=== PATIENT | male | born 1950 | race Two or more races ===

== ENCOUNTER 2020-02-20 09:49 | Inpatient (IN) | payer MEDICARE, MEDICAID ==
[2020-02-20] VITALS (12 sets, daily range): BP systolic 62–110; BP diastolic 52–80
[~2020-02-20] VITALS: Ht 162.6 cm; Wt 60.0 kg
[~2020-02-20 09:49] MED LIST: ALBUTEROL SULF8.5 G1 TRANSTR092; ATORVASTATIN CA10 MG GT; COLACE100 MG GT; HYDROCODON-ACE1 EA15 GT
[2020-02-20] MEDS ORDERED: LANSOPRAZOLE30 MG GT (09:51)
[2020-02-20] MEDS ORDERED: INSULIN LI100 UNIT/3 SQ (09:51)
[2020-02-20] MEDS ORDERED: MILK OF MA400 MG/51 GT (09:53)
[2020-02-20] MEDS ORDERED: MULTIVITAMINS1 EAC8 ORAL (09:53)
[2020-02-20] MEDS ORDERED: LEVEMIR100 UNIT/1 SUBQ (09:53)
[2020-02-20] MEDS ORDERED: NITRO0.4 SL (09:53)
[2020-02-20] MEDS ORDERED: LOVENOX10 M2 SUBQ (09:53)
[2020-02-20] MEDS ORDERED: PRO-STAT AWC L887 ML GT (09:56)
[2020-02-20] MEDS ORDERED: VITAMIN D32400 UNIT/ MC (09:56)
[2020-02-20] MEDS ORDERED: QUETIAPINE FUMA50 MG ORAL (09:56)
[2020-02-20] MEDS ORDERED: ACETAMINOPHEN325 M1 ORAL (09:56)
[2020-02-20] MEDS ORDERED: VITAMIN A & D454 GM TP (09:56)
[2020-02-20] MEDS ORDERED: SILVADENE20 GM TP (09:56)
[2020-02-20] MEDS ORDERED: ZINC OXIDE56.7 G1 TD (09:56)
[2020-02-20] MEDS ORDERED: METAMUCIL POWD822 GM GT (09:56)
[2020-02-20] MEDS ORDERED: VITAMIN C500 M1 GT (09:56)
--- NOTE | 2020-02-20 10:00 | NUR ---
ED Nurse Note: Pt was brought in by amb from [facility] d/t shortness of breath and tachycardia with HR of 147BPM; satting at 97% on O2 with 12LPM via trach. Pt is AOx2, understands english and wolof; cooperative to care. Pt is a GT dependent; incontinent, pressure sore on sacral area noted. Pt appears to be warm to touch. Pt was placed on bed, safety measures in placed.
[2020-02-20] MEDS ORDERED: Acetaminophen 650 MG SUPP RECTAL ONE ×2 (10:12→10:15)
[2020-02-20] MEDS ORDERED: Vancomycin 1 GM in NS 275 ML IVPB ONE (10:15)
[2020-02-20] MEDS ORDERED: Piperacillin/Tazobactam 3.375 GM in NS 110 ML IVPB ONE (10:15)
--- NOTE | 2020-02-20 10:15 | NUR ---
ED Nurse Note: rectal temp: 101.8, notified ERMD.
[2020-02-20 10:24] LABS: APPEARANCE,URINE TURBID; BILIRUBIN, URINE NEGATIVE (NEGATIVE); GLUCOSE, URINE (UA) 4+ (NEGATIVE); HEMATOCRIT 38.5 % (42.0-52.0); HEMOGLOBIN 12.8 G/DL (14.2-18.0); KETONES,URINE 1+ (NEGATIVE); LEUKOCYTE ESTERASE ,URINE 3+ (NEGATIVE); MEAN CORPUSCULAR VOLUME 84 FL (80-99); NITRITE,URINE NEGATIVE (NEGATIVE); PH,URINE 6 (4.5-8.0); PLATELET COUNT 597 K/UL (150-450); PROTEIN,URINE 2+ (NEGATIVE); RED BLOOD COUNT 4.57 M/UL (4.70-6.10); RED CELL DISTRIBUTION WIDTH 14.1 % (11.6-14.8); UROBILINOGEN,URINE NORMAL MG/DL (0.0-1.0)
[2020-02-20 10:27] LABS: COLOR,URINE YELLOW
[2020-02-20 10:28] LABS: WHITE BLOOD COUNT 27.7 K/UL (4.8-10.8)
--- NOTE | 2020-02-20 10:40 | Emergency Room Report ---
History of Present Illness General Chief Complaint: Dyspnea/Respdistress Source: Patient Present Illness HPI Disclaimer: Please note that this report is being documented using DRAGON technology. This can lead to erroneous entry secondary to incorrect interpretation by the dictating instrument. HPI: This is a 69-year-old male history of poorly controlled diabetes, traumatic brain injury with intracranial hemorrhage and history of stroke, encephalopathic at baseline, trach, G-tube and bedbound. [facility] due to reported hypoxia and fever. EMS was called on their arrival patient in mild respiratory distress transferred to the ER. Patient currently is a full code. On arrival to ER patient does respond to voice however cannot provide any history. He was in moderate respiratory distress on arrival. Allergies: Coded Allergies: No Known Allergies (Unverified , 02/20/20) COVID-19 Screening Contact w/high risk pt: Yes Experienced COVID-19 symptoms?: Yes COVID-19 Testing performed COMMUNITY ENGAGEMENT REPRESENTATIVE: No Patient History Reviewed Nursing Documentation: PMH: Agreed; PSxH: Agreed Nursing Documentation-PMH Past Medical History: No History, Except For Hx Diabetes: Yes Review of Systems All Other Systems: limited - Due to baseline altered mental status Physical Exam Vital Signs Date Time Temp Pulse Resp B/P (MAP) Pulse Ox O2 Delivery O2 Flow Rate FiO2 02/20/20 09:41 100.9 145 26 102/58 (73) 97 Trach Collar Sp02 EP Interpretation: reviewed, normal - On oxygen General Appearance: moderate distress, Chronically Ill Head: normocephalic, atraumatic Eyes: bilateral eye PERRL, bilateral eye EOMI ENT: hearing grossly normal, moist mucus membranes Neck: full range of motion, supple, tracheotomy Respiratory: respiratory distress - Moderate respiratory distress noted with coarse breath sounds noted bilaterally Cardiovascular #1: normal peripheral pulses, no murmur, tachycardia Gastrointestinal: non tender, soft, non-distended, no guarding, other - Gastrostomy tube present Neurologic: alert, other - Makes groaning sounds, withdraws the pain Skin: normal color, warm/dry Procedures Critical Care Time Critical Care Time Critical care is made in this patient due to presentation with fever, concern with sepsis, requiring my acute intervention. Critical care time is 40 minutes and excludes procedures Medical Decision Making Diagnostic Impression: Primary Impression: Sepsis Additional Impressions: Pneumonia UTI (urinary tract infection) ER Course MDM: Differential included but not limited to dehydration, sepsis, pneumonia, UTI, COVID-19 to name a few Clinical course-IV inserted septic work-up initiated IV fluids given blood gas ordered and showed evidence of alkalosis normal O2 and at this time I did not place patient on the ventilator. He was on trach mask and will continue trach mask. Patient was febrile on arrival Tylenol given. Broad-spectrum antibiotics given due to concern for UTI and sepsis. COVID testing was sent. Previous record from recent admission reviewed. He has a history of traumatic intracranial hemorrhage. Is encephalopathic at baseline. Laboratory studies showed evidence of urinary tract infection. Chest x-ray consistent with pneumonia in the right lung. Broad-spectrum IV antibiotics were given. COVID testing was negative. Patient given Tylenol for fever. IV fluid boluses given. On reassessment tachycardia improved fever improved, blood glucose improved with IV insulin. We will plan to admit the patient to ICU for further close monitoring. Labs - Laboratory Tests Test 02/20/20 10:00 02/20/20 10:03 02/20/20 11:08 White Blood Count 27.7 K/UL (4.8-10.8) *H Red Blood Count 4.57 M/UL (4.70-6.10) L Hemoglobin 12.8 G/DL (14.2-18.0) L Hematocrit 38.5 % (42.0-52.0) L Mean Corpuscular Volume 84 FL (80-99) Mean Corpuscular Hemoglobin 27.9 PG (27.0-31.0) Mean Corpuscular Hemoglobin Concent 33.1 G/DL (32.0-36.0) Red Cell Distribution Width 14.1 % (11.6-14.8) Platelet Count 597 K/UL (150-450) H Mean Platelet Volume 5.1 FL (6.5-10.1) L Neutrophils (%) (Auto) % (45.0-75.0) Lymphocytes (%) (Auto) % (20.0-45.0) Monocytes (%) (Auto) % (1.0-10.0) Eosinophils (%) (Auto) % (0.0-3.0) Basophils (%) (Auto) % (0.0-2.0) Differential Total Cells Counted 100 Neutrophils % (Manual) 89 % (45-75) H Lymphocytes % (Manual) 1 % (20-45) L Monocytes % (Manual) 4 % (1-10) Eosinophils % (Manual) 1 % (0-3) Basophils % (Manual) 0 % (0-2) Band Neutrophils 5 % (0-8) Platelet Estimate Increased H Platelet Morphology Normal Urine Color Yellow Urine Appearance Turbid Urine pH 6 (4.5-8.0) Urine Specific [place] 1.015 (1.005-1.035) Urine Protein 2+ (NEGATIVE) H Urine Glucose (UA) 4+ (NEGATIVE) H Urine Ketones 1+ (NEGATIVE) H Urine Blood 5+ (NEGATIVE) H Urine Nitrite Negative (NEGATIVE) Urine Bilirubin Negative (NEGATIVE) Urine Urobilinogen Normal MG/DL (0.0-1.0) Urine Leukocyte Esterase 3+ (NEGATIVE) H Urine RBC Tntc /HPF (0 - 0) H Urine WBC Tntc /HPF (0 - 0) H Urine Squamous Epithelial Cells Few /LPF (NONE/OCC) Urine Bacteria Many /HPF (NONE) H Urine Yeast Many /HPF (NONE) H Sodium Level 133 MMOL/L (136-145) L Potassium Level 4.5 MMOL/L (3.5-5.1) Chloride Level 98 MMOL/L (98-107) Carbon Dioxide Level 22 MMOL/L (21-32) Anion Gap 13 mmol/L (5-15) Blood Urea Nitrogen 33 mg/dL (7-18) H Creatinine 1.5 MG/DL (0.55-1.30) H Estimated Glomerular Filtration Rate 46.5 mL/min (>60) Glucose Level 505 MG/DL (74-106) *H Lactic Acid Level 5.20 mmol/L (0.4-2.0) H 4.70 mmol/L (0.66-2.22) H Calcium Level 10.9 MG/DL (8.5-10.1) H Magnesium Level 1.9 MG/DL (1.8-2.4) Total Bilirubin 0.3 MG/DL (0.2-1.0) Aspartate Amino Transferase (AST) 12 U/L (15-37) L Alanine Aminotransferase (ALT) 15 U/L (12-78) Alkaline Phosphatase 158 U/L (46-116) H Troponin I 0.007 ng/mL (0.000-0.056) Pro-B-Type Natriuretic Peptide 216 pg/mL (0-125) H Total Protein 8.7 G/DL (6.4-8.2) H Albumin 1.8 G/DL (3.4-5.0) L Globulin 6.9 g/dL Albumin/Globulin Ratio 0.3 (1.0-2.7) L Acetone Level Negative (NEGATIVE) Arterial Blood pH 7.516 (7.350-7.450) Arterial Blood Partial Pressure CO2 28.7 mmHg (35.0-45.0) L Arterial Blood Partial Pressure O2 106.8 mmHg (75.0-100.0) H Arterial Blood HCO3 22.7 mmol/L (22.0-26.0) Arterial Blood Oxygen Saturation 98.0 % (95-100) Arterial Blood Base Excess 0.7 (-2-2) Jose Test Positive Microbiology Date/Time Source Procedure Growth Status 02/20/20 10:00 Nasopharynx SARS-CoV-2 RdRp Gene Assay - Final Complete Plan-admission to Dr. Lan EKG Diagnostic Results Rate: tachycardiac Rhythm: other - sinus tachycardia ST Segments: no acute changes Rhythm Strip Diag. Results EP Interpretation: yes Rate: 125 Chest X-Ray Diagnostic Results Chest X-Ray Diagnostic Results : Chest X-Ray Ordered: Yes # of Views/Limited/Complete: 1 View Indication: Shortness of Breath EP Interpretation: Yes Interpretation: other - Right-sided consolidation noted, no pneumothorax no effusion Electronically Signed by: Artie Pulliam MD Last Vital Signs Date Time Temp Pulse Resp B/P (MAP) Pulse Ox O2 Delivery O2 Flow Rate FiO2 02/20/20 09:41 100.9 145 26 102/58 (73) 97 Trach Collar Status: improved Disposition: ADMITTED INPATIENT Condition: Serious Artie Pulliam M.D. Feb 20, 2020 10:40
[2020-02-20 10:57] LABS: ALANINE AMINOTRANSFERASE 15 U/L (12-78); ALBUMIN 1.8 G/DL (3.4-5.0); ALBUMIN/GLOBULIN RATIO 0.3 (1.0-2.7); ALKALINE PHOSPHATASE 158 U/L (46-116); ANION GAP 13 mmol/L (5-15); ASPARTATE AMINO TRANSFERASE 12 U/L (15-37); BILIRUBIN,TOTAL 0.3 MG/DL (0.2-1.0); BLOOD UREA NITROGEN 33 mg/dL (7-18); CALCIUM 10.9 MG/DL (8.5-10.1); CARBON DIOXIDE 22 MMOL/L (21-32); CHLORIDE 98 MMOL/L (98-107); CREATININE 1.5 MG/DL (0.55-1.30); POTASSIUM 4.5 MMOL/L (3.5-5.1); SODIUM 133 MMOL/L (136-145)
--- NOTE | 2020-02-20 11:17 | Diagnostic Imaging Report ---
Indication: Dyspnea Technique: One view of the chest Comparison: None Findings: There is fairly extensive consolidation in the right lung. No pleural effusions. The left lung and pleural space are clear. The heart size is normal. There is some fullness in the right hilar region. Impression: Right lung consolidation, likely pneumonia Right hilar apparent fullness, probably an artifact of rotation but mass or adenopathy also possible. Recommend follow-up radiographs to resolution. Tracheostomy
[2020-02-20] MEDS ORDERED: Insulin Human Regular 100units/ml 3ml IV ONE (11:45)
--- NOTE | 2020-02-20 14:59 | NUR ---
ED Nurse Note: report given to Damian HAN in ICU.
--- NOTE | 2020-02-20 16:00 | NUR ---
NURSE NOTES: PT ON UNIT. CONNECTED TO MONITOR. SOB, PLACED ON COOL AEROSOL 35%, 12L. COUGH NOTED. SECRETIONS COPIOUS, VARELA AND YELLOW. BILATERAL RHONCHI, WHEEZE. HOB 30. ABDOMEN, NON TENDER. PT WEARING DIAPER, INCONTINENT OF STOOL. BROWN, LOOSE. BILATERAL RADIAL PULSES WEAK. UNILATERAL STRENGTH. RT GREATER THEN LEFT. TOES CONTRACTED. LT HAND AND RT WRIST 20G. S.L. ZAMAN DRAINING YELLOW URINE, WITH SEDIMENT. AX TEMP 97.8. NO C/O PAIN. CALL LIGHT IN REACH. BED ALARM ON. STANDARD PRECAUTIONS IN PLACE.
--- NOTE | 2020-02-20 16:05 | NUR ---
ED Nurse Note: Pt was transferred to ICU under the care of Dr. Lan. Report for transfer was given to EMELY Salgado in ICU. Pt was transfered on stable condition; family aware. All belongings sent with pt.
--- NOTE | 2020-02-20 16:50 | NUR ---
NURSE NOTES: CALLED MD RG, LEFT MESSAGE FOR ADMISSION ORDERS. AWAITING CALL BACK.
--- NOTE | 2020-02-20 17:02 | NUR ---
NURSE NOTES: MD GROVER HERE TO SEE PT. RECEIVED ORDER FO HEP 5,000 UNITS DAILY. PROTONIX 40MG DAILY IVP. VENOUS DUPLEX, CONSULTS FOR: RAPHAEL REYNOLDS [place], KATTAN. NS IL AT 100ML/HR. TYLENOL FOR PAIN AND FEVER. DUO [id number]. CULTURE SPUTUM AND URINE. LABS: ESR, BNP, HGB A1C, VIT D 250H, CBC, BMP, LFT. THEN ZOSYN 3.75G, VANCO 1GM.IVPB. IN AM UA, CXR. FULL CODE. DIET GLUCERNA, US OF ABDOMEN AND RENAL
--- NOTE | 2020-02-20 17:09 | History & Physical ---
History of Present Illness General Reason for Hospitalization: Dyspnea/Respdistress Present Illness Allergies: Coded Allergies: No Known Allergies (Unverified , 02/20/20) COVID-19 Screening Contact w/high risk pt: Yes Experienced COVID-19 symptoms?: Yes COVID-19 symptoms experienced: Cough Medication History Scheduled Acetylcysteine (Acetylcysteine), 6 ML [id number] Q6HR, (Reported) Albuterol Sulfate* (Albuterol Sulfate Hfa*), 2 PUFF [id number] Q3H, (Reported) Amino Acids/Protein Hydrolys (Pro-Stat Awc Liquid), 30 ML GT DAILY, (Reported) Ascorbic Acid* (Vitamin C*), 500 MG GT DAILY, (Reported) Atorvastatin Calcium* (Lipitor*), 10 MG GT BEDTIME, (Reported) Cholecalciferol (Vitamin D3) (Vitamin D3), 125 MCG GT DAILY, (Reported) Docusate Sodium* (Colace*), 100 MG GT DAILY, (Reported) Enoxaparin* (Lovenox*), 70 MG SUBQ EVERY 12 HOURS, (Reported) Ertapenem (Invanz), 1 GM IM DAILY, (Reported) Ertapenem (Invanz), 1 GM IM DAILY, (Reported) Insulin NPH Human Isophane (NovoLIN N Flexpen), 17 UNIT SQ Q8HR, (Reported) Lansoprazole* (Lansoprazole*), 30 MG GT DAILY, (Reported) Multivitamin with Minerals (Support), 5 ML GT DAILY, (Reported) Psyllium (Metamucil Powder), 6 GM GT BID, (Reported) Quetiapine Fumarate* (Seroquel*), 25 MG GT TWICE A DAY, (Reported) Silver Sulfadiazine (Silvadene), 20 GM TP DAILY, (Reported) Vitamin A & D (Vitamin A & D Ointment), 454 GM TP DAILY, (Reported) Zinc Oxide (Zinc Oxide), 56.7 GM TD DAILY, (Reported) Scheduled PRN Acetaminophen* (Acetaminophen 325MG Tablet*), 325 MG ORAL Q4H PRN for MILD PAIN (1-4)/TEMP>101F, (Reported) Dextran 70/Hypromellose (Artificial Tears Eye Drops*), 1 DROP BOTH EYES Q4HR PRN for EYE IRRITATION, (Reported) Hydrocodone/Acetaminophen 5-325* (Hydrocodone/Acetaminophen 5-325*), 1 TAB GT Q6HR PRN for Severe Pain (Pain Scale 7-10), (Reported) Insulin Lispro (Humalog), 0 SUBQ TID PRN for HYPERGLYCEMIA, (Reported) Magnesium Hydroxide* (Milk Of Magnesia*), 30 ML GT QHS PRN for Constipation, ( Reported) Nitroglycerin 0.4MG table* (Nitroglycerin*), 0.3 MG SL .Q5MIN X 3 DOSES PRN for CHEST PAIN, (Reported) Discontinued Medications Cholecalciferol (Vitamin D3) (Vitamin D3), 5,000 UNIT MC, (Reported) Discontinued Reason: Prescription changed Enoxaparin* (Lovenox*), 70 MG SUBQ DAILY, (Reported) Discontinued Reason: Prescription changed Insulin Detemir (Levemir), 0 SUBQ BEDTIME, (Reported) Discontinued Reason: Therapy completed Insulin Lispro Protamin/Lispro (Insulin Lispro Mix 75-25 Kwkpn), 100 UNIT SQ, ( Reported) Discontinued Reason: Prescription changed Multivitamin With Minerals (Multivitamins With Minerals*), 1 TAB ORAL DAILY, ( Reported) Discontinued Reason: Prescription changed Quetiapine Fumarate* (Quetiapine Fumarate*), 25 MG ORAL DAILY, (Reported) Discontinued Reason: Prescription changed Patient History Limited by: other - Patient is unable to give any information regarding his state of health History Provided By: Medical Record Healthcare decision maker Resuscitation status Advanced Directive on File Family History Family History: Family history was reviewed; no changes noted. Review of Systems Review of Symptoms General ROS: no weight loss or fever Psychological ROS: no depression or mood changes, no memory loss Ophthalmic ROS: no visual changes or eye irritation ENT ROS: no nasal congestion, hearing loss, dizziness Allergy and Immunology ROS: no allergic symptoms or urticaria Hematological and Lymphatic ROS: no swollen glands, unusual bleeding or bruising Endocrine ROS: no polyuria, polydipsia, weight changes, temperature intolerance Respiratory ROS: no cough, shortness of breath, or wheezing Cardiovascular ROS: no chest pain or dyspnea on exertion Gastrointestinal ROS: denies abdominal pain, bright red blood in stool. Musculoskeletal ROS: no myalgias or arthralgias Neurological ROS: no TIA or stroke symptoms Dermatological ROS: no new or changing skin lesions, rashes or pruritis Physical Exam Physical Exam General appearance: alert, cooperative, no distress, appears stated age Head: Normocephalic, without obvious abnormality, atraumatic Eyes: conjunctivae/corneas clear. PERRL, EOM's intact. Fundi benign Throat: Lips, mucosa, and tongue normal. Teeth and gums normal Neck: supple, symmetrical, trachea midline, no adenopathy, thyroid: not enlarged, symmetric, no tenderness/mass/nodules, no carotid bruit and no JVD Lungs: clear to auscultation bilaterally Heart: regular rate and rhythm, S1, S2 normal, no murmur, click, rub or gallop Abdomen: soft, non-tender. Bowel sounds normal. No masses, no organomegaly Extremities: extremities normal, atraumatic, no cyanosis or edema Pulses: 2+ and symmetric Skin: Skin color, texture, turgor normal. No rashes or lesions Neurologic: Grossly normal Last 24 Hour Vital Signs Date Time Temp Pulse Resp B/P (MAP) Pulse Ox O2 Delivery O2 Flow Rate FiO2 02/20/20 16:48 98 Cool Aerosol 8.0 35 02/20/20 16:31 103 29 106/80 (89) 98 02/20/20 16:30 12.0 35 02/20/20 16:05 98.9 101 22 96/60 99 Trach Collar 02/20/20 14:50 98.9 106 22 96/60 98 Trach Collar 02/20/20 13:15 98.9 105 23 96/60 97 Trach Collar 02/20/20 12:51 98.9 106 24 96/60 97 Trach Collar 02/20/20 11:45 98.9 108 27 102/58 97 Trach Collar 02/20/20 10:45 98.9 02/20/20 10:25 145 26 Trach Collar 02/20/20 10:25 100.9 26 102/58 97 Trach Collar 02/20/20 09:41 100.9 145 26 102/58 (73) 97 Trach Collar Laboratory Tests Test 02/20/20 10:00 02/20/20 10:03 02/20/20 11:08 White Blood Count 27.7 K/UL (4.8-10.8) *H Red Blood Count 4.57 M/UL (4.70-6.10) L Hemoglobin 12.8 G/DL (14.2-18.0) L Hematocrit 38.5 % (42.0-52.0) L Mean Corpuscular Volume 84 FL (80-99) Mean Corpuscular Hemoglobin 27.9 PG (27.0-31.0) Mean Corpuscular Hemoglobin Concent 33.1 G/DL (32.0-36.0) Red Cell Distribution Width 14.1 % (11.6-14.8) Platelet Count 597 K/UL (150-450) H Mean Platelet Volume 5.1 FL (6.5-10.1) L Neutrophils (%) (Auto) % (45.0-75.0) Lymphocytes (%) (Auto) % (20.0-45.0) Monocytes (%) (Auto) % (1.0-10.0) Eosinophils (%) (Auto) % (0.0-3.0) Basophils (%) (Auto) % (0.0-2.0) Differential Total Cells Counted 100 Neutrophils % (Manual) 89 % (45-75) H Lymphocytes % (Manual) 1 % (20-45) L Monocytes % (Manual) 4 % (1-10) Eosinophils % (Manual) 1 % (0-3) Basophils % (Manual) 0 % (0-2) Band Neutrophils 5 % (0-8) Platelet Estimate Increased H Platelet Morphology Normal Urine Color Yellow Urine Appearance Turbid Urine pH 6 (4.5-8.0) Urine Specific [place] 1.015 (1.005-1.035) Urine Protein 2+ (NEGATIVE) H Urine Glucose (UA) 4+ (NEGATIVE) H Urine Ketones 1+ (NEGATIVE) H Urine Blood 5+ (NEGATIVE) H Urine Nitrite Negative (NEGATIVE) Urine Bilirubin Negative (NEGATIVE) Urine Urobilinogen Normal MG/DL (0.0-1.0) Urine Leukocyte Esterase 3+ (NEGATIVE) H Urine RBC Tntc /HPF (0 - 0) H Urine WBC Tntc /HPF (0 - 0) H Urine Squamous Epithelial Cells Few /LPF (NONE/OCC) Urine Bacteria Many /HPF (NONE) H Urine Yeast Many /HPF (NONE) H Sodium Level 133 MMOL/L (136-145) L Potassium Level 4.5 MMOL/L (3.5-5.1) Chloride Level 98 MMOL/L (98-107) Carbon Dioxide Level 22 MMOL/L (21-32) Anion Gap 13 mmol/L (5-15) Blood Urea Nitrogen 33 mg/dL (7-18) H Creatinine 1.5 MG/DL (0.55-1.30) H Estimat Glomerular Filtration Rate 46.5 mL/min (>60) Glucose Level 505 MG/DL (74-106) *H Lactic Acid Level 5.20 mmol/L (0.4-2.0) H 4.70 mmol/L (0.66-2.22) H Calcium Level 10.9 MG/DL (8.5-10.1) H Magnesium Level 1.9 MG/DL (1.8-2.4) Total Bilirubin 0.3 MG/DL (0.2-1.0) Aspartate Amino Transf (AST/SGOT) 12 U/L (15-37) L Alanine Aminotransferase (ALT/SGPT) 15 U/L (12-78) Alkaline Phosphatase 158 U/L (46-116) H Troponin I 0.007 ng/mL (0.000-0.056) Pro-B-Type Natriuretic Peptide 216 pg/mL (0-125) H Total Protein 8.7 G/DL (6.4-8.2) H Albumin 1.8 G/DL (3.4-5.0) L Globulin 6.9 g/dL Albumin/Globulin Ratio 0.3 (1.0-2.7) L Acetone Level Negative (NEGATIVE) Arterial Blood pH 7.516 (7.350-7.450) Arterial Blood Partial Pressure CO2 28.7 mmHg (35.0-45.0) L Arterial Blood Partial Pressure O2 106.8 mmHg (75.0-100.0) H Arterial Blood HCO3 22.7 mmol/L (22.0-26.0) Arterial Blood Oxygen Saturation 98.0 % (95-100) Arterial Blood Base Excess 0.7 (-2-2) Jose Test Positive Microbiology Date/Time Source Procedure Growth Status 02/20/20 10:00 Nasopharynx SARS-CoV-2 RdRp Gene Assay - Final Complete Height (Feet): 5 Height (Inches): 6.00 Weight (Pounds): 180 Medications Current Medications Medications (Trade) Dose Ordered Sig/Anders Route PRN Reason Start Time Stop Time Status Last Admin Dose Admin Sodium Chloride 1,000 ml @ 125 mls/hr Q8H IV 02/20/20 14:15 10/9/20 14:14 02/20/20 14:34 MIPS Hospital declaration INPATIENT level of care is warranted for this patient because patient is 67year old with who presents with suspicion of I have a high level of concern because of nigh fever tachycardia and leucocytosis associated with hypotension.Patient is at high rirsk for . Plan of care/treatment include presure support anti biotics and respiratory assistance. Patient care is expected to be greater than 2 midnights. OBSERVATION level of care is warranted for this patient. Patient is a 67 year old with who presents with . Patient will be admitted for 1 midnight, but if additional night(s) is/are necessary, patient will be converted to inpatient status for the entire hospitalization Disposition: Once the patient is stable to leave the hospital, I anticipate the patient will likely be discharged to the following environment: [facility] UNIT. Estimated discharge date: I spent 70 minutes on this patient's case, and 30 minutes was dedicated to counseling and/or care coordination. MIPS (Merit-based Incentive Payment System) Applicable CPT: 41938, 05517 CHECK ALL THAT ARE MET: Measure #5 (CHF): All ages. Prescribe JAMAL/ARB upon discharge for patients with left ventricular systolic dysfunction. If not, the reason is clearly documented in the medical chart. Measure #8 (CHF): All ages. Prescribe a beta mahi upon discharge for patients with left ventricular systolic dysfunction. If not, the reason is clearly documented in the medical chart. Measure #47 Advance care plan or surrogate decision maker documented in the medical record. Measure #130 The provider has documented, updated, or reviewed the patients current medication list and has documented it in the patients note. Measure #374 (All): Send report to referring provider. Measure #407(Sepsis due to MSSA bacteremia): Age 18+ Patient treated with a beta-lactam antibiotic (Nafcillin, Oxacillin or Cefazolin) as definitive therapy. MEDICAL COMPLEXITY High complexity medical decision making (need 2/3 categories) Problem - need 4 points Acute/new problem with new plan for workup (4 points, 1 max) Acute/new problem without additional workup (3 points, 1 max) Unstable chronic problem actively being managed (2 point each, 2 max) Stable chronic problem actively being managed (1 point each, 2 max) Self-limited/transient process (constipation, muscle ache, etc) (1 point each , 2 max) Data - need 4 points Reviewed labs/imaging studies (1 points, 2 max) Independent review of imaging (EKG, xrays, etc) (2 points, 2 max) Discussed case with consult/other MD/RN (2 points, 2 max) High Risk - qualify if have one of the following: Severe exacerbation of acute problem, acute mental status change, IV narcotics , monitoring drug levels (vancomycin, INR, tacrolimus etc) Yola Lan MD Feb 20, 2020 17:09
[2020-02-20 18:55] LABS: HEMATOCRIT 27.4 % (42.0-52.0); HEMOGLOBIN 9.4 G/DL (14.2-18.0); MEAN CORPUSCULAR VOLUME 86 FL (80-99); PLATELET COUNT 464 K/UL (150-450); RED CELL DISTRIBUTION WIDTH 14.7 % (11.6-14.8)
[2020-02-20 19:01] LABS: WHITE BLOOD COUNT 27.7 K/UL (4.8-10.8)
--- NOTE | 2020-02-20 19:20 | NUR ---
NURSE NOTES: Pt report received from mary RN. pt remains stable. pt is alert and oriented times 2, no other acute neuro deficit noted. pt is Trach with cool aerosol, sating 98%, no other acute resp distress noted. pt is showing NSR on cardiac catheterization technologist, no other acute cardiac distress noted. pt bed is low, locked, armed , call light within reach, bed rails up times 3. will follow plan of care.
--- NOTE | 2020-02-20 19:40 | NUR ---
NURSE NOTES: tube feeding started per Doctor order.
[2020-02-20 19:56] LABS: ALANINE AMINOTRANSFERASE 10 U/L (12-78); ANION GAP 9 mmol/L (5-15); ASPARTATE AMINO TRANSFERASE 9 U/L (15-37); BILIRUBIN,DIRECT < 0.1 MG/DL (0.0-0.3); BILIRUBIN,TOTAL 0.3 MG/DL (0.2-1.0); BLOOD UREA NITROGEN 21 mg/dL (7-18); CALCIUM 10.5 MG/DL (8.5-10.1); CARBON DIOXIDE 24 MMOL/L (21-32); CHLORIDE 108 MMOL/L (98-107); CREATININE 0.7 MG/DL (0.55-1.30); POTASSIUM 3.9 MMOL/L (3.5-5.1); SODIUM 141 MMOL/L (136-145)
[2020-02-20] MEDS: Albuterol/Ipratropium 3ml neb HHN SCH (19:57)
[2020-02-20] MEDS ORDERED: Vancomycin 500 MG in NS 110 ML IVPB ONE (20:00)
--- NOTE | 2020-02-20 20:10 | NUR ---
HAND-OFF: Report given to MARCUS Eduardo
[2020-02-20] MEDS ORDERED: Vancomycin 1 GM in D5W 275 ML IVPB SCH (21:00)
[2020-02-20] MEDS: Heparin 5000 units/ml inj SUBQ SCH (21:01)
--- NOTE | 2020-02-20 23:00 | NUR ---
NURSE NOTES: pt turned, repositioned and cleaned.
[2020-02-20] MEDS: Piperacillin/Tazobactam 3.375 GM in NS 110 ML IVPB SCH (23:01)
[2020-02-21] VITALS (27 sets, daily range): BP systolic 107–142; BP diastolic 61–85
[2020-02-21] MEDS: Albuterol/Ipratropium 3ml neb HHN SCH ×4 (01:20→19:49)
[2020-02-21] MEDS: Piperacillin/Tazobactam 3.375 GM in NS 110 ML IVPB SCH ×3 (06:07→20:45)
--- NOTE | 2020-02-21 07:20 | NUR ---
NURSE HAND-OFF REPORT: Latest Vital Signs: Temperature 97.8 , Pulse 107 , B/P 123 /76 , Respiratory Rate 28 , O2 SAT 98 , T-piece, O2 Flow Rate 12.0 . Vital Sign Comment: [STABLE] EKG Rhythm: Sinus Rhythm Rhythm change?: N MD Notified?: - MD Response: NA Latest Cole Fall Score: 40 Fall Risk: Medium Risk Safety Measures: Call light Within Reach, Bed Alarm Zone 2, Side Rails Side Rails x3, Bed position Low and Locked. Fall Precautions: Yellow Socks Yellow Gown Door Sign Patient Fall Education Report given to [JEF HAN].
--- NOTE | 2020-02-21 07:32 | NUR ---
NURSE NOTES: Doctor Leopoldo Dominguez called to assess status of pt. lab values and vital signs were reported. doctor Mina ordered to add himself to the consulting team and to add a follow up CBC, BMP lab values.
--- NOTE | 2020-02-21 07:35 | NUR ---
NURSE NOTES: Report received from Satya Ashley RN .Pt awake,alert able to follow simple command noted no resp distress with trach tube ,on 35% Cool aerosol at 12L,no signs of pain or discomfort,S-Tach on the monitor,,GTF Glucerns 1.2 at 20 ml/hr,no residual noted,goal is 55 ml/hr,Estrada cath draining yellow urine,skin warm and dry with IV sites RFA and LT Wrist both intact IVF NS at 100 ml/hr ,SR up x2 HOB elevated ,bed lock in lowest position,will continue with plans of care.
[2020-02-21 08:49] LABS: HEMATOCRIT 27.4 % (42.0-52.0); MEAN CORPUSCULAR VOLUME 84 FL (80-99); PLATELET COUNT 529 K/UL (150-450); RED BLOOD COUNT 3.25 M/UL (4.70-6.10); RED CELL DISTRIBUTION WIDTH 13.9 % (11.6-14.8); WHITE BLOOD COUNT 20.8 K/UL (4.8-10.8)
[2020-02-21] MEDS: Pantoprazole Inj IVP SCH (09:07)
[2020-02-21] MEDS: Heparin 5000 units/ml inj SUBQ SCH ×2 (09:08→20:45)
[2020-02-21 09:15] LABS: % IRON SATURATION 13 % (15-50); IRON 17 ug/dL (50-175); TOTAL IRON BINDING CAPACITY 134 ug/dL (250-450)
--- NOTE | 2020-02-21 09:15 | NUR ---
NURSE NOTES: US Tech Tami called to keep pt NPO for US Abdomen,GTF turned off.
[2020-02-21 09:25] LABS: ANION GAP 9 mmol/L (5-15); BLOOD UREA NITROGEN 14 mg/dL (7-18); CALCIUM 10.7 MG/DL (8.5-10.1); CARBON DIOXIDE 24 MMOL/L (21-32); CHLORIDE 108 MMOL/L (98-107); CREATININE 0.6 MG/DL (0.55-1.30); FERRITIN 582 NG/ML (8-388); POTASSIUM 3.5 MMOL/L (3.5-5.1); SODIUM 141 MMOL/L (136-145)
--- NOTE | 2020-02-21 09:45 | NUR ---
RD ASSESSMENT & RECOMMENDATIONS SEE CARE ACTIVITY FOR COMPLETE ASSESSMENT DAILY ESTIMATED NEEDS: Needs based on wound, DM, sepsis/ 65kg 25-30 kcals/kg 2245-8009 total kcals 1.25-2 g protein/kg 81-130 g total protein 25-30 mL/kg 3486-1574 total fluid mLs NUTRITION DIAGNOSIS: * Swallowing difficulty R/T dysphagia, respiratory status as evidenced by pt on T-collar, PEG dep. * Increased kcal/prot needs R/T wound healing as evidenced by admitted w/ sacral wound per photo, pending eval. CURRENT TF:Glucerna 1.5 @ 55ml/hr x 24 hrs ENTERAL NUTRITION RECOMMENDATIONS: Glucerna 1.5 @ 50ml/hr x 24 hrs to provide 1200ml, 1800kcal, 99g prot, 910ml free water * LOWER goal rate to 50m/hr x 24 hrs: meets 100% est kcal/prot needs * HOB over 30 degrees/ water flush per MD ADDITIONAL RECOMMENDATIONS: * Calibrated bedscal wt for accurate CBW * Rec long acting insulin for improved BG control. * Wound healing: Add Vit C 500mg QD + Omari BID via PEG * Monitor lytes, replete as needed
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
--- NOTE | 2020-02-21 10:53 | NUR ---
RADIOLOGY DEPT., CHEST X-RAY DONE.-P.DYE
--- NOTE | 2020-02-21 11:03 | NUR ---
NURSE NOTES: PUlled up and repositioned,tracheal secretions suctioned PRN.
--- NOTE | 2020-02-21 11:33 | Diagnostic Imaging Report ---
Indication: Bilateral leg pain Technique: Grayscale and duplex images of the bilateral lower extremity veins Comparison: None Findings: Bilaterally, grayscale and duplex images demonstrate no evidence of intraluminal thrombus. Normal phasic Doppler waveforms, demonstrating normal augmentation response and no evidence of valvular insufficiency. Greater saphenous vein(s) and tibial veins are patent. Normal compressibility. Impression: Negative for evidence of lower extremity deep venous thrombosis bilaterally
--- NOTE | 2020-02-21 12:02 | Diagnostic Imaging Report ---
Indication: Cough Technique: One view of the chest Comparison: 02/20/2020 Findings: Slightly better inspiration on the current exam. Extensive dense consolidation persists throughout the right lung, probably unchanged allowing for differences in degree of inspiration. Right infrahilar opacity appears less masslike currently. There is new or increased consolidation or atelectasis at the left lateral lung base. The left upper lung and bilateral pleural spaces remain clear. Impression: Probably unchanged extensive infiltrates, likely pneumonia, on the right. New or increased left basilar atelectasis and/or infiltrate
--- NOTE | 2020-02-21 12:09 | Consultation ---
History of Present Illness General Date patient seen: Feb 21, 2020 Chief Complaint: Dyspnea/Respdistress Present Illness HPI 69-year-old male wtih history of diabetes, traumatic brain injury with intracranial hemorrhage, vegetative state, trach, G-tube and bedbound. Patient presented from a group home facility due to reported hypoxia and fever. He is admitted to ICU for further management Allergies: Coded Allergies: No Known Allergies (Unverified , 02/20/20) Medication History Scheduled Albuterol Sulfate* (Albuterol Sulfate Hfa*), 2 PUFF INH Q3H, (Reported) Ascorbic Acid* (Vitamin C*), 500 MG ORAL DAILY, (Reported) Atorvastatin Calcium* (Lipitor*), 10 MG ORAL BEDTIME, (Reported) Docusate Sodium* (Colace*), 100 MG ORAL DAILY, (Reported) Enoxaparin* (Lovenox*), 70 MG SUBQ DAILY, (Reported) Insulin Detemir (Levemir), 0 SUBQ BEDTIME, (Reported) Lansoprazole* (Lansoprazole*), 30 MG ORAL DAILY, (Reported) Magnesium Hydroxide* (Milk Of Magnesia*), 30 ML ORAL DAILY, (Reported) Multivitamin With Minerals (Multivitamins With Minerals*), 1 TAB ORAL DAILY, ( Reported) Quetiapine Fumarate* (Quetiapine Fumarate*), 25 MG ORAL DAILY, (Reported) Scheduled PRN Acetaminophen* (Acetaminophen 325MG Tablet*), 325 MG ORAL Q4H PRN for For Pain, (Reported) Hydrocodone/Acetaminophen 5-325* (Hydrocodone/Acetaminophen 5-325*), 1 TAB ORAL Q4H PRN for For Pain, (Reported) Nitroglycerin 0.4MG table* (Nitroglycerin*), 0.4 MG SL .Q5MIN X 3 DOSES PRN for CHEST PAIN, (Reported) Miscellaneous Medications Amino Acids/Protein Hydrolys (Pro-Stat Awc Liquid), 887 ML PO, (Reported) Cholecalciferol (Vitamin D3) (Vitamin D3), 5,000 UNIT MC, (Reported) Insulin Lispro Protamin/Lispro (Insulin Lispro Mix 75-25 Kwkpn), 100 UNIT SQ, ( Reported) Psyllium (Metamucil Powder), 822 GM PO, (Reported) Silver Sulfadiazine (Silvadene), 20 GM TP, (Reported) Vitamin A & D (Vitamin A & D Ointment), 454 GM TOP, (Reported) Zinc Oxide (Zinc Oxide), 56.7 GM TP, (Reported) Patient History Healthcare decision maker Resuscitation status Advanced Directive on File Past Medical/Surgical History Past Medical/Surgical History: (1) Chronic vegetative state (2) Feeding by G-tube (3) Diabetes mellitus (4) Tracheostomy in place (5) OBS (organic brain syndrome) Review of Systems All Other Systems: negative except mentioned in HPI Physical Exam General Appearance: WD/WN, no apparent distress Lines, tubes and drains: peripheral, trach, gtube HEENT: normocephalic, atraumatic Neck: non-tender, normal alignment Respiratory/Chest: chest wall non-tender, lungs clear Cardiovascular/Chest: normal peripheral pulses, normal rate Abdomen: normal bowel sounds, hyperactive bowel sounds Genitourinary/Rectal: normal rectal exam Extremities: normal range of motion Last 24 Hour Vital Signs Date Time Temp Pulse Resp B/P (MAP) Pulse Ox O2 Delivery O2 Flow Rate FiO2 02/21/20 11:00 102 24 111/61 (78) 98 02/21/20 10:00 101 24 125/73 (90) 100 02/21/20 09:01 102 30 118/70 (86) 99 02/21/20 08:01 99.0 103 28 124/80 (95) 99 02/21/20 08:00 T-piece 12.0 02/21/20 08:00 103 02/21/20 08:00 99.0 103 28 124/80 (95) 99 02/21/20 07:18 98 Cool Aerosol 8.0 35 02/21/20 07:18 101 20 98 T-Piece 8.0 35 98 20 97 02/21/20 07:01 104 30 131/73 (92) 97 02/21/20 07:00 104 30 131/73 (92) 97 02/21/20 06:00 107 28 123/76 (92) 98 02/21/20 05:00 111 28 136/85 (102) 99 02/21/20 04:00 T-piece 12.0 02/21/20 04:00 106 02/21/20 04:00 97.8 110 33 123/65 (84) 98 02/21/20 04:00 12.0 35 02/21/20 03:00 109 26 113/62 (79) 98 02/21/20 02:00 112 26 132/72 (92) 99 02/21/20 01:20 109 20 100 T-Piece 8.0 35 107 20 98 02/21/20 01:03 98 Cool Aerosol 8.0 35 02/21/20 01:00 109 26 119/68 (85) 98 02/21/20 00:00 108 02/21/20 00:00 97.5 108 30 118/66 (83) 98 02/21/20 00:00 T-piece 12.0 02/21/20 00:00 12.0 35 02/20/20 23:00 108 25 110/60 (77) 98 02/20/20 22:00 103 21 103/59 (74) 98 02/20/20 21:00 103 21 88/52 (64) 98 02/20/20 20:00 101 02/20/20 20:00 12.0 35 02/20/20 20:00 T-piece 12.0 02/20/20 20:00 97.9 103 23 103/58 (73) 98 02/20/20 19:58 106 20 100 T-Piece 8.0 35 102 20 98 02/20/20 19:53 98 Cool Aerosol 8.0 35 02/20/20 18:00 99 28 100/59 (73) 98 02/20/20 17:00 97.8 98 27 90/54 (66) 98 02/20/20 16:48 98 Cool Aerosol 8.0 35 02/20/20 16:31 103 29 106/80 (89) 98 02/20/20 16:30 Trach Collar 02/20/20 16:30 12.0 35 02/20/20 16:05 98.9 101 22 96/60 99 Trach Collar 02/20/20 14:50 98.9 106 22 96/60 98 Trach Collar 02/20/20 13:15 98.9 105 23 96/60 97 Trach Collar 02/20/20 12:51 98.9 106 24 96/60 97 Trach Collar Intake and Output 02/20/20 02/21/20 19:00 07:00 Intake Total 100 ml 1490.0 ml Output Total 205 ml 420 ml Balance -105 ml 1070.0 ml Intake IV Total 100 ml 1310.0 ml Tube Feeding 180 ml Output Urine Total 205 ml 420 ml # Bowel Movements 1 1 Laboratory Tests Test 02/20/20 18:40 02/21/20 08:10 White Blood Count 27.7 K/UL (4.8-10.8) *H 20.8 K/UL (4.8-10.8) H Red Blood Count 3.20 M/UL (4.70-6.10) L 3.25 M/UL (4.70-6.10) L Hemoglobin 9.4 G/DL (14.2-18.0) L 9.0 G/DL (14.2-18.0) L Hematocrit 27.4 % (42.0-52.0) L 27.4 % (42.0-52.0) L Mean Corpuscular Volume 86 FL (80-99) 84 FL (80-99) Mean Corpuscular Hemoglobin 29.5 PG (27.0-31.0) 27.6 PG (27.0-31.0) Mean Corpuscular Hemoglobin Concent 34.4 G/DL (32.0-36.0) 32.8 G/DL (32.0-36.0) Red Cell Distribution Width 14.7 % (11.6-14.8) 13.9 % (11.6-14.8) Platelet Count 464 K/UL (150-450) H 529 K/UL (150-450) H Mean Platelet Volume 5.4 FL (6.5-10.1) L 4.9 FL (6.5-10.1) L Neutrophils (%) (Auto) % (45.0-75.0) % (45.0-75.0) Lymphocytes (%) (Auto) % (20.0-45.0) % (20.0-45.0) Monocytes (%) (Auto) % (1.0-10.0) % (1.0-10.0) Eosinophils (%) (Auto) % (0.0-3.0) % (0.0-3.0) Basophils (%) (Auto) % (0.0-2.0) % (0.0-2.0) Differential Total Cells Counted 100 100 Neutrophils % (Manual) 78 % (45-75) H 91 % (45-75) H Lymphocytes % (Manual) 6 % (20-45) L 6 % (20-45) L Monocytes % (Manual) 1 % (1-10) 3 % (1-10) Eosinophils % (Manual) 0 % (0-3) 0 % (0-3) Basophils % (Manual) 0 % (0-2) 0 % (0-2) Band Neutrophils 15 % (0-8) H 0 % (0-8) Platelet Estimate Increased H Increased H Platelet Morphology Normal Normal Anisocytosis 1+ Erythrocyte Sedimentation Rate 124 MM/HR (0-20) H Sodium Level 141 MMOL/L (136-145) 141 MMOL/L (136-145) Potassium Level 3.9 MMOL/L (3.5-5.1) 3.5 MMOL/L (3.5-5.1) Chloride Level 108 MMOL/L (98-107) H 108 MMOL/L (98-107) H Carbon Dioxide Level 24 MMOL/L (21-32) 24 MMOL/L (21-32) Anion Gap 9 mmol/L (5-15) 9 mmol/L (5-15) Blood Urea Nitrogen 21 mg/dL (7-18) H 14 mg/dL (7-18) Creatinine 0.7 MG/DL (0.55-1.30) # 0.6 MG/DL (0.55-1.30) Estimat Glomerular Filtration Rate > 60 mL/min (>60) > 60 mL/min (>60) Glucose Level 227 MG/DL (74-106) #H 277 MG/DL (74-106) H Hemoglobin A1c 9.5 % (4.3-6.0) H Lactic Acid Level 1.20 mmol/L (0.4-2.0) Calcium Level 10.5 MG/DL (8.5-10.1) H 10.7 MG/DL (8.5-10.1) H Total Bilirubin 0.3 MG/DL (0.2-1.0) Direct Bilirubin < 0.1 MG/DL (0.0-0.3) Aspartate Amino Transf (AST/SGOT) 9 U/L (15-37) L Alanine Aminotransferase (ALT/SGPT) 10 U/L (12-78) L Pro-B-Type Natriuretic Peptide 934 pg/mL (0-125) H Vitamin D 25-Hydroxy Pending 25-Hydroxy Vitamin D2 Pending 25-Hydroxy Vitamin D3 Pending Hypochromasia 1+ Iron Level 17 ug/dL (50-175) L Total Iron Binding Capacity 134 ug/dL (250-450) L Percent Iron Saturation 13 % (15-50) L Unsaturated Iron Binding 117 ug/dL (112-346) Ferritin 582 NG/ML (8-388) H Microbiology Date/Time Source Procedure Growth Status 02/20/20 18:00 Sputum Gram Stain - Final Resulted 02/20/20 18:00 Sputum Sputum Culture Pending Resulted 02/20/20 18:00 Indwelling Cath Urine Culture - Preliminary Resulted Height (Feet): 5 Height (Inches): 4.00 Weight (Pounds): 141 Medications Current Medications Medications (Trade) Dose Ordered Sig/Anders Route PRN Reason Start Time Stop Time Status Last Admin Dose Admin Acetaminophen (Tylenol) 650 mg Q6H PRN NG Mild Pain (1-3)/ Temp>100.5 02/20/20 17:45 03/21/20 17:44 Albuterol/ Ipratropium (Albuterol/ Ipratropium) 3 ml Q6HRT HHN 02/20/20 19:00 02/25/20 18:59 02/21/20 07:08 Heparin Sodium (Porcine) (Heparin 5000 units/ml) 5,000 units EVERY 12 HOURS SUBQ 02/20/20 21:00 04/05/20 20:59 02/21/20 09:08 Pantoprazole (Protonix) 40 mg DAILY IVP 02/21/20 09:00 03/22/20 08:59 02/21/20 09:07 Piperacillin Sod/ Tazobactam Sod 3.375 gm/Sodium Chloride 110 ml @ 27.5 mls/hr Q8HR IVPB 02/20/20 22:00 02/27/20 21:59 02/21/20 06:07 Sodium Chloride 1,000 ml @ 100 mls/hr Q10H IV 02/20/20 18:15 03/21/20 18:14 02/21/20 03:43 Vancomycin HCl (Vanco pharmacy to dose) 1 ea DAILY PRN MISC PER RX PROTOCOL 02/20/20 18:15 03/21/20 18:14 Vancomycin/Sodium Chloride 275 ml @ 183.333 mls/hr Q24H IVPB 02/21/20 20:00 02/26/20 19:59 Assessment/Plan Problem List: (1) Nosocomial pneumonia ICD Codes: J18.9 - Pneumonia, unspecified organism; Y95 - Nosocomial condition SNOMED: 186281986 (2) Sepsis ICD Codes: A41.9 - Sepsis, unspecified organism SNOMED: 25685951 (3) Tracheostomy in place ICD Codes: Z93.0 - Tracheostomy status SNOMED: 664030680 (4) Diabetes mellitus ICD Codes: E11.9 - Type 2 diabetes mellitus without complications SNOMED: 55343416 (5) OBS (organic brain syndrome) ICD Codes: F09 - Unspecified mental disorder due to known physiological condition SNOMED: 047826905 (6) Feeding by G-tube ICD Codes: Z93.1 - Gastrostomy status SNOMED: 031922309, 186296213, 747202359 (7) Chronic vegetative state ICD Codes: R40.3 - Persistent vegetative state SNOMED: 00682254 Respiratory: monitor respiratory rate, adjust FIO2, CXR Cardiac: continue to monitor HR/BP Renal: F/U I&O, keep IV fluid, check electrolytes Infectious Disease: check cultures Gastrointestinal: continue feedings/current rate Endocrine: monitor blood sugar Hematologic: monitor H/H, transfuse if hgb<8.5 Neurologic: PRN Ativan, keep patient comfortable Affect: PRN ativan Disposition: keep in ICU 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
--- NOTE | 2020-02-21 12:30 | NUR ---
NURSE NOTES: TRINITY Salazar at bedside,assessed and dressed pt's sacral and perineal wounds and applied Triad to scrotal skin tears.
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
--- NOTE | 2020-02-21 13:35 | NUR ---
NURSE NOTES: US Tech at bedside,doing abdominal US,pt resting quietly in bed.
--- NOTE | 2020-02-21 14:36 | Diagnostic Imaging Report ---
Indication: Reason For Exam: RENAL-A Technique: Grayson-scale and duplex images of the upper abdomen were obtained. Doppler interrogation of the pancreatic and hepatic vessels. Exam is limited, as the spleen and left kidney were not imaged per patient preference Comparison: none Findings: Limited exam; spleen and left kidney not imaged per patient preference. Gallbladder demonstrate a gallstone in the neck. No gallbladder wall thickening or pericholecystic fluid. Sonographic Wilson's sign is negative. Common bile duct measures 4 mm in diameter. No intrahepatic biliary ductal dilatation. Liver demonstrates normal echogenicity, no focal abnormality. Portal vein and hepatic veins are patent. Pancreas is unremarkable. Right kidney measures 13.5 cm length. It demonstrates normal echogenicity. There is no hydronephrosis. There are questionably calcifications in the pyramids. . Non-aneurysmal abdominal aorta . Impression: Limited exam, as described. Note nonvisualization of left kidney and the spleen Cholelithiasis. Negative for dilated bile ducts Questionable renal pyramid calcifications Impression: Negative
--- NOTE | 2020-02-21 15:00 | NUR ---
NURSE NOTES: pt stable with on and off productive coughing ,tracheal secretions suctioned PRN to thick zamudio colored phlegm.
--- NOTE | 2020-02-21 16:21 | NUR ---
ASSEMBLER TRACTORSTATISTICIAN MATHEMATICAL 70 YO MALE BIBA FROM [facility] TO ER CC SOB RESP DISTRESS SI; RESP FAILURE TRACH/COOL AEROSOL, SEPSIS T. 101.0 HR 145 RR 26 B/P 102/58 TBAR FIO2 45% WBC 27.7 GLU 505 BUN 33 CR 1.5 LACTID ACID 5.20 CXR= Right lung consolidation, likely pneumonia IS: IV BOLUS X 2400ML VANCO IV ZOSYN IV TYLENOL GT ADMITTED TO ICU ICU STATUS DCP RETURN TO [facility]
--- NOTE | 2020-02-21 16:48 | NUR ---
NURSE NOTES:WOUND CARE NOTES:Pt presented on admission with Tracheostomy, multiple Pressure Injuries, Kita-rectal erosion.Skin assessed uner tracheal collar and no evidence of skin breakdown noted. Partially opened Sacral DTPI (L)6cm x (W)6.3cm. Base of wound is maroon ,fluctuant with small open area at sacrococcygeal area that is 80% slough ,20% mary at base (L)0.7cm x (W)0.8cm. Perirectal and scrotum area is grossly excoriated. Partial thickness wound noted to Base R and base of scrotum(L)2.8cm x (W)3.5cm. Biofilm noted at base of wound. Borders are macerated. Haemosiderin noted to bilat distal/lower extremities. L heel is boggy with non-Blanchable erythema. R heel is boggy with non-Blanchable erythema. Loose dry eschar noted to R heel . Pt denied tenderness or pain when palpated. Tx.Plan: Cleanse Sacral Wound with Saline. Apply Moisture Barrier Paste Periwound. Cover with Optifoam drsg. Change every 3 days and prn. Apply Zinc Oxide Paste to Scrotal wound and Kita-rectal erosion TID and Prn. Apply Cavilon Skin BArrier to both heels and Malleoli. Cover each site with Optifoam drsg. Change every 7 days and prn. Reposition at least every 2hours or as tolerated. Off-load heels with pillow. APM/DONALDO Mattress overlay.
--- NOTE | 2020-02-21 18:45 | NUR ---
NURSE NOTES: Dr Lan at bedside,updated re pt's status,ordered Dr Armstrong as wound consult.
--- NOTE | 2020-02-21 19:12 | General Progress Note ---
Assessment/Plan Status Narrative Patient is awake alert febrile without distress chest x-ray required pressors patient has pneumonia or mass once patient is stable CT scan of the chest will be requested Repeat laboratory tests will be done in a.m. YOLA LAN MD Subjective Constitutional: Reports: no symptoms Cardiovascular: Reports: no symptoms, other Respiratory: Reports: other Gastrointestinal/Abdominal: Reports: no symptoms Genitourinary: Reports: no symptoms Neurologic/Psychiatric: Reports: no symptoms, other - Alert awake eye contact answer questions by head nods appropriately Endocrine: Reports: no symptoms Allergies: Coded Allergies: No Known Allergies (Unverified , 02/20/20) Objective Last 24 Hour Vital Signs Date Time Temp Pulse Resp B/P (MAP) Pulse Ox O2 Delivery O2 Flow Rate FiO2 02/21/20 18:00 97 29 132/74 (93) 100 02/21/20 17:00 99 29 124/75 (91) 100 02/21/20 16:00 97 02/21/20 16:00 97.9 100 24 136/73 (94) 100 02/21/20 16:00 12.0 35 02/21/20 16:00 T-piece 12.0 02/21/20 15:00 96 24 131/77 (95) 97 02/21/20 14:00 99 24 124/77 (93) 98 02/21/20 13:11 99 Cool Aerosol 8.0 35 02/21/20 13:11 103 20 99 T-Piece 8.0 35 101 20 98 02/21/20 13:08 97 24 137/75 (95) 98 02/21/20 12:00 12.0 35 02/21/20 12:00 99.5 100 24 121/71 (88) 98 02/21/20 12:00 T-piece 12.0 02/21/20 12:00 99 02/21/20 11:00 102 24 111/61 (78) 98 02/21/20 10:00 101 24 125/73 (90) 100 02/21/20 09:01 102 30 118/70 (86) 99 02/21/20 08:01 99.0 103 28 124/80 (95) 99 02/21/20 08:00 T-piece 12.0 02/21/20 08:00 103 02/21/20 08:00 99.0 103 28 124/80 (95) 99 02/21/20 08:00 12.0 35 02/21/20 07:18 98 Cool Aerosol 8.0 35 02/21/20 07:18 101 20 98 T-Piece 8.0 35 98 20 97 02/21/20 07:01 104 30 131/73 (92) 97 02/21/20 07:00 104 30 131/73 (92) 97 02/21/20 06:00 107 28 123/76 (92) 98 02/21/20 05:00 111 28 136/85 (102) 99 02/21/20 04:00 T-piece 12.0 02/21/20 04:00 106 02/21/20 04:00 97.8 110 33 123/65 (84) 98 02/21/20 04:00 12.0 35 02/21/20 03:00 109 26 113/62 (79) 98 02/21/20 02:00 112 26 132/72 (92) 99 02/21/20 01:20 109 20 100 T-Piece 8.0 35 107 20 98 02/21/20 01:03 98 Cool Aerosol 8.0 35 02/21/20 01:00 109 26 119/68 (85) 98 02/21/20 00:00 108 02/21/20 00:00 97.5 108 30 118/66 (83) 98 02/21/20 00:00 T-piece 12.0 02/21/20 00:00 12.0 35 02/20/20 23:00 108 25 110/60 (77) 98 02/20/20 22:00 103 21 103/59 (74) 98 02/20/20 21:00 103 21 88/52 (64) 98 02/20/20 20:00 101 02/20/20 20:00 12.0 35 02/20/20 20:00 T-piece 12.0 02/20/20 20:00 97.9 103 23 103/58 (73) 98 02/20/20 19:58 106 20 100 T-Piece 8.0 35 102 20 98 02/20/20 19:53 98 Cool Aerosol 8.0 35 Intake and Output 02/20/20 02/21/20 19:00 07:00 Intake Total 100 ml 1490.0 ml Output Total 205 ml 420 ml Balance -105 ml 1070.0 ml IV Total 100 ml 1310.0 ml Tube Feeding 180 ml Output Urine Total 205 ml 420 ml # Bowel Movements 1 1 Laboratory Tests 02/21/20 08:10: White Blood Count 20.8H, Red Blood Count 3.25L, Hemoglobin 9.0L, Hematocrit 27.4L, Mean Corpuscular Volume 84, Mean Corpuscular Hemoglobin 27.6, Mean Corpuscular Hemoglobin Concent 32.8, Red Cell Distribution Width 13.9, Platelet Count 529H, Mean Platelet Volume 4.9L, Neutrophils (%) (Auto) , Lymphocytes (%) (Auto) , Monocytes (%) (Auto) , Eosinophils (%) (Auto) , Basophils (%) (Auto) , Differential Total Cells Counted 100, Neutrophils % (Manual) 91H, Lymphocytes % (Manual) 6L, Monocytes % (Manual) 3, Eosinophils % (Manual) 0, Basophils % ( Manual) 0, Band Neutrophils 0, Platelet Estimate IncreasedH, Platelet Morphology Normal, Hypochromasia 1+, Sodium Level 141, Potassium Level 3.5, Chloride Level 108H, Carbon Dioxide Level 24, Anion Gap 9, Blood Urea Nitrogen 14, Creatinine 0.6, Estimat Glomerular Filtration Rate > 60, Glucose Level 277H , Calcium Level 10.7H, Iron Level 17L, Total Iron Binding Capacity 134L, Percent Iron Saturation 13L, Unsaturated Iron Binding 117, Ferritin 582H Height (Feet): 5 Height (Inches): 4.00 Weight (Pounds): 141 General Appearance: alert, other - Short attention span EENT: normal ENT inspection Neck: supple, other - No JVD Cardiovascular: normal rate, regular rhythm, no gallop/murmur, no JVD Respiratory/Chest: lungs clear, normal breath sounds, no accessory muscle use Abdomen: normal bowel sounds, non tender, soft, no organomegaly, no mass Extremities: non-tender, other - No cyanosis clubbing or edema Neurologic: alert, responsive, aphasia Yola Lan MD Feb 21, 2020 19:12
--- NOTE | 2020-02-21 19:20 | NUR ---
NURSE HAND-OFF REPORT: Latest Vital Signs: Temperature 97.9 , Pulse 97 , B/P 132 /74 , Respiratory Rate 29 , O2 SAT 100 , T-piece, O2 Flow Rate 12.0 . Vital Sign Comment: stable EKG Rhythm: Sinus Rhythm Rhythm change?: N MD Notified?: - MD Response: Latest Cole Fall Score: 40 Fall Risk: Medium Risk Safety Measures: Call light Within Reach, Bed Alarm Zone 3, Side Rails Side Rails x2, Bed position Low and Locked. Fall Precautions: Yellow Socks Yellow Gown Door Sign Patient Fall Education Report given to .Kaiden Cottrell RN
--- NOTE | 2020-02-21 19:30 | NUR ---
NURSE NOTES: SBAR received from Ronald RN. Patient is awake and oriented to name, self, and purpose. Patient is oriented to Kazakh speaking only. Patient is trached dependent and is on cool aerosol oxygenation with an Fio2 of 55%. Trach piece is a Shiley7. there is a Gt infusing Glucerna 1.2 at 30ml/hr with a goal rate of 55ml/hr. Estrada catheter noted. Skin alterations noted. Patient has peripheral IV lines infusing NS at 100ml/hr. Skin is warm to touch. HR is 99 NSR, pulses present bilaterally and equal. Will continue to monitor.
--- NOTE | 2020-02-21 19:53 | NUR ---
RESPIRATORY NOTE: Received pt on 35% Cool Aerosol via T-Piece. Pt is trach-dependent w/ an Uncuffed, Portex 7 tube. Pt is alert/awake, follows commands. B/S myriam. rhonchi, sxn small to moderate amounts of thick, zamudio-pink to zamudio-brown secretions. [place]ag at bedside. Pt resting comfortably, in no apparent distress at this time. Will continue to monitor pt.
--- NOTE | 2020-02-21 20:00 | NUR ---
NURSE NOTES: Bedside assessment performed; patients temperature noted to be 100.3F (ax), Minimal tube feed residuals. NSR on the monitor. Pulses present, active range of motion. Lavaged and suctioned patient. Oral care performed. Red specks noted during suctioning. Thick trach secretions. Fall, aspirations and skin precautions observed. Repositioned patient.
[2020-02-21] MEDS: Vancomycin 1.25gm/NS Premix IVPB SCH (20:44)
[2020-02-21] MEDS: Acetaminophen 650mg/20.3ml NG PRN (20:44)
--- NOTE | 2020-02-21 22:00 | NUR ---
NURSE NOTES: Bedside assessment performed; all due medications given. Patient was again suctioned and oral care was provided. Repositioned patient. Patients vitals are stable at this time. Making good urine output. No distress at this time.
[2020-02-22] VITALS (24 sets, daily range): BP systolic 96–155; BP diastolic 61–114
--- NOTE | 2020-02-22 | NUR ---
NURSE NOTES: Bedside assessment performed. Patient remains calm and collective at this time. Performed suctioning and oral care. Red specks sputum noted. Laved patient cause sputum is noted to be thick in consistency. No other distress at this time, vitals remains stable, afebrile at this time.
[2020-02-22] MEDS: Albuterol/Ipratropium 3ml neb HHN SCH ×4 (01:11→19:26)
--- NOTE | 2020-02-22 02:00 | NUR ---
NURSE NOTES: Bedside assessment performed; lavaged and suctioned patient, oral care also given. Repositioned patient for comfort and for skin precautions. Fall and aspiration precautions observed. Patient in semi-fowlers position. Blood pressures and HR rhythm have been stable. Spo2 95-100%. No acute respiratory distress at this time. Call light within reach. neuro status remains unchanged. Will continue to monitor.
[2020-02-22] MEDS: Acetaminophen 650mg/20.3ml NG PRN (03:37)
--- NOTE | 2020-02-22 03:37 | NUR ---
NURSE NOTES: Patient temperature noted to be 100.6F (orally). Patient was provided Tylenol 650mg via GT. Cooling measures initiated.
--- NOTE | 2020-02-22 04:07 | NUR ---
NURSE NOTES: Reassessment of temperature; after giving Tylenol 650mg via GT and providing cooling measures patients current temperature now is 99.7F (orally). Cooling measures ongoing.
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
[2020-02-22 05:10] LABS: MEAN CORPUSCULAR VOLUME 85 FL (80-99); PLATELET COUNT 480 K/UL (150-450); RED BLOOD COUNT 3.31 M/UL (4.70-6.10)
[2020-02-22] MEDS: Piperacillin/Tazobactam 3.375 GM in NS 110 ML IVPB SCH ×3 (05:14→22:11)
[2020-02-22 05:19] LABS: ANION GAP 7 mmol/L (5-15); BLOOD UREA NITROGEN 13 mg/dL (7-18); CALCIUM 9.9 MG/DL (8.5-10.1); CARBON DIOXIDE 25 MMOL/L (21-32); CHLORIDE 108 MMOL/L (98-107); CREATININE 0.7 MG/DL (0.55-1.30); POTASSIUM 3.3 MMOL/L (3.5-5.1); SODIUM 140 MMOL/L (136-145)
--- NOTE | 2020-02-22 07:15 | NUR ---
NURSE NOTES: Report received from Kaiden Cottrell RN.Pt asleep but eyes open spontaneously,noted no resp distress with trach tube , Fio2 35% aerosol at 12L,no signs of pain or discomfort,S-R on the monitor,GTF Glucerna 1.2 at 55 ml/hr ,no residual noted,Estrada cath draining yellow urine,skin warm and dry,IV sites to RFA and LW intact with IVF NS at 100 ml/hr,SR up x2 HOB elevated bed lock in lowest position will continue with plans of care.
--- NOTE | 2020-02-22 08:00 | NUR ---
NURSE NOTES: Patient asleep but easily arousable. Tolerating GT feed of 55cc/hr. GT patent and flushing well. IV sites clean and no sign of irritation noted. Estrada catheter draining well, noted with clear yellow urine. Will continue with current plan of care.
[2020-02-22] MEDS: Heparin 5000 units/ml inj SUBQ SCH ×2 (08:39→20:00)
[2020-02-22] MEDS: Pantoprazole Inj IVP SCH (08:39)
--- NOTE | 2020-02-22 09:00 | NUR ---
NURSE NOTES: Dr Castro at bedside,ordered CT scan Chest with contrast,will call Niece the decision maker for consent.
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
--- NOTE | 2020-02-22 10:00 | NUR ---
NURSE NOTES: Patient asleep but easily arousable and responsive to occitan. Tolerating O2 therapy via t-piece well, on 35% FiO2 and saturation of 97%. Tolerating GT feeding well on 55cc/hr. GT patent and flushing well. Noted with 30cc residuals. Estrada catheter draining well, noted with clear yellow urine. perineal and meatal care provided and tolerated well.
--- NOTE | 2020-02-22 11:00 | NUR ---
NURSE NOTES: Informed Dr Hardy re pt's negative result of Rapid Covid done 02/21/20,said she will review and let me know if Covid Isolation is to continue.
--- NOTE | 2020-02-22 11:20 | NUR ---
NURSE NOTES: traverse rod assembler Alma spoke with Dr Lan to call family member ,Roxana Jones pt's niece and gave her phone number.Per Dr Lan statement he told traverse rod assembler Alma he tried calling niece number yesterday evening ,but no answer.
--- NOTE | 2020-02-22 11:26 | Pulmonolgy Critical Care Note ---
Critical Care - Asmt/Plan Problems: (1) Sepsis (2) Nosocomial pneumonia (3) Chronic vegetative state (4) Feeding by G-tube (5) Diabetes mellitus (6) Tracheostomy in place Respiratory: monitor respiratory rate, adjust FIO2, CXR Cardiac: start pressors, continue to monitor HR/BP Renal: F/U I&O, keep IV fluid, check electrolytes Infectious Disease: check cultures, continue antibiotics Gastrointestinal: continue feedings/current rate Endocrine: monitor blood sugar Hematologic: monitor H/H, transfuse if hgb<8.5 Neurologic: PRN Ativan, keep patient comfortable Affect: PRN ativan Notes Reviewed: traffic personnel supervisor Discussed with: nurses, consultants, case loader operatorconsulting sales manager - Objective Last 24 Hour Vital Signs Date Time Temp Pulse Resp B/P (MAP) Pulse Ox O2 Delivery O2 Flow Rate FiO2 02/22/20 11:00 88 30 137/76 (96) 97 02/22/20 10:00 88 29 132/90 (104) 97 02/22/20 09:00 99.4 86 26 123/69 (87) 100 02/22/20 08:00 T-piece 12.0 02/22/20 08:00 98.9 83 26 107/64 (78) 100 02/22/20 08:00 80 02/22/20 07:49 85 22 100 T-Piece 8.0 35 80 24 98 02/22/20 07:37 98 T-Piece 8.0 35 02/22/20 07:00 98.9 85 24 106/64 (78) 100 02/22/20 06:00 99.5 79 28 96/61 (73) 98 02/22/20 05:00 93 23 142/77 (98) 96 02/22/20 04:07 99.7 02/22/20 04:00 80 02/22/20 04:00 100.6 90 30 138/79 (98) 96 02/22/20 04:00 T-piece 12.0 02/22/20 03:00 96 23 133/89 (104) 95 02/22/20 02:00 98 25 130/71 (90) 96 02/22/20 01:21 98 23 100 T-Piece 8.0 35 02/22/20 01:11 96 23 99 T-Piece 8.0 35 02/22/20 01:11 99 T-Piece 8.0 35 02/22/20 01:00 95 26 138/81 (100) 95 02/22/20 00:00 99.9 97 27 135/75 (95) 95 02/22/20 00:00 T-piece 12.0 02/22/20 00:00 96 02/21/20 23:00 94 25 129/76 (93) 93 02/21/20 22:00 T-piece 12.0 02/21/20 22:00 95 23 132/76 (94) 96 02/21/20 21:00 102 23 142/78 (99) 98 02/21/20 20:00 100.3 102 27 139/81 (100) 100 02/21/20 20:00 89 02/21/20 20:00 T-piece 12.0 02/21/20 19:59 101 23 100 T-Piece 8.0 35 02/21/20 19:49 96 24 100 T-Piece 8.0 35 02/21/20 19:49 100 T-Piece 8.0 35 02/21/20 19:00 99 26 136/78 (97) 100 02/21/20 18:00 97 29 132/74 (93) 100 02/21/20 17:00 99 29 124/75 (91) 100 02/21/20 16:00 97 02/21/20 16:00 97.9 100 24 136/73 (94) 100 02/21/20 16:00 12.0 35 02/21/20 16:00 T-piece 12.0 02/21/20 15:00 96 24 131/77 (95) 97 02/21/20 14:00 99 24 124/77 (93) 98 02/21/20 13:11 99 Cool Aerosol 8.0 35 02/21/20 13:11 103 20 99 T-Piece 8.0 35 101 20 98 02/21/20 13:08 97 24 137/75 (95) 98 02/21/20 12:00 12.0 35 02/21/20 12:00 99.5 100 24 121/71 (88) 98 02/21/20 12:00 T-piece 12.0 02/21/20 12:00 99 Status: obtunded Condition: critical HEENT: atraumatic Lungs: clear Heart: HR/BP stable Abdomen: soft, feeding tube Extremities: no C/C/E Micro: Microbiology Date/Time Source Procedure Growth Status 02/20/20 10:00 Blood Blood Culture - Preliminary NO GROWTH AFTER 24 HOURS Resulted 02/20/20 10:00 Blood Blood Culture - Preliminary NO GROWTH AFTER 24 HOURS Resulted 02/21/20 18:30 Nasopharynx SARS-CoV-2 RdRp Gene Assay - Final Complete 02/20/20 18:00 Sputum Gram Stain - Final Resulted 02/20/20 18:00 Sputum Culture - Preliminary Gram Negative Bacillus 1 Gram Negative Bacillus 2 Gram Negative Bacillus 3 Resulted 02/20/20 10:00 Nasal Nares MRSA Culture - Final Staphylococcus Aureus - Mrsa Complete 02/20/20 10:00 Nasopharynx SARS-CoV-2 RdRp Gene Assay - Final Complete 02/20/20 18:00 Indwelling Cath Urine Culture - Preliminary Gram Negative Maikel Resulted 02/20/20 10:00 Urine,Clean Catch Urine Culture - Preliminary Gram Negative Maikel Resulted 02/20/20 10:00 Rectum Received Accucheck: 153 Critical Care - Subjective ROS Limited/Unobtainable: Yes Condition: critical IV Access: PICC EKG Rhythm: Sinus Tachycardia FI02: 35 Sputum Amount: Small Tube Feeding Amount: 55 I&O: Intake and Output 02/21/20 02/22/20 19:00 07:00 Intake Total 1610 ml 2417.500 ml Output Total 1300 ml 1190 ml Balance 310 ml 1227.500 ml Intake Free Water 200 ml 200 ml IV Total 1100 ml 1612.500 ml Tube Feeding 210 ml 605 ml Other 100 ml Output Urine Total 1300 ml 1190 ml # Bowel Movements 1 CXR: trach intact Labs: Laboratory Tests Test 02/22/20 04:00 02/22/20 10:00 White Blood Count 17.0 K/UL (4.8-10.8) H Red Blood Count 3.31 M/UL (4.70-6.10) L Hemoglobin 9.0 G/DL (14.2-18.0) L Hematocrit 28.0 % (42.0-52.0) L Mean Corpuscular Volume 85 FL (80-99) Mean Corpuscular Hemoglobin 27.2 PG (27.0-31.0) Mean Corpuscular Hemoglobin Concent 32.0 G/DL (32.0-36.0) Red Cell Distribution Width 14.0 % (11.6-14.8) Platelet Count 480 K/UL (150-450) H Mean Platelet Volume 4.9 FL (6.5-10.1) L Neutrophils (%) (Auto) % (45.0-75.0) Lymphocytes (%) (Auto) % (20.0-45.0) Monocytes (%) (Auto) % (1.0-10.0) Eosinophils (%) (Auto) % (0.0-3.0) Basophils (%) (Auto) % (0.0-2.0) Differential Total Cells Counted 100 Neutrophils % (Manual) 81 % (45-75) H Lymphocytes % (Manual) 15 % (20-45) L Monocytes % (Manual) 1 % (1-10) Eosinophils % (Manual) 3 % (0-3) Basophils % (Manual) 0 % (0-2) Band Neutrophils 0 % (0-8) Platelet Estimate Adequate Platelet Morphology Normal Hypochromasia 2+ Anisocytosis 1+ Sodium Level 140 MMOL/L (136-145) Potassium Level 3.3 MMOL/L (3.5-5.1) L Chloride Level 108 MMOL/L (98-107) H Carbon Dioxide Level 25 MMOL/L (21-32) Anion Gap 7 mmol/L (5-15) Blood Urea Nitrogen 13 mg/dL (7-18) Creatinine 0.7 MG/DL (0.55-1.30) Estimat Glomerular Filtration Rate > 60 mL/min (>60) Glucose Level 350 MG/DL (74-106) H Calcium Level 9.9 MG/DL (8.5-10.1) Calcium (Send out) Pending Parathyroid Hormone (Intact) Pending Melany Salgado MD Feb 22, 2020 11:26
--- NOTE | 2020-02-22 12:39 | Infectious Diseases Prog Note ---
Assessment/Plan Assessment: Severe Sepsis UTI r/o probable bacteremia -u/a wbc tnct, nit neg,leuk +3; ucx >100k GNR -Bcx NTD Pneumonia- COVID19 neg x2 -02/20 rapid COVID PCR neg -02/19 Rapid COVID PCR neg sp cx GNR #1, #2, #2 CXR: Right lung consolidation, likely pneumonia Right hilar apparent fullness, probably an artifact of rotation but mass or adenopathy also possible. Recommend follow-up radiographs to resolution. 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 Will continue to follow along with you. Discussed with RN. Subjective Allergies: Coded Allergies: No Known Allergies (Unverified , 02/20/20) Objective Last 24 Hour Vital Signs Date Time Temp Pulse Resp B/P (MAP) Pulse Ox O2 Delivery O2 Flow Rate FiO2 02/22/20 12:00 99.0 91 27 126/72 (90) 100 02/22/20 12:00 T-piece 12.0 02/22/20 12:00 82 02/22/20 11:00 88 30 137/76 (96) 97 02/22/20 10:00 88 29 132/90 (104) 97 02/22/20 09:00 99.4 86 26 123/69 (87) 100 02/22/20 08:00 T-piece 12.0 02/22/20 08:00 98.9 83 26 107/64 (78) 100 02/22/20 08:00 80 02/22/20 07:49 85 22 100 T-Piece 8.0 35 80 24 98 02/22/20 07:37 98 T-Piece 8.0 35 02/22/20 07:00 98.9 85 24 106/64 (78) 100 02/22/20 06:00 99.5 79 28 96/61 (73) 98 02/22/20 05:00 93 23 142/77 (98) 96 02/22/20 04:07 99.7 02/22/20 04:00 80 02/22/20 04:00 100.6 90 30 138/79 (98) 96 02/22/20 04:00 T-piece 12.0 02/22/20 03:00 96 23 133/89 (104) 95 02/22/20 02:00 98 25 130/71 (90) 96 02/22/20 01:21 98 23 100 T-Piece 8.0 35 02/22/20 01:11 96 23 99 T-Piece 8.0 35 02/22/20 01:11 99 T-Piece 8.0 35 02/22/20 01:00 95 26 138/81 (100) 95 02/22/20 00:00 99.9 97 27 135/75 (95) 95 02/22/20 00:00 T-piece 12.0 02/22/20 00:00 96 02/21/20 23:00 94 25 129/76 (93) 93 02/21/20 22:00 T-piece 12.0 02/21/20 22:00 95 23 132/76 (94) 96 02/21/20 21:00 102 23 142/78 (99) 98 02/21/20 20:00 100.3 102 27 139/81 (100) 100 02/21/20 20:00 89 02/21/20 20:00 T-piece 12.0 02/21/20 19:59 101 23 100 T-Piece 8.0 35 02/21/20 19:49 96 24 100 T-Piece 8.0 35 02/21/20 19:49 100 T-Piece 8.0 35 02/21/20 19:00 99 26 136/78 (97) 100 02/21/20 18:00 97 29 132/74 (93) 100 02/21/20 17:00 99 29 124/75 (91) 100 02/21/20 16:00 97 02/21/20 16:00 97.9 100 24 136/73 (94) 100 02/21/20 16:00 12.0 35 02/21/20 16:00 T-piece 12.0 02/21/20 15:00 96 24 131/77 (95) 97 02/21/20 14:00 99 24 124/77 (93) 98 02/21/20 13:11 99 Cool Aerosol 8.0 35 02/21/20 13:11 103 20 99 T-Piece 8.0 35 101 20 98 02/21/20 13:08 97 24 137/75 (95) 98 Height (Feet): 5 Height (Inches): 4.00 Weight (Pounds): 141 General appearance: alert, cooperative, no distress, appears stated age Head: Normocephalic, without obvious abnormality, atraumatic Neck: supple Lungs: clear to auscultation bilaterally Heart: regular rate and rhythm, S1, S2 normal Abdomen: soft, non-tender. Bowel sounds normal Extremities: extremities normal, atraumatic, no cyanosis or edema Microbiology Date/Time Source Procedure Growth Status 02/20/20 10:00 Blood Blood Culture - Preliminary NO GROWTH AFTER 24 HOURS Resulted 02/20/20 10:00 Blood Blood Culture - Preliminary NO GROWTH AFTER 24 HOURS Resulted 02/21/20 18:30 Nasopharynx SARS-CoV-2 RdRp Gene Assay - Final Complete 02/20/20 18:00 Sputum Gram Stain - Final Resulted 02/20/20 18:00 Sputum Culture - Preliminary Gram Negative Bacillus 1 Gram Negative Bacillus 2 Gram Negative Bacillus 3 Resulted 02/20/20 10:00 Nasal Nares MRSA Culture - Final Staphylococcus Aureus - Mrsa Complete 02/20/20 10:00 Nasopharynx SARS-CoV-2 RdRp Gene Assay - Final Complete 02/20/20 18:00 Indwelling Cath Urine Culture - Preliminary Gram Negative Maikel Resulted 02/20/20 10:00 Urine,Clean Catch Urine Culture - Preliminary Gram Negative Maikel Resulted 02/20/20 10:00 Rectum VRE Culture - Final Enterococcus Faecalis - Vre Complete Laboratory Tests Test 02/22/20 04:00 02/22/20 10:00 White Blood Count 17.0 K/UL (4.8-10.8) H Red Blood Count 3.31 M/UL (4.70-6.10) L Hemoglobin 9.0 G/DL (14.2-18.0) L Hematocrit 28.0 % (42.0-52.0) L Mean Corpuscular Volume 85 FL (80-99) Mean Corpuscular Hemoglobin 27.2 PG (27.0-31.0) Mean Corpuscular Hemoglobin Concent 32.0 G/DL (32.0-36.0) Red Cell Distribution Width 14.0 % (11.6-14.8) Platelet Count 480 K/UL (150-450) H Mean Platelet Volume 4.9 FL (6.5-10.1) L Neutrophils (%) (Auto) % (45.0-75.0) Lymphocytes (%) (Auto) % (20.0-45.0) Monocytes (%) (Auto) % (1.0-10.0) Eosinophils (%) (Auto) % (0.0-3.0) Basophils (%) (Auto) % (0.0-2.0) Differential Total Cells Counted 100 Neutrophils % (Manual) 81 % (45-75) H Lymphocytes % (Manual) 15 % (20-45) L Monocytes % (Manual) 1 % (1-10) Eosinophils % (Manual) 3 % (0-3) Basophils % (Manual) 0 % (0-2) Band Neutrophils 0 % (0-8) Platelet Estimate Adequate Platelet Morphology Normal Hypochromasia 2+ Anisocytosis 1+ Sodium Level 140 MMOL/L (136-145) Potassium Level 3.3 MMOL/L (3.5-5.1) L Chloride Level 108 MMOL/L (98-107) H Carbon Dioxide Level 25 MMOL/L (21-32) Anion Gap 7 mmol/L (5-15) Blood Urea Nitrogen 13 mg/dL (7-18) Creatinine 0.7 MG/DL (0.55-1.30) Estimat Glomerular Filtration Rate > 60 mL/min (>60) Glucose Level 350 MG/DL (74-106) H Calcium Level 9.9 MG/DL (8.5-10.1) Calcium (Send out) Pending Parathyroid Hormone (Intact) Pending Current Medications Medications (Trade) Dose Ordered Sig/Anders Route PRN Reason Start Time Stop Time Status Last Admin Dose Admin Acetaminophen (Tylenol) 650 mg Q6H PRN NG Mild Pain (1-3)/ Temp>100.5 02/20/20 17:45 03/21/20 17:44 02/22/20 03:37 Albuterol/ Ipratropium (Albuterol/ Ipratropium) 3 ml Q6HRT HHN 02/20/20 19:00 02/25/20 18:59 02/22/20 07:39 Heparin Sodium (Porcine) (Heparin 5000 units/ml) 5,000 units EVERY 12 HOURS SUBQ 02/20/20 21:00 04/05/20 20:59 02/22/20 08:39 Pantoprazole (Protonix) 40 mg DAILY IVP 02/21/20 09:00 03/22/20 08:59 02/22/20 08:39 Piperacillin Sod/ Tazobactam Sod 3.375 gm/Sodium Chloride 110 ml @ 27.5 mls/hr Q8HR IVPB 02/20/20 22:00 02/27/20 21:59 02/22/20 05:14 Sodium Chloride 1,000 ml @ 100 mls/hr Q10H IV 02/20/20 18:15 03/21/20 18:14 02/22/20 10:23 Vancomycin HCl ([facility]anco pharmacy to dose) 1 ea DAILY PRN MISC PER RX PROTOCOL 02/20/20 18:15 03/21/20 18:14 Vancomycin/Sodium Chloride 275 ml @ 183.333 mls/hr Q24H IVPB 02/21/20 20:00 02/26/20 19:59 02/21/20 20:44 Marily Hardy M.D. Feb 22, 2020 12:39
--- NOTE | 2020-02-22 14:00 | NUR ---
NURSE NOTES: pt brought downstairs to CT scan for Chest CT with contrast accompanied by RN and transporter with cardiac monitoring.
--- NOTE | 2020-02-22 14:25 | NUR ---
NURSE NOTES: Pt back to ICU Unit ,no resp distress presented procedure tolerated well.
[2020-02-22] MEDS ORDERED: Zinc Oxide Oint 2oz TOPIC PRN (15:00)
--- NOTE | 2020-02-22 15:02 | Consultation ---
History of Present Illness General Date patient seen: Feb 22, 2020 Reason for Hospitalization: Dyspnea/Respdistress Present Illness HPI 69-year-old male history of poorly controlled diabetes, traumatic brain injury with intracranial hemorrhage and history of stroke, encephalopathic at baseline , trach, G-tube and bedbound. [facility] due to reported hypoxia and fever. Patient mid to intensive care unit for further care and management on support. On admission identified to have abnormal labs fever micro noted imaging as below and multiple decubitus ulcers surgery called to evaluate and assist with care. Patient seen, patient evaluated, chart reviewed Allergies: Coded Allergies: No Known Allergies (Unverified , 02/20/20) COVID-19 Screening Contact w/high risk pt: Yes Experienced COVID-19 symptoms?: Yes COVID-19 symptoms experienced: Fever (T>100.4F or >38C) Medication History Scheduled Albuterol Sulfate* (Albuterol Sulfate Hfa*), 2 PUFF INH Q3H, (Reported) Ascorbic Acid* (Vitamin C*), 500 MG ORAL DAILY, (Reported) Atorvastatin Calcium* (Lipitor*), 10 MG ORAL BEDTIME, (Reported) Docusate Sodium* (Colace*), 100 MG ORAL DAILY, (Reported) Enoxaparin* (Lovenox*), 70 MG SUBQ DAILY, (Reported) Insulin Detemir (Levemir), 0 SUBQ BEDTIME, (Reported) Lansoprazole* (Lansoprazole*), 30 MG ORAL DAILY, (Reported) Magnesium Hydroxide* (Milk Of Magnesia*), 30 ML ORAL DAILY, (Reported) Multivitamin With Minerals (Multivitamins With Minerals*), 1 TAB ORAL DAILY, ( Reported) Quetiapine Fumarate* (Quetiapine Fumarate*), 25 MG ORAL DAILY, (Reported) Scheduled PRN Acetaminophen* (Acetaminophen 325MG Tablet*), 325 MG ORAL Q4H PRN for For Pain, (Reported) Hydrocodone/Acetaminophen 5-325* (Hydrocodone/Acetaminophen 5-325*), 1 TAB ORAL Q4H PRN for For Pain, (Reported) Nitroglycerin 0.4MG table* (Nitroglycerin*), 0.4 MG SL .Q5MIN X 3 DOSES PRN for CHEST PAIN, (Reported) Miscellaneous Medications Amino Acids/Protein Hydrolys (Pro-Stat Awc Liquid), 887 ML PO, (Reported) Cholecalciferol (Vitamin D3) (Vitamin D3), 5,000 UNIT MC, (Reported) Insulin Lispro Protamin/Lispro (Insulin Lispro Mix 75-25 Kwkpn), 100 UNIT SQ, ( Reported) Psyllium (Metamucil Powder), 822 GM PO, (Reported) Silver Sulfadiazine (Silvadene), 20 GM TP, (Reported) Vitamin A & D (Vitamin A & D Ointment), 454 GM TOP, (Reported) Zinc Oxide (Zinc Oxide), 56.7 GM TP, (Reported) Patient History Limited by: medical condition History Provided By: Medical Record, PMD Healthcare decision maker Resuscitation status Advanced Directive on File Past Medical/Surgical History Past Medical/Surgical History: (1) Sepsis (2) UTI (urinary tract infection) (3) Tracheostomy in place (4) Diabetes mellitus (5) OBS (organic brain syndrome) (6) Feeding by G-tube (7) Chronic vegetative state (8) Nosocomial pneumonia Review of Systems Review of Symptoms General ROS: no weight loss or fever Psychological ROS: no depression or mood changes, no memory loss Ophthalmic ROS: no visual changes or eye irritation ENT ROS: no nasal congestion, hearing loss, dizziness Allergy and Immunology ROS: no allergic symptoms or urticaria Hematological and Lymphatic ROS: no swollen glands, unusual bleeding or bruising Endocrine ROS: no polyuria, polydipsia, weight changes, temperature intolerance Respiratory ROS: no cough, shortness of breath, or wheezing Cardiovascular ROS: no chest pain or dyspnea on exertion Gastrointestinal ROS: denies abdominal pain, bright red blood in stool. Musculoskeletal ROS: no myalgias or arthralgias Neurological ROS: no TIA or stroke symptoms Dermatological ROS: no new or changing skin lesions, rashes or pruritis limited given medical condition Physical Exam Physical Exam General appearance: mild distress, appears stated age Head: Normocephalic, without obvious abnormality, atraumatic Eyes: conjunctivae/corneas clear. PERRL, EOM's intact. Fundi benign Throat: Lips, mucosa, and tongue normal. Teeth and gums normal trach Neck: supple, symmetrical, trachea midline, no adenopathy, thyroid: not enlarged, symmetric, no tenderness/mass/nodules, no carotid bruit and no JVD Lungs: decreased auscultation bilaterallyon cent Heart: regular rate and rhythm, S1, S2 normal, no murmur, click, rub or gallop Abdomen: soft, non-tender. Bowel sounds normal. No masses, no organomegaly Extremities: extremities normal, atraumatic, no cyanosis or edema Pulses: 2+ and symmetric Skin: Skin see Neurologic: Grossly normal Last 24 Hour Vital Signs Date Time Temp Pulse Resp B/P (MAP) Pulse Ox O2 Delivery O2 Flow Rate FiO2 02/22/20 13:31 99 T-Piece 8.0 35 02/22/20 13:03 85 29 134/80 (98) 98 02/22/20 12:00 99.0 91 27 126/72 (90) 100 02/22/20 12:00 T-piece 12.0 02/22/20 12:00 82 02/22/20 11:00 88 30 137/76 (96) 97 02/22/20 10:00 88 29 132/90 (104) 97 02/22/20 09:00 99.4 86 26 123/69 (87) 100 02/22/20 08:00 T-piece 12.0 02/22/20 08:00 98.9 83 26 107/64 (78) 100 02/22/20 08:00 80 02/22/20 07:49 85 22 100 T-Piece 8.0 35 80 24 98 02/22/20 07:37 98 T-Piece 8.0 35 02/22/20 07:00 98.9 85 24 106/64 (78) 100 02/22/20 06:00 99.5 79 28 96/61 (73) 98 02/22/20 05:00 93 23 142/77 (98) 96 02/22/20 04:07 99.7 02/22/20 04:00 80 02/22/20 04:00 100.6 90 30 138/79 (98) 96 02/22/20 04:00 T-piece 12.0 02/22/20 03:00 96 23 133/89 (104) 95 02/22/20 02:00 98 25 130/71 (90) 96 02/22/20 01:21 98 23 100 T-Piece 8.0 35 02/22/20 01:11 96 23 99 T-Piece 8.0 35 02/22/20 01:11 99 T-Piece 8.0 35 02/22/20 01:00 95 26 138/81 (100) 95 02/22/20 00:00 99.9 97 27 135/75 (95) 95 02/22/20 00:00 T-piece 12.0 02/22/20 00:00 96 02/21/20 23:00 94 25 129/76 (93) 93 02/21/20 22:00 T-piece 12.0 02/21/20 22:00 95 23 132/76 (94) 96 02/21/20 21:00 102 23 142/78 (99) 98 02/21/20 20:00 100.3 102 27 139/81 (100) 100 02/21/20 20:00 89 02/21/20 20:00 T-piece 12.0 02/21/20 19:59 101 23 100 T-Piece 8.0 35 02/21/20 19:49 96 24 100 T-Piece 8.0 35 02/21/20 19:49 100 T-Piece 8.0 35 02/21/20 19:00 99 26 136/78 (97) 100 02/21/20 18:00 97 29 132/74 (93) 100 02/21/20 17:00 99 29 124/75 (91) 100 02/21/20 16:00 97 02/21/20 16:00 97.9 100 24 136/73 (94) 100 02/21/20 16:00 12.0 35 02/21/20 16:00 T-piece 12.0 02/21/20 15:00 96 24 131/77 (95) 97 Intake and Output 02/21/20 02/22/20 19:00 07:00 Intake Total 1610 ml 2417.500 ml Output Total 1300 ml 1190 ml Balance 310 ml 1227.500 ml Intake Free Water 200 ml 200 ml IV Total 1100 ml 1612.500 ml Tube Feeding 210 ml 605 ml Other 100 ml Output Urine Total 1300 ml 1190 ml # Bowel Movements 1 Laboratory Tests Test 02/22/20 04:00 02/22/20 10:00 White Blood Count 17.0 K/UL (4.8-10.8) H Red Blood Count 3.31 M/UL (4.70-6.10) L Hemoglobin 9.0 G/DL (14.2-18.0) L Hematocrit 28.0 % (42.0-52.0) L Mean Corpuscular Volume 85 FL (80-99) Mean Corpuscular Hemoglobin 27.2 PG (27.0-31.0) Mean Corpuscular Hemoglobin Concent 32.0 G/DL (32.0-36.0) Red Cell Distribution Width 14.0 % (11.6-14.8) Platelet Count 480 K/UL (150-450) H Mean Platelet Volume 4.9 FL (6.5-10.1) L Neutrophils (%) (Auto) % (45.0-75.0) Lymphocytes (%) (Auto) % (20.0-45.0) Monocytes (%) (Auto) % (1.0-10.0) Eosinophils (%) (Auto) % (0.0-3.0) Basophils (%) (Auto) % (0.0-2.0) Differential Total Cells Counted 100 Neutrophils % (Manual) 81 % (45-75) H Lymphocytes % (Manual) 15 % (20-45) L Monocytes % (Manual) 1 % (1-10) Eosinophils % (Manual) 3 % (0-3) Basophils % (Manual) 0 % (0-2) Band Neutrophils 0 % (0-8) Platelet Estimate Adequate Platelet Morphology Normal Hypochromasia 2+ Anisocytosis 1+ Sodium Level 140 MMOL/L (136-145) Potassium Level 3.3 MMOL/L (3.5-5.1) L Chloride Level 108 MMOL/L (98-107) H Carbon Dioxide Level 25 MMOL/L (21-32) Anion Gap 7 mmol/L (5-15) Blood Urea Nitrogen 13 mg/dL (7-18) Creatinine 0.7 MG/DL (0.55-1.30) Estimat Glomerular Filtration Rate > 60 mL/min (>60) Glucose Level 350 MG/DL (74-106) H Calcium Level 9.9 MG/DL (8.5-10.1) Calcium (Send out) Pending Parathyroid Hormone (Intact) Pending Microbiology Date/Time Source Procedure Growth Status 02/21/20 18:30 Nasopharynx SARS-CoV-2 RdRp Gene Assay - Final Complete Height (Feet): 5 Height (Inches): 4.00 Weight (Pounds): 141 Medications Current Medications Medications (Trade) Dose Ordered Sig/Anders Route PRN Reason Start Time Stop Time Status Last Admin Dose Admin Acetaminophen (Tylenol) 650 mg Q6H PRN NG Mild Pain (1-3)/ Temp>100.5 02/20/20 17:45 03/21/20 17:44 02/22/20 03:37 Albuterol/ Ipratropium (Albuterol/ Ipratropium) 3 ml Q6HRT HHN 02/20/20 19:00 02/25/20 18:59 02/22/20 07:39 Heparin Sodium (Porcine) (Heparin 5000 units/ml) 5,000 units EVERY 12 HOURS SUBQ 02/20/20 21:00 04/05/20 20:59 02/22/20 08:39 Pantoprazole (Protonix) 40 mg DAILY IVP 02/21/20 09:00 03/22/20 08:59 02/22/20 08:39 Piperacillin Sod/ Tazobactam Sod 3.375 gm/Sodium Chloride 110 ml @ 27.5 mls/hr Q8HR IVPB 02/20/20 22:00 02/27/20 21:59 02/22/20 05:14 Sodium Chloride 1,000 ml @ 100 mls/hr Q10H IV 02/20/20 18:15 03/21/20 18:14 02/22/20 10:23 Vancomycin HCl ([facility] pharmacy to dose) 1 ea DAILY PRN MISC PER RX PROTOCOL 02/20/20 18:15 03/21/20 18:14 Vancomycin/Sodium Chloride 275 ml @ 183.333 mls/hr Q24H IVPB 02/21/20 20:00 02/26/20 19:59 02/21/20 20:44 Assessment/Plan Problem List: (1) Sepsis Assessment & Plan: leukocytosis, fevers, abnormal labs, ill appearing, respiratory insufficiency, on support, micro noted. Pt presented on admission with Tracheostomy, multiple Pressure Injuries, Kita- rectal erosion.Skin assessed uner tracheal collar and no evidence of skin breakdown noted. Partially opened Sacral DTPI (L)6cm x (W)6.3cm. Base of wound is maroon , fluctuant with small open area at sacrococcygeal area that is 80% slough ,20% mary at base (L)0.7cm x (W)0.8cm. Perirectal and scrotum area is grossly excoriated. Partial thickness wound noted to Base R and base of scrotum(L)2.8cm x (W)3.5cm. Biofilm noted at base of wound. Borders are macerated. Haemosiderin noted to bilat distal/lower extremities. L heel is boggy with non-Blanchable erythema. R heel is boggy with non-Blanchable erythema. Loose dry eschar noted to R heel . Pt denied tenderness or pain when palpated. Tx.Plan: Cleanse Sacral Wound with Saline. Apply Moisture Barrier Paste Periwound. Cover with Optifoam drsg. Changeevery 3 days and prn. Apply Zinc Oxide Paste to Scrotal wound and Kita-rectal erosion TID and Prn. Apply Cavilon Skin BArrier to both heels and Malleoli. Cover each site with Optifoam drsg. Change every 7 daysand prn. Reposition at least every 2hours or as tolerated. Off-load heels with pillow. APM/DONALDO Mattress overlay. DAILY ESTIMATED NEEDS: Needs based on wound, DM, sepsis/ 65kg 25-30 kcals/kg 2038-4230 total kcals 1.25-2 g protein/kg 81-130 g total protein 25-30 mL/kg 6641-1974 total fluid mLs NUTRITION DIAGNOSIS: * Swallowing difficulty R/T dysphagia, respiratory status as evidenced by pt on T-collar, PEG dep. * Increased kcal/prot needs R/T wound healing as evidenced by admitted w/ sacral wound per photo, pending eval. CURRENT TF:Glucerna 1.5 @ 55ml/hr x 24 hrs ENTERAL NUTRITION RECOMMENDATIONS: Glucerna 1.5 @ 50ml/hr x 24 hrs to provide 1200ml, 1800kcal, 99g prot, 910ml free water * LOWER goal rate to 50m/hr x 24 hrs: meets 100% est kcal/prot needs * HOB over 30 degrees/ water flush per MD ADDITIONAL RECOMMENDATIONS: * Calibrated bedscal wt for accurate CBW * Rec long acting insulin for improved BG control. * Wound healing: Add Vit C 500mg QD + Omari BID via PEG * Monitor lytes, replete as needed ICD Codes: A41.9 - Sepsis, unspecified organism SNOMED: 01587485 (2) UTI (urinary tract infection) ICD Codes: N39.0 - Urinary tract infection, site not specified SNOMED: 97286031 (3) Tracheostomy in place ICD Codes: Z93.0 - Tracheostomy status SNOMED: 921491225 (4) Diabetes mellitus ICD Codes: E11.9 - Type 2 diabetes mellitus without complications SNOMED: 38616720 (5) OBS (organic brain syndrome) ICD Codes: F09 - Unspecified mental disorder due to known physiological condition SNOMED: 632287863 (6) Feeding by G-tube ICD Codes: Z93.1 - Gastrostomy status SNOMED: 672519206, 402847511, 291243773 (7) Chronic vegetative state ICD Codes: R40.3 - Persistent vegetative state SNOMED: 84366719 (8) Nosocomial pneumonia ICD Codes: J18.9 - Pneumonia, unspecified organism; Y95 - Nosocomial condition SNOMED: 244558685 Terry Armstrong Feb 22, 2020 15:02
--- NOTE | 2020-02-22 16:00 | NUR ---
NURSE NOTES: Patient noted awake and responsive with gestures. Noted able to reposition himself. Teaching about bed mobility and safety provided. Patient nodded understanding. Will continue to monitor
[2020-02-22 16:37] LABS: APPEARANCE,URINE CLOUDY; BILIRUBIN, URINE NEGATIVE (NEGATIVE); COLOR,URINE PALE YELLOW; GLUCOSE, URINE (UA) 4+ (NEGATIVE); KETONES,URINE NEGATIVE (NEGATIVE); LEUKOCYTE ESTERASE ,URINE 3+ (NEGATIVE); NITRITE,URINE NEGATIVE (NEGATIVE); PH,URINE 8 (4.5-8.0); PROTEIN,URINE 1+ (NEGATIVE); UROBILINOGEN,URINE NORMAL MG/DL (0.0-1.0)
--- NOTE | 2020-02-22 16:44 | NUR ---
CASE MANAGEMENT: REVIEW 02/22/2020 SI;SEPSIS. ACUTE RESP FAILURE VS: T 99 HR 65 RR 26 B/P 119/60 SATS 99% ON MECH VENT FIO2 95 LABS: WBC 17 K 3.3 CL 108 GLU 350 IS:NS @ 150 ML/HR PROTONIX IV QD VANCO IV Q24H ZOSYN IV Q8H ICU PLAN OF CARE: COntinue empiric IV Vancomycin and Zosyn #3 pending cultures -PEG/Trach/ICU care -aspiration precautions
--- NOTE | 2020-02-22 16:55 | Diagnostic Imaging Report ---
Clinical Indication: Dyspnea Technique: IV administration nonionic contrast. Spiral acquisition obtained through the chest. Multiplanar reconstructions generated. Total dose length product 266 mGycm. CTDIvol(s) 6, 92, 5 mGy. Dose reduction achieved using automated exposure control Comparison: none Findings: There is some image degradation due to respiratory motion artifact. Extensive dense consolidation is seen occupying most of the right lower lobe. Extensive dense consolidation is also seen in much of the central right upper lobe, with some more peripheral less dense consolidation. There is atelectasis of a significant portion of the right middle lobe although no definite right middle lobe consolidation There is trace pleural fluid bilaterally. There is some atelectasis at the left lung base. The remainder of the left lung is largely clear. The heart is upper limits normal in size. No mediastinal or hilar mass or adenopathy. The upper airways are unremarkable. There is a tracheostomy. No axillary or chest wall mass or adenopathy. The knees included upper abdominal anatomy demonstrates a cyst in segment 4A of the liver. There are a few small gallstones. Impression: Extensive right upper lobe and right lower lobe infiltrates, likely pneumonia. Trace bilateral pleural effusions Left basilar and right middle lobe atelectatic changes. Tracheostomy Cholelithiasis Incidental finding of right lobe liver cyst The CT scanner at [facility] is accredited by the [employer] and the scans are performed using protocols designed to limit radiation exposure to as low as reasonably achievable to attain images of sufficient resolution adequate for diagnostic evaluation.
--- NOTE | 2020-02-22 18:00 | NUR ---
NURSE NOTES: Patient asleep but easily arousable. Had a visitor outside of room and patient was noted to be engaged and interacting with visitor. Will continue to monitor.
--- NOTE | 2020-02-22 19:11 | NUR ---
NURSE HAND-OFF REPORT: Latest Vital Signs: Temperature 98.9 , Pulse 97 , B/P 155 /93 , Respiratory Rate 29 , O2 SAT 100 , T-piece, O2 Flow Rate 12.0 . Vital Sign Comment: Stable EKG Rhythm: Sinus Tachycardia Rhythm change?: N MD Notified?: - MD Response: Latest Cole Fall Score: 70 Fall Risk: High Risk Safety Measures: Call light Within Reach, Bed Alarm Zone 3, Side Rails Side Rails x2, Bed position Low and Locked. Fall Precautions: Yellow Socks Yellow Gown Door Sign Patient Fall Education Report given to Saundra HAN.
--- NOTE | 2020-02-22 19:12 | NUR ---
NURSE NOTES: Patient received from EMELY Berger. patient awake oriented x1, attempts to mouth words but incomprehensible. patient with Shiley 7 with T piece 12L aerosol [id number] copious amounts of thick pink and zamudio secretions noted. BP 148/88 HR97 NSR on monitor, temp 99.9F oral. PIV right Forearm #20 and left wrist #20 running NS@100ml/hr. gtube running Glucerna 1.5@55ml/hr. Estrada catheter draining light yellow urine. kathi-rectal erosion noted with skin tear and bilateral lower extremity discoloration at the ankles noted. patient repositioned and oral care provided.
[2020-02-22] MEDS: Vancomycin 1.25gm/NS Premix IVPB SCH (20:00)
[2020-02-22] MEDS ORDERED: SUPPORT118 ML GT (20:23)
[2020-02-22] MEDS ORDERED: NOVOLIN N100 UNIT/3 SQ (20:23)
[2020-02-22] MEDS ORDERED: ARTIFICIAL TEAR15 ML BOTH EYES (20:23)
[2020-02-22] MEDS ORDERED: LOVENOX10 M3 SUBQ (20:23)
[2020-02-22] MEDS ORDERED: HUMALOG100 UNIT/1 SUBQ (20:23)
[2020-02-22] MEDS ORDERED: SEROQUEL25 MG GT (20:23)
[2020-02-22] MEDS ORDERED: VITAMIN D3125 MCG GT (20:23)
[2020-02-22] MEDS ORDERED: MUCOMYST TRANSTR092 (20:25)
--- NOTE | 2020-02-22 21:53 | Cardiology Progress Note ---
Subjective DATE OF SERVICE: Feb 22, 2020 On trach collar Moderated secretions CT chest reveals extensive PNA Monitor: sinus tachycardia Objective Last 24 Hour Vital Signs Date Time Temp Pulse Resp B/P (MAP) Pulse Ox O2 Delivery O2 Flow Rate FiO2 02/22/20 21:00 97 27 148/88 (108) 02/22/20 20:00 99.9 97 17 142/85 (104) 95 02/22/20 20:00 98 02/22/20 20:00 T-piece 12.0 02/22/20 19:26 99 T-Piece 8.0 35 02/22/20 19:26 94 22 99 T-Piece 8.0 35 95 24 96 02/22/20 19:00 97 32 148/88 (108) 94 02/22/20 18:00 97 29 155/93 (113) 100 02/22/20 17:00 98.9 102 27 154/85 (108) 96 02/22/20 16:30 12.0 35 02/22/20 16:00 98.9 90 30 148/114 (125) 96 02/22/20 16:00 T-piece 12.0 02/22/20 16:00 86 02/22/20 15:00 87 30 144/79 (100) 96 02/22/20 14:00 86 30 146/89 (108) 99 02/22/20 13:31 99 T-Piece 8.0 35 02/22/20 13:03 85 29 134/80 (98) 98 02/22/20 12:00 99.0 91 27 126/72 (90) 100 02/22/20 12:00 T-piece 12.0 02/22/20 12:00 82 02/22/20 11:00 88 30 137/76 (96) 97 02/22/20 10:00 88 29 132/90 (104) 97 02/22/20 09:00 99.4 86 26 123/69 (87) 100 02/22/20 08:00 T-piece 12.0 02/22/20 08:00 98.9 83 26 107/64 (78) 100 02/22/20 08:00 80 02/22/20 07:49 85 22 100 T-Piece 8.0 35 80 24 98 02/22/20 07:37 98 T-Piece 8.0 35 02/22/20 07:00 98.9 85 24 106/64 (78) 100 02/22/20 06:00 99.5 79 28 96/61 (73) 98 02/22/20 05:00 93 23 142/77 (98) 96 02/22/20 04:07 99.7 02/22/20 04:00 80 02/22/20 04:00 100.6 90 30 138/79 (98) 96 02/22/20 04:00 T-piece 12.0 02/22/20 03:00 96 23 133/89 (104) 95 02/22/20 02:00 98 25 130/71 (90) 96 02/22/20 01:21 98 23 100 T-Piece 8.0 35 02/22/20 01:11 96 23 99 T-Piece 8.0 35 02/22/20 01:11 99 T-Piece 8.0 35 02/22/20 01:00 95 26 138/81 (100) 95 02/22/20 00:00 99.9 97 27 135/75 (95) 95 02/22/20 00:00 T-piece 12.0 02/22/20 00:00 96 02/21/20 23:00 94 25 129/76 (93) 93 02/21/20 22:00 T-piece 12.0 02/21/20 22:00 95 23 132/76 (94) 96 ROS: unchanged from my dictation of 02/21/20 HEENT: Thick Trach secretions LUNGS: bilateral rhonchi, trach site clean CARDIAC: normal rate, regular rhythm, normal S1 and S2 ABDOMEN: normal bowel sounds, non tender, soft, G-Tube intact EXTREMITIES: normal range of motion, no swelling, No edema Laboratory Tests Test 02/22/20 04:00 02/22/20 10:00 02/22/20 15:00 White Blood Count 17.0 K/UL (4.8-10.8) H Red Blood Count 3.31 M/UL (4.70-6.10) L Hemoglobin 9.0 G/DL (14.2-18.0) L Hematocrit 28.0 % (42.0-52.0) L Mean Corpuscular Volume 85 FL (80-99) Mean Corpuscular Hemoglobin 27.2 PG (27.0-31.0) Mean Corpuscular Hemoglobin Concent 32.0 G/DL (32.0-36.0) Red Cell Distribution Width 14.0 % (11.6-14.8) Platelet Count 480 K/UL (150-450) H Mean Platelet Volume 4.9 FL (6.5-10.1) L Neutrophils (%) (Auto) % (45.0-75.0) Lymphocytes (%) (Auto) % (20.0-45.0) Monocytes (%) (Auto) % (1.0-10.0) Eosinophils (%) (Auto) % (0.0-3.0) Basophils (%) (Auto) % (0.0-2.0) Differential Total Cells Counted 100 Neutrophils % (Manual) 81 % (45-75) H Lymphocytes % (Manual) 15 % (20-45) L Monocytes % (Manual) 1 % (1-10) Eosinophils % (Manual) 3 % (0-3) Basophils % (Manual) 0 % (0-2) Band Neutrophils 0 % (0-8) Platelet Estimate Adequate Platelet Morphology Normal Hypochromasia 2+ Anisocytosis 1+ Sodium Level 140 MMOL/L (136-145) Potassium Level 3.3 MMOL/L (3.5-5.1) L Chloride Level 108 MMOL/L (98-107) H Carbon Dioxide Level 25 MMOL/L (21-32) Anion Gap 7 mmol/L (5-15) Blood Urea Nitrogen 13 mg/dL (7-18) Creatinine 0.7 MG/DL (0.55-1.30) Estimat Glomerular Filtration Rate > 60 mL/min (>60) Glucose Level 350 MG/DL (74-106) H Calcium Level 9.9 MG/DL (8.5-10.1) Calcium (Send out) Pending Parathyroid Hormone (Intact) Pending Urine Color Pale yellow Urine Appearance Cloudy Urine pH 8 (4.5-8.0) Urine Specific Raymond 1.010 (1.005-1.035) Urine Protein 1+ (NEGATIVE) H Urine Glucose (UA) 4+ (NEGATIVE) H Urine Ketones Negative (NEGATIVE) Urine Blood 5+ (NEGATIVE) H Urine Nitrite Negative (NEGATIVE) Urine Bilirubin Negative (NEGATIVE) Urine Urobilinogen Normal MG/DL (0.0-1.0) Urine Leukocyte Esterase 3+ (NEGATIVE) H Urine RBC Tntc /HPF (0 - 0) H Urine WBC Tntc /HPF (0 - 0) H Urine Squamous Epithelial Cells None /LPF (NONE/OCC) Urine Bacteria Moderate /HPF (NONE) H Urine Yeast Many /HPF (NONE) H Stool Occult Blood Pending Microbiology Date/Time Source Procedure Growth Status 02/20/20 10:00 Blood Blood Culture - Preliminary NO GROWTH AFTER 24 HOURS Resulted 02/20/20 10:00 Blood Blood Culture - Preliminary NO GROWTH AFTER 24 HOURS Resulted 02/21/20 18:30 Nasopharynx SARS-CoV-2 RdRp Gene Assay - Final Complete 02/20/20 18:00 Sputum Gram Stain - Final Resulted 02/20/20 18:00 Sputum Culture - Preliminary Gram Negative Bacillus 1 Gram Negative Bacillus 2 Gram Negative Bacillus 3 Resulted 02/20/20 10:00 Nasal Nares MRSA Culture - Final Staphylococcus Aureus - Mrsa Complete 02/20/20 10:00 Nasopharynx SARS-CoV-2 RdRp Gene Assay - Final Complete 02/20/20 18:00 Indwelling Cath Urine Culture - Preliminary Gram Negative Maikel Resulted 02/20/20 10:00 Urine,Clean Catch Urine Culture - Preliminary Gram Negative Maikel Resulted 02/20/20 10:00 Rectum VRE Culture - Final Enterococcus Faecalis - Vre Complete Assessment/Plan Assessment/Plan Healthcare associated PNA Sepsis Recovered shock Hypertension/HHD Respiratory failure with trach Anemia Hypokalemia Leukocytosis improved Abx Resp rx Replace K+; check Mg++ Nutrition per Gtube Add beta mahi DVT prophylaxis Richard Lang MD Feb 22, 2020 21:53
--- NOTE | 2020-02-22 22:00 | NUR ---
NURSE NOTES: patient awake oriented x1, with Shiley 7 with T piece 12L aerosol [id number]%. copious amounts of thick pink and zamudio secretions noted. BP 135/68 HR101 Sinus tachy on monitor. PIV right Forearm #20 and left wrist #20 running NS@100ml/hr. Gtube running Glucerna 1.5@55ml/hr. Estrada catheter draining light yellow urine. patient repositioned and oral care provided.
[2020-02-23] VITALS (23 sets, daily range): BP systolic 109–156; BP diastolic 56–95
--- NOTE | 2020-02-23 | NUR ---
NURSE NOTES: patient awake oriented x2, with Shiley 7 with T piece 12L aerosol [id number]%. copious amounts of thick pink and zamudio secretions noted. BP 143/88 HR97 NSR on monitor temp 100.1F axillary. PIV right Forearm #20 and left wrist #20 running NS@100ml/hr. gtube running Glucerna 1.5@55ml/hr. Estrada catheter draining light yellow urine. patient bathed, repositioned and oral care provided.
[2020-02-23] MEDS: Albuterol/Ipratropium 3ml neb HHN SCH ×3 (01:00→15:37)
[2020-02-23] MEDS: Acetaminophen 650mg/20.3ml NG PRN (01:48)
--- NOTE | 2020-02-23 02:00 | NUR ---
NURSE NOTES: patient awake oriented x2, with Shiley 7 with T piece 12L aerosol [id number]%. copious amounts of thick pink and zamudio secretions noted. BP 156/89 HR93 NSR on monitor temp 100.0F axillary after prn Tylenol administered. PIV right Forearm #20 and left wrist #20 running NS@100ml/hr. gtube running Glucerna 1.5@55ml/hr. Estrada catheter draining light yellow urine. patient repositioned and oral care provided.
--- NOTE | 2020-02-23 04:00 | NUR ---
NURSE NOTES: patient awake oriented x2, with Shiley 7 with T piece 12L aerosol FiO2 35%. copious amounts of thick pink zamudio secretions noted. BP 150/84 HR89 NSR on monitor temp 100.1F axillary. PIV right Forearm #20 and left wrist #20 running NS@100ml/hr. Gtube running Glucerna 1.5@55ml/hr. Estrada catheter draining light yellow urine. patient repositioned and oral care provided.
[2020-02-23] MEDS: Piperacillin/Tazobactam 3.375 GM in NS 110 ML IVPB SCH (05:07)
[2020-02-23 05:41] LABS: HEMATOCRIT 29.7 % (42.0-52.0); HEMOGLOBIN 9.8 G/DL (14.2-18.0); MEAN CORPUSCULAR VOLUME 85 FL (80-99); PLATELET COUNT 566 K/UL (150-450); RED BLOOD COUNT 3.51 M/UL (4.70-6.10); RED CELL DISTRIBUTION WIDTH 13.7 % (11.6-14.8); WHITE BLOOD COUNT 13.2 K/UL (4.8-10.8)
--- NOTE | 2020-02-23 06:00 | NUR ---
NURSE NOTES: patient awake oriented x2, with Shiley 7 with T piece 12L aerosol SlH495%. copious amounts of thick zamudio secretions noted. BP 116/69 HR80 NSR on monitor. PIV right Forearm #20 and left wrist #20 running NS@100ml/hr. gtube running Glucerna 1.5@55ml/hr. Estrada catheter draining light yellow urine. kathi-rectal erosion noted and bilateral lower extremity discoloration at the ankles noted. patient repositioned and oral care provided.
[2020-02-23 06:06] LABS: ALANINE AMINOTRANSFERASE 14 U/L (12-78); ALBUMIN 1.6 G/DL (3.4-5.0); ALBUMIN/GLOBULIN RATIO 0.3 (1.0-2.7); ALKALINE PHOSPHATASE 176 U/L (46-116); ANION GAP 6 mmol/L (5-15); ASPARTATE AMINO TRANSFERASE 9 U/L (15-37); BILIRUBIN,TOTAL 0.3 MG/DL (0.2-1.0); BLOOD UREA NITROGEN 14 mg/dL (7-18); CALCIUM 9.8 MG/DL (8.5-10.1); CARBON DIOXIDE 28 MMOL/L (21-32); CHLORIDE 111 MMOL/L (98-107); CREATININE 0.8 MG/DL (0.55-1.30); POTASSIUM 3.3 MMOL/L (3.5-5.1); SODIUM 145 MMOL/L (136-145)
--- NOTE | 2020-02-23 07:23 | NUR ---
HAND-OFF: Report given to EMELY Ramos. endorsed plan of care.
--- NOTE | 2020-02-23 07:55 | NUR ---
NURSE NOTES: Dr. Salgado updated at the bedside on patient progress, order to transfer to telemetry remains active and waiting for at bed. no verbal orders given at this time.
--- NOTE | 2020-02-23 08:11 | Pulmonolgy Critical Care Note ---
Critical Care - Asmt/Plan Problems: (1) Nosocomial pneumonia (2) Sepsis (3) Chronic vegetative state (4) Feeding by G-tube (5) Diabetes mellitus (6) Tracheostomy in place Respiratory: monitor respiratory rate, adjust FIO2 Cardiac: continue to monitor HR/BP Renal: F/U I&O, keep IV fluid, check electrolytes Infectious Disease: check cultures, continue antibiotics Gastrointestinal: continue feedings/current rate Endocrine: monitor blood sugar Hematologic: monitor H/H, transfuse if hgb<8.5 Neurologic: PRN Ativan, keep patient comfortable Affect: PRN ativan Prophylaxis: Protonix, Heparin Disposition: keep in ICU Time Spent (Minutes): 40 Notes Reviewed: chain puller, cardio Discussed with: nurses, consultants, lead case managercertified energy manager - Objective Last 24 Hour Vital Signs Date Time Temp Pulse Resp B/P (MAP) Pulse Ox O2 Delivery O2 Flow Rate FiO2 02/23/20 07:00 76 20 116/70 (85) 100 02/23/20 06:00 80 20 116/69 (85) 100 02/23/20 05:00 86 25 109/56 (73) 100 02/23/20 04:00 100.1 89 27 150/84 (106) 100 02/23/20 04:00 92 02/23/20 04:00 T-piece 12.0 02/23/20 03:00 91 26 149/85 (106) 100 02/23/20 02:18 100.0 02/23/20 02:00 93 26 156/89 (111) 100 02/23/20 01:06 99 T-Piece 8.0 35 02/23/20 01:00 92 26 150/87 (108) 100 02/23/20 00:00 100.1 97 21 143/88 (106) 98 02/23/20 00:00 102 02/23/20 00:00 T-piece 12.0 02/22/20 23:00 94 30 152/86 (108) 99 02/22/20 22:00 101 32 135/68 (90) 86 02/22/20 21:00 97 27 148/88 (108) 02/22/20 20:00 99.9 97 17 142/85 (104) 95 02/22/20 20:00 98 02/22/20 20:00 T-piece 12.0 02/22/20 19:26 99 T-Piece 8.0 35 02/22/20 19:26 94 22 99 T-Piece 8.0 35 95 24 96 02/22/20 19:00 97 32 148/88 (108) 94 02/22/20 18:00 97 29 155/93 (113) 100 02/22/20 17:00 98.9 102 27 154/85 (108) 96 02/22/20 16:30 12.0 35 02/22/20 16:00 98.9 90 30 148/114 (125) 96 02/22/20 16:00 T-piece 12.0 02/22/20 16:00 86 02/22/20 15:00 87 30 144/79 (100) 96 02/22/20 14:00 86 30 146/89 (108) 99 02/22/20 13:31 99 T-Piece 8.0 35 02/22/20 13:03 85 29 134/80 (98) 98 02/22/20 12:00 99.0 91 27 126/72 (90) 100 02/22/20 12:00 T-piece 12.0 02/22/20 12:00 82 02/22/20 11:00 88 30 137/76 (96) 97 02/22/20 10:00 88 29 132/90 (104) 97 02/22/20 09:00 99.4 86 26 123/69 (87) 100 Status: sedated Condition: critical HEENT: atraumatic Neck: full ROM Lungs: rales, rhonchi Heart: HR/BP stable Abdomen: soft, feeding tube Extremities: no C/C/E Micro: Microbiology Date/Time Source Procedure Growth Status 02/20/20 10:00 Blood Blood Culture - Preliminary NO GROWTH AFTER 48 HOURS Resulted 02/20/20 10:00 Blood Blood Culture - Preliminary NO GROWTH AFTER 48 HOURS Resulted 02/21/20 18:30 Nasopharynx SARS-CoV-2 RdRp Gene Assay - Final Complete 02/20/20 18:00 Sputum Gram Stain - Final Resulted 02/20/20 18:00 Sputum Culture - Preliminary Gram Negative Bacillus 1 Gram Negative Bacillus 2 Gram Negative Bacillus 3 Resulted 02/20/20 10:00 Nasal Nares MRSA Culture - Final Staphylococcus Aureus - Mrsa Complete 02/20/20 10:00 Nasopharynx SARS-CoV-2 RdRp Gene Assay - Final Complete 02/20/20 18:00 Indwelling Cath Urine Culture - Final Citrobacter Youngae Complete 02/20/20 10:00 Urine,Clean Catch Urine Culture - Final Citrobacter Youngae Complete 02/20/20 10:00 Rectum VRE Culture - Final Enterococcus Faecalis - Vre Complete Accucheck: 153 Critical Care - Subjective ROS Limited/Unobtainable: Yes Condition: improving EKG Rhythm: Sinus Rhythm FI02: 35 Sputum Amount: Small Tube Feeding Amount: 55 I&O: Intake and Output 02/22/20 02/23/20 19:00 07:00 Intake Total 2070 ml 2349.1240 ml Output Total 2525 ml 2200 ml Balance -455 ml 149.1240 ml Intake Free Water 200 ml 150 ml IV Total 1210 ml 1539.1240 ml Tube Feeding 660 ml 660 ml Output Urine Total 2525 ml 2200 ml # Bowel Movements 2 2 CXR: no change Labs: Laboratory Tests Test 02/22/20 10:00 02/22/20 15:00 02/23/20 04:10 Calcium (Send out) 9.4 mg/dL (8.6-10.2) PTH (Intact) Whole Molecule Comment (.) Parathyroid Hormone (Intact) 24 pg/mL (15-65) Urine Color Pale yellow Urine Appearance Cloudy Urine pH 8 (4.5-8.0) Urine Specific [place] 1.010 (1.005-1.035) Urine Protein 1+ (NEGATIVE) H Urine Glucose (UA) 4+ (NEGATIVE) H Urine Ketones Negative (NEGATIVE) Urine Blood 5+ (NEGATIVE) H Urine Nitrite Negative (NEGATIVE) Urine Bilirubin Negative (NEGATIVE) Urine Urobilinogen Normal MG/DL (0.0-1.0) Urine Leukocyte Esterase 3+ (NEGATIVE) H Urine RBC Tntc /HPF (0 - 0) H Urine WBC Tntc /HPF (0 - 0) H Urine Squamous Epithelial Cells None /LPF (NONE/OCC) Urine Bacteria Moderate /HPF (NONE) H Urine Yeast Many /HPF (NONE) H Stool Occult Blood Pending White Blood Count 13.2 K/UL (4.8-10.8) H Red Blood Count 3.51 M/UL (4.70-6.10) L Hemoglobin 9.8 G/DL (14.2-18.0) L Hematocrit 29.7 % (42.0-52.0) L Mean Corpuscular Volume 85 FL (80-99) Mean Corpuscular Hemoglobin 27.8 PG (27.0-31.0) Mean Corpuscular Hemoglobin Concent 32.9 G/DL (32.0-36.0) Red Cell Distribution Width 13.7 % (11.6-14.8) Platelet Count 566 K/UL (150-450) H Mean Platelet Volume 4.8 FL (6.5-10.1) L Neutrophils (%) (Auto) % (45.0-75.0) Lymphocytes (%) (Auto) % (20.0-45.0) Monocytes (%) (Auto) % (1.0-10.0) Eosinophils (%) (Auto) % (0.0-3.0) Basophils (%) (Auto) % (0.0-2.0) Neutrophils % (Manual) Pending Lymphocytes % (Manual) Pending Platelet Estimate Pending Platelet Morphology Pending Sodium Level 145 MMOL/L (136-145) Potassium Level 3.3 MMOL/L (3.5-5.1) L Chloride Level 111 MMOL/L (98-107) H Carbon Dioxide Level 28 MMOL/L (21-32) Anion Gap 6 mmol/L (5-15) Blood Urea Nitrogen 14 mg/dL (7-18) Creatinine 0.8 MG/DL (0.55-1.30) Estimat Glomerular Filtration Rate > 60 mL/min (>60) Glucose Level 359 MG/DL (74-106) H Calcium Level 9.8 MG/DL (8.5-10.1) Magnesium Level 1.9 MG/DL (1.8-2.4) Total Bilirubin 0.3 MG/DL (0.2-1.0) Aspartate Amino Transf (AST/SGOT) 9 U/L (15-37) L Alanine Aminotransferase (ALT/SGPT) 14 U/L (12-78) Alkaline Phosphatase 176 U/L (46-116) H Pro-B-Type Natriuretic Peptide 2130 pg/mL (0-125) H Total Protein 7.6 G/DL (6.4-8.2) Albumin 1.6 G/DL (3.4-5.0) L Globulin 6.0 g/dL Albumin/Globulin Ratio 0.3 (1.0-2.7) L Melany Salgado MD Feb 23, 2020 08:10
[2020-02-23] MEDS: Pantoprazole Inj IVP SCH (09:15)
[2020-02-23] MEDS: Heparin 5000 units/ml inj SUBQ SCH ×2 (09:16→21:42)
--- NOTE | 2020-02-23 10:30 | NUR ---
NURSE NOTES: Dr. Humphrey ordered 40mEq of potassium chloride for patient potassium level of 3.3 no further orders placed at this time.
[2020-02-23] MEDS ORDERED: Potassium Chloride 40 MEQ in Sodium Chloride 550 ML IVPB ONE (11:30)
--- NOTE | 2020-02-23 12:45 | NUR ---
NURSE NOTES: Potassium bag started and infusing through peripheral IV, IV flushed with no swelling or leaking noted at this time.
--- NOTE | 2020-02-23 12:46 | Surgery Progress Note ---
Surgery Progress Note Subjective Additional Comments labs improving on trach comfortable Objective Last 24 Hour Vital Signs Date Time Temp Pulse Resp B/P (MAP) Pulse Ox O2 Delivery O2 Flow Rate FiO2 02/23/20 12:00 92 26 147/85 (105) 100 02/23/20 12:00 94 02/23/20 11:00 93 22 148/87 (107) 100 02/23/20 10:00 81 25 143/82 (102) 100 02/23/20 09:14 90 148/86 02/23/20 09:00 90 23 148/86 (106) 100 02/23/20 08:00 T-piece 12.0 02/23/20 08:00 85 02/23/20 08:00 98.8 92 27 150/95 (113) 100 02/23/20 07:00 76 20 116/70 (85) 100 02/23/20 06:00 80 20 116/69 (85) 100 02/23/20 05:00 86 25 109/56 (73) 100 02/23/20 04:00 100.1 89 27 150/84 (106) 100 02/23/20 04:00 92 02/23/20 04:00 T-piece 12.0 02/23/20 03:00 91 26 149/85 (106) 100 02/23/20 02:18 100.0 02/23/20 02:00 93 26 156/89 (111) 100 02/23/20 01:06 99 T-Piece 8.0 35 02/23/20 01:00 92 26 150/87 (108) 100 02/23/20 00:00 100.1 97 21 143/88 (106) 98 02/23/20 00:00 102 02/23/20 00:00 T-piece 12.0 02/22/20 23:00 94 30 152/86 (108) 99 02/22/20 22:00 101 32 135/68 (90) 86 02/22/20 21:00 97 27 148/88 (108) 02/22/20 20:00 99.9 97 17 142/85 (104) 95 02/22/20 20:00 98 02/22/20 20:00 T-piece 12.0 02/22/20 19:26 99 T-Piece 8.0 35 02/22/20 19:26 94 22 99 T-Piece 8.0 35 95 24 96 02/22/20 19:00 97 32 148/88 (108) 94 02/22/20 18:00 97 29 155/93 (113) 100 02/22/20 17:00 98.9 102 27 154/85 (108) 96 02/22/20 16:30 12.0 35 02/22/20 16:00 98.9 90 30 148/114 (125) 96 02/22/20 16:00 T-piece 12.0 02/22/20 16:00 86 02/22/20 15:00 87 30 144/79 (100) 96 02/22/20 14:00 86 30 146/89 (108) 99 02/22/20 13:31 99 T-Piece 8.0 35 02/22/20 13:03 85 29 134/80 (98) 98 I&O Intake and Output 02/22/20 02/23/20 19:00 07:00 Intake Total 2070 ml 2349.1240 ml Output Total 2525 ml 2200 ml Balance -455 ml 149.1240 ml Intake Free Water 200 ml 150 ml IV Total 1210 ml 1539.1240 ml Tube Feeding 660 ml 660 ml Output Urine Total 2525 ml 2200 ml # Bowel Movements 2 2 Dressing: other Wound: other Cardiovascular: RSR Respiratory: decreased breath sounds Abdomen: soft, non-tender, present bowel sounds Extremities: no tenderness, no cyanosis Laboratory Tests Test 02/22/20 15:00 02/23/20 04:10 Urine Color Pale yellow Urine Appearance Cloudy Urine pH 8 (4.5-8.0) Urine Specific [place] 1.010 (1.005-1.035) Urine Protein 1+ (NEGATIVE) H Urine Glucose (UA) 4+ (NEGATIVE) H Urine Ketones Negative (NEGATIVE) Urine Blood 5+ (NEGATIVE) H Urine Nitrite Negative (NEGATIVE) Urine Bilirubin Negative (NEGATIVE) Urine Urobilinogen Normal MG/DL (0.0-1.0) Urine Leukocyte Esterase 3+ (NEGATIVE) H Urine RBC Tntc /HPF (0 - 0) H Urine WBC Tntc /HPF (0 - 0) H Urine Squamous Epithelial Cells None /LPF (NONE/OCC) Urine Bacteria Moderate /HPF (NONE) H Urine Yeast Many /HPF (NONE) H Stool Occult Blood Negative (NEGATIVE) White Blood Count 13.2 K/UL (4.8-10.8) H Red Blood Count 3.51 M/UL (4.70-6.10) L Hemoglobin 9.8 G/DL (14.2-18.0) L Hematocrit 29.7 % (42.0-52.0) L Mean Corpuscular Volume 85 FL (80-99) Mean Corpuscular Hemoglobin 27.8 PG (27.0-31.0) Mean Corpuscular Hemoglobin Concent 32.9 G/DL (32.0-36.0) Red Cell Distribution Width 13.7 % (11.6-14.8) Platelet Count 566 K/UL (150-450) H Mean Platelet Volume 4.8 FL (6.5-10.1) L Neutrophils (%) (Auto) % (45.0-75.0) Lymphocytes (%) (Auto) % (20.0-45.0) Monocytes (%) (Auto) % (1.0-10.0) Eosinophils (%) (Auto) % (0.0-3.0) Basophils (%) (Auto) % (0.0-2.0) Differential Total Cells Counted 100 Neutrophils % (Manual) 83 % (45-75) H Lymphocytes % (Manual) 13 % (20-45) L Monocytes % (Manual) 4 % (1-10) Eosinophils % (Manual) 0 % (0-3) Basophils % (Manual) 0 % (0-2) Band Neutrophils 0 % (0-8) Platelet Estimate Increased H Platelet Morphology Normal Hypochromasia 2+ Anisocytosis 1+ Sodium Level 145 MMOL/L (136-145) Potassium Level 3.3 MMOL/L (3.5-5.1) L Chloride Level 111 MMOL/L (98-107) H Carbon Dioxide Level 28 MMOL/L (21-32) Anion Gap 6 mmol/L (5-15) Blood Urea Nitrogen 14 mg/dL (7-18) Creatinine 0.8 MG/DL (0.55-1.30) Estimat Glomerular Filtration Rate > 60 mL/min (>60) Glucose Level 359 MG/DL (74-106) H Calcium Level 9.8 MG/DL (8.5-10.1) Magnesium Level 1.9 MG/DL (1.8-2.4) Total Bilirubin 0.3 MG/DL (0.2-1.0) Aspartate Amino Transf (AST/SGOT) 9 U/L (15-37) L Alanine Aminotransferase (ALT/SGPT) 14 U/L (12-78) Alkaline Phosphatase 176 U/L (46-116) H Pro-B-Type Natriuretic Peptide 2130 pg/mL (0-125) H Total Protein 7.6 G/DL (6.4-8.2) Albumin 1.6 G/DL (3.4-5.0) L Globulin 6.0 g/dL Albumin/Globulin Ratio 0.3 (1.0-2.7) L Plan Problems: (1) Sepsis Assessment & Plan: leukocytosis, fevers, abnormal labs, ill appearing, respiratory insufficiency, on support, micro noted. Pt presented on admission with Tracheostomy, multiple Pressure Injuries, Kita- rectal erosion.Skin assessed uner tracheal collar and no evidence of skin breakdown noted. Partially opened Sacral DTPI (L)6cm x (W)6.3cm. Base of wound is maroon , fluctuant with small open area at sacrococcygeal area that is 80% slough ,20% mary at base (L)0.7cm x (W)0.8cm. Perirectal and scrotum area is grossly excoriated. Partial thickness wound noted to Base R and base of scrotum(L)2.8cm x (W)3.5cm. Biofilm noted at base of wound. Borders are macerated. Haemosiderin noted to bilat distal/lower extremities. L heel is boggy with non-Blanchable erythema. R heel is boggy with non-Blanchable erythema. Loose dry eschar noted to R heel . Pt denied tenderness or pain when palpated. Tx.Plan: Cleanse Sacral Wound with Saline. Apply Moisture Barrier Paste Periwound. Cover with Optifoam drsg. Changeevery 3 days and prn. Apply Zinc Oxide Paste to Scrotal wound and Kita-rectal erosion TID and Prn. Apply Cavilon Skin BArrier to both heels and Malleoli. Cover each site with Optifoam drsg. Change every 7 daysand prn. Reposition at least every 2hours or as tolerated. Off-load heels with pillow. APM/DONALDO Mattress overlay. DAILY ESTIMATED NEEDS: Needs based on wound, DM, sepsis/ 65kg 25-30 kcals/kg 7486-7807 total kcals 1.25-2 g protein/kg 81-130 g total protein 25-30 mL/kg 9108-5887 total fluid mLs NUTRITION DIAGNOSIS: * Swallowing difficulty R/T dysphagia, respiratory status as evidenced by pt on T-collar, PEG dep. * Increased kcal/prot needs R/T wound healing as evidenced by admitted w/ sacral wound per photo, pending eval. CURRENT TF:Glucerna 1.5 @ 55ml/hr x 24 hrs ENTERAL NUTRITION RECOMMENDATIONS: Glucerna 1.5 @ 50ml/hr x 24 hrs to provide 1200ml, 1800kcal, 99g prot, 910ml free water * LOWER goal rate to 50m/hr x 24 hrs: meets 100% est kcal/prot needs * HOB over 30 degrees/ water flush per MD ADDITIONAL RECOMMENDATIONS: * Calibrated bedscal wt for accurate CBW * Rec long acting insulin for improved BG control. * Wound healing: Add Vit C 500mg QD + Omari BID via PEG * Monitor lytes, replete as needed (2) UTI (urinary tract infection) (3) Tracheostomy in place (4) Diabetes mellitus (5) OBS (organic brain syndrome) (6) Feeding by G-tube (7) Chronic vegetative state (8) Nosocomial pneumonia Terry Armstrong Feb 23, 2020 12:46
--- NOTE | 2020-02-23 13:59 | Infectious Diseases Prog Note ---
Assessment/Plan Assessment: Severe Sepsis UTI r/o probable bacteremia -02/19 u/a wbc tnct, nit neg,leuk +3; ucx >100k C. youngae, probabl AMP-c (I Zosyn, Ceftriaxone; S Meropenem) Bcx NTD Bacterial Pneumonia- COVID19 neg x2 -02/20 rapid COVID PCR neg -02/19 Rapid COVID PCR neg sp cx ESBL E.coli (S Zosyn, Meropenem), ESBL K. pna(S Zosyn, Meropenem ), P, mirabilis ([place] S) CXR: Right lung consolidation, likely pneumonia Right hilar apparent fullness, probably an artifact of rotation but mass or adenopathy also possible. Recommend follow-up radiographs to resolution. 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 Will continue to follow along with you. Discussed with RN. Subjective Allergies: Coded Allergies: No Known Allergies (Unverified , 02/20/20) Tm 100.9 wbc improving Bcx NTD Objective Last 24 Hour Vital Signs Date Time Temp Pulse Resp B/P (MAP) Pulse Ox O2 Delivery O2 Flow Rate FiO2 02/23/20 13:00 93 25 129/94 (106) 100 02/23/20 12:00 92 26 147/85 (105) 100 02/23/20 12:00 94 02/23/20 11:00 93 22 148/87 (107) 100 02/23/20 10:00 81 25 143/82 (102) 100 02/23/20 09:14 90 148/86 02/23/20 09:00 90 23 148/86 (106) 100 02/23/20 08:00 T-piece 12.0 02/23/20 08:00 85 02/23/20 08:00 98.8 92 27 150/95 (113) 100 02/23/20 07:00 76 20 116/70 (85) 100 02/23/20 06:00 80 20 116/69 (85) 100 02/23/20 05:00 86 25 109/56 (73) 100 02/23/20 04:00 100.1 89 27 150/84 (106) 100 02/23/20 04:00 92 02/23/20 04:00 T-piece 12.0 02/23/20 03:00 91 26 149/85 (106) 100 02/23/20 02:18 100.0 02/23/20 02:00 93 26 156/89 (111) 100 02/23/20 01:06 99 T-Piece 8.0 35 02/23/20 01:00 92 26 150/87 (108) 100 02/23/20 00:00 100.1 97 21 143/88 (106) 98 02/23/20 00:00 102 02/23/20 00:00 T-piece 12.0 02/22/20 23:00 94 30 152/86 (108) 99 02/22/20 22:00 101 32 135/68 (90) 86 02/22/20 21:00 97 27 148/88 (108) 02/22/20 20:00 99.9 97 17 142/85 (104) 95 02/22/20 20:00 98 02/22/20 20:00 T-piece 12.0 02/22/20 19:26 99 T-Piece 8.0 35 02/22/20 19:26 94 22 99 T-Piece 8.0 35 95 24 96 02/22/20 19:00 97 32 148/88 (108) 94 02/22/20 18:00 97 29 155/93 (113) 100 02/22/20 17:00 98.9 102 27 154/85 (108) 96 02/22/20 16:30 12.0 35 02/22/20 16:00 98.9 90 30 148/114 (125) 96 02/22/20 16:00 T-piece 12.0 02/22/20 16:00 86 02/22/20 15:00 87 30 144/79 (100) 96 02/22/20 14:00 86 30 146/89 (108) 99 Height (Feet): 5 Height (Inches): 4.00 Weight (Pounds): 141 Head: Normocephalic, without obvious abnormality, atraumatic Neck: supple Lungs: clear to auscultation bilaterally Heart: regular rate and rhythm, S1, S2 normal Abdomen: soft, non-tender. Bowel sounds normal Extremities: extremities normal, atraumatic, no cyanosis or edema Microbiology Date/Time Source Procedure Growth Status 02/21/20 18:30 Nasopharynx SARS-CoV-2 RdRp Gene Assay - Final Complete 02/20/20 18:00 Sputum Gram Stain - Final Resulted 02/20/20 18:00 Sputum Culture - Preliminary Escherichia Coli - Esbl Klebsiella Pneumoniae Proteus Mirabilis Resulted 02/20/20 18:00 Indwelling Cath Urine Culture - Final Citrobacter Youngae Complete Laboratory Tests Test 02/22/20 15:00 02/23/20 04:10 Urine Color Pale yellow Urine Appearance Cloudy Urine pH 8 (4.5-8.0) Urine Specific [place] 1.010 (1.005-1.035) Urine Protein 1+ (NEGATIVE) H Urine Glucose (UA) 4+ (NEGATIVE) H Urine Ketones Negative (NEGATIVE) Urine Blood 5+ (NEGATIVE) H Urine Nitrite Negative (NEGATIVE) Urine Bilirubin Negative (NEGATIVE) Urine Urobilinogen Normal MG/DL (0.0-1.0) Urine Leukocyte Esterase 3+ (NEGATIVE) H Urine RBC Tntc /HPF (0 - 0) H Urine WBC Tntc /HPF (0 - 0) H Urine Squamous Epithelial Cells None /LPF (NONE/OCC) Urine Bacteria Moderate /HPF (NONE) H Urine Yeast Many /HPF (NONE) H Stool Occult Blood Negative (NEGATIVE) White Blood Count 13.2 K/UL (4.8-10.8) H Red Blood Count 3.51 M/UL (4.70-6.10) L Hemoglobin 9.8 G/DL (14.2-18.0) L Hematocrit 29.7 % (42.0-52.0) L Mean Corpuscular Volume 85 FL (80-99) Mean Corpuscular Hemoglobin 27.8 PG (27.0-31.0) Mean Corpuscular Hemoglobin Concent 32.9 G/DL (32.0-36.0) Red Cell Distribution Width 13.7 % (11.6-14.8) Platelet Count 566 K/UL (150-450) H Mean Platelet Volume 4.8 FL (6.5-10.1) L Neutrophils (%) (Auto) % (45.0-75.0) Lymphocytes (%) (Auto) % (20.0-45.0) Monocytes (%) (Auto) % (1.0-10.0) Eosinophils (%) (Auto) % (0.0-3.0) Basophils (%) (Auto) % (0.0-2.0) Differential Total Cells Counted 100 Neutrophils % (Manual) 83 % (45-75) H Lymphocytes % (Manual) 13 % (20-45) L Monocytes % (Manual) 4 % (1-10) Eosinophils % (Manual) 0 % (0-3) Basophils % (Manual) 0 % (0-2) Band Neutrophils 0 % (0-8) Platelet Estimate Increased H Platelet Morphology Normal Hypochromasia 2+ Anisocytosis 1+ Sodium Level 145 MMOL/L (136-145) Potassium Level 3.3 MMOL/L (3.5-5.1) L Chloride Level 111 MMOL/L (98-107) H Carbon Dioxide Level 28 MMOL/L (21-32) Anion Gap 6 mmol/L (5-15) Blood Urea Nitrogen 14 mg/dL (7-18) Creatinine 0.8 MG/DL (0.55-1.30) Estimat Glomerular Filtration Rate > 60 mL/min (>60) Glucose Level 359 MG/DL (74-106) H Calcium Level 9.8 MG/DL (8.5-10.1) Magnesium Level 1.9 MG/DL (1.8-2.4) Total Bilirubin 0.3 MG/DL (0.2-1.0) Aspartate Amino Transf (AST/SGOT) 9 U/L (15-37) L Alanine Aminotransferase (ALT/SGPT) 14 U/L (12-78) Alkaline Phosphatase 176 U/L (46-116) H Pro-B-Type Natriuretic Peptide 2130 pg/mL (0-125) H Total Protein 7.6 G/DL (6.4-8.2) Albumin 1.6 G/DL (3.4-5.0) L Globulin 6.0 g/dL Albumin/Globulin Ratio 0.3 (1.0-2.7) L Current Medications Medications (Trade) Dose Ordered Sig/Anders Route PRN Reason Start Time Stop Time Status Last Admin Dose Admin Acetaminophen (Tylenol) 650 mg Q6H PRN NG Mild Pain (1-3)/ Temp>100.5 02/20/20 17:45 03/21/20 17:44 02/23/20 01:48 Albuterol/ Ipratropium (Albuterol/ Ipratropium) 3 ml Q6HRT HHN 02/20/20 19:00 02/25/20 18:59 02/23/20 07:52 Heparin Sodium (Porcine) (Heparin 5000 units/ml) 5,000 units EVERY 12 HOURS SUBQ 02/20/20 21:00 04/05/20 20:59 02/23/20 09:16 Meropenem 1 gm/ Sodium Chloride 55 ml @ 110 mls/hr Q8HR IVPB 02/23/20 14:00 02/28/20 13:59 Metoprolol Tartrate (Lopressor) 25 mg Q12HR GT 02/23/20 09:00 05/23/20 08:59 02/23/20 09:14 Pantoprazole (Protonix) 40 mg DAILY IVP 02/21/20 09:00 03/22/20 08:59 02/23/20 09:15 Potassium Chloride 40 meq/ Sodium Chloride 570 ml @ 100 mls/hr ONCE ONCE IVPB 02/23/20 11:30 02/23/20 17:11 02/23/20 12:54 Sodium Chloride 1,000 ml @ 100 mls/hr Q10H IV 02/20/20 18:15 03/21/20 18:14 02/23/20 05:07 Vancomycin HCl (Vanco pharmacy to dose) 1 ea DAILY PRN MISC PER RX PROTOCOL 02/20/20 18:15 03/21/20 18:14 Vancomycin/Sodium Chloride 275 ml @ 183.333 mls/hr Q24H IVPB 02/21/20 20:00 02/26/20 19:59 02/22/20 20:00 Zinc Oxide (Zinc Oxide) 1 applic TIDPRN PRN TOPIC Scrotal wound and kathi-rectal 02/22/20 15:00 05/22/20 14:59 Marily Hardy M.D. Feb 23, 2020 13:59
[2020-02-23] MEDS ORDERED: Meropenem 1gm in NS 55ml IVPB SCH (14:00)
--- NOTE | 2020-02-23 14:25 | NUR ---
NURSE NOTES: patient suctioned by RT at the bedside, he is noted to respond to yes/no questions with a head movement or using gestures using his hands of mouth, he is resting in bed with pillow supporting his sides. the Estrada remains draining pale straw urine.
--- NOTE | 2020-02-23 14:45 | NUR ---
NURSE NOTES: Antibiotics order changed from Zosyn to meropenem as organicisms in the sputum are noted to be sensitive to this antibiotics.
--- NOTE | 2020-02-23 17:46 | NUR ---
NURSE NOTES: Dr. Lan called to place a physician consult for wound care, Dr. Armstrong is the physician chosen to care for the patient wounds, he is noted to have bilateral hyperpigmentation, perirectal erosion, sacral DTI and bilateral heel DTI.
--- NOTE | 2020-02-23 19:49 | NUR ---
NURSE HAND-OFF REPORT: Latest Vital Signs: Temperature 99.5 , Pulse 93 , B/P 140 /82 , Respiratory Rate 27 , O2 SAT 97 , T-piece, O2 Flow Rate 12.0 . Vital Sign Comment: EKG Rhythm: Sinus Rhythm Rhythm change?: N MD Notified?: - MD Response: Latest Cole Fall Score: 55 Fall Risk: High Risk Safety Measures: Call light Within Reach, Bed Alarm Zone 1, Side Rails Side Rails x2, Bed position Low and Locked. Fall Precautions: Yellow Socks Yellow Gown Door Sign Patient Fall Education Report given to EMELY Valenzuela. patient is calm and resting in bed, awakes with voice or to touch. patient to be transfered to SDU.
--- NOTE | 2020-02-23 19:50 | NUR ---
NURSE NOTES: Received report from EMELY Ramos. Pt is resting on the bed and awake and confused. Pt has trach T-piece and on cool aerosol O2 12L FiO2 35% and SaO2 97% noted. Given suction and oral care. Pt has G-tube and patent and on running with Glucerna 1.5@ 55cc/hr. Pt has Estrada cath and patent and drainage well. Iv site intact and no sign of infiltration and on running with NS @ 100cc/hr. Pt has multiple wound and dressing is clean and dry. Pt will transfer to [facility] and awaiting room. On proper precaution for PUI for COVID. Placed fall precaution. Will continue to care plan.
--- NOTE | 2020-02-23 20:00 | NUR ---
TRANSFER TO FLOOR: Patient transferred to [facility] alissa, [id number]. Report given to EMELY Wilson. Medications given to EMELY Wilson. Pt doesn't has belongings. Pt is awake and confused. No sign of acute distress noted. Iv site intact and no sign of infiltration noted. Applied tele monitor. Placed fall precaution.
--- NOTE | 2020-02-23 20:10 | NUR ---
NURSE NOTES: Received report from EMELY Valenzuela. Patient was transferred to SDU from ICU without incident. No signs of acute distress noted; denies pain at this time. On T-piece cool aerosol at 12L/min. AOx1-2; able to follow commands to a degree, but aphasic. Checked IV site; patent and flushed. No erythema, bleeding, or infiltration noted. Wound photos to be taken. Patient is on P200, low air loss mattress for appropriate wound management. G-tube in place. Glucerna 1.5 running at 55 mls/hr. Estrada catheter draining well to gravity. Bed at lowest position, brakes on, siderails up x3. Call light within reach. Will continue to monitor.
--- NOTE | 2020-02-23 20:30 | General Progress Note ---
Assessment/Plan Status Narrative Patient condition is stabilized awake afebrile hemodynamically stable Patient will be transferred today from the ICU to the [facility] We will continue with the same IV antibiotic and respiratory treatment Repeat laboratory tests will be done in a.m. CHELA LAN MD Subjective Constitutional: Reports: no symptoms HEENT: Reports: no symptoms Cardiovascular: Reports: no symptoms Respiratory: Reports: no symptoms Gastrointestinal/Abdominal: Reports: no symptoms Neurologic/Psychiatric: Reports: no symptoms Allergies: Coded Allergies: No Known Allergies (Unverified , 02/20/20) Objective Last 24 Hour Vital Signs Date Time Temp Pulse Resp B/P (MAP) Pulse Ox O2 Delivery O2 Flow Rate FiO2 02/23/20 20:00 T-piece 12.0 02/23/20 20:00 98.5 92 24 142/80 (100) 97 02/23/20 20:00 92 02/23/20 19:00 93 27 140/82 (101) 97 02/23/20 19:00 98 T-Piece 8.0 35 02/23/20 18:00 88 21 154/95 (114) 97 02/23/20 17:00 91 27 154/92 (112) 97 02/23/20 16:01 99.5 98 26 137/85 (102) 97 02/23/20 16:00 100 02/23/20 16:00 12.0 35 02/23/20 16:00 98 26 137/85 (102) 97 02/23/20 16:00 T-piece 12.0 02/23/20 15:47 99 26 100 T-Piece 8.0 35 98 27 97 02/23/20 15:00 91 20 148/92 (110) 95 02/23/20 14:00 93 29 156/92 (113) 96 02/23/20 13:58 99 T-Piece 8.0 35 02/23/20 13:00 93 25 129/94 (106) 100 02/23/20 12:01 98.2 92 26 147/85 (105) 100 02/23/20 12:00 92 26 147/85 (105) 100 02/23/20 12:00 94 02/23/20 12:00 12.0 35 02/23/20 12:00 T-piece 12.0 02/23/20 11:00 93 22 148/87 (107) 100 02/23/20 10:00 81 25 143/82 (102) 100 02/23/20 09:14 90 148/86 02/23/20 09:00 90 23 148/86 (106) 100 02/23/20 08:02 96 28 100 T-Piece 8.0 35 94 30 100 02/23/20 08:00 T-piece 12.0 02/23/20 08:00 85 02/23/20 08:00 12.0 35 02/23/20 08:00 98.8 92 27 150/95 (113) 100 02/23/20 07:51 100 T-Piece 8.0 35 02/23/20 07:00 76 20 116/70 (85) 100 02/23/20 06:00 80 20 116/69 (85) 100 02/23/20 05:00 86 25 109/56 (73) 100 02/23/20 04:00 100.1 89 27 150/84 (106) 100 02/23/20 04:00 92 02/23/20 04:00 T-piece 12.0 02/23/20 03:00 91 26 149/85 (106) 100 02/23/20 02:18 100.0 02/23/20 02:00 93 26 156/89 (111) 100 02/23/20 01:06 99 T-Piece 8.0 35 02/23/20 01:00 92 26 150/87 (108) 100 02/23/20 00:00 100.1 97 21 143/88 (106) 98 02/23/20 00:00 102 02/23/20 00:00 T-piece 12.0 02/22/20 23:00 94 30 152/86 (108) 99 02/22/20 22:00 101 32 135/68 (90) 86 02/22/20 21:00 97 27 148/88 (108) Intake and Output 02/22/20 02/23/20 19:00 07:00 Intake Total 2070 ml 2349.1240 ml Output Total 2525 ml 2200 ml Balance -455 ml 149.1240 ml Intake Free Water 200 ml 150 ml IV Total 1210 ml 1539.1240 ml Tube Feeding 660 ml 660 ml Output Urine Total 2525 ml 2200 ml # Bowel Movements 2 2 Laboratory Tests 02/22/20 21:17: POC Whole Blood Glucose [Pending] 9/12/20 04:10: White Blood Count 13.2H, Red Blood Count 3.51L, Hemoglobin 9.8L, Hematocrit 29.7L, Mean Corpuscular Volume 85, Mean Corpuscular Hemoglobin 27.8, Mean Corpuscular Hemoglobin Concent 32.9, Red Cell Distribution Width 13.7, Platelet Count 566H, Mean Platelet Volume 4.8L, Neutrophils (%) (Auto) , Lymphocytes (%) (Auto) , Monocytes (%) (Auto) , Eosinophils (%) (Auto) , Basophils (%) (Auto) , Differential Total Cells Counted 100, Neutrophils % (Manual) 83H, Lymphocytes % (Manual) 13L, Monocytes % (Manual) 4, Eosinophils % (Manual) 0, Basophils % ( Manual) 0, Band Neutrophils 0, Platelet Estimate IncreasedH, Platelet Morphology Normal, Hypochromasia 2+, Anisocytosis 1+, Sodium Level 145, Potassium Level 3.3L, Chloride Level 111H, Carbon Dioxide Level 28, Anion Gap 6 , Blood Urea Nitrogen 14, Creatinine 0.8, Estimat Glomerular Filtration Rate > 60, Glucose Level 359H, Calcium Level 9.8, Magnesium Level 1.9, Total Bilirubin 0.3, Aspartate Amino Transf (AST/SGOT) 9L, Alanine Aminotransferase (ALT/SGPT) 14, Alkaline Phosphatase 176H, Pro-B-Type Natriuretic Peptide 2130H, Total Protein 7.6, Albumin 1.6L, Globulin 6.0, Albumin/Globulin Ratio 0.3L Height (Feet): 5 Height (Inches): 4.00 Weight (Pounds): 141 General Appearance: alert, other - With brief eye contact EENT: normal ENT inspection Neck: non-tender, supple Cardiovascular: normal rate, regular rhythm, no gallop/murmur, no JVD Respiratory/Chest: no respiratory distress, decreased breath sounds, rhonchi - bilaterally, other - In both basal lung waller Abdomen: normal bowel sounds, non tender, soft, no organomegaly, no mass Extremities: non-tender, other - No cyanosis clubbing or edema Neurologic: aphasia, other - No attempt to communicate Chela Lan MD Feb 23, 2020 20:30
[2020-02-23] MEDS ORDERED: Acetaminophen 650mg/20.3ml NG PRN (21:00)
[2020-02-23] MEDS ORDERED: Zinc Oxide Oint 2oz TOPIC PRN (21:00)
[2020-02-23] MEDS: Meropenem 1 GM in NS 55 ML IVPB SCH (21:44)
[2020-02-24] VITALS: BP 153/90
--- NOTE | 2020-02-24 00:46 | Cardiology Progress Note ---
Subjective DATE OF SERVICE: Feb 23, 2020 On trach collar Moderate secretions Monitor: sinus rhythm/tachycardia CT chest reveals extensive PNA Objective Last 24 Hour Vital Signs Date Time Temp Pulse Resp B/P (MAP) Pulse Ox O2 Delivery O2 Flow Rate FiO2 02/23/20 21:43 90 147/87 02/23/20 20:00 T-piece 12.0 02/23/20 20:00 98.5 92 24 142/80 (100) 97 02/23/20 20:00 92 02/23/20 19:00 93 27 140/82 (101) 97 02/23/20 19:00 98 T-Piece 8.0 35 02/23/20 18:00 88 21 154/95 (114) 97 02/23/20 17:00 91 27 154/92 (112) 97 02/23/20 16:01 99.5 98 26 137/85 (102) 97 02/23/20 16:00 100 02/23/20 16:00 12.0 35 02/23/20 16:00 98 26 137/85 (102) 97 02/23/20 16:00 T-piece 12.0 02/23/20 15:47 99 26 100 T-Piece 8.0 35 98 27 97 02/23/20 15:00 91 20 148/92 (110) 95 02/23/20 14:00 93 29 156/92 (113) 96 02/23/20 13:58 99 T-Piece 8.0 35 02/23/20 13:00 93 25 129/94 (106) 100 02/23/20 12:01 98.2 92 26 147/85 (105) 100 02/23/20 12:00 92 26 147/85 (105) 100 02/23/20 12:00 94 02/23/20 12:00 12.0 35 02/23/20 12:00 T-piece 12.0 02/23/20 11:00 93 22 148/87 (107) 100 02/23/20 10:00 81 25 143/82 (102) 100 02/23/20 09:14 90 148/86 02/23/20 09:00 90 23 148/86 (106) 100 02/23/20 08:02 96 28 100 T-Piece 8.0 35 94 30 100 02/23/20 08:00 T-piece 12.0 02/23/20 08:00 85 02/23/20 08:00 12.0 35 02/23/20 08:00 98.8 92 27 150/95 (113) 100 02/23/20 07:51 100 T-Piece 8.0 35 02/23/20 07:00 76 20 116/70 (85) 100 02/23/20 06:00 80 20 116/69 (85) 100 02/23/20 05:00 86 25 109/56 (73) 100 02/23/20 04:00 100.1 89 27 150/84 (106) 100 02/23/20 04:00 92 02/23/20 04:00 T-piece 12.0 02/23/20 03:00 91 26 149/85 (106) 100 02/23/20 02:18 100.0 02/23/20 02:00 93 26 156/89 (111) 100 02/23/20 01:06 99 T-Piece 8.0 35 02/23/20 01:00 92 26 150/87 (108) 100 ROS: unchanged from my dictation of 02/21/20 HEENT: Thick Trach secretions LUNGS: bilateral rhonchi, trach site clean CARDIAC: normal rate, regular rhythm, normal S1 and S2 ABDOMEN: normal bowel sounds, non tender, soft, G-Tube intact EXTREMITIES: normal range of motion, no swelling, No edema Laboratory Tests Test 02/23/20 04:10 White Blood Count 13.2 K/UL (4.8-10.8) H Red Blood Count 3.51 M/UL (4.70-6.10) L Hemoglobin 9.8 G/DL (14.2-18.0) L Hematocrit 29.7 % (42.0-52.0) L Mean Corpuscular Volume 85 FL (80-99) Mean Corpuscular Hemoglobin 27.8 PG (27.0-31.0) Mean Corpuscular Hemoglobin Concent 32.9 G/DL (32.0-36.0) Red Cell Distribution Width 13.7 % (11.6-14.8) Platelet Count 566 K/UL (150-450) H Mean Platelet Volume 4.8 FL (6.5-10.1) L Neutrophils (%) (Auto) % (45.0-75.0) Lymphocytes (%) (Auto) % (20.0-45.0) Monocytes (%) (Auto) % (1.0-10.0) Eosinophils (%) (Auto) % (0.0-3.0) Basophils (%) (Auto) % (0.0-2.0) Differential Total Cells Counted 100 Neutrophils % (Manual) 83 % (45-75) H Lymphocytes % (Manual) 13 % (20-45) L Monocytes % (Manual) 4 % (1-10) Eosinophils % (Manual) 0 % (0-3) Basophils % (Manual) 0 % (0-2) Band Neutrophils 0 % (0-8) Platelet Estimate Increased H Platelet Morphology Normal Hypochromasia 2+ Anisocytosis 1+ Sodium Level 145 MMOL/L (136-145) Potassium Level 3.3 MMOL/L (3.5-5.1) L Chloride Level 111 MMOL/L (98-107) H Carbon Dioxide Level 28 MMOL/L (21-32) Anion Gap 6 mmol/L (5-15) Blood Urea Nitrogen 14 mg/dL (7-18) Creatinine 0.8 MG/DL (0.55-1.30) Estimat Glomerular Filtration Rate > 60 mL/min (>60) Glucose Level 359 MG/DL (74-106) H Calcium Level 9.8 MG/DL (8.5-10.1) Magnesium Level 1.9 MG/DL (1.8-2.4) Total Bilirubin 0.3 MG/DL (0.2-1.0) Aspartate Amino Transf (AST/SGOT) 9 U/L (15-37) L Alanine Aminotransferase (ALT/SGPT) 14 U/L (12-78) Alkaline Phosphatase 176 U/L (46-116) H Pro-B-Type Natriuretic Peptide 2130 pg/mL (0-125) H Total Protein 7.6 G/DL (6.4-8.2) Albumin 1.6 G/DL (3.4-5.0) L Globulin 6.0 g/dL Albumin/Globulin Ratio 0.3 (1.0-2.7) L Microbiology Date/Time Source Procedure Growth Status 02/21/20 18:30 Nasopharynx SARS-CoV-2 RdRp Gene Assay - Final Complete Assessment/Plan Assessment/Plan Healthcare associated PNA Sepsis Recovered shock Hypertension/HHD Respiratory failure with trach Anemia Hypokalemia Leukocytosis improved Abx Resp rx Replace K+/Mg++ as needed Nutrition per Gtube Titrate beta mahi DVT prophylaxis Richard Lang MD Feb 24, 2020 00:46
[2020-02-24] MEDS: Albuterol/Ipratropium 3ml neb HHN SCH ×5 (01:00→19:39)
[2020-02-24 04:00] VITALS: BP 152/95
[2020-02-24] MEDS: Meropenem 1 GM in NS 55 ML IVPB SCH ×3 (07:10→21:16)
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
--- NOTE | 2020-02-24 07:38 | NUR ---
NURSE HAND-OFF REPORT: Important Events on Shift:[] Patient Status: [Stable ] Diet: [Glucerna 1.5 @ 55 mL/hr] Pending Orders: [] Pending Results/Labs:[] Pending MD notification:[] Latest Vital Signs: Temperature 99.0 , Pulse 87 , B/P 152 /95 , Respiratory Rate 22 , O2 SAT 99 , T-piece, O2 Flow Rate 12.0 . Vital Sign Comment: [] EKG Rhythm: Sinus Rhythm Rhythm change?: N MD Notified?: - MD Response: Latest Cole Fall Score: 55 Fall Risk: High Risk Safety Measures: Call light Within Reach, Bed Alarm Zone 1, Side Rails Side Rails x2, Bed position Low and Locked. Fall Precautions: Yellow Socks Yellow Gown Door Sign Patient Fall Education Report given to [EMELY Hardy].
[2020-02-24 07:54] LABS: BASOPHILS % (AUTO) 0.4 % (0.0-2.0); EOSINOPHILS % (AUTO) 1.2 % (0.0-3.0); HEMATOCRIT 37.6 % (42.0-52.0); LYMPHOCYTES % (AUTO) 12.9 % (20.0-45.0); MEAN CORPUSCULAR VOLUME 86 FL (80-99); MONOCYTES % (AUTO) 3.4 % (1.0-10.0); NEUTROPHILS % (AUTO) 82.2 % (45.0-75.0); PLATELET COUNT 613 K/UL (150-450); RED BLOOD COUNT 4.38 M/UL (4.70-6.10); RED CELL DISTRIBUTION WIDTH 14.7 % (11.6-14.8); WHITE BLOOD COUNT 11.3 K/UL (4.8-10.8)
--- NOTE | 2020-02-24 07:55 | NUR ---
NURSE NOTES: Received report from EMELY Wilson. Pt is Awake but aphasic, able to follow commands. Pt is on T-piece with FiO2 35% @ 12L with No signs of acute distress noted. nuclear monitoring technician on pt. Pt has IV sites c/d/i. Excoriation noted on perianal area. Patient is on P200 mattress. G-tube in place running Glucerna 1.5 running at 55 mls/hr. Estrada catheter draining to gravity. Bed in lowest locked position, call light within reach, will continue with plan of care.
[2020-02-24 08:00] VITALS: BP 131/73
--- NOTE | 2020-02-24 08:13 | NUR ---
RD ASSESSMENT & RECOMMENDATIONS SEE CARE ACTIVITY FOR COMPLETE ASSESSMENT DAILY ESTIMATED NEEDS: Needs based on wound, DM, sepsis/ 52.3kg 25-35 kcals/kg 7130-7603 total kcals 1.25-2 g protein/kg 65-105 g total protein 25-30 mL/kg 8283-3706 total fluid mLs NUTRITION DIAGNOSIS: * Swallowing difficulty R/T dysphagia, respiratory status as evidenced by pt on T-collar, PEG dep. * Increased kcal/prot needs R/T wound healing as evidenced by admitted w/ sacral wound per photo, refer to wound eval. (CURRENT TF:Glucerna 1.5 @ 55ml/hr x 24 hrs) ENTERAL NUTRITION RECOMMENDATIONS: Glucerna 1.5 @ 45ml/hr x 24 hrs to provide 1080ml, 1620kcal, 89g prot, 820ml free water * LOWER goal rate to 45m/hr x 24 hrs: meets 100% est kcal/prot needs * HOB over 30 degrees/ water flush per MD ADDITIONAL RECOMMENDATIONS: * Calibrated bed scale wt for accurate CBW * Rec long acting insulin for improved BG control. * Wound healing: Add Vit C 500mg QD + Omari BID via PEG * Monitor lytes, replete as needed
[2020-02-24 08:26] LABS: ALANINE AMINOTRANSFERASE 14 U/L (12-78); ALBUMIN 1.9 G/DL (3.4-5.0); ALBUMIN/GLOBULIN RATIO 0.3 (1.0-2.7); ALKALINE PHOSPHATASE 129 U/L (46-116); ANION GAP 10 mmol/L (5-15); ASPARTATE AMINO TRANSFERASE 7 U/L (15-37); BILIRUBIN,TOTAL 0.2 MG/DL (0.2-1.0); BLOOD UREA NITROGEN 17 mg/dL (7-18); CALCIUM 10.6 MG/DL (8.5-10.1); CARBON DIOXIDE 24 MMOL/L (21-32); CHLORIDE 114 MMOL/L (98-107); CREATININE 0.7 MG/DL (0.55-1.30); PHOSPHORUS 2.9 MG/DL (2.5-4.9); POTASSIUM 3.9 MMOL/L (3.5-5.1); SODIUM 148 MMOL/L (136-145)
--- NOTE | 2020-02-24 08:43 | NUR ---
NURSE NOTES: Left message for Dr Lan pt serum blood sugar 359 pt needs insulin coverage and accucheck q6h?
[2020-02-24] MEDS: Heparin 5000 units/ml inj SUBQ SCH ×2 (09:54→20:18)
[2020-02-24] MEDS: NovoLOG Insulin Flexpen SUBQ SCH ×4 (09:57→23:53)
[2020-02-24] MEDS: Pantoprazole Inj IVP SCH (10:00)
--- NOTE | 2020-02-24 10:15 | Pulmonolgy Critical Care Note ---
Critical Care - Asmt/Plan Problems: (1) Nosocomial pneumonia (2) Sepsis (3) Chronic vegetative state (4) Feeding by G-tube (5) Diabetes mellitus (6) Tracheostomy in place Respiratory: monitor respiratory rate, adjust FIO2, CXR Cardiac: continue pressors, continue to monitor HR/BP Renal: F/U I&O, check electrolytes Infectious Disease: check cultures Gastrointestinal: continue feedings/current rate, hold feedings Endocrine: check TSH, continue sliding scale insulin Hematologic: monitor H/H, transfuse if hgb<8.5 Neurologic: PRN Morphine, keep patient comfortable Prophylaxis: Protonix Time Spent (Minutes): 30 Notes Reviewed: renal Discussed with: nurses, consultants, nurse case managernurse case manager - Objective Last 24 Hour Vital Signs Date Time Temp Pulse Resp B/P (MAP) Pulse Ox O2 Delivery O2 Flow Rate FiO2 02/24/20 10:00 87 131/73 02/24/20 09:02 99 T-Piece 8.0 35 02/24/20 08:50 87 24 100 T-Piece 8.0 35 89 25 99 02/24/20 08:38 99 T-Piece 8.0 35 02/24/20 08:00 T-piece 12.0 02/24/20 08:00 98.2 69 20 131/73 (92) 95 02/24/20 08:00 92 02/24/20 08:00 12.0 35 02/24/20 04:00 T-piece 12.0 02/24/20 04:00 12.0 35 02/24/20 04:00 87 02/24/20 04:00 99.0 89 22 152/95 (114) 99 02/24/20 02:11 93 24 98 02/24/20 01:19 98 T-Piece 8.0 35 02/24/20 00:00 T-piece 12.0 02/24/20 00:00 73 02/24/20 00:00 12.0 35 02/24/20 00:00 99.0 99 21 153/90 (111) 97 02/23/20 22:00 91 02/23/20 21:43 90 147/87 02/23/20 20:00 T-piece 12.0 02/23/20 20:00 98.5 92 24 142/80 (100) 97 02/23/20 20:00 92 02/23/20 19:00 93 27 140/82 (101) 97 02/23/20 19:00 98 T-Piece 8.0 35 02/23/20 18:00 88 21 154/95 (114) 97 02/23/20 17:00 91 27 154/92 (112) 97 02/23/20 16:01 99.5 98 26 137/85 (102) 97 02/23/20 16:00 100 02/23/20 16:00 12.0 35 02/23/20 16:00 98 26 137/85 (102) 97 02/23/20 16:00 T-piece 12.0 02/23/20 15:47 99 26 100 T-Piece 8.0 35 98 27 97 02/23/20 15:00 91 20 148/92 (110) 95 02/23/20 14:00 93 29 156/92 (113) 96 02/23/20 13:58 99 T-Piece 8.0 35 02/23/20 13:00 93 25 129/94 (106) 100 02/23/20 12:01 98.2 92 26 147/85 (105) 100 02/23/20 12:00 92 26 147/85 (105) 100 02/23/20 12:00 94 02/23/20 12:00 12.0 35 02/23/20 12:00 T-piece 12.0 02/23/20 11:00 93 22 148/87 (107) 100 Status: awake Condition: critical HEENT: atraumatic Neck: full ROM Lungs: clear Heart: HR/BP stable Abdomen: soft Extremities: no C/C/E Micro: Microbiology Date/Time Source Procedure Growth Status 02/21/20 18:30 Nasopharynx SARS-CoV-2 RdRp Gene Assay - Final Complete 02/22/20 15:00 Urine,Clean Catch Urine Culture - Preliminary Gram Negative Maikel Resulted Accucheck: 353 Critical Care - Subjective ROS Limited/Unobtainable: Yes Condition: critical EKG Rhythm: Sinus Rhythm FI02: 35 Sputum Amount: Moderate Tube Feeding Amount: 55 I&O: Intake and Output 02/23/20 02/24/20 19:00 07:00 Intake Total 2330.0 ml 1737 ml Output Total 1950 ml 2500 ml Balance 380.0 ml -763 ml Intake Free Water 50 ml 100 ml IV Total 1590.0 ml 1032 ml Tube Feeding 660 ml 605 ml Other 30 ml Output Urine Total 1950 ml 2500 ml # Bowel Movements 1 3 CXR: no change Labs: Laboratory Tests Test 02/24/20 07:14 02/24/20 09:53 White Blood Count 11.3 K/UL (4.8-10.8) H Red Blood Count 4.38 M/UL (4.70-6.10) L Hemoglobin 12.0 G/DL (14.2-18.0) L Hematocrit 37.6 % (42.0-52.0) L Mean Corpuscular Volume 86 FL (80-99) Mean Corpuscular Hemoglobin 27.4 PG (27.0-31.0) Mean Corpuscular Hemoglobin Concent 31.9 G/DL (32.0-36.0) L Red Cell Distribution Width 14.7 % (11.6-14.8) Platelet Count 613 K/UL (150-450) H Mean Platelet Volume 4.8 FL (6.5-10.1) L Neutrophils (%) (Auto) 82.2 % (45.0-75.0) H Lymphocytes (%) (Auto) 12.9 % (20.0-45.0) L Monocytes (%) (Auto) 3.4 % (1.0-10.0) Eosinophils (%) (Auto) 1.2 % (0.0-3.0) Basophils (%) (Auto) 0.4 % (0.0-2.0) Erythrocyte Sedimentation Rate 98 MM/HR (0-20) H Sodium Level 148 MMOL/L (136-145) H Potassium Level 3.9 MMOL/L (3.5-5.1) Chloride Level 114 MMOL/L (98-107) H Carbon Dioxide Level 24 MMOL/L (21-32) Anion Gap 10 mmol/L (5-15) Blood Urea Nitrogen 17 mg/dL (7-18) Creatinine 0.7 MG/DL (0.55-1.30) Estimat Glomerular Filtration Rate > 60 mL/min (>60) Glucose Level 386 MG/DL (74-106) H Calcium Level 10.6 MG/DL (8.5-10.1) H Phosphorus Level 2.9 MG/DL (2.5-4.9) Magnesium Level 2.3 MG/DL (1.8-2.4) Total Bilirubin 0.2 MG/DL (0.2-1.0) Aspartate Amino Transf (AST/SGOT) 7 U/L (15-37) L Alanine Aminotransferase (ALT/SGPT) 14 U/L (12-78) Alkaline Phosphatase 129 U/L (46-116) H C-Reactive Protein, Quantitative 4.0 mg/dL (0.00-0.90) H Total Protein 8.5 G/DL (6.4-8.2) H Albumin 1.9 G/DL (3.4-5.0) L Globulin 6.6 g/dL Albumin/Globulin Ratio 0.3 (1.0-2.7) L POC Whole Blood Glucose 353 MG/DL (74-106) H Melany Salgado MD Feb 24, 2020 10:15
[2020-02-24 11:55] VITALS: BP 131/76
[2020-02-24 16:00] VITALS: BP 119/67
--- NOTE | 2020-02-24 16:45 | Surgery Progress Note ---
Surgery Progress Note Subjective Symptoms: tolerating diet, passing flatus, pain decreased Objective Last 24 Hour Vital Signs Date Time Temp Pulse Resp B/P (MAP) Pulse Ox O2 Delivery O2 Flow Rate FiO2 02/24/20 16:00 T-piece 12.0 02/24/20 16:00 12.0 35 02/24/20 16:00 103 02/24/20 16:00 98.1 62 18 119/67 (84) 98 02/24/20 15:50 79 25 99 T-Piece 8.0 35 75 22 97 02/24/20 13:15 97 T-Piece 8.0 35 02/24/20 12:00 98 02/24/20 11:56 12.0 35 02/24/20 11:55 T-piece 12.0 02/24/20 11:55 98.7 88 20 131/76 (94) 99 02/24/20 10:00 87 131/73 02/24/20 09:02 99 T-Piece 8.0 35 02/24/20 08:50 87 24 100 T-Piece 8.0 35 89 25 99 02/24/20 08:38 99 T-Piece 8.0 35 02/24/20 08:00 T-piece 12.0 02/24/20 08:00 98.2 69 20 131/73 (92) 95 02/24/20 08:00 92 02/24/20 08:00 12.0 35 02/24/20 04:00 T-piece 12.0 02/24/20 04:00 12.0 35 02/24/20 04:00 87 02/24/20 04:00 99.0 89 22 152/95 (114) 99 02/24/20 02:11 93 24 98 02/24/20 01:19 98 T-Piece 8.0 35 02/24/20 00:00 T-piece 12.0 02/24/20 00:00 73 02/24/20 00:00 12.0 35 02/24/20 00:00 99.0 99 21 153/90 (111) 97 02/23/20 22:00 91 02/23/20 21:43 90 147/87 02/23/20 20:00 T-piece 12.0 02/23/20 20:00 98.5 92 24 142/80 (100) 97 02/23/20 20:00 92 02/23/20 19:00 93 27 140/82 (101) 97 02/23/20 19:00 98 T-Piece 8.0 35 02/23/20 18:00 88 21 154/95 (114) 97 02/23/20 17:00 91 27 154/92 (112) 97 I&O Intake and Output 02/23/20 02/24/20 19:00 07:00 Intake Total 2330.0 ml 1737 ml Output Total 1950 ml 2500 ml Balance 380.0 ml -763 ml Intake Free Water 50 ml 100 ml IV Total 1590.0 ml 1032 ml Tube Feeding 660 ml 605 ml Other 30 ml Output Urine Total 1950 ml 2500 ml # Bowel Movements 1 3 Dressing: saturated Cardiovascular: RSR Respiratory: decreased breath sounds Abdomen: soft, non-tender, present bowel sounds Extremities: no edema, no tenderness, no cyanosis Laboratory Tests Test 02/24/20 07:14 02/24/20 09:53 02/24/20 12:03 White Blood Count 11.3 K/UL (4.8-10.8) H Red Blood Count 4.38 M/UL (4.70-6.10) L Hemoglobin 12.0 G/DL (14.2-18.0) L Hematocrit 37.6 % (42.0-52.0) L Mean Corpuscular Volume 86 FL (80-99) Mean Corpuscular Hemoglobin 27.4 PG (27.0-31.0) Mean Corpuscular Hemoglobin Concent 31.9 G/DL (32.0-36.0) L Red Cell Distribution Width 14.7 % (11.6-14.8) Platelet Count 613 K/UL (150-450) H Mean Platelet Volume 4.8 FL (6.5-10.1) L Neutrophils (%) (Auto) 82.2 % (45.0-75.0) H Lymphocytes (%) (Auto) 12.9 % (20.0-45.0) L Monocytes (%) (Auto) 3.4 % (1.0-10.0) Eosinophils (%) (Auto) 1.2 % (0.0-3.0) Basophils (%) (Auto) 0.4 % (0.0-2.0) Erythrocyte Sedimentation Rate 98 MM/HR (0-20) H Sodium Level 148 MMOL/L (136-145) H Potassium Level 3.9 MMOL/L (3.5-5.1) Chloride Level 114 MMOL/L (98-107) H Carbon Dioxide Level 24 MMOL/L (21-32) Anion Gap 10 mmol/L (5-15) Blood Urea Nitrogen 17 mg/dL (7-18) Creatinine 0.7 MG/DL (0.55-1.30) Estimat Glomerular Filtration Rate > 60 mL/min (>60) Glucose Level 386 MG/DL (74-106) H Calcium Level 10.6 MG/DL (8.5-10.1) H Phosphorus Level 2.9 MG/DL (2.5-4.9) Magnesium Level 2.3 MG/DL (1.8-2.4) Total Bilirubin 0.2 MG/DL (0.2-1.0) Aspartate Amino Transf (AST/SGOT) 7 U/L (15-37) L Alanine Aminotransferase (ALT/SGPT) 14 U/L (12-78) Alkaline Phosphatase 129 U/L (46-116) H C-Reactive Protein, Quantitative 4.0 mg/dL (0.00-0.90) H Total Protein 8.5 G/DL (6.4-8.2) H Albumin 1.9 G/DL (3.4-5.0) L Globulin 6.6 g/dL Albumin/Globulin Ratio 0.3 (1.0-2.7) L HIV (1&2) Antibody Rapid Negative (NEGATIVE) POC Whole Blood Glucose 353 MG/DL (74-106) H 344 MG/DL (74-106) H Plan Problems: (1) Sepsis Assessment & Plan: leukocytosis, fevers, abnormal labs, ill appearing, respiratory insufficiency, on support, micro noted. Pt presented on admission with Tracheostomy, multiple Pressure Injuries, Kita- rectal erosion.Skin assessed uner tracheal collar and no evidence of skin breakdown noted. Partially opened Sacral DTPI (L)6cm x (W)6.3cm. Base of wound is maroon , fluctuant with small open area at sacrococcygeal area that is 80% slough ,20% mary at base (L)0.7cm x (W)0.8cm. Perirectal and scrotum area is grossly excoriated. Partial thickness wound noted to Base R and base of scrotum(L)2.8cm x (W)3.5cm. Biofilm noted at base of wound. Borders are macerated. Haemosiderin noted to bilat distal/lower extremities. L heel is boggy with non-Blanchable erythema. R heel is boggy with non-Blanchable erythema. Loose dry eschar noted to R heel . Pt denied tenderness or pain when palpated. Tx.Plan: Cleanse Sacral Wound with Saline. Apply Moisture Barrier Paste Periwound. Cover with Optifoam drsg. Changeevery 3 days and prn. Apply Zinc Oxide Paste to Scrotal wound and Kita-rectal erosion TID and Prn. Apply Cavilon Skin BArrier to both heels and Malleoli. Cover each site with Optifoam drsg. Change every 7 daysand prn. Reposition at least every 2hours or as tolerated. Off-load heels with pillow. APM/DONALDO Mattress overlay. DAILY ESTIMATED NEEDS: Needs based on wound, DM, sepsis/ 65kg 25-30 kcals/kg 1520-3056 total kcals 1.25-2 g protein/kg 81-130 g total protein 25-30 mL/kg 6464-7571 total fluid mLs NUTRITION DIAGNOSIS: * Swallowing difficulty R/T dysphagia, respiratory status as evidenced by pt on T-collar, PEG dep. * Increased kcal/prot needs R/T wound healing as evidenced by admitted w/ sacral wound per photo, pending eval. CURRENT TF:Glucerna 1.5 @ 55ml/hr x 24 hrs ENTERAL NUTRITION RECOMMENDATIONS: Glucerna 1.5 @ 50ml/hr x 24 hrs to provide 1200ml, 1800kcal, 99g prot, 910ml free water * LOWER goal rate to 50m/hr x 24 hrs: meets 100% est kcal/prot needs * HOB over 30 degrees/ water flush per MD ADDITIONAL RECOMMENDATIONS: * Calibrated bedscal wt for accurate CBW * Rec long acting insulin for improved BG control. * Wound healing: Add Vit C 500mg QD + Omari BID via PEG * Monitor lytes, replete as needed (2) UTI (urinary tract infection) (3) Tracheostomy in place (4) Diabetes mellitus (5) OBS (organic brain syndrome) (6) Feeding by G-tube (7) Chronic vegetative state (8) Nosocomial pneumonia Terry Armstrong Feb 24, 2020 16:45
--- NOTE | 2020-02-24 19:01 | NUR ---
NURSE HAND-OFF REPORT: Important Events on Shift:oral care, wound care Patient Status:stable Diet: Pending Orders: Pending Results/Labs: Pending MD notification: none Latest Vital Signs: Temperature 98.1 , Pulse 62 , B/P 119 /67 , Respiratory Rate 18 , O2 SAT 98 , T-piece, O2 Flow Rate 12.0 . Vital Sign Comment: EKG Rhythm: Sinus Rhythm Rhythm change?: N MD Notified?: - MD Response: Latest Cole Fall Score: 55 Fall Risk: High Risk Safety Measures: Call light Within Reach, Bed Alarm Zone 1, Side Rails Side Rails x2, Bed position Low and Locked. Fall Precautions: Yellow Socks Yellow Gown Door Sign Patient Fall Education Report given to ABDIAZIZ.
--- NOTE | 2020-02-24 19:20 | NUR ---
NURSE NOTES: Received report from EMELY Hardy. Pt asleep in bed, afebrile and no respiratory distress noted. On T- Piece, shiley 7, FiO2 35% at 12lpm saturating at 97-98%. With Right FA 20g and left FA 20g IV lines intact, patent and asymptomatic. On Glucerna 1.5 at 45cc/hr on GT infusing well, no residual noted. On FC to Urine bag draining well withotu any sediments. HOB elevated. Call light within reach. Bed rails are up and wheels are locked. Continue plan of care.
[2020-02-24 20:00] VITALS: BP 132/91
[2020-02-24] MEDS ORDERED: Tubing IV Secondary IV ONE ×2 (22:48→22:49)
[2020-02-24] MEDS ORDERED: NS 275ml ONE ×2 (22:48→22:49)
[2020-02-25] VITALS: BP 135/86
--- NOTE | 2020-02-25 00:05 | Cardiology Progress Note ---
Subjective DATE OF SERVICE: Feb 24, 2020 On trach collar Moderate secretions Monitor: sinus rhythm/tachycardia CT chest reveals extensive PNA Objective Last 24 Hour Vital Signs Date Time Temp Pulse Resp B/P (MAP) Pulse Ox O2 Delivery O2 Flow Rate FiO2 02/24/20 20:17 82 132/91 02/24/20 20:00 12.0 35 02/24/20 20:00 T-piece 12.0 02/24/20 20:00 97.7 82 18 132/91 (105) 98 02/24/20 19:40 84 22 99 T-Piece 8.0 35 79 22 98 02/24/20 19:39 98 T-Piece 8.0 35 02/24/20 19:32 90 02/24/20 16:00 T-piece 12.0 02/24/20 16:00 12.0 35 02/24/20 16:00 103 02/24/20 16:00 98.1 62 18 119/67 (84) 98 02/24/20 15:50 79 25 99 T-Piece 8.0 35 75 22 97 02/24/20 13:15 97 T-Piece 8.0 35 02/24/20 12:00 98 02/24/20 11:56 12.0 35 02/24/20 11:55 T-piece 12.0 02/24/20 11:55 98.7 88 20 131/76 (94) 99 02/24/20 10:00 87 131/73 02/24/20 09:02 99 T-Piece 8.0 35 02/24/20 08:50 87 24 100 T-Piece 8.0 35 89 25 99 02/24/20 08:38 99 T-Piece 8.0 35 02/24/20 08:00 T-piece 12.0 02/24/20 08:00 98.2 69 20 131/73 (92) 95 02/24/20 08:00 92 02/24/20 08:00 12.0 35 02/24/20 04:00 T-piece 12.0 02/24/20 04:00 12.0 35 02/24/20 04:00 87 02/24/20 04:00 99.0 89 22 152/95 (114) 99 02/24/20 02:11 93 24 98 02/24/20 01:19 98 T-Piece 8.0 35 ROS: unchanged from my dictation of 02/21/20 HEENT: Thick Trach secretions LUNGS: bilateral rhonchi, trach site clean CARDIAC: normal rate, regular rhythm, normal S1 and S2 ABDOMEN: normal bowel sounds, non tender, soft, G-Tube intact EXTREMITIES: normal range of motion, no swelling, No edema Laboratory Tests Test 02/24/20 07:14 02/24/20 09:53 02/24/20 12:03 02/24/20 17:50 White Blood Count 11.3 K/UL (4.8-10.8) H Red Blood Count 4.38 M/UL (4.70-6.10) L Hemoglobin 12.0 G/DL (14.2-18.0) L Hematocrit 37.6 % (42.0-52.0) L Mean Corpuscular Volume 86 FL (80-99) Mean Corpuscular Hemoglobin 27.4 PG (27.0-31.0) Mean Corpuscular Hemoglobin Concent 31.9 G/DL (32.0-36.0) L Red Cell Distribution Width 14.7 % (11.6-14.8) Platelet Count 613 K/UL (150-450) H Mean Platelet Volume 4.8 FL (6.5-10.1) L Neutrophils (%) (Auto) 82.2 % (45.0-75.0) H Lymphocytes (%) (Auto) 12.9 % (20.0-45.0) L Monocytes (%) (Auto) 3.4 % (1.0-10.0) Eosinophils (%) (Auto) 1.2 % (0.0-3.0) Basophils (%) (Auto) 0.4 % (0.0-2.0) Erythrocyte Sedimentation Rate 98 MM/HR (0-20) H Sodium Level 148 MMOL/L (136-145) H Potassium Level 3.9 MMOL/L (3.5-5.1) Chloride Level 114 MMOL/L (98-107) H Carbon Dioxide Level 24 MMOL/L (21-32) Anion Gap 10 mmol/L (5-15) Blood Urea Nitrogen 17 mg/dL (7-18) Creatinine 0.7 MG/DL (0.55-1.30) Estimat Glomerular Filtration Rate > 60 mL/min (>60) Glucose Level 386 MG/DL (74-106) H Calcium Level 10.6 MG/DL (8.5-10.1) H Phosphorus Level 2.9 MG/DL (2.5-4.9) Magnesium Level 2.3 MG/DL (1.8-2.4) Total Bilirubin 0.2 MG/DL (0.2-1.0) Aspartate Amino Transf (AST/SGOT) 7 U/L (15-37) L Alanine Aminotransferase (ALT/SGPT) 14 U/L (12-78) Alkaline Phosphatase 129 U/L (46-116) H C-Reactive Protein, Quantitative 4.0 mg/dL (0.00-0.90) H Total Protein 8.5 G/DL (6.4-8.2) H Albumin 1.9 G/DL (3.4-5.0) L Globulin 6.6 g/dL Albumin/Globulin Ratio 0.3 (1.0-2.7) L HIV (1&2) Antibody Rapid Negative (NEGATIVE) POC Whole Blood Glucose 353 MG/DL (74-106) H 344 MG/DL (74-106) H 269 MG/DL (74-106) H Test 02/24/20 23:51 POC Whole Blood Glucose 341 MG/DL (74-106) H Microbiology Date/Time Source Procedure Growth Status 02/22/20 15:00 Urine,Clean Catch Urine Culture - Preliminary Gram Negative Maikel Resulted Assessment/Plan Assessment/Plan Healthcare associated PNA Sepsis Recovered shock Hypertension/HHD Respiratory failure with trach Anemia Hypokalemia corrected Leukocytosis improved Dehydration/hypernatremia IRDM uncontrolled Abx IVF adjusted to correct free water deficit Resp rx Replace K+/Mg++ as needed Nutrition per Gtube Add long acting insulin Titrate beta mahi DVT prophylaxis Richard Lang MD Feb 25, 2020 00:05
[2020-02-25] MEDS ORDERED: Levemir Flexpen SUBQ SCH ×3 (00:15→21:00)
[2020-02-25] MEDS: Albuterol/Ipratropium 3ml neb HHN SCH ×4 (00:48→21:07)
[2020-02-25] MEDS ORDERED: 1/2NS w/KCl 20mEq 1000ml 1,000 ML IV SCH (01:00)
--- NOTE | 2020-02-25 01:30 | NUR ---
NURSE NOTES: Pt was given partial bed bath, gown and linen were changed. Continue plan of care and monitoring
[2020-02-25 04:00] VITALS: BP 141/85
[2020-02-25 04:12] LABS: BASOPHILS % (AUTO) 0.5 % (0.0-2.0); EOSINOPHILS % (AUTO) 4.8 % (0.0-3.0); HEMATOCRIT 37.6 % (42.0-52.0); HEMOGLOBIN 11.8 G/DL (14.2-18.0); LYMPHOCYTES % (AUTO) 12.4 % (20.0-45.0); MEAN CORPUSCULAR VOLUME 86 FL (80-99); MONOCYTES % (AUTO) 3.1 % (1.0-10.0); NEUTROPHILS % (AUTO) 79.2 % (45.0-75.0); PLATELET COUNT 576 K/UL (150-450); RED BLOOD COUNT 4.39 M/UL (4.70-6.10); RED CELL DISTRIBUTION WIDTH 14.5 % (11.6-14.8)
[2020-02-25 04:40] LABS: ALANINE AMINOTRANSFERASE 13 U/L (12-78); ALBUMIN 1.9 G/DL (3.4-5.0); ALBUMIN/GLOBULIN RATIO 0.3 (1.0-2.7); ALKALINE PHOSPHATASE 112 U/L (46-116); ANION GAP 8 mmol/L (5-15); ASPARTATE AMINO TRANSFERASE 9 U/L (15-37); BILIRUBIN,TOTAL 0.2 MG/DL (0.2-1.0); BLOOD UREA NITROGEN 22 mg/dL (7-18); CALCIUM 9.9 MG/DL (8.5-10.1); CARBON DIOXIDE 27 MMOL/L (21-32); CHLORIDE 120 MMOL/L (98-107); CREATININE 0.9 MG/DL (0.55-1.30); PHOSPHORUS 2.2 MG/DL (2.5-4.9); POTASSIUM 3.9 MMOL/L (3.5-5.1); SODIUM 155 MMOL/L (136-145)
[2020-02-25] MEDS: NovoLOG Insulin Flexpen SUBQ SCH ×3 (05:19→17:43)
[2020-02-25] MEDS: Meropenem 1 GM in NS 55 ML IVPB SCH ×3 (05:21→21:36)
--- NOTE | 2020-02-25 07:20 | NUR ---
NURSE HAND-OFF REPORT: Important Events on Shift: IVF to 1/2 Ns w/ K 20MeQ at 100cc/hr Patient Status: STable Diet: Glucerna at 45cc/hr Pending Orders: n Pending Results/Labs:n Pending MD notification:n Latest Vital Signs: Temperature 97.5 , Pulse 90 , B/P 141 /85 , Respiratory Rate 18 , O2 SAT 98 , T-piece, O2 Flow Rate 12.0 . Vital Sign Comment: n EKG Rhythm: Sinus Rhythm Rhythm change?: N MD Notified?: - MD Response: Latest Cole Fall Score: 55 Fall Risk: High Risk Safety Measures: Call light Within Reach, Bed Alarm Zone 1, Side Rails Side Rails x2, Bed position Low and Locked. Fall Precautions: Yellow Socks Yellow Gown Door Sign Patient Fall Education Report given to EMELY Hardy. Endorsed to ff up MD order for low Phosphorus lab result.
--- NOTE | 2020-02-25 07:45 | NUR ---
NURSE NOTES: Received report from ABDIAZIZ RN. Pt is Awake but aphasic, able to follow commands. Pt is on T-piece with FiO2 35% @ 12L with No signs of acute distress noted. airport refueling handler on pt showing SR. Pt has IV sites c/d/i Left hand 22g infusing, DTI noted on perianal area. Patient is on P200 mattress. G-tube in place running Glucerna 1.5 running at 45 mls/hr. Estrada catheter draining to gravity. Bed in lowest locked position, call light within reach, will continue with plan of care.
[2020-02-25 08:00] VITALS: BP 140/85
[2020-02-25] MEDS: Pantoprazole Inj IVP SCH (08:53)
[2020-02-25] MEDS: Heparin 5000 units/ml inj SUBQ SCH ×2 (08:56→21:40)
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
--- NOTE | 2020-02-25 11:37 | Pulmonology Progress Note ---
Subjective ROS Limited/Unobtainable: Yes Allergies: Coded Allergies: No Known Allergies (Unverified , 02/20/20) Objective Last 24 Hour Vital Signs Date Time Temp Pulse Resp B/P (MAP) Pulse Ox O2 Delivery O2 Flow Rate FiO2 02/25/20 08:53 90 140/85 02/25/20 08:00 98.4 90 18 140/85 (103) 99 02/25/20 08:00 91 02/25/20 08:00 12.0 35 02/25/20 08:00 T-piece 12.0 02/25/20 07:20 98 T-Piece 8.0 35 02/25/20 07:20 82 20 100 T-Piece 8.0 35 82 20 98 02/25/20 04:00 T-piece 12.0 02/25/20 04:00 97.5 90 18 141/85 (103) 98 02/25/20 04:00 12.0 35 02/25/20 03:40 83 02/25/20 00:44 86 22 100 T-Piece 8.0 35 87 22 98 02/25/20 00:44 98 T-Piece 8.0 35 02/25/20 00:00 T-piece 12.0 02/25/20 00:00 12.0 35 02/25/20 00:00 83 02/25/20 00:00 98.1 88 18 135/86 (102) 98 02/24/20 20:17 82 132/91 02/24/20 20:00 12.0 35 02/24/20 20:00 T-piece 12.0 02/24/20 20:00 97.7 82 18 132/91 (105) 98 02/24/20 19:40 84 22 99 T-Piece 8.0 35 79 22 98 02/24/20 19:39 98 T-Piece 8.0 35 02/24/20 19:32 90 02/24/20 16:00 T-piece 12.0 02/24/20 16:00 12.0 35 02/24/20 16:00 103 02/24/20 16:00 98.1 62 18 119/67 (84) 98 02/24/20 15:50 79 25 99 T-Piece 8.0 35 75 22 97 02/24/20 13:15 97 T-Piece 8.0 35 02/24/20 12:00 98 02/24/20 11:56 12.0 35 02/24/20 11:55 T-piece 12.0 02/24/20 11:55 98.7 88 20 131/76 (94) 99 Intake and Output 02/24/20 02/25/20 19:00 07:00 Intake Total 1815 ml 1788 ml Output Total 1200 ml 1400 ml Balance 615 ml 388 ml Intake Free Water 30 ml IV Total 1210 ml 1218 ml Tube Feeding 605 ml 540 ml Output Urine Total 1200 ml 1400 ml # Bowel Movements 2 2 General Appearance: cachetic HEENT: normocephalic, atraumatic Respiratory: chest wall non-tender, lungs clear Cardiovascular: normal peripheral pulses, normal rate Abdomen: normal bowel sounds, soft, non tender Extremities: no clubbing 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 Microbiology Date/Time Source Procedure Growth Status 02/22/20 15:00 Urine,Clean Catch Urine Culture - Final Citrobacter Youngae Complete Laboratory Tests 02/24/20 12:03: POC Whole Blood Glucose 344H 02/24/20 17:50: POC Whole Blood Glucose 269H 02/24/20 23:51: POC Whole Blood Glucose 341H 02/25/20 03:16: White Blood Count 11.0H, Red Blood Count 4.39L, Hemoglobin 11.8L, Hematocrit 37.6L, Mean Corpuscular Volume 86, Mean Corpuscular Hemoglobin 26.9L, Mean Corpuscular Hemoglobin Concent 31.4L, Red Cell Distribution Width 14.5, Platelet Count 576H, Mean Platelet Volume 4.9L, Neutrophils (%) (Auto) 79.2H, Lymphocytes (%) (Auto) 12.4L, Monocytes (%) (Auto) 3.1, Eosinophils (%) (Auto) 4.8H, Basophils (%) (Auto) 0.5, Erythrocyte Sedimentation Rate 106H, Sodium Level 155H, Potassium Level 3.9, Chloride Level 120H, Carbon Dioxide Level 27, Anion Gap 8, Blood Urea Nitrogen 22H, Creatinine 0.9, Estimat Glomerular Filtration Rate > 60, Glucose Level 326H, Calcium Level 9.9, Phosphorus Level 2.2L, Magnesium Level 2.3, Total Bilirubin 0.2, Aspartate Amino Transf (AST/SGOT ) 9L, Alanine Aminotransferase (ALT/SGPT) 13, Alkaline Phosphatase 112, C- Reactive Protein, Quantitative 2.5H, Total Protein 8.0, Albumin 1.9L, Globulin 6.1, Albumin/Globulin Ratio 0.3L 02/25/20 09:00: POC Whole Blood Glucose 335H Current Medications Medications (Trade) Dose Ordered Sig/Anders Route PRN Reason Start Time Stop Time Status Last Admin Dose Admin Acetaminophen (Tylenol) 650 mg Q6H PRN NG Mild Pain (1-3)/ Temp>100.5 02/23/20 21:00 03/21/20 20:59 Albuterol/ Ipratropium (Albuterol/ Ipratropium) 3 ml Q6HRT HHN 02/24/20 01:00 02/29/20 00:59 02/25/20 07:20 Dextrose (Dextrose 50%) 25 ml Q30M PRN IV Hypoglycemia 02/24/20 09:15 05/24/20 09:14 Dextrose (Dextrose 50%) 50 ml Q30M PRN IV Hypoglycemia 02/24/20 09:15 05/24/20 09:14 Heparin Sodium (Porcine) (Heparin 5000 units/ml) 5,000 units EVERY 12 HOURS SUBQ 02/23/20 21:00 04/05/20 20:59 02/25/20 08:56 Insulin Aspart (NovoLOG) Q6HR SUBQ 02/24/20 09:15 05/24/20 09:14 02/25/20 05:19 Insulin Detemir (Levemir) 12 units DAILY SUBQ 02/25/20 09:00 05/25/20 08:59 02/25/20 09:01 Meropenem 1 gm/ Sodium Chloride 55 ml @ 110 mls/hr Q8HR IVPB 02/23/20 22:00 02/28/20 13:59 02/25/20 05:21 Metoprolol Tartrate (Lopressor) 25 mg Q12HR GT 02/23/20 21:00 05/23/20 08:59 02/25/20 08:53 Pantoprazole (Protonix) 40 mg DAILY IVP 02/24/20 09:00 03/22/20 08:59 02/25/20 08:53 Sodium 1,000 ml @ 100 mls/hr Q10H IV 02/25/20 01:00 03/26/20 00:59 02/25/20 01:24 Zinc Oxide (Zinc Oxide) 1 applic TIDPRN PRN TOPIC Scrotal wound and kathi-rectal 02/23/20 21:00 05/23/20 20:59 Assessment/Plan Problems: (1) Sepsis (2) Nosocomial pneumonia (3) Hypernatremia (4) Tracheostomy in place (5) Diabetes mellitus (6) OBS (organic brain syndrome) (7) Feeding by G-tube (8) Chronic vegetative state Assessment/Plan tap water flush 300 cc q 4 hours to correct the hypernatremia continue abx check cultures sliding scale diabetic gtube feeding trach care tolerating gtube feeding but wants some oral food as well Melany Salgado MD Feb 25, 2020 11:37
[2020-02-25 11:54] VITALS: BP 126/76
--- NOTE | 2020-02-25 12:00 | NUR ---
NURSE NOTES: Pt was given bed bath, pt had bowel movement, wound care completed
--- NOTE | 2020-02-25 12:07 | Cardiology Progress Note ---
Subjective DATE OF SERVICE: Feb 25, 2020 On trach collar Moderate secretions Still with significant lab abnormalities (high Na, high Cl, low PO4) Monitor: sinus rhythm/tachycardia CT chest reveals extensive PNA Objective Last 24 Hour Vital Signs Date Time Temp Pulse Resp B/P (MAP) Pulse Ox O2 Delivery O2 Flow Rate FiO2 02/25/20 11:57 12.0 35 02/25/20 11:56 T-piece 12.0 02/25/20 11:54 97.5 79 20 126/76 (93) 98 02/25/20 08:53 90 140/85 02/25/20 08:00 98.4 90 18 140/85 (103) 99 02/25/20 08:00 91 02/25/20 08:00 12.0 35 02/25/20 08:00 T-piece 12.0 02/25/20 07:20 98 T-Piece 8.0 35 02/25/20 07:20 82 20 100 T-Piece 8.0 35 82 20 98 02/25/20 04:00 T-piece 12.0 02/25/20 04:00 97.5 90 18 141/85 (103) 98 02/25/20 04:00 12.0 35 02/25/20 03:40 83 02/25/20 00:44 86 22 100 T-Piece 8.0 35 87 22 98 02/25/20 00:44 98 T-Piece 8.0 35 02/25/20 00:00 T-piece 12.0 02/25/20 00:00 12.0 35 02/25/20 00:00 83 02/25/20 00:00 98.1 88 18 135/86 (102) 98 02/24/20 20:17 82 132/91 02/24/20 20:00 12.0 35 02/24/20 20:00 T-piece 12.0 02/24/20 20:00 97.7 82 18 132/91 (105) 98 02/24/20 19:40 84 22 99 T-Piece 8.0 35 79 22 98 02/24/20 19:39 98 T-Piece 8.0 35 02/24/20 19:32 90 02/24/20 16:00 T-piece 12.0 02/24/20 16:00 12.0 35 02/24/20 16:00 103 02/24/20 16:00 98.1 62 18 119/67 (84) 98 02/24/20 15:50 79 25 99 T-Piece 8.0 35 75 22 97 02/24/20 13:15 97 T-Piece 8.0 35 ROS: unchanged from my dictation of 02/21/20 HEENT: Thick Trach secretions LUNGS: bilateral rhonchi, trach site clean CARDIAC: normal rate, regular rhythm, normal S1 and S2 ABDOMEN: normal bowel sounds, non tender, soft, G-Tube intact EXTREMITIES: normal range of motion, no swelling, No edema Laboratory Tests Test 02/24/20 17:50 02/24/20 23:51 02/25/20 03:16 02/25/20 05:19 POC Whole Blood Glucose 269 MG/DL (74-106) H 341 MG/DL (74-106) H 333 MG/DL (74-106) H White Blood Count 11.0 K/UL (4.8-10.8) H Red Blood Count 4.39 M/UL (4.70-6.10) L Hemoglobin 11.8 G/DL (14.2-18.0) L Hematocrit 37.6 % (42.0-52.0) L Mean Corpuscular Volume 86 FL (80-99) Mean Corpuscular Hemoglobin 26.9 PG (27.0-31.0) L Mean Corpuscular Hemoglobin Concent 31.4 G/DL (32.0-36.0) L Red Cell Distribution Width 14.5 % (11.6-14.8) Platelet Count 576 K/UL (150-450) H Mean Platelet Volume 4.9 FL (6.5-10.1) L Neutrophils (%) (Auto) 79.2 % (45.0-75.0) H Lymphocytes (%) (Auto) 12.4 % (20.0-45.0) L Monocytes (%) (Auto) 3.1 % (1.0-10.0) Eosinophils (%) (Auto) 4.8 % (0.0-3.0) H Basophils (%) (Auto) 0.5 % (0.0-2.0) Erythrocyte Sedimentation Rate 106 MM/HR (0-20) H Sodium Level 155 MMOL/L (136-145) H Potassium Level 3.9 MMOL/L (3.5-5.1) Chloride Level 120 MMOL/L (98-107) H Carbon Dioxide Level 27 MMOL/L (21-32) Anion Gap 8 mmol/L (5-15) Blood Urea Nitrogen 22 mg/dL (7-18) H Creatinine 0.9 MG/DL (0.55-1.30) Estimat Glomerular Filtration Rate > 60 mL/min (>60) Glucose Level 326 MG/DL (74-106) H Calcium Level 9.9 MG/DL (8.5-10.1) Phosphorus Level 2.2 MG/DL (2.5-4.9) L Magnesium Level 2.3 MG/DL (1.8-2.4) Total Bilirubin 0.2 MG/DL (0.2-1.0) Aspartate Amino Transf (AST/SGOT) 9 U/L (15-37) L Alanine Aminotransferase (ALT/SGPT) 13 U/L (12-78) Alkaline Phosphatase 112 U/L (46-116) C-Reactive Protein, Quantitative 2.5 mg/dL (0.00-0.90) H Total Protein 8.0 G/DL (6.4-8.2) Albumin 1.9 G/DL (3.4-5.0) L Globulin 6.1 g/dL Albumin/Globulin Ratio 0.3 (1.0-2.7) L Test 02/25/20 09:00 POC Whole Blood Glucose 335 MG/DL (74-106) H Microbiology Date/Time Source Procedure Growth Status 02/22/20 15:00 Urine,Clean Catch Urine Culture - Final Citrobacter Youngae Complete Assessment/Plan Assessment/Plan Healthcare associated PNA Sepsis Recovered shock Hypertension/HHD Respiratory failure with trach Anemia Hypokalemia corrected Leukocytosis improved Dehydration/hypernatremia IRDM uncontrolled Hypophosphatemia Abx IVF adjusted to correct free water deficit with PO4 suppl; free water per GTube as well Resp rx Replace K+/Mg++ as needed Nutrition per Gtube Add long acting insulin Titrate beta mahi DVT prophylaxis Richard Lang MD Feb 25, 2020 12:07
[2020-02-25] MEDS ORDERED: Varibar Honey 250ml MC PRN (13:00)
[2020-02-25] MEDS ORDERED: Varibar Nectar 240ml MC PRN (13:00)
[2020-02-25] MEDS ORDERED: Varibar Thin Liquid powder 148gm MC PRN (13:00)
[2020-02-25] MEDS ORDERED: Varibar Pudding 230ml MC PRN (13:00)
[2020-02-25] MEDS ORDERED: Potassium Phosphate 20 MEQ in 1/2 NS 1000ml 1,000 ML IV ONE (13:30)
--- NOTE | 2020-02-25 13:32 | Consultation ---
Consult Note Consult Note I am asked to evaluate the patient at the request of Dr. Lan for fluid and electrolyte management Patient seen and examined. Data in the records were reviewed. Allergies: No Known Allergies (Unverified , 02/20/20) COVID-19 Screening Contact w/high risk pt: Yes Experienced COVID-19 symptoms?: Yes COVID-19 Testing performed HOME AIDE: No Past Medical History: No History, Except For Hx Diabetes: Yes VITAL SIGNS: Blood pressure 136/78, pulse 99, respirations 26, temperature 100.3. NECK: Thin trach secretions. LUNGS: Bilateral rhonchi. CARDIAC: Regular rhythm and rate. Normal S1, S2. ABDOMEN: Soft. EXTREMITIES: Trace edema. LABORATORY AND DIAGNOSTIC DATA: Sodium 141, potassium 3.5, bicarb 24, BUN 14, creatinine 0.6, glucose 277. Pro-natriuretic peptide yesterday was 934. White blood count 20.8 from a peak of 27.7, hemoglobin is 9. Radiograph of the chest reveals atelectasis and extensive infiltrates on the right predominantly. Venous duplex scan negative for DVT. . . Assessment/Plan Abnormal electrolytes. High sodium and low phosphorus at this time. Admitted with sepsis and healthcare associated pneumonia Hypertension Patient has tracheostomy connected to oxygen not ventilator Previous hypokalemia corrected Mild anemia Diabetes mellitus wym-so-weozemb UTI Bedbound status, vegetative state Feeding through PEG Suggestions: Start D5W 100 cc an hour for 1 L Increase Levemir to every 12 hours for better blood sugar control Continue to monitor electrolytes and chemistries potassium phosphate IV 20 mmol 1 time given Continue per consultants. Cornell Coleman MD Feb 25, 2020 13:32
--- NOTE | 2020-02-25 14:43 | Diagnostic Imaging Report ---
Indication: Dyspnea Technique: XRAY Chest 1v Comparison: 02/21/2020 Findings: Tracheostomy tube again noted. Heart size and mediastinal contours are stable. Bilateral infiltrates are again seen, right greater the left. There is slight improved aeration of the right lower lung compared to the prior exam. No evidence of pneumothorax. No radiographically appreciable pleural effusion. Osseous structures are stable. IMPRESSION: Persistent bilateral infiltrates concerning for multifocal pneumonia, right greater than left. Slight improved aeration of the right lower lung compared to the prior exam.
[2020-02-25] MEDS ORDERED: Potassium Phosphate 20 MM in NS 275 ML IV ONE (15:00)
--- NOTE | 2020-02-25 15:04 | NUR ---
*-*DISCHARGE PLANNING*-* PATIENT HAS BEEN REFERRED BACK TO: [facility] FAX: [phone] Addendum: 02/25/20 at 1506 by KRISTINE GAMING LVN ADMITTING NOT AVAILABLE ASKED TO FAX TO [facility] FAX: [phone]
[2020-02-25 16:00] VITALS: BP 129/77
--- NOTE | 2020-02-25 16:37 | Surgery Progress Note ---
Surgery Progress Note Subjective Additional Comments leukocytosis blood glucose uncontrolled no n/v Objective Last 24 Hour Vital Signs Date Time Temp Pulse Resp B/P (MAP) Pulse Ox O2 Delivery O2 Flow Rate FiO2 02/25/20 16:00 T-piece 12.0 02/25/20 16:00 12.0 35 02/25/20 12:20 79 22 99 T-Piece 8.0 35 79 22 98 02/25/20 12:20 98 T-Piece 8.0 35 02/25/20 12:00 82 02/25/20 11:57 12.0 35 02/25/20 11:56 T-piece 12.0 02/25/20 11:54 97.5 79 20 126/76 (93) 98 02/25/20 08:53 90 140/85 02/25/20 08:00 98.4 90 18 140/85 (103) 99 02/25/20 08:00 91 02/25/20 08:00 12.0 35 02/25/20 08:00 T-piece 12.0 02/25/20 07:20 98 T-Piece 8.0 35 02/25/20 07:20 82 20 100 T-Piece 8.0 35 82 20 98 02/25/20 04:00 T-piece 12.0 02/25/20 04:00 97.5 90 18 141/85 (103) 98 02/25/20 04:00 12.0 35 02/25/20 03:40 83 02/25/20 00:44 86 22 100 T-Piece 8.0 35 87 22 98 02/25/20 00:44 98 T-Piece 8.0 35 02/25/20 00:00 T-piece 12.0 02/25/20 00:00 12.0 35 02/25/20 00:00 83 02/25/20 00:00 98.1 88 18 135/86 (102) 98 02/24/20 20:17 82 132/91 02/24/20 20:00 12.0 35 02/24/20 20:00 T-piece 12.0 02/24/20 20:00 97.7 82 18 132/91 (105) 98 02/24/20 19:40 84 22 99 T-Piece 8.0 35 79 22 98 02/24/20 19:39 98 T-Piece 8.0 35 02/24/20 19:32 90 I&O Intake and Output 02/24/20 02/25/20 19:00 07:00 Intake Total 1815 ml 1788 ml Output Total 1200 ml 1400 ml Balance 615 ml 388 ml Intake Free Water 30 ml IV Total 1210 ml 1218 ml Tube Feeding 605 ml 540 ml Output Urine Total 1200 ml 1400 ml # Bowel Movements 2 2 Dressing: saturated Cardiovascular: RSR Respiratory: decreased breath sounds Abdomen: soft, non-tender, present bowel sounds Extremities: no tenderness, no cyanosis, other Laboratory Tests Test 02/24/20 17:50 02/24/20 23:51 02/25/20 03:16 02/25/20 05:19 POC Whole Blood Glucose 269 MG/DL (74-106) H 341 MG/DL (74-106) H 333 MG/DL (74-106) H White Blood Count 11.0 K/UL (4.8-10.8) H Red Blood Count 4.39 M/UL (4.70-6.10) L Hemoglobin 11.8 G/DL (14.2-18.0) L Hematocrit 37.6 % (42.0-52.0) L Mean Corpuscular Volume 86 FL (80-99) Mean Corpuscular Hemoglobin 26.9 PG (27.0-31.0) L Mean Corpuscular Hemoglobin Concent 31.4 G/DL (32.0-36.0) L Red Cell Distribution Width 14.5 % (11.6-14.8) Platelet Count 576 K/UL (150-450) H Mean Platelet Volume 4.9 FL (6.5-10.1) L Neutrophils (%) (Auto) 79.2 % (45.0-75.0) H Lymphocytes (%) (Auto) 12.4 % (20.0-45.0) L Monocytes (%) (Auto) 3.1 % (1.0-10.0) Eosinophils (%) (Auto) 4.8 % (0.0-3.0) H Basophils (%) (Auto) 0.5 % (0.0-2.0) Erythrocyte Sedimentation Rate 106 MM/HR (0-20) H Sodium Level 155 MMOL/L (136-145) H Potassium Level 3.9 MMOL/L (3.5-5.1) Chloride Level 120 MMOL/L (98-107) H Carbon Dioxide Level 27 MMOL/L (21-32) Anion Gap 8 mmol/L (5-15) Blood Urea Nitrogen 22 mg/dL (7-18) H Creatinine 0.9 MG/DL (0.55-1.30) Estimat Glomerular Filtration Rate > 60 mL/min (>60) Glucose Level 326 MG/DL (74-106) H Calcium Level 9.9 MG/DL (8.5-10.1) Phosphorus Level 2.2 MG/DL (2.5-4.9) L Magnesium Level 2.3 MG/DL (1.8-2.4) Total Bilirubin 0.2 MG/DL (0.2-1.0) Aspartate Amino Transf (AST/SGOT) 9 U/L (15-37) L Alanine Aminotransferase (ALT/SGPT) 13 U/L (12-78) Alkaline Phosphatase 112 U/L (46-116) C-Reactive Protein, Quantitative 2.5 mg/dL (0.00-0.90) H Total Protein 8.0 G/DL (6.4-8.2) Albumin 1.9 G/DL (3.4-5.0) L Globulin 6.1 g/dL Albumin/Globulin Ratio 0.3 (1.0-2.7) L Test 02/25/20 09:00 02/25/20 12:11 POC Whole Blood Glucose 335 MG/DL (74-106) H 341 MG/DL (74-106) H Plan Problems: (1) Sepsis Assessment & Plan: leukocytosis, fevers, abnormal labs, ill appearing, respiratory insufficiency, on support, micro noted. Pt presented on admission with Tracheostomy, multiple Pressure Injuries, Kita- rectal erosion.Skin assessed uner tracheal collar and no evidence of skin breakdown noted. Partially opened Sacral DTPI (L)6cm x (W)6.3cm. Base of wound is maroon , fluctuant with small open area at sacrococcygeal area that is 80% slough ,20% mary at base (L)0.7cm x (W)0.8cm. Perirectal and scrotum area is grossly excoriated. Partial thickness wound noted to Base R and base of scrotum(L)2.8cm x (W)3.5cm. Biofilm noted at base of wound. Borders are macerated. Haemosiderin noted to bilat distal/lower extremities. L heel is boggy with non-Blanchable erythema. R heel is boggy with non-Blanchable erythema. Loose dry eschar noted to R heel . Pt denied tenderness or pain when palpated. Tx.Plan: Cleanse Sacral Wound with Saline. Apply Moisture Barrier Paste Periwound. Cover with Optifoam drsg. Changeevery 3 days and prn. Apply Zinc Oxide Paste to Scrotal wound and Kita-rectal erosion TID and Prn. Apply Cavilon Skin BArrier to both heels and Malleoli. Cover each site with Optifoam drsg. Change every 7 daysand prn. Reposition at least every 2hours or as tolerated. Off-load heels with pillow. APM/DONALDO Mattress overlay. DAILY ESTIMATED NEEDS: Needs based on wound, DM, sepsis/ 65kg 25-30 kcals/kg [id number] total kcals 1.25-2 g protein/kg 81-130 g total protein 25-30 mL/kg 1066-4792 total fluid mLs NUTRITION DIAGNOSIS: * Swallowing difficulty R/T dysphagia, respiratory status as evidenced by pt on T-collar, PEG dep. * Increased kcal/prot needs R/T wound healing as evidenced by admitted w/ sacral wound per photo, pending eval. CURRENT TF:Glucerna 1.5 @ 55ml/hr x 24 hrs ENTERAL NUTRITION RECOMMENDATIONS: Glucerna 1.5 @ 50ml/hr x 24 hrs to provide 1200ml, 1800kcal, 99g prot, 910ml free water * LOWER goal rate to 50m/hr x 24 hrs: meets 100% est kcal/prot needs * HOB over 30 degrees/ water flush per MD ADDITIONAL RECOMMENDATIONS: * Calibrated bedscal wt for accurate CBW * Rec long acting insulin for improved BG control. * Wound healing: Add Vit C 500mg QD + Omari BID via PEG * Monitor lytes, replete as needed (2) UTI (urinary tract infection) (3) Tracheostomy in place (4) Diabetes mellitus (5) OBS (organic brain syndrome) (6) Feeding by G-tube (7) Chronic vegetative state (8) Nosocomial pneumonia Terry Armstrong Feb 25, 2020 16:37
--- NOTE | 2020-02-25 16:45 | Infectious Diseases Prog Note ---
Assessment/Plan Assessment: Severe Sepsis UTI -02/19 u/a wbc tnct, nit neg,leuk +3; ucx >100k C. youngae, probabl AMP-c (I Zosyn, Ceftriaxone; S Meropenem) Bcx NTD Bacterial Pneumonia- COVID19 neg x2 -02/24 CXR: Persistent bilateral infiltrates concerning for multifocal pneumonia, right greater than left. Slight improved aeration of the right lower lung compared to the prior exam. -02/20 rapid COVID PCR neg -02/19 Rapid COVID PCR neg sp cx ESBL E.coli (S Zosyn, Meropenem), ESBL K. pna(S Zosyn, Meropenem ), P, mirabilis (Wel[place] S) CXR: Right lung consolidation, likely pneumonia Right hilar apparent fullness, probably an artifact of rotation but mass or adenopathy also possible. Recommend follow-up radiographs to resolution. 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 Will continue to follow along with you. Discussed with RN. Subjective Allergies: Coded Allergies: No Known Allergies (Unverified , 02/20/20) Tm 100.9 wbc improving Bcx NTD Objective Last 24 Hour Vital Signs Date Time Temp Pulse Resp B/P (MAP) Pulse Ox O2 Delivery O2 Flow Rate FiO2 02/25/20 16:00 T-piece 12.0 02/25/20 16:00 12.0 35 02/25/20 12:20 79 22 99 T-Piece 8.0 35 79 22 98 02/25/20 12:20 98 T-Piece 8.0 35 02/25/20 12:00 82 02/25/20 11:57 12.0 35 02/25/20 11:56 T-piece 12.0 02/25/20 11:54 97.5 79 20 126/76 (93) 98 02/25/20 08:53 90 140/85 02/25/20 08:00 98.4 90 18 140/85 (103) 99 02/25/20 08:00 91 02/25/20 08:00 12.0 35 02/25/20 08:00 T-piece 12.0 02/25/20 07:20 98 T-Piece 8.0 35 02/25/20 07:20 82 20 100 T-Piece 8.0 35 82 20 98 02/25/20 04:00 T-piece 12.0 02/25/20 04:00 97.5 90 18 141/85 (103) 98 02/25/20 04:00 12.0 35 02/25/20 03:40 83 02/25/20 00:44 86 22 100 T-Piece 8.0 35 87 22 98 02/25/20 00:44 98 T-Piece 8.0 35 02/25/20 00:00 T-piece 12.0 02/25/20 00:00 12.0 35 02/25/20 00:00 83 02/25/20 00:00 98.1 88 18 135/86 (102) 98 02/24/20 20:17 82 132/91 02/24/20 20:00 12.0 35 02/24/20 20:00 T-piece 12.0 02/24/20 20:00 97.7 82 18 132/91 (105) 98 02/24/20 19:40 84 22 99 T-Piece 8.0 35 79 22 98 02/24/20 19:39 98 T-Piece 8.0 35 02/24/20 19:32 90 Height (Feet): 5 Height (Inches): 4.00 Weight (Pounds): 141 Head: Normocephalic, without obvious abnormality, atraumatic Neck: supple Lungs: clear to auscultation bilaterally Heart: regular rate and rhythm, S1, S2 normal Abdomen: soft, non-tender. Bowel sounds normal Extremities: extremities normal, atraumatic, no cyanosis or edema Laboratory Tests Test 02/24/20 17:50 02/24/20 23:51 02/25/20 03:16 02/25/20 05:19 POC Whole Blood Glucose 269 MG/DL (74-106) H 341 MG/DL (74-106) H 333 MG/DL (74-106) H White Blood Count 11.0 K/UL (4.8-10.8) H Red Blood Count 4.39 M/UL (4.70-6.10) L Hemoglobin 11.8 G/DL (14.2-18.0) L Hematocrit 37.6 % (42.0-52.0) L Mean Corpuscular Volume 86 FL (80-99) Mean Corpuscular Hemoglobin 26.9 PG (27.0-31.0) L Mean Corpuscular Hemoglobin Concent 31.4 G/DL (32.0-36.0) L Red Cell Distribution Width 14.5 % (11.6-14.8) Platelet Count 576 K/UL (150-450) H Mean Platelet Volume 4.9 FL (6.5-10.1) L Neutrophils (%) (Auto) 79.2 % (45.0-75.0) H Lymphocytes (%) (Auto) 12.4 % (20.0-45.0) L Monocytes (%) (Auto) 3.1 % (1.0-10.0) Eosinophils (%) (Auto) 4.8 % (0.0-3.0) H Basophils (%) (Auto) 0.5 % (0.0-2.0) Erythrocyte Sedimentation Rate 106 MM/HR (0-20) H Sodium Level 155 MMOL/L (136-145) H Potassium Level 3.9 MMOL/L (3.5-5.1) Chloride Level 120 MMOL/L (98-107) H Carbon Dioxide Level 27 MMOL/L (21-32) Anion Gap 8 mmol/L (5-15) Blood Urea Nitrogen 22 mg/dL (7-18) H Creatinine 0.9 MG/DL (0.55-1.30) Estimat Glomerular Filtration Rate > 60 mL/min (>60) Glucose Level 326 MG/DL (74-106) H Calcium Level 9.9 MG/DL (8.5-10.1) Phosphorus Level 2.2 MG/DL (2.5-4.9) L Magnesium Level 2.3 MG/DL (1.8-2.4) Total Bilirubin 0.2 MG/DL (0.2-1.0) Aspartate Amino Transf (AST/SGOT) 9 U/L (15-37) L Alanine Aminotransferase (ALT/SGPT) 13 U/L (12-78) Alkaline Phosphatase 112 U/L (46-116) C-Reactive Protein, Quantitative 2.5 mg/dL (0.00-0.90) H Total Protein 8.0 G/DL (6.4-8.2) Albumin 1.9 G/DL (3.4-5.0) L Globulin 6.1 g/dL Albumin/Globulin Ratio 0.3 (1.0-2.7) L Test 02/25/20 09:00 02/25/20 12:11 POC Whole Blood Glucose 335 MG/DL (74-106) H 341 MG/DL (74-106) H Current Medications Medications (Trade) Dose Ordered Sig/Anders Route PRN Reason Start Time Stop Time Status Last Admin Dose Admin Acetaminophen (Tylenol) 650 mg Q6H PRN NG Mild Pain (1-3)/ Temp>100.5 02/23/20 21:00 03/21/20 20:59 Albuterol/ Ipratropium (Albuterol/ Ipratropium) 3 ml Q6HRT HHN 02/24/20 01:00 02/29/20 00:59 02/25/20 12:11 Barium Sulfate (Varibar Honey) 250 ml NOW PRN MC RAD 02/25/20 13:00 02/28/20 12:47 Barium Sulfate (Varibar Friedens) 240 ml NOW PRN RAD 02/25/20 13:00 02/28/20 12:47 Barium Sulfate (Varibar Pudding) 230 ml NOW PRN RAD 02/25/20 13:00 02/28/20 12:47 Barium Sulfate (Varibar Thin Liquid powder) 148 gm NOW PRN MC RAD 02/25/20 13:00 02/28/20 12:47 Dextrose 1,000 ml @ 100 mls/hr Q10H IV 02/25/20 14:00 02/25/20 23:59 02/25/20 15:34 Dextrose (Dextrose 50%) 25 ml Q30M PRN IV Hypoglycemia 02/24/20 09:15 05/24/20 09:14 Dextrose (Dextrose 50%) 50 ml Q30M PRN IV Hypoglycemia 02/24/20 09:15 05/24/20 09:14 Heparin Sodium (Porcine) (Heparin 5000 units/ml) 5,000 units EVERY 12 HOURS SUBQ 02/23/20 21:00 04/05/20 20:59 02/25/20 08:56 Insulin Aspart (NovoLOG) Q6HR SUBQ 02/24/20 09:15 05/24/20 09:14 02/25/20 12:00 Insulin Detemir (Levemir) 12 units Q12HR SUBQ 02/25/20 21:00 05/25/20 08:59 Meropenem 1 gm/ Sodium Chloride 55 ml @ 110 mls/hr Q8HR IVPB 02/23/20 22:00 02/28/20 13:59 02/25/20 15:34 Metoprolol Tartrate (Lopressor) 25 mg Q12HR GT 02/23/20 21:00 05/23/20 08:59 02/25/20 08:53 Pantoprazole (Protonix) 40 mg Q12HR IVP 02/25/20 21:00 03/22/20 08:59 Potassium Phosphate 20 mm/ Sodium Chloride 281.6667 ml @ 46.944 m... ONCE ONCE IV 02/25/20 15:00 02/25/20 20:59 02/25/20 15:34 Zinc Oxide (Zinc Oxide) 1 applic TIDPRN PRN TOPIC Scrotal wound and kathi-rectal 02/23/20 21:00 05/23/20 20:59 Marily Hardy M.D. Feb 25, 2020 16:45
[2020-02-25] MEDS ORDERED: INVANZ1 G1 IM ×2 (17:08→17:16)
--- NOTE | 2020-02-25 17:30 | NUR ---
NURSE NOTES: pt had bowel movement, wound care completed
--- NOTE | 2020-02-25 18:30 | NUR ---
Orders received and acknowledged for [facility] [employer] bedside swallow evaluation. Due to [employer] time limitations, unable to complete evaluation. [facility] [employer] plans to f/u tomorrow to complete evaluation. Thank you for this referral
--- NOTE | 2020-02-25 19:15 | NUR ---
NURSE NOTES: Received report from Kaylyn Mello RN. Pt is Awake but aphasic, able to follow simple commands. Pt is on T-piece with FiO2 35% @ 12L with No signs of SOB or distress noted. monitor and storage bin tender on pt showing SR at mid 80's. Pt has IV sites to Left hand 22g infusing 1/2 NS vs788tg/hr. DTI noted on perianal area. Patient is on P200 mattress. G-tube in place running Glucerna 1.5 running at 45 mls/hr. w/no residual noted. F/c draining well to gravity. Bed in lowest locked position, call light within reach, bed alarm engaged, VSS. Afebrile, will continue with POC.
--- NOTE | 2020-02-25 19:27 | NUR ---
NURSE HAND-OFF REPORT: Important Events on Shift: Discharge in place, Facility refusing pt ESBL active Patient Status:stable Diet: Tube feeding: Gluc 1.5 @ 45/hr with 300ml water flush q4h. last flush 1700 Pending Orders: DC back to [facility] Pending Results/Labs:n/a Pending MD notification: Latest Vital Signs: Temperature 97.0 , Pulse 87 , B/P 129 /77 , Respiratory Rate 18 , O2 SAT 96 , T-piece, O2 Flow Rate 12.0 . Vital Sign Comment: none EKG Rhythm: Sinus Rhythm Rhythm change?: N MD Notified?: - MD Response: Latest Cole Fall Score: 55 Fall Risk: High Risk Safety Measures: Call light Within Reach, Bed Alarm Zone 1, Side Rails Side Rails x2, Bed position Low and Locked. Fall Precautions: Yellow Socks Yellow Gown Door Sign Patient Fall Education Report given to Satya HAN.
[2020-02-25] MEDS ORDERED: 1/2 NS 1000ml IV ONE (19:28)
[2020-02-25 20:00] VITALS: BP 119/66
[2020-02-25] MEDS ORDERED: Pantoprazole Inj IVP SCH (21:00)
--- NOTE | 2020-02-25 21:09 | General Progress Note ---
Subjective Constitutional: Reports: no symptoms HEENT: Reports: no symptoms Cardiovascular: Reports: no symptoms Respiratory: Reports: no symptoms Gastrointestinal/Abdominal: Reports: no symptoms Genitourinary: Reports: no symptoms Neurologic/Psychiatric: Reports: no symptoms Hematologic/Lymphatic: Reports: no symptoms Allergies: Coded Allergies: No Known Allergies (Unverified , 02/20/20) Objective Last 24 Hour Vital Signs Date Time Temp Pulse Resp B/P (MAP) Pulse Ox O2 Delivery O2 Flow Rate FiO2 02/25/20 16:00 T-piece 12.0 02/25/20 16:00 12.0 35 02/25/20 16:00 97.0 84 18 129/77 (94) 96 02/25/20 16:00 87 02/25/20 12:20 79 22 99 T-Piece 8.0 35 79 22 98 02/25/20 12:20 98 T-Piece 8.0 35 02/25/20 12:00 82 02/25/20 11:57 12.0 35 02/25/20 11:56 T-piece 12.0 02/25/20 11:54 97.5 79 20 126/76 (93) 98 02/25/20 08:53 90 140/85 02/25/20 08:00 98.4 90 18 140/85 (103) 99 02/25/20 08:00 91 02/25/20 08:00 12.0 35 02/25/20 08:00 T-piece 12.0 02/25/20 07:20 98 T-Piece 8.0 35 02/25/20 07:20 82 20 100 T-Piece 8.0 35 82 20 98 02/25/20 04:00 T-piece 12.0 02/25/20 04:00 97.5 90 18 141/85 (103) 98 02/25/20 04:00 12.0 35 02/25/20 03:40 83 02/25/20 00:44 86 22 100 T-Piece 8.0 35 87 22 98 02/25/20 00:44 98 T-Piece 8.0 35 02/25/20 00:00 T-piece 12.0 02/25/20 00:00 12.0 35 02/25/20 00:00 83 02/25/20 00:00 98.1 88 18 135/86 (102) 98 Intake and Output 02/24/20 02/25/20 19:00 07:00 Intake Total 1815 ml 1788 ml Output Total 1200 ml 1400 ml Balance 615 ml 388 ml Intake Free Water 30 ml IV Total 1210 ml 1218 ml Tube Feeding 605 ml 540 ml Output Urine Total 1200 ml 1400 ml # Bowel Movements 2 2 Laboratory Tests 02/24/20 23:51: POC Whole Blood Glucose 341H 02/25/20 03:16: White Blood Count 11.0H, Red Blood Count 4.39L, Hemoglobin 11.8L, Hematocrit 37.6L, Mean Corpuscular Volume 86, Mean Corpuscular Hemoglobin 26.9L, Mean Corpuscular Hemoglobin Concent 31.4L, Red Cell Distribution Width 14.5, Platelet Count 576H, Mean Platelet Volume 4.9L, Neutrophils (%) (Auto) 79.2H, Lymphocytes (%) (Auto) 12.4L, Monocytes (%) (Auto) 3.1, Eosinophils (%) (Auto) 4.8H, Basophils (%) (Auto) 0.5, Erythrocyte Sedimentation Rate 106H, Sodium Level 155H, Potassium Level 3.9, Chloride Level 120H, Carbon Dioxide Level 27, Anion Gap 8, Blood Urea Nitrogen 22H, Creatinine 0.9, Estimat Glomerular Filtration Rate > 60, Glucose Level 326H, Calcium Level 9.9, Phosphorus Level 2.2L, Magnesium Level 2.3, Total Bilirubin 0.2, Aspartate Amino Transf (AST/SGOT ) 9L, Alanine Aminotransferase (ALT/SGPT) 13, Alkaline Phosphatase 112, C- Reactive Protein, Quantitative 2.5H, Total Protein 8.0, Albumin 1.9L, Globulin 6.1, Albumin/Globulin Ratio 0.3L 02/25/20 05:19: POC Whole Blood Glucose 333H 02/25/20 09:00: POC Whole Blood Glucose 335H 02/25/20 12:11: POC Whole Blood Glucose 341H 02/25/20 17:41: POC Whole Blood Glucose 259H Height (Feet): 5 Height (Inches): 4.00 Weight (Pounds): 141 General Appearance: no apparent distress, alert EENT: TMs normal Neck: supple Cardiovascular: normal rate, regular rhythm, no gallop/murmur, no JVD Respiratory/Chest: lungs clear, normal breath sounds, no respiratory distress Abdomen: normal bowel sounds, non tender, soft, no organomegaly, no mass Extremities: non-tender Neurologic: alert, aphasia Yola Lan MD Feb 25, 2020 21:09
--- NOTE | 2020-02-25 21:10 | NUR ---
RESPIRATORY NOTE: Received pt on 35% Cool Aerosol via T-Piece. Pt is trach-dependent w/ a cuffed, Portex 7 tube. Cuff is currently deflated. Pt is alert/awake, follows commands. B/S myriam. rhonchi, sxn small to moderate amounts of thick/frothy, zamudio-yellow secretions. [place] at bedside. Pt resting comfortably, in no apparent distress at this time. Will continue plan of care.
--- NOTE | 2020-02-25 23:40 | NUR ---
NURSE NOTES: Transferred pt to 2E, [id number]. Report given to receiving RN. VSS. Afebrile. No distress noted
--- NOTE | 2020-02-25 23:45 | NUR ---
NURSE NOTES: Report received from EMELY Hernadez. Patient being transferred to [facility] per Dr. Lan. Patient is non verbal alert and oriented 2-3 able to nod head yes or no. Tracheostomy intact Addendum: 02/26/20 at 0212 by Crys Rojas RN Incomplete note, additional info: Patient has 7 piece tracheostomy tube with 35% aerosol at 12 LPM. Patient has no SOB or distress. GTube feeding intact with HOB elevated for aspiration precautions. Glucerna 1.5 running at 45cc/hr. Bed at lowest position locked with side rails up. Call light within reach. Will continue with plan of care.
[2020-02-26] VITALS: BP 122/72
[2020-02-26] MEDS ORDERED: Zinc Oxide Oint 2oz TOPIC PRN (00:30)
[2020-02-26] MEDS ORDERED: Acetaminophen 650mg/20.3ml NG PRN (00:30)
[2020-02-26] MEDS: Albuterol/Ipratropium 3ml neb HHN SCH ×4 (00:55→18:54)
[2020-02-26 04:00] VITALS: BP 120/75
[2020-02-26] MEDS: Meropenem 1 GM in NS 55 ML IVPB SCH ×3 (05:30→21:40)
[2020-02-26] MEDS: NovoLOG Insulin Flexpen SUBQ SCH ×4 (06:29→17:45)
[2020-02-26 07:28] LABS: BASOPHILS % (AUTO) 0.4 % (0.0-2.0); EOSINOPHILS % (AUTO) 5.3 % (0.0-3.0); HEMATOCRIT 31.7 % (42.0-52.0); HEMOGLOBIN 10.5 G/DL (14.2-18.0); LYMPHOCYTES % (AUTO) 15.3 % (20.0-45.0); MEAN CORPUSCULAR VOLUME 84 FL (80-99); MONOCYTES % (AUTO) 3.5 % (1.0-10.0); NEUTROPHILS % (AUTO) 75.5 % (45.0-75.0); PLATELET COUNT 442 K/UL (150-450); RED BLOOD COUNT 3.76 M/UL (4.70-6.10); RED CELL DISTRIBUTION WIDTH 14.5 % (11.6-14.8)
--- NOTE | 2020-02-26 07:32 | NUR ---
NURSE HAND-OFF REPORT: Important Events on Shift:[Patient transferred from [facility]] Patient Status: [Stable alert and oriented x1 to 2] Diet: [Glucerna 1.5 at 45 cc, 300 cc q 4 hours] Pending Orders: [] Pending Results/Labs:[] Pending MD notification:[] Latest Vital Signs: Temperature 97.9 , Pulse 78 , B/P 120 /75 , Respiratory Rate 18 , O2 SAT 99 , T-piece, O2 Flow Rate 12.0 . Vital Sign Comment: [] EKG Rhythm: Sinus Rhythm Rhythm change?: N MD Notified?: - MD Response: Latest Cole Fall Score: 55 Fall Risk: High Risk Safety Measures: Call light Within Reach, Bed Alarm Zone 1, Side Rails Side Rails x2, Bed position Low and Locked. Fall Precautions: Yellow Socks Yellow Gown Door Sign Patient Fall Education Report given to [EMELY Bacon].
[2020-02-26 07:52] LABS: ALANINE AMINOTRANSFERASE 10 U/L (12-78); ALBUMIN 1.7 G/DL (3.4-5.0); ALBUMIN/GLOBULIN RATIO 0.3 (1.0-2.7); ALKALINE PHOSPHATASE 81 U/L (46-116); ANION GAP 7 mmol/L (5-15); ASPARTATE AMINO TRANSFERASE 17 U/L (15-37); BILIRUBIN,TOTAL 0.2 MG/DL (0.2-1.0); BLOOD UREA NITROGEN 18 mg/dL (7-18); CALCIUM 10.7 MG/DL (8.5-10.1); CARBON DIOXIDE 27 MMOL/L (21-32); CHLORIDE 108 MMOL/L (98-107); CREATININE 0.7 MG/DL (0.55-1.30); PHOSPHORUS 2.9 MG/DL (2.5-4.9); POTASSIUM 3.9 MMOL/L (3.5-5.1); SODIUM 141 MMOL/L (136-145)
[2020-02-26 08:00] VITALS: BP 119/74
--- NOTE | 2020-02-26 08:00 | NUR ---
NURSE NOTES: Received report from EMELY Spangler. Observed pt sleeping, no s/sx of acute distress. Pt has T-piece shiley trach 12L/min 35% aerosol, breathing even and unlabored. IV sites patent and asymptomatic. Tube feeding running at goal. Bed on lowest position, call light within reach. Will continue plan of care.
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
[2020-02-26] MEDS: Pantoprazole Inj IVP SCH ×2 (09:09→21:40)
[2020-02-26] MEDS: Heparin 5000 units/ml inj SUBQ SCH ×2 (09:17→21:41)
[2020-02-26] MEDS: Levemir Flexpen SUBQ SCH ×2 (09:18→21:43)
--- NOTE | 2020-02-26 11:55 | Diagnostic Imaging Report ---
Procedure: XRAY Chest 1v Reason for study: Reason For Exam: [id number] Comparison films: 02/25/2020. FINDINGS: Tracheostomy remains in place. Vascularity is normal. There is slightly improved infiltrates. Cardiac and mediastinal silhouette are within normal limits. CP angles are sharp. The bony thorax appear unremarkable. IMPRESSION: Slightly improved infiltrates.
[2020-02-26 12:00] VITALS: BP 102/64
--- NOTE | 2020-02-26 12:17 | NUR ---
RD ASSESSMENT & RECOMMENDATIONS SEE CARE ACTIVITY FOR COMPLETE ASSESSMENT DAILY ESTIMATED NEEDS: Needs based on wound, DM, sepsis/ 52.3kg 25-35 kcals/kg 0551-4653 total kcals 1.25-2 g protein/kg 65-105 g total protein 25-30 mL/kg 7129-2477 total fluid mLs NUTRITION DIAGNOSIS: * Swallowing difficulty R/T dysphagia, respiratory status as evidenced by pt on T-collar, PEG dep. * Increased kcal/prot needs R/T wound healing as evidenced by admitted w/ sacral wound per photo, refer to wound eval. CURRENT TF:Glucerna 1.5 @ 45ml/hr x 24 hrs ENTERAL NUTRITION RECOMMENDATIONS: Glucerna 1.5 @ 45ml/hr x 24 hrs to provide 1080ml, 1620kcal, 89g prot, 820ml free water * LOWER goal rate to 45m/hr x 24 hrs: meets 100% est kcal/prot needs * HOB over 30 degrees/ water flush per MD ADDITIONAL RECOMMENDATIONS: * Calibrated bedscal wt for accurate CBW * Rec long acting insulin for improved BG control- now on levemir * Wound healing: Add Vit C 500mg QD + Omari BID via PEG * Monitor lytes, replete as needed
--- NOTE | 2020-02-26 12:59 | NUR ---
RADIOLOGY DEPT., CHEST X-RAY DONE.-P.DYE
[2020-02-26] MEDS ORDERED: Varibar Nectar 240ml MC PRN (13:00)
[2020-02-26] MEDS ORDERED: Varibar Pudding 230ml MC PRN (13:00)
[2020-02-26] MEDS ORDERED: Varibar Honey 250ml MC PRN (13:00)
[2020-02-26] MEDS ORDERED: Varibar Thin Liquid powder 148gm MC PRN (13:00)
--- NOTE | 2020-02-26 13:13 | Pulmonology Progress Note ---
Subjective ROS Limited/Unobtainable: No Constitutional: Reports: no symptoms Allergies: Coded Allergies: No Known Allergies (Unverified , 02/20/20) Objective Last 24 Hour Vital Signs Date Time Temp Pulse Resp B/P (MAP) Pulse Ox O2 Delivery O2 Flow Rate FiO2 02/26/20 12:00 12.0 35 02/26/20 12:00 96.6 70 18 102/64 (77) 97 02/26/20 12:00 T-piece 12.0 02/26/20 09:09 74 119/74 02/26/20 08:00 97.7 74 20 119/74 (89) 98 02/26/20 08:00 T-piece 12.0 02/26/20 08:00 12.0 35 02/26/20 07:52 74 02/26/20 07:34 97 T-Piece 8.0 35 02/26/20 07:30 87 18 100 T-Piece 8.0 35 81 18 97 02/26/20 04:00 72 02/26/20 04:00 97.9 78 18 120/75 (90) 99 02/26/20 04:00 12.0 35 02/26/20 04:00 T-piece 12.0 02/26/20 01:06 78 18 98 T-Piece 8.0 35 02/26/20 00:55 96 T-Piece 8.0 35 02/26/20 00:55 76 18 98 T-Piece 8.0 35 02/26/20 00:00 98.2 87 17 122/72 (89) 99 02/26/20 00:00 12.0 35 02/26/20 00:00 74 02/26/20 00:00 T-piece 12.0 02/25/20 21:45 84 119/66 02/25/20 21:16 84 20 99 T-Piece 8.0 35 02/25/20 21:16 84 20 99 T-Piece 8.0 35 02/25/20 21:07 97 T-Piece 8.0 35 02/25/20 21:07 83 20 97 T-Piece 8.0 35 02/25/20 20:00 98.4 86 20 119/66 (83) 98 02/25/20 20:00 T-piece 12.0 02/25/20 20:00 86 02/25/20 16:00 T-piece 12.0 02/25/20 16:00 12.0 35 02/25/20 16:00 97.0 84 18 129/77 (94) 96 02/25/20 16:00 87 Intake and Output 02/25/20 02/26/20 19:00 07:00 Intake Total 990.82 ml 1075.8467 ml Output Total 1200 ml 900 ml Balance -209.18 ml 175.8467 ml Intake Free Water 300 ml IV Total 495.82 ml 595.8467 ml Tube Feeding 495 ml 180 ml Output Urine Total 1200 ml 900 ml # Voids 2 # Bowel Movements 5 4 General Appearance: cachetic HEENT: normocephalic, atraumatic Respiratory: chest wall non-tender, lungs clear Cardiovascular: normal peripheral pulses, normal rate Abdomen: normal bowel sounds, soft, non tender Extremities: no clubbing 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 Laboratory Tests 02/25/20 17:41: POC Whole Blood Glucose 259H 02/26/20 00:21: POC Whole Blood Glucose [Pending] 02/26/20 06:16: POC Whole Blood Glucose 247H 02/26/20 06:55: White Blood Count 11.0H, Red Blood Count 3.76L, Hemoglobin 10.5L, Hematocrit 31.7L, Mean Corpuscular Volume 84, Mean Corpuscular Hemoglobin 28.0, Mean Corpuscular Hemoglobin Concent 33.2, Red Cell Distribution Width 14.5, Platelet Count 442, Mean Platelet Volume 5.3L, Neutrophils (%) (Auto) 75.5H, Lymphocytes (%) (Auto) 15.3L, Monocytes (%) (Auto) 3.5, Eosinophils (%) (Auto) 5.3H, Basophils (%) (Auto) 0.4, Erythrocyte Sedimentation Rate 101H, Sodium Level 141 , Potassium Level 3.9, Chloride Level 108H, Carbon Dioxide Level 27, Anion Gap 7 , Blood Urea Nitrogen 18, Creatinine 0.7, Estimat Glomerular Filtration Rate > 60, Glucose Level 277H, Uric Acid 2.5L, Calcium Level 10.7H, Phosphorus Level 2.9, Magnesium Level 2.3, Total Bilirubin 0.2, Aspartate Amino Transf (AST/SGOT ) 17, Alanine Aminotransferase (ALT/SGPT) 10L, Alkaline Phosphatase 81, C- Reactive Protein, Quantitative 1.2H, Pro-B-Type Natriuretic Peptide 272H, Total Protein 7.3, Albumin 1.7L, Globulin 5.6, Albumin/Globulin Ratio 0.3L 02/26/20 09:12: POC Whole Blood Glucose [Pending] 02/26/20 11:56: POC Whole Blood Glucose [Pending] Current Medications Medications (Trade) Dose Ordered Sig/Anders Route PRN Reason Start Time Stop Time Status Last Admin Dose Admin Acetaminophen (Tylenol) 650 mg Q6H PRN NG Mild Pain (1-3)/ Temp>100.5 02/26/20 00:30 03/21/20 00:29 Albuterol/ Ipratropium (Albuterol/ Ipratropium) 3 ml Q6HRT HHN 02/26/20 01:00 02/29/20 00:59 02/26/20 07:34 Barium Sulfate (Varibar Honey) 250 ml NOW PRN MC RAD 02/26/20 13:00 02/28/20 12:47 Barium Sulfate (Varibar [place]) 240 ml NOW PRN MC RAD 02/26/20 13:00 02/28/20 12:47 Barium Sulfate (Varibar Pudding) 230 ml NOW PRN MC RAD 02/26/20 13:00 02/28/20 12:47 Barium Sulfate (Varibar Thin Liquid powder) 148 gm NOW PRN MC RAD 02/26/20 13:00 02/28/20 12:47 Dextrose (Dextrose 50%) 25 ml Q30M PRN IV Hypoglycemia 02/26/20 00:15 05/24/20 09:14 Dextrose (Dextrose 50%) 50 ml Q30M PRN IV Hypoglycemia 02/26/20 00:15 05/24/20 09:14 Heparin Sodium (Porcine) (Heparin 5000 units/ml) 5,000 units EVERY 12 HOURS SUBQ 02/26/20 09:00 04/05/20 20:59 02/26/20 09:17 Insulin Aspart (NovoLOG) Q6HR SUBQ 02/26/20 00:00 05/24/20 09:14 02/26/20 12:00 Insulin Detemir (Levemir) 12 units Q12HR SUBQ 02/26/20 09:00 05/25/20 08:59 02/26/20 09:18 Meropenem 1 gm/ Sodium Chloride 55 ml @ 110 mls/hr Q8HR IVPB 02/26/20 06:00 02/28/20 13:59 02/26/20 05:30 Metoprolol Tartrate (Lopressor) 25 mg Q12HR GT 02/26/20 09:00 05/23/20 08:59 02/26/20 09:09 Pantoprazole (Protonix) 40 mg Q12HR IVP 02/26/20 09:00 03/22/20 08:59 02/26/20 09:09 Zinc Oxide (Zinc Oxide) 1 applic TIDPRN PRN TOPIC Scrotal wound and kathi-rectal 02/26/20 00:30 05/23/20 00:29 Assessment/Plan Problems: (1) Sepsis (2) Nosocomial pneumonia (3) Hypernatremia (4) Tracheostomy in place (5) Diabetes mellitus (6) OBS (organic brain syndrome) (7) Feeding by G-tube (8) Chronic vegetative state Assessment/Plan Na is within normal limits now decrease tap water flush to 100 cc q 4 continue abx check cultures sliding scale diabetic gtube feeding trach care tolerating gtube feeding but wants some oral food as well Melany Salgado MD Feb 26, 2020 13:13
--- NOTE | 2020-02-26 13:53 | Nephrology Progress Note ---
Assessment/Plan Problem List: (1) Hypercalcemia (2) Nosocomial pneumonia (3) Feeding by G-tube (4) Tracheostomy in place (5) Anemia (6) DMII (diabetes mellitus, type 2) Assessment Abnormal electrolytes. High sodium and low phosphorus at this time. Admitted with sepsis and healthcare associated pneumonia Hypertension by history Patient has tracheostomy connected to oxygen not ventilator Previous hypokalemia corrected Mild anemia Diabetes mellitus [id number] UTI Bedbound status, vegetative state Feeding through PEG Plan 60 mg pamidronate intravenously ordered one-time Nasal calcitonin ordered Continue to monitor blood chemistries and electrolytes Keep the blood pressure and blood sugar in check Per orders Subjective ROS Limited/Unobtainable: Yes Objective Objective Last 24 Hour Vital Signs Date Time Temp Pulse Resp B/P (MAP) Pulse Ox O2 Delivery O2 Flow Rate FiO2 02/26/20 12:00 12.0 35 02/26/20 12:00 96.6 70 18 102/64 (77) 97 02/26/20 12:00 T-piece 12.0 02/26/20 11:25 70 02/26/20 09:09 74 119/74 02/26/20 08:00 97.7 74 20 119/74 (89) 98 02/26/20 08:00 T-piece 12.0 02/26/20 08:00 12.0 35 02/26/20 07:52 74 02/26/20 07:34 97 T-Piece 8.0 35 02/26/20 07:30 87 18 100 T-Piece 8.0 35 81 18 97 02/26/20 04:00 72 02/26/20 04:00 97.9 78 18 120/75 (90) 99 02/26/20 04:00 12.0 35 02/26/20 04:00 T-piece 12.0 02/26/20 01:06 78 18 98 T-Piece 8.0 35 02/26/20 00:55 96 T-Piece 8.0 35 02/26/20 00:55 76 18 98 T-Piece 8.0 35 02/26/20 00:00 98.2 87 17 122/72 (89) 99 02/26/20 00:00 12.0 35 02/26/20 00:00 74 02/26/20 00:00 T-piece 12.0 9/14/20 21:45 84 119/66 02/25/20 21:16 84 20 99 T-Piece 8.0 35 02/25/20 21:16 84 20 99 T-Piece 8.0 35 02/25/20 21:07 97 T-Piece 8.0 35 02/25/20 21:07 83 20 97 T-Piece 8.0 35 02/25/20 20:00 98.4 86 20 119/66 (83) 98 02/25/20 20:00 T-piece 12.0 02/25/20 20:00 86 02/25/20 16:00 T-piece 12.0 02/25/20 16:00 12.0 35 02/25/20 16:00 97.0 84 18 129/77 (94) 96 02/25/20 16:00 87 Intake and Output 02/25/20 02/26/20 19:00 07:00 Intake Total 990.82 ml 1075.8467 ml Output Total 1200 ml 900 ml Balance -209.18 ml 175.8467 ml Intake Free Water 300 ml IV Total 495.82 ml 595.8467 ml Tube Feeding 495 ml 180 ml Output Urine Total 1200 ml 900 ml # Voids 2 # Bowel Movements 5 4 Laboratory Tests 02/25/20 17:41: POC Whole Blood Glucose 259H 02/26/20 00:21: POC Whole Blood Glucose [Pending] 02/26/20 06:16: POC Whole Blood Glucose 247H 02/26/20 06:55: White Blood Count 11.0H, Red Blood Count 3.76L, Hemoglobin 10.5L, Hematocrit 31.7L, Mean Corpuscular Volume 84, Mean Corpuscular Hemoglobin 28.0, Mean Corpuscular Hemoglobin Concent 33.2, Red Cell Distribution Width 14.5, Platelet Count 442, Mean Platelet Volume 5.3L, Neutrophils (%) (Auto) 75.5H, Lymphocytes (%) (Auto) 15.3L, Monocytes (%) (Auto) 3.5, Eosinophils (%) (Auto) 5.3H, Basophils (%) (Auto) 0.4, Erythrocyte Sedimentation Rate 101H, Sodium Level 141 , Potassium Level 3.9, Chloride Level 108H, Carbon Dioxide Level 27, Anion Gap 7 , Blood Urea Nitrogen 18, Creatinine 0.7, Estimat Glomerular Filtration Rate > 60, Glucose Level 277H, Uric Acid 2.5L, Calcium Level 10.7H, Phosphorus Level 2.9, Magnesium Level 2.3, Total Bilirubin 0.2, Aspartate Amino Transf (AST/SGOT ) 17, Alanine Aminotransferase (ALT/SGPT) 10L, Alkaline Phosphatase 81, C- Reactive Protein, Quantitative 1.2H, Pro-B-Type Natriuretic Peptide 272H, Total Protein 7.3, Albumin 1.7L, Globulin 5.6, Albumin/Globulin Ratio 0.3L 02/26/20 09:12: POC Whole Blood Glucose [Pending] 02/26/20 11:56: POC Whole Blood Glucose [Pending] Height (Feet): 5 Height (Inches): 4.00 Weight (Pounds): 141 General Appearance: no apparent distress EENT: other - Patient has T-piece Cardiovascular: normal rate Respiratory/Chest: decreased breath sounds Abdomen: distended Cornell Coleman MD Feb 26, 2020 13:53
[2020-02-26] MEDS ORDERED: Pamidronate Disodium Inj 60 MG in Sodium Chloride 550 ML IVPB ONE (15:00)
[2020-02-26 16:00] VITALS: BP 100/65
--- NOTE | 2020-02-26 17:16 | Infectious Diseases Prog Note ---
Assessment/Plan Assessment: Severe Sepsis UTI -02/19 u/a wbc tnct, nit neg,leuk +3; ucx >100k C. youngae, probabl AMP-c (I Zosyn, Ceftriaxone; S Meropenem) Bcx NTD Bacterial Pneumonia- COVID19 neg x2 -02/24 CXR: Persistent bilateral infiltrates concerning for multifocal pneumonia, right greater than left. Slight improved aeration of the right lower lung compared to the prior exam. -02/20 rapid COVID PCR neg -02/19 Rapid COVID PCR neg sp cx ESBL E.coli (S Zosyn, Meropenem), ESBL K. pna(S Zosyn, Meropenem ), P, mirabilis ([place]el[place] S) CXR: Right lung consolidation, likely pneumonia Right hilar apparent fullness, probably an artifact of rotation but mass or adenopathy also possible. Recommend follow-up radiographs to resolution. 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 Will continue to follow along with you. Discussed with RN. Subjective Allergies: Coded Allergies: No Known Allergies (Unverified , 02/20/20) Tm 100.9 wbc improving Bcx NTD Objective Last 24 Hour Vital Signs Date Time Temp Pulse Resp B/P (MAP) Pulse Ox O2 Delivery O2 Flow Rate FiO2 02/26/20 16:00 12.0 35 02/26/20 16:00 T-piece 12.0 02/26/20 13:57 82 18 100 T-Piece 8.0 35 87 18 98 02/26/20 13:56 98 T-Piece 8.0 35 02/26/20 12:00 12.0 35 02/26/20 12:00 96.6 70 18 102/64 (77) 97 02/26/20 12:00 T-piece 12.0 02/26/20 11:25 70 02/26/20 09:09 74 119/74 02/26/20 08:00 97.7 74 20 119/74 (89) 98 02/26/20 08:00 T-piece 12.0 02/26/20 08:00 12.0 35 02/26/20 07:52 74 02/26/20 07:34 97 T-Piece 8.0 35 02/26/20 07:30 87 18 100 T-Piece 8.0 35 81 18 97 02/26/20 04:00 72 02/26/20 04:00 97.9 78 18 120/75 (90) 99 02/26/20 04:00 12.0 35 02/26/20 04:00 T-piece 12.0 02/26/20 01:06 78 18 98 T-Piece 8.0 35 02/26/20 00:55 96 T-Piece 8.0 35 02/26/20 00:55 76 18 98 T-Piece 8.0 35 02/26/20 00:00 98.2 87 17 122/72 (89) 99 02/26/20 00:00 12.0 35 02/26/20 00:00 74 02/26/20 00:00 T-piece 12.0 02/25/20 21:45 84 119/66 02/25/20 21:16 84 20 99 T-Piece 8.0 35 02/25/20 21:16 84 20 99 T-Piece 8.0 35 02/25/20 21:07 97 T-Piece 8.0 35 02/25/20 21:07 83 20 97 T-Piece 8.0 35 02/25/20 20:00 98.4 86 20 119/66 (83) 98 02/25/20 20:00 T-piece 12.0 02/25/20 20:00 86 Height (Feet): 5 Height (Inches): 4.00 Weight (Pounds): 141 Head: Normocephalic, without obvious abnormality, atraumatic Neck: supple Lungs: clear to auscultation bilaterally Heart: regular rate and rhythm, S1, S2 normal Abdomen: soft, non-tender. Bowel sounds normal Extremities: extremities normal, atraumatic, no cyanosis or edema Laboratory Tests Test 02/25/20 17:41 02/26/20 00:21 02/26/20 06:16 02/26/20 06:55 POC Whole Blood Glucose 259 MG/DL (74-106) H Pending 247 MG/DL (74-106) H White Blood Count 11.0 K/UL (4.8-10.8) H Red Blood Count 3.76 M/UL (4.70-6.10) L Hemoglobin 10.5 G/DL (14.2-18.0) L Hematocrit 31.7 % (42.0-52.0) L Mean Corpuscular Volume 84 FL (80-99) Mean Corpuscular Hemoglobin 28.0 PG (27.0-31.0) Mean Corpuscular Hemoglobin Concent 33.2 G/DL (32.0-36.0) Red Cell Distribution Width 14.5 % (11.6-14.8) Platelet Count 442 K/UL (150-450) Mean Platelet Volume 5.3 FL (6.5-10.1) L Neutrophils (%) (Auto) 75.5 % (45.0-75.0) H Lymphocytes (%) (Auto) 15.3 % (20.0-45.0) L Monocytes (%) (Auto) 3.5 % (1.0-10.0) Eosinophils (%) (Auto) 5.3 % (0.0-3.0) H Basophils (%) (Auto) 0.4 % (0.0-2.0) Erythrocyte Sedimentation Rate 101 MM/HR (0-20) H Sodium Level 141 MMOL/L (136-145) Potassium Level 3.9 MMOL/L (3.5-5.1) Chloride Level 108 MMOL/L (98-107) H Carbon Dioxide Level 27 MMOL/L (21-32) Anion Gap 7 mmol/L (5-15) Blood Urea Nitrogen 18 mg/dL (7-18) Creatinine 0.7 MG/DL (0.55-1.30) Estimat Glomerular Filtration Rate > 60 mL/min (>60) Glucose Level 277 MG/DL (74-106) H Uric Acid 2.5 MG/DL (2.6-7.2) L Calcium Level 10.7 MG/DL (8.5-10.1) H Phosphorus Level 2.9 MG/DL (2.5-4.9) Magnesium Level 2.3 MG/DL (1.8-2.4) Total Bilirubin 0.2 MG/DL (0.2-1.0) Aspartate Amino Transf (AST/SGOT) 17 U/L (15-37) Alanine Aminotransferase (ALT/SGPT) 10 U/L (12-78) L Alkaline Phosphatase 81 U/L (46-116) C-Reactive Protein, Quantitative 1.2 mg/dL (0.00-0.90) H Pro-B-Type Natriuretic Peptide 272 pg/mL (0-125) H Total Protein 7.3 G/DL (6.4-8.2) Albumin 1.7 G/DL (3.4-5.0) L Globulin 5.6 g/dL Albumin/Globulin Ratio 0.3 (1.0-2.7) L Vitamin B12 Level 627 PG/ML (193-986) Folate 15.1 NG/ML (8.6-58.9) Test 02/26/20 09:12 02/26/20 11:56 POC Whole Blood Glucose Pending Pending Current Medications Medications (Trade) Dose Ordered Sig/Anders Route PRN Reason Start Time Stop Time Status Last Admin Dose Admin Acetaminophen (Tylenol) 650 mg Q6H PRN NG Mild Pain (1-3)/ Temp>100.5 02/26/20 00:30 03/21/20 00:29 Albuterol/ Ipratropium (Albuterol/ Ipratropium) 3 ml Q6HRT HHN 02/26/20 01:00 02/29/20 00:59 02/26/20 13:56 Barium Sulfate (Varibar Honey) 250 ml NOW PRN MC RAD 02/26/20 13:00 02/28/20 12:47 Barium Sulfate (Varibar Porter) 240 ml NOW PRN MC RAD 02/26/20 13:00 02/28/20 12:47 Barium Sulfate (Varibar Pudding) 230 ml NOW PRN MC RAD 02/26/20 13:00 02/28/20 12:47 Barium Sulfate (Varibar Thin Liquid powder) 148 gm NOW PRN RAD 02/26/20 13:00 02/28/20 12:47 Calcitonin Frost (Miacalcin) 1 sprays DAILY NASAL 02/26/20 15:00 05/26/20 14:59 02/26/20 15:09 Dextrose (Dextrose 50%) 25 ml Q30M PRN IV Hypoglycemia 02/26/20 00:15 05/24/20 09:14 Dextrose (Dextrose 50%) 50 ml Q30M PRN IV Hypoglycemia 02/26/20 00:15 05/24/20 09:14 Heparin Sodium (Porcine) (Heparin 5000 units/ml) 5,000 units EVERY 12 HOURS SUBQ 02/26/20 09:00 04/05/20 20:59 02/26/20 09:17 Insulin Aspart (NovoLOG) Q6HR SUBQ 02/26/20 00:00 05/24/20 09:14 02/26/20 12:00 Insulin Detemir (Levemir) 12 units Q12HR SUBQ 02/26/20 09:00 05/25/20 08:59 02/26/20 09:18 Meropenem 1 gm/ Sodium Chloride 55 ml @ 110 mls/hr Q8HR IVPB 02/26/20 06:00 02/28/20 13:59 02/26/20 13:54 Metoprolol Tartrate (Lopressor) 25 mg Q12HR GT 02/26/20 09:00 05/23/20 08:59 02/26/20 09:09 Pamidronate Disodium 60 mg/ Sodium Chloride 550 ml @ 137.5 mls/ hr ONCE ONCE IVPB 02/26/20 15:00 02/26/20 18:59 02/26/20 15:09 Pantoprazole (Protonix) 40 mg Q12HR IVP 02/26/20 09:00 03/22/20 08:59 02/26/20 09:09 Zinc Oxide (Zinc Oxide) 1 applic TIDPRN PRN TOPIC Scrotal wound and kathi-rectal 02/26/20 00:30 05/23/20 00:29 Marily Hardy M.D. Feb 26, 2020 17:16
--- NOTE | 2020-02-26 18:03 | Surgery Progress Note ---
Surgery Progress Note Subjective Additional Comments stable comfortable Objective Last 24 Hour Vital Signs Date Time Temp Pulse Resp B/P (MAP) Pulse Ox O2 Delivery O2 Flow Rate FiO2 02/26/20 16:00 12.0 35 02/26/20 16:00 96.9 71 20 100/65 (77) 96 02/26/20 16:00 T-piece 12.0 02/26/20 13:57 82 18 100 T-Piece 8.0 35 87 18 98 02/26/20 13:56 98 T-Piece 8.0 35 02/26/20 12:00 12.0 35 02/26/20 12:00 96.6 70 18 102/64 (77) 97 02/26/20 12:00 T-piece 12.0 02/26/20 11:25 70 02/26/20 09:09 74 119/74 02/26/20 08:00 97.7 74 20 119/74 (89) 98 02/26/20 08:00 T-piece 12.0 02/26/20 08:00 12.0 35 02/26/20 07:52 74 02/26/20 07:34 97 T-Piece 8.0 35 02/26/20 07:30 87 18 100 T-Piece 8.0 35 81 18 97 02/26/20 04:00 72 02/26/20 04:00 97.9 78 18 120/75 (90) 99 02/26/20 04:00 12.0 35 02/26/20 04:00 T-piece 12.0 02/26/20 01:06 78 18 98 T-Piece 8.0 35 02/26/20 00:55 96 T-Piece 8.0 35 02/26/20 00:55 76 18 98 T-Piece 8.0 35 02/26/20 00:00 98.2 87 17 122/72 (89) 99 02/26/20 00:00 12.0 35 02/26/20 00:00 74 02/26/20 00:00 T-piece 12.0 02/25/20 21:45 84 119/66 02/25/20 21:16 84 20 99 T-Piece 8.0 35 02/25/20 21:16 84 20 99 T-Piece 8.0 35 02/25/20 21:07 97 T-Piece 8.0 35 02/25/20 21:07 83 20 97 T-Piece 8.0 35 02/25/20 20:00 98.4 86 20 119/66 (83) 98 02/25/20 20:00 T-piece 12.0 02/25/20 20:00 86 I&O Intake and Output 02/25/20 02/26/20 19:00 07:00 Intake Total 990.82 ml 1075.8467 ml Output Total 1200 ml 900 ml Balance -209.18 ml 175.8467 ml Intake Free Water 300 ml IV Total 495.82 ml 595.8467 ml Tube Feeding 495 ml 180 ml Output Urine Total 1200 ml 900 ml # Voids 2 # Bowel Movements 5 4 Dressing: other Wound: other Cardiovascular: RSR Respiratory: decreased breath sounds Abdomen: soft, non-tender, present bowel sounds Extremities: no tenderness, no cyanosis Laboratory Tests Test 02/26/20 00:21 02/26/20 06:16 02/26/20 06:55 02/26/20 09:12 POC Whole Blood Glucose Pending 247 MG/DL (74-106) H Pending White Blood Count 11.0 K/UL (4.8-10.8) H Red Blood Count 3.76 M/UL (4.70-6.10) L Hemoglobin 10.5 G/DL (14.2-18.0) L Hematocrit 31.7 % (42.0-52.0) L Mean Corpuscular Volume 84 FL (80-99) Mean Corpuscular Hemoglobin 28.0 PG (27.0-31.0) Mean Corpuscular Hemoglobin Concent 33.2 G/DL (32.0-36.0) Red Cell Distribution Width 14.5 % (11.6-14.8) Platelet Count 442 K/UL (150-450) Mean Platelet Volume 5.3 FL (6.5-10.1) L Neutrophils (%) (Auto) 75.5 % (45.0-75.0) H Lymphocytes (%) (Auto) 15.3 % (20.0-45.0) L Monocytes (%) (Auto) 3.5 % (1.0-10.0) Eosinophils (%) (Auto) 5.3 % (0.0-3.0) H Basophils (%) (Auto) 0.4 % (0.0-2.0) Erythrocyte Sedimentation Rate 101 MM/HR (0-20) H Sodium Level 141 MMOL/L (136-145) Potassium Level 3.9 MMOL/L (3.5-5.1) Chloride Level 108 MMOL/L (98-107) H Carbon Dioxide Level 27 MMOL/L (21-32) Anion Gap 7 mmol/L (5-15) Blood Urea Nitrogen 18 mg/dL (7-18) Creatinine 0.7 MG/DL (0.55-1.30) Estimat Glomerular Filtration Rate > 60 mL/min (>60) Glucose Level 277 MG/DL (74-106) H Uric Acid 2.5 MG/DL (2.6-7.2) L Calcium Level 10.7 MG/DL (8.5-10.1) H Phosphorus Level 2.9 MG/DL (2.5-4.9) Magnesium Level 2.3 MG/DL (1.8-2.4) Total Bilirubin 0.2 MG/DL (0.2-1.0) Aspartate Amino Transf (AST/SGOT) 17 U/L (15-37) Alanine Aminotransferase (ALT/SGPT) 10 U/L (12-78) L Alkaline Phosphatase 81 U/L (46-116) C-Reactive Protein, Quantitative 1.2 mg/dL (0.00-0.90) H Pro-B-Type Natriuretic Peptide 272 pg/mL (0-125) H Total Protein 7.3 G/DL (6.4-8.2) Albumin 1.7 G/DL (3.4-5.0) L Globulin 5.6 g/dL Albumin/Globulin Ratio 0.3 (1.0-2.7) L Vitamin B12 Level 627 PG/ML (193-986) Folate 15.1 NG/ML (8.6-58.9) Test 02/26/20 11:56 POC Whole Blood Glucose Pending Plan Problems: (1) Sepsis Assessment & Plan: leukocytosis, fevers, abnormal labs, ill appearing, respiratory insufficiency, on support, micro noted. Pt presented on admission with Tracheostomy, multiple Pressure Injuries, Kita- rectal erosion.Skin assessed uner tracheal collar and no evidence of skin breakdown noted. Partially opened Sacral DTPI (L)6cm x (W)6.3cm. Base of wound is maroon , fluctuant with small open area at sacrococcygeal area that is 80% slough ,20% mary at base (L)0.7cm x (W)0.8cm. Perirectal and scrotum area is grossly excoriated. Partial thickness wound noted to Base R and base of scrotum(L)2.8cm x (W)3.5cm. Biofilm noted at base of wound. Borders are macerated. Haemosiderin noted to bilat distal/lower extremities. L heel is boggy with non-Blanchable erythema. R heel is boggy with non-Blanchable erythema. Loose dry eschar noted to R heel . Pt denied tenderness or pain when palpated. Tx.Plan: Cleanse Sacral Wound with Saline. Apply Moisture Barrier Paste Periwound. Cover with Optifoam drsg. Changeevery 3 days and prn. Apply Zinc Oxide Paste to Scrotal wound and Kita-rectal erosion TID and Prn. Apply Cavilon Skin BArrier to both heels and Malleoli. Cover each site with Optifoam drsg. Change every 7 daysand prn. Reposition at least every 2hours or as tolerated. Off-load heels with pillow. APM/DONALDO Mattress overlay. DAILY ESTIMATED NEEDS: Needs based on wound, DM, sepsis/ 65kg 25-30 kcals/kg 5507-8456 total kcals 1.25-2 g protein/kg 81-130 g total protein 25-30 mL/kg 9130-0660 total fluid mLs NUTRITION DIAGNOSIS: * Swallowing difficulty R/T dysphagia, respiratory status as evidenced by pt on T-collar, PEG dep. * Increased kcal/prot needs R/T wound healing as evidenced by admitted w/ sacral wound per photo, pending eval. CURRENT TF:Glucerna 1.5 @ 55ml/hr x 24 hrs ENTERAL NUTRITION RECOMMENDATIONS: Glucerna 1.5 @ 50ml/hr x 24 hrs to provide 1200ml, 1800kcal, 99g prot, 910ml free water * LOWER goal rate to 50m/hr x 24 hrs: meets 100% est kcal/prot needs * HOB over 30 degrees/ water flush per MD ADDITIONAL RECOMMENDATIONS: * Calibrated bedscal wt for accurate CBW * Rec long acting insulin for improved BG control. * Wound healing: Add Vit C 500mg QD + Omari BID via PEG * Monitor lytes, replete as needed (2) UTI (urinary tract infection) (3) Tracheostomy in place (4) Diabetes mellitus (5) OBS (organic brain syndrome) (6) Feeding by G-tube (7) Chronic vegetative state (8) Nosocomial pneumonia Terry Armstrong Feb 26, 2020 18:03
--- NOTE | 2020-02-26 19:52 | NUR ---
NURSE HAND-OFF REPORT: Important Events on Shift: Patient Status: stable Diet: glucerna 1.5 Pending Orders: labs, CXR Pending Results/Labs: Pending MD notification: Latest Vital Signs: Temperature 96.9 , Pulse 71 , B/P 100 /65 , Respiratory Rate 20 , O2 SAT 98 , T-piece, O2 Flow Rate 8.0 . Vital Sign Comment: EKG Rhythm: Sinus Rhythm Rhythm change?: N MD Notified?: - MD Response: Latest Cole Fall Score: 55 Fall Risk: High Risk Safety Measures: Call light Within Reach, Bed Alarm Zone 1, Side Rails Side Rails x2, Bed position Low and Locked. Fall Precautions: Yellow Socks Yellow Gown Door Sign Patient Fall Education Report given to MEELY Rollins
[2020-02-26 20:00] VITALS: BP 103/64
--- NOTE | 2020-02-26 20:05 | NUR ---
NURSE NOTES: Received patient report from EMELY Bacon. Patient shows no signs of distress or pain at the time. He is AO x2 nonverbal but responds to Monegasque. Estrada is patent and daring. Patient is on T Piece 12L O2 and saturating at 99%. Patient is on G tube feeding running Glucerna 1.5 at 45cc/hr. No residual noted. IV site is intact and flushed. There are nos signs of erythema, infiltration, or bleeding. Bed is in the lowest position, call light is within reach, side rail up x3. Will continue to monitor.
--- NOTE | 2020-02-26 21:21 | General Progress Note ---
Assessment/Plan Status Narrative Patient is awake alert febrile with eye contact normal attention span is able to answer simple question by head nods appropriately Is currently being treated for UTI with too numerous to count WBCs in the urine and multifocal pneumonia right more than left In general condition is markedly improved and he appears comfortable We will continue with the current antibiotic regimen Repeat laboratory tests will be done in a.m. YOLA LAN MD Subjective Constitutional: Reports: no symptoms HEENT: Reports: no symptoms Cardiovascular: Reports: no symptoms Respiratory: Reports: no symptoms Gastrointestinal/Abdominal: Reports: no symptoms Genitourinary: Reports: no symptoms Neurologic/Psychiatric: Reports: no symptoms Hematologic/Lymphatic: Reports: no symptoms Allergies: Coded Allergies: No Known Allergies (Unverified , 02/20/20) Objective Last 24 Hour Vital Signs Date Time Temp Pulse Resp B/P (MAP) Pulse Ox O2 Delivery O2 Flow Rate FiO2 02/26/20 18:54 98 T-Piece 8.0 35 02/26/20 18:54 82 18 100 T-Piece 8.0 35 79 18 98 02/26/20 16:00 12.0 35 02/26/20 16:00 96.9 71 20 100/65 (77) 96 02/26/20 16:00 T-piece 12.0 02/26/20 15:27 71 02/26/20 13:57 82 18 100 T-Piece 8.0 35 87 18 98 02/26/20 13:56 98 T-Piece 8.0 35 02/26/20 12:00 12.0 35 02/26/20 12:00 96.6 70 18 102/64 (77) 97 02/26/20 12:00 T-piece 12.0 02/26/20 11:25 70 02/26/20 09:09 74 119/74 02/26/20 08:00 97.7 74 20 119/74 (89) 98 02/26/20 08:00 T-piece 12.0 02/26/20 08:00 12.0 35 02/26/20 07:52 74 02/26/20 07:34 97 T-Piece 8.0 35 02/26/20 07:30 87 18 100 T-Piece 8.0 35 81 18 97 02/26/20 04:00 72 02/26/20 04:00 97.9 78 18 120/75 (90) 99 02/26/20 04:00 12.0 35 02/26/20 04:00 T-piece 12.0 02/26/20 01:06 78 18 98 T-Piece 8.0 35 02/26/20 00:55 96 T-Piece 8.0 35 02/26/20 00:55 76 18 98 T-Piece 8.0 35 02/26/20 00:00 98.2 87 17 122/72 (89) 99 02/26/20 00:00 12.0 35 02/26/20 00:00 74 02/26/20 00:00 T-piece 12.0 02/25/20 21:45 84 119/66 02/25/20 21:16 84 20 99 T-Piece 8.0 35 02/25/20 21:16 84 20 99 T-Piece 8.0 35 Intake and Output 02/25/20 02/26/20 19:00 07:00 Intake Total 990.82 ml 1075.8467 ml Output Total 1200 ml 900 ml Balance -209.18 ml 175.8467 ml Intake Free Water 300 ml IV Total 495.82 ml 595.8467 ml Tube Feeding 495 ml 180 ml Output Urine Total 1200 ml 900 ml # Voids 2 # Bowel Movements 5 4 Laboratory Tests 02/26/20 00:21: POC Whole Blood Glucose [Pending] 02/26/20 06:16: POC Whole Blood Glucose 247H 02/26/20 06:55: White Blood Count 11.0H, Red Blood Count 3.76L, Hemoglobin 10.5L, Hematocrit 31.7L, Mean Corpuscular Volume 84, Mean Corpuscular Hemoglobin 28.0, Mean Corpuscular Hemoglobin Concent 33.2, Red Cell Distribution Width 14.5, Platelet Count 442, Mean Platelet Volume 5.3L, Neutrophils (%) (Auto) 75.5H, Lymphocytes (%) (Auto) 15.3L, Monocytes (%) (Auto) 3.5, Eosinophils (%) (Auto) 5.3H, Basophils (%) (Auto) 0.4, Erythrocyte Sedimentation Rate 101H, Sodium Level 141 , Potassium Level 3.9, Chloride Level 108H, Carbon Dioxide Level 27, Anion Gap 7 , Blood Urea Nitrogen 18, Creatinine 0.7, Estimat Glomerular Filtration Rate > 60, Glucose Level 277H, Uric Acid 2.5L, Calcium Level 10.7H, Phosphorus Level 2.9, Magnesium Level 2.3, Total Bilirubin 0.2, Aspartate Amino Transf (AST/SGOT ) 17, Alanine Aminotransferase (ALT/SGPT) 10L, Alkaline Phosphatase 81, C- Reactive Protein, Quantitative 1.2H, Pro-B-Type Natriuretic Peptide 272H, Total Protein 7.3, Albumin 1.7L, Globulin 5.6, Albumin/Globulin Ratio 0.3L, Vitamin B12 Level 627, Folate 15.1 02/26/20 09:12: POC Whole Blood Glucose [Pending] 02/26/20 11:56: POC Whole Blood Glucose [Pending] 02/26/20 17:42: POC Whole Blood Glucose [Pending] Height (Feet): 5 Height (Inches): 4.00 Weight (Pounds): 141 General Appearance: WD/WN, no apparent distress, alert EENT: normal ENT inspection Neck: supple, normal inspection Cardiovascular: normal rate, regular rhythm, no gallop/murmur, no JVD Respiratory/Chest: lungs clear, normal breath sounds, no respiratory distress, no accessory muscle use Abdomen: normal bowel sounds, non tender, soft, no organomegaly, no mass Extremities: non-tender Skin: warm/dry Yola Lan MD Feb 26, 2020 21:21
[2020-02-27] VITALS: BP 101/68
[2020-02-27] MEDS: Albuterol/Ipratropium 3ml neb HHN SCH ×4 (00:02→19:22)
[2020-02-27] MEDS: NovoLOG Insulin Flexpen SUBQ SCH ×4 (01:07→18:07)
--- NOTE | 2020-02-27 02:23 | Cardiology Progress Note ---
Subjective DATE OF SERVICE: Feb 26, 2020 On trach collar Moderate secretions Lab abnormalities resolving Monitor: sinus rhythm/tachycardia CXR today revealed slight improvement in PNA Objective Last 24 Hour Vital Signs Date Time Temp Pulse Resp B/P (MAP) Pulse Ox O2 Delivery O2 Flow Rate FiO2 02/27/20 00:06 97 T-Piece 8.0 35 02/27/20 00:06 86 18 100 T-Piece 8.0 35 83 18 97 02/27/20 00:01 T-piece 12.0 02/27/20 00:00 69 02/27/20 00:00 97.4 73 20 101/68 (79) 98 02/26/20 21:40 73 103/64 02/26/20 20:00 97.5 73 21 103/64 (77) 99 02/26/20 20:00 74 02/26/20 20:00 12.0 35 02/26/20 18:54 98 T-Piece 8.0 35 02/26/20 18:54 82 18 100 T-Piece 8.0 35 79 18 98 02/26/20 16:00 12.0 35 02/26/20 16:00 96.9 71 20 100/65 (77) 96 02/26/20 16:00 T-piece 12.0 02/26/20 15:27 71 02/26/20 13:57 82 18 100 T-Piece 8.0 35 87 18 98 02/26/20 13:56 98 T-Piece 8.0 35 02/26/20 12:00 12.0 35 02/26/20 12:00 96.6 70 18 102/64 (77) 97 02/26/20 12:00 T-piece 12.0 02/26/20 11:25 70 02/26/20 09:09 74 119/74 02/26/20 08:00 97.7 74 20 119/74 (89) 98 02/26/20 08:00 T-piece 12.0 02/26/20 08:00 12.0 35 02/26/20 07:52 74 02/26/20 07:34 97 T-Piece 8.0 35 02/26/20 07:30 87 18 100 T-Piece 8.0 35 81 18 97 02/26/20 04:00 72 02/26/20 04:00 97.9 78 18 120/75 (90) 99 02/26/20 04:00 12.0 35 02/26/20 04:00 T-piece 12.0 ROS: unchanged from my dictation of 02/21/20 HEENT: Thick Trach secretions LUNGS: bilateral rhonchi, trach site clean CARDIAC: normal rate, regular rhythm, normal S1 and S2 ABDOMEN: normal bowel sounds, non tender, soft, G-Tube intact EXTREMITIES: normal range of motion, no swelling, No edema Laboratory Tests Test 02/26/20 06:16 02/26/20 06:55 02/26/20 09:12 02/26/20 11:56 POC Whole Blood Glucose 247 MG/DL (74-106) H Pending Pending White Blood Count 11.0 K/UL (4.8-10.8) H Red Blood Count 3.76 M/UL (4.70-6.10) L Hemoglobin 10.5 G/DL (14.2-18.0) L Hematocrit 31.7 % (42.0-52.0) L Mean Corpuscular Volume 84 FL (80-99) Mean Corpuscular Hemoglobin 28.0 PG (27.0-31.0) Mean Corpuscular Hemoglobin Concent 33.2 G/DL (32.0-36.0) Red Cell Distribution Width 14.5 % (11.6-14.8) Platelet Count 442 K/UL (150-450) Mean Platelet Volume 5.3 FL (6.5-10.1) L Neutrophils (%) (Auto) 75.5 % (45.0-75.0) H Lymphocytes (%) (Auto) 15.3 % (20.0-45.0) L Monocytes (%) (Auto) 3.5 % (1.0-10.0) Eosinophils (%) (Auto) 5.3 % (0.0-3.0) H Basophils (%) (Auto) 0.4 % (0.0-2.0) Erythrocyte Sedimentation Rate 101 MM/HR (0-20) H Sodium Level 141 MMOL/L (136-145) Potassium Level 3.9 MMOL/L (3.5-5.1) Chloride Level 108 MMOL/L (98-107) H Carbon Dioxide Level 27 MMOL/L (21-32) Anion Gap 7 mmol/L (5-15) Blood Urea Nitrogen 18 mg/dL (7-18) Creatinine 0.7 MG/DL (0.55-1.30) Estimat Glomerular Filtration Rate > 60 mL/min (>60) Glucose Level 277 MG/DL (74-106) H Uric Acid 2.5 MG/DL (2.6-7.2) L Calcium Level 10.7 MG/DL (8.5-10.1) H Phosphorus Level 2.9 MG/DL (2.5-4.9) Magnesium Level 2.3 MG/DL (1.8-2.4) Total Bilirubin 0.2 MG/DL (0.2-1.0) Aspartate Amino Transf (AST/SGOT) 17 U/L (15-37) Alanine Aminotransferase (ALT/SGPT) 10 U/L (12-78) L Alkaline Phosphatase 81 U/L (46-116) C-Reactive Protein, Quantitative 1.2 mg/dL (0.00-0.90) H Pro-B-Type Natriuretic Peptide 272 pg/mL (0-125) H Total Protein 7.3 G/DL (6.4-8.2) Albumin 1.7 G/DL (3.4-5.0) L Globulin 5.6 g/dL Albumin/Globulin Ratio 0.3 (1.0-2.7) L Vitamin B12 Level 627 PG/ML (193-986) Folate 15.1 NG/ML (8.6-58.9) Test 02/26/20 17:42 02/26/20 21:32 02/27/20 01:00 POC Whole Blood Glucose Pending 185 MG/DL (74-106) H 199 MG/DL (74-106) H Assessment/Plan Assessment/Plan Healthcare associated PNA improving Sepsis Recovered shock Hypertension/HHD Respiratory failure with trach Anemia Hypokalemia corrected Leukocytosis improved Dehydration/hypernatremia IRDM uncontrolled Hypophosphatemia Abx IVF adjusted to correct free water deficit with PO4 suppl; free water per GTube as well Resp rx Replace K+/Mg++ as needed Nutrition per Gtube Titrate long acting insulin Titrate beta mahi DVT prophylaxis Richard Lang MD Feb 27, 2020 02:23
[2020-02-27 04:00] VITALS: BP 109/64
[2020-02-27] MEDS: Meropenem 1 GM in NS 55 ML IVPB SCH ×3 (06:15→22:21)
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
--- NOTE | 2020-02-27 07:10 | NUR ---
NURSE NOTES: Received report from Ria/RN, Observed patient asleep, lying semi-melendrez's, resting comfortably. On 12L T-Piece, no acute distress/SOB noted. Iv site patent and intact. Estrada cath draining well to gravity. G-Tube feeding running @45 cc/hr. Bed in low position and locked, Call light within reach. Encouraged to use call light when needed. Bed alarm is on, side rails up x3. Will continue plan of care.
[2020-02-27 07:16] LABS: BASOPHILS % (AUTO) 0.9 % (0.0-2.0); EOSINOPHILS % (AUTO) 3.8 % (0.0-3.0); HEMATOCRIT 33.5 % (42.0-52.0); HEMOGLOBIN 11.2 G/DL (14.2-18.0); LYMPHOCYTES % (AUTO) 10.1 % (20.0-45.0); MEAN CORPUSCULAR VOLUME 84 FL (80-99); MONOCYTES % (AUTO) 2.9 % (1.0-10.0); NEUTROPHILS % (AUTO) 82.4 % (45.0-75.0); PLATELET COUNT 465 K/UL (150-450); WHITE BLOOD COUNT 11.3 K/UL (4.8-10.8)
--- NOTE | 2020-02-27 07:19 | NUR ---
NURSE HAND-OFF REPORT: Important Events on Shift:[NA] Patient Status: [Full code] Diet: [Glucerna 1.5 @45] Pending Orders: [NA] Pending Results/Labs:[NA] Pending MD notification:[NA] Latest Vital Signs: Temperature 97.5 , Pulse 60 , B/P 109 /64 , Respiratory Rate 20 , O2 SAT 100 , T-piece, O2 Flow Rate 12.0 . Vital Sign Comment: [NA] EKG Rhythm: Sinus Rhythm Rhythm change?: N MD Notified?: - MD Response: Latest Cole Fall Score: 55 Fall Risk: High Risk Safety Measures: Call light Within Reach, Bed Alarm Zone 1, Side Rails Side Rails x2, Bed position Low and Locked. Fall Precautions: Yellow Socks Yellow Gown Door Sign Patient Fall Education Report given to [EMELY Wilson].
[2020-02-27 07:46] LABS: ALANINE AMINOTRANSFERASE 16 U/L (12-78); ALBUMIN 1.8 G/DL (3.4-5.0); ALBUMIN/GLOBULIN RATIO 0.3 (1.0-2.7); ALKALINE PHOSPHATASE 102 U/L (46-116); ANION GAP 8 mmol/L (5-15); ASPARTATE AMINO TRANSFERASE 16 U/L (15-37); BILIRUBIN,TOTAL 0.2 MG/DL (0.2-1.0); BLOOD UREA NITROGEN 23 mg/dL (7-18); CARBON DIOXIDE 26 MMOL/L (21-32); CHLORIDE 112 MMOL/L (98-107); CREATININE 0.7 MG/DL (0.55-1.30); PHOSPHORUS 2.3 MG/DL (2.5-4.9); POTASSIUM 4.1 MMOL/L (3.5-5.1); SODIUM 146 MMOL/L (136-145)
[2020-02-27 08:00] VITALS: BP 125/83
[2020-02-27] MEDS: Heparin 5000 units/ml inj SUBQ SCH ×2 (08:38→21:17)
[2020-02-27] MEDS: Levemir Flexpen SUBQ SCH ×2 (08:46→21:21)
[2020-02-27] MEDS: Pantoprazole Inj IVP SCH ×2 (09:20→21:26)
--- NOTE | 2020-02-27 09:36 | NUR ---
RADIOLOGY DEPT., CHEST X-RAY DONE.-P.DYE
--- NOTE | 2020-02-27 11:16 | Nephrology Progress Note ---
Assessment/Plan Problem List: (1) Hypercalcemia (2) Nosocomial pneumonia (3) Feeding by G-tube (4) Tracheostomy in place (5) Anemia (6) DMII (diabetes mellitus, type 2) Assessment Abnormal electrolytes. High sodium and low phosphorus at this time. Admitted with sepsis and healthcare associated pneumonia Hypertension by history Patient has tracheostomy connected to oxygen not ventilator Previous hypokalemia corrected Mild anemia Diabetes mellitus [id number] UTI Bedbound status, vegetative state Feeding through PEG Plan February 26: Serum calcium lowering. Labs reviewed. Stable renal parameters. Phosphorus supplement ordered. Continue per consultants. Previously: 60 mg pamidronate intravenously ordered one-time Nasal calcitonin ordered Continue to monitor blood chemistries and electrolytes Keep the blood pressure and blood sugar in check Per orders Subjective ROS Limited/Unobtainable: Yes Objective Objective Last 24 Hour Vital Signs Date Time Temp Pulse Resp B/P (MAP) Pulse Ox O2 Delivery O2 Flow Rate FiO2 02/27/20 09:00 T-piece 12.0 02/27/20 08:38 92 125/83 02/27/20 08:00 12.0 35 02/27/20 08:00 97.9 92 18 125/83 (97) 97 02/27/20 08:00 84 02/27/20 07:41 81 18 100 T-Piece 8.0 35 81 18 97 02/27/20 07:41 97 T-Piece 8.0 35 02/27/20 04:00 76 02/27/20 04:00 12.0 35 02/27/20 04:00 97.5 60 20 109/64 (79) 100 02/27/20 00:06 97 T-Piece 8.0 35 02/27/20 00:06 86 18 100 T-Piece 8.0 35 83 18 97 02/27/20 00:01 T-piece 12.0 02/27/20 00:00 69 02/27/20 00:00 97.4 73 20 101/68 (79) 98 02/26/20 21:40 73 103/64 02/26/20 20:00 97.5 73 21 103/64 (77) 99 02/26/20 20:00 74 02/26/20 20:00 12.0 35 02/26/20 18:54 98 T-Piece 8.0 35 02/26/20 18:54 82 18 100 T-Piece 8.0 35 79 18 98 02/26/20 16:00 12.0 35 02/26/20 16:00 96.9 71 20 100/65 (77) 96 02/26/20 16:00 T-piece 12.0 02/26/20 15:27 71 02/26/20 13:57 82 18 100 T-Piece 8.0 35 87 18 98 02/26/20 13:56 98 T-Piece 8.0 35 02/26/20 12:00 12.0 35 02/26/20 12:00 96.6 70 18 102/64 (77) 97 02/26/20 12:00 T-piece 12.0 02/26/20 11:25 70 Intake and Output 02/26/20 02/27/20 19:00 07:00 Output Total 900 ml 1300 ml Balance -900 ml -1300 ml Output Urine Total 900 ml 1300 ml # Voids 2 # Bowel Movements 3 Laboratory Tests 02/26/20 11:56: POC Whole Blood Glucose [Pending] 02/26/20 17:42: POC Whole Blood Glucose [Pending] 02/26/20 21:32: POC Whole Blood Glucose 185H 02/27/20 01:00: POC Whole Blood Glucose 199H 02/27/20 06:03: POC Whole Blood Glucose [Pending] 02/27/20 06:19: White Blood Count 11.3H, Red Blood Count 4.00L, Hemoglobin 11.2L, Hematocrit 33.5L, Mean Corpuscular Volume 84, Mean Corpuscular Hemoglobin 28.0, Mean Corpuscular Hemoglobin Concent 33.4, Red Cell Distribution Width 15.0H, Platelet Count 465H, Mean Platelet Volume 5.3L, Neutrophils (%) (Auto) 82.4H, Lymphocytes (%) (Auto) 10.1L, Monocytes (%) (Auto) 2.9, Eosinophils (%) (Auto) 3.8H, Basophils (%) (Auto) 0.9, Erythrocyte Sedimentation Rate 86H, Sodium Level 146H, Potassium Level 4.1, Chloride Level 112H, Carbon Dioxide Level 26, Anion Gap 8, Blood Urea Nitrogen 23H, Creatinine 0.7, Estimat Glomerular Filtration R ate > 60, Glucose Level 225H, Calcium Level 10.0, Phosphorus Level 2.3L, Ma gnesium Level 2.5H, Total Bilirubin 0.2, Aspartate Amino Transf (AST/SGOT) 16, Alanine Aminotransferase (ALT/SGPT) 16, Alkaline Phosphatase 102, C-Reactive Protein, Quantitative 1.1H, Total Protein 7.5, Albumin 1.8L, Globulin 5.7, Albumin/Globulin Ratio 0.3L 02/27/20 08:42: POC Whole Blood Glucose [Pending] Height (Feet): 5 Height (Inches): 4.00 Weight (Pounds): 141 General Appearance: no apparent distress, lethargic EENT: other - Has T-piece to oxygen Cardiovascular: tachycardia - Late 80s early 90s rate Respiratory/Chest: decreased breath sounds Abdomen: distended Cornell Coleman MD Feb 27, 2020 11:16
--- NOTE | 2020-02-27 11:53 | Diagnostic Imaging Report ---
Procedure: XRAY Chest 1v Reason for study: Reason For Exam: [id number] Comparison films: 02/26/2020. FINDINGS: Tracheostomy remains in place. Vascularity is normal. Right lung infiltrates slightly increased. Cardiac and mediastinal silhouette are within normal limits. CP angles are sharp. The bony thorax appear unremarkable. IMPRESSION: Slight increased right lung infiltrate.
[2020-02-27 12:00] VITALS: BP 107/72
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
[2020-02-27] MEDS ORDERED: Potassium Phosphate 20 MM in NS 275 ML IV ONE (14:00)
--- NOTE | 2020-02-27 14:04 | Infectious Diseases Prog Note ---
Assessment/Plan Assessment: Severe Sepsis UTI -02/19 u/a wbc tnct, nit neg,leuk +3; ucx >100k C. youngae, probabl AMP-c (I Zosyn, Ceftriaxone; S Meropenem) Bcx NTD Bacterial Pneumonia- COVID19 neg x2 -02/24 CXR: Persistent bilateral infiltrates concerning for multifocal pneumonia, right greater than left. Slight improved aeration of the right lower lung compared to the prior exam. -02/20 rapid COVID PCR neg -02/19 Rapid COVID PCR neg sp cx ESBL E.coli (S Zosyn, Meropenem), ESBL K. pna(S Zosyn, Meropenem), P, mirabilis ([place] S) CXR: Right lung consolidation, likely pneumonia Right hilar apparent fullness, probably an artifact of rotation but mass or adenopathy also possible. Recommend follow-up radiographs to resolution. 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 Will continue to follow along with you. Discussed with RN. Subjective Allergies: Coded Allergies: No Known Allergies (Unverified , 02/20/20) afebrile wbc remains at 11 Objective Last 24 Hour Vital Signs Date Time Temp Pulse Resp B/P (MAP) Pulse Ox O2 Delivery O2 Flow Rate FiO2 02/27/20 13:30 88 18 100 T-Piece 8.0 35 86 18 98 02/27/20 13:29 98 T-Piece 8.0 35 02/27/20 12:00 12.0 35 02/27/20 12:00 87 02/27/20 12:00 98.2 81 18 107/72 (84) 96 02/27/20 09:00 T-piece 12.0 02/27/20 08:38 92 125/83 02/27/20 08:00 12.0 35 02/27/20 08:00 97.9 92 18 125/83 (97) 97 02/27/20 08:00 84 02/27/20 07:41 81 18 100 T-Piece 8.0 35 81 18 97 02/27/20 07:41 97 T-Piece 8.0 35 02/27/20 04:00 76 02/27/20 04:00 12.0 35 02/27/20 04:00 97.5 60 20 109/64 (79) 100 02/27/20 00:06 97 T-Piece 8.0 35 02/27/20 00:06 86 18 100 T-Piece 8.0 35 83 18 97 02/27/20 00:01 T-piece 12.0 02/27/20 00:00 69 02/27/20 00:00 97.4 73 20 101/68 (79) 98 02/26/20 21:40 73 103/64 02/26/20 20:00 97.5 73 21 103/64 (77) 99 02/26/20 20:00 74 02/26/20 20:00 12.0 35 02/26/20 18:54 98 T-Piece 8.0 35 02/26/20 18:54 82 18 100 T-Piece 8.0 35 79 18 98 02/26/20 16:00 12.0 35 02/26/20 16:00 96.9 71 20 100/65 (77) 96 02/26/20 16:00 T-piece 12.0 02/26/20 15:27 71 02/26/20 13:57 82 18 100 T-Piece 8.0 35 87 18 98 02/26/20 13:56 98 T-Piece 8.0 35 Height (Feet): 5 Height (Inches): 4.00 Weight (Pounds): 141 Neck: supple Lungs: clear to auscultation bilaterally Heart: regular rate and rhythm, S1, S2 normal Abdomen: soft, non-tender. Bowel sounds normal Extremities: extremities normal, atraumatic, no cyanosis or edema Laboratory Tests Test 02/26/20 17:42 02/26/20 21:32 02/27/20 01:00 02/27/20 06:03 POC Whole Blood Glucose Pending 185 MG/DL (74-106) H 199 MG/DL (74-106) H Pending Test 02/27/20 06:19 02/27/20 08:42 White Blood Count 11.3 K/UL (4.8-10.8) H Red Blood Count 4.00 M/UL (4.70-6.10) L Hemoglobin 11.2 G/DL (14.2-18.0) L Hematocrit 33.5 % (42.0-52.0) L Mean Corpuscular Volume 84 FL (80-99) Mean Corpuscular Hemoglobin 28.0 PG (27.0-31.0) Mean Corpuscular Hemoglobin Concent 33.4 G/DL (32.0-36.0) Red Cell Distribution Width 15.0 % (11.6-14.8) H Platelet Count 465 K/UL (150-450) H Mean Platelet Volume 5.3 FL (6.5-10.1) L Neutrophils (%) (Auto) 82.4 % (45.0-75.0) H Lymphocytes (%) (Auto) 10.1 % (20.0-45.0) L Monocytes (%) (Auto) 2.9 % (1.0-10.0) Eosinophils (%) (Auto) 3.8 % (0.0-3.0) H Basophils (%) (Auto) 0.9 % (0.0-2.0) Erythrocyte Sedimentation Rate 86 MM/HR (0-20) H Sodium Level 146 MMOL/L (136-145) H Potassium Level 4.1 MMOL/L (3.5-5.1) Chloride Level 112 MMOL/L (98-107) H Carbon Dioxide Level 26 MMOL/L (21-32) Anion Gap 8 mmol/L (5-15) Blood Urea Nitrogen 23 mg/dL (7-18) H Creatinine 0.7 MG/DL (0.55-1.30) Estimat Glomerular Filtration Rate > 60 mL/min (>60) Glucose Level 225 MG/DL (74-106) H Calcium Level 10.0 MG/DL (8.5-10.1) Phosphorus Level 2.3 MG/DL (2.5-4.9) L Magnesium Level 2.5 MG/DL (1.8-2.4) H Total Bilirubin 0.2 MG/DL (0.2-1.0) Aspartate Amino Transf (AST/SGOT) 16 U/L (15-37) Alanine Aminotransferase (ALT/SGPT) 16 U/L (12-78) Alkaline Phosphatase 102 U/L (46-116) C-Reactive Protein, Quantitative 1.1 mg/dL (0.00-0.90) H Total Protein 7.5 G/DL (6.4-8.2) Albumin 1.8 G/DL (3.4-5.0) L Globulin 5.7 g/dL Albumin/Globulin Ratio 0.3 (1.0-2.7) L POC Whole Blood Glucose Pending Current Medications Medications (Trade) Dose Ordered Sig/Anders Route PRN Reason Start Time Stop Time Status Last Admin Dose Admin Acetaminophen (Tylenol) 650 mg Q6H PRN NG Mild Pain (1-3)/ Temp>100.5 02/26/20 00:30 03/21/20 00:29 Albuterol/ Ipratropium (Albuterol/ Ipratropium) 3 ml Q6HRT HHN 02/26/20 01:00 02/29/20 00:59 02/27/20 13:24 Barium Sulfate (Varibar Honey) 250 ml NOW PRN MC RAD 02/26/20 13:00 02/28/20 12:47 Barium Sulfate (Varibar [place]) 240 ml NOW PRN MC RAD 02/26/20 13:00 02/28/20 12:47 Barium Sulfate (Varibar Pudding) 230 ml NOW PRN MC RAD 02/26/20 13:00 02/28/20 12:47 Barium Sulfate (Varibar Thin Liquid powder) 148 gm NOW PRN MC RAD 02/26/20 13:00 02/28/20 12:47 Calcitonin [place] (Miacalcin) 1 sprays DAILY NASAL 02/26/20 15:00 05/26/20 14:59 02/27/20 08:39 Dextrose (Dextrose 50%) 25 ml Q30M PRN IV Hypoglycemia 02/26/20 00:15 05/24/20 09:14 Dextrose (Dextrose 50%) 50 ml Q30M PRN IV Hypoglycemia 02/26/20 00:15 05/24/20 09:14 Heparin Sodium (Porcine) (Heparin 5000 units/ml) 5,000 units EVERY 12 HOURS SUBQ 02/26/20 09:00 04/05/20 20:59 02/27/20 08:38 Insulin Aspart (NovoLOG) Q6HR SUBQ 02/26/20 00:00 05/24/20 09:14 02/27/20 12:30 Insulin Detemir (Levemir) 12 units Q12HR SUBQ 02/26/20 09:00 05/25/20 08:59 02/27/20 08:46 Meropenem 1 gm/ Sodium Chloride 55 ml @ 110 mls/hr Q8HR IVPB 02/26/20 06:00 02/28/20 13:59 02/27/20 13:28 Metoprolol Tartrate (Lopressor) 25 mg Q12HR GT 02/26/20 09:00 05/23/20 08:59 02/27/20 08:38 Pantoprazole (Protonix) 40 mg Q12HR IVP 02/26/20 09:00 03/22/20 08:59 02/27/20 09:20 Potassium Phosphate 20 mm/ Sodium Chloride 281.6667 ml @ 46.944 m... ONCE ONCE IV 02/27/20 14:00 02/27/20 19:59 Zinc Oxide (Zinc Oxide) 1 applic TIDPRN PRN TOPIC Scrotal wound and kathi-rectal 02/26/20 00:30 05/23/20 00:29 Marily Hardy M.D. Feb 27, 2020 14:04
[2020-02-27 16:00] VITALS: BP 119/75
--- NOTE | 2020-02-27 16:13 | NUR ---
CASE MANAGEMENT: REVIEW SI: UTI . BACTERIAL PNA T 98.2 HR 81 RR 18 BP 107/72 SAT 96% T-PIECE FIO2 35 WBC 11.3 H/H 11.3/33.5 NA 146 GLUCOSE 225 IS: K PHOS IV X1 AREDIA IV X1 PROTONIX IV Q12HR MEROPENEM IV Q8HR TELEMETRY UNIT STATUS DCP: PATIENT IS FROM
--- NOTE | 2020-02-27 17:19 | Pulmonology Progress Note ---
Subjective ROS Limited/Unobtainable: Yes Constitutional: Reports: no symptoms Allergies: Coded Allergies: No Known Allergies (Unverified , 02/20/20) All Systems: reviewed and negative except above Objective Last 24 Hour Vital Signs Date Time Temp Pulse Resp B/P (MAP) Pulse Ox O2 Delivery O2 Flow Rate FiO2 02/27/20 16:00 98.4 97 18 119/75 (90) 96 02/27/20 16:00 98 02/27/20 16:00 12.0 35 02/27/20 13:30 88 18 100 T-Piece 8.0 35 86 18 98 02/27/20 13:29 98 T-Piece 8.0 35 02/27/20 12:00 12.0 35 02/27/20 12:00 87 02/27/20 12:00 98.2 81 18 107/72 (84) 96 02/27/20 09:00 T-piece 12.0 02/27/20 08:38 92 125/83 02/27/20 08:00 12.0 35 02/27/20 08:00 97.9 92 18 125/83 (97) 97 02/27/20 08:00 84 02/27/20 07:41 81 18 100 T-Piece 8.0 35 81 18 97 02/27/20 07:41 97 T-Piece 8.0 35 02/27/20 04:00 76 02/27/20 04:00 12.0 35 02/27/20 04:00 97.5 60 20 109/64 (79) 100 02/27/20 00:06 97 T-Piece 8.0 35 02/27/20 00:06 86 18 100 T-Piece 8.0 35 83 18 97 02/27/20 00:01 T-piece 12.0 02/27/20 00:00 69 02/27/20 00:00 97.4 73 20 101/68 (79) 98 02/26/20 21:40 73 103/64 02/26/20 20:00 97.5 73 21 103/64 (77) 99 02/26/20 20:00 74 02/26/20 20:00 12.0 35 02/26/20 18:54 98 T-Piece 8.0 35 02/26/20 18:54 82 18 100 T-Piece 8.0 35 79 18 98 Intake and Output 02/26/20 02/27/20 19:00 07:00 Output Total 900 ml 1300 ml Balance -900 ml -1300 ml Output Urine Total 900 ml 1300 ml # Voids 2 # Bowel Movements 3 General Appearance: cachetic HEENT: normocephalic, atraumatic Respiratory: chest wall non-tender, lungs clear Cardiovascular: normal peripheral pulses, normal rate Abdomen: normal bowel sounds, soft, non tender Extremities: no clubbing 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 Laboratory Tests 02/26/20 17:42: POC Whole Blood Glucose [Pending] 02/26/20 21:32: POC Whole Blood Glucose 185H 02/27/20 01:00: POC Whole Blood Glucose 199H 02/27/20 06:03: POC Whole Blood Glucose [Pending] 02/27/20 06:19: White Blood Count 11.3H, Red Blood Count 4.00L, Hemoglobin 11.2L, Hematocrit 33.5L, Mean Corpuscular Volume 84, Mean Corpuscular Hemoglobin 28.0, Mean Corpuscular Hemoglobin Concent 33.4, Red Cell Distribution Width 15.0H, Platelet Count 465H, Mean Platelet Volume 5.3L, Neutrophils (%) (Auto) 82.4H, Lymphocytes (%) (Auto) 10.1L, Monocytes (%) (Auto) 2.9, Eosinophils (%) (Auto) 3.8H, Basophils (%) (Auto) 0.9, Erythrocyte Sedimentation Rate 86H, Sodium Level 146H, Potassium Level 4.1, Chloride Level 112H, Carbon Dioxide Level 26, Anion Gap 8, Blood Urea Nitrogen 23H, Creatinine 0.7, Estimat Glomerular Filtration Rate > 60, Glucose Level 225H, Calcium Level 10.0, Phosphorus Level 2.3L, Magnesium Level 2.5H, Total Bilirubin 0.2, Aspartate Amino Transf (AST/SGOT) 16, Alanine Aminotransferase (ALT/SGPT) 16, Alkaline Phosphatase 102, C-Reactive Protein, Quantitative 1.1H, Total Protein 7.5, Albumin 1.8L, Globulin 5.7, Albumin/Globulin Ratio 0.3L 02/27/20 08:42: POC Whole Blood Glucose [Pending] Current Medications Medications (Trade) Dose Ordered Sig/Anders Route PRN Reason Start Time Stop Time Status Last Admin Dose Admin Acetaminophen (Tylenol) 650 mg Q6H PRN NG Mild Pain (1-3)/ Temp>100.5 02/26/20 00:30 03/21/20 00:29 Albuterol/ Ipratropium (Albuterol/ Ipratropium) 3 ml Q6HRT HHN 02/26/20 01:00 02/29/20 00:59 02/27/20 13:24 Barium Sulfate (Varibar Honey) 250 ml NOW PRN MC RAD 02/26/20 13:00 02/28/20 12:47 Barium Sulfate (Varibar [place]) 240 ml NOW PRN MC RAD 02/26/20 13:00 02/28/20 12:47 Barium Sulfate (Varibar Pudding) 230 ml NOW PRN MC RAD 02/26/20 13:00 02/28/20 12:47 Barium Sulfate (Varibar Thin Liquid powder) 148 gm NOW PRN MC RAD 02/26/20 13:00 02/28/20 12:47 Calcitonin [place] (Miacalcin) 1 sprays DAILY NASAL 02/26/20 15:00 05/26/20 14:59 02/27/20 08:39 Dextrose (Dextrose 50%) 25 ml Q30M PRN IV Hypoglycemia 02/26/20 00:15 05/24/20 09:14 Dextrose (Dextrose 50%) 50 ml Q30M PRN IV Hypoglycemia 02/26/20 00:15 05/24/20 09:14 Heparin Sodium (Porcine) (Heparin 5000 units/ml) 5,000 units EVERY 12 HOURS SUBQ 02/26/20 09:00 04/05/20 20:59 02/27/20 08:38 Insulin Aspart (NovoLOG) Q6HR SUBQ 02/26/20 00:00 05/24/20 09:14 02/27/20 12:30 Insulin Detemir (Levemir) 12 units Q12HR SUBQ 02/26/20 09:00 05/25/20 08:59 02/27/20 08:46 Meropenem 1 gm/ Sodium Chloride 55 ml @ 110 mls/hr Q8HR IVPB 02/26/20 06:00 02/28/20 13:59 02/27/20 13:28 Metoprolol Tartrate (Lopressor) 25 mg Q12HR GT 02/26/20 09:00 05/23/20 08:59 02/27/20 08:38 Pantoprazole (Protonix) 40 mg Q12HR IVP 02/26/20 09:00 03/22/20 08:59 02/27/20 09:20 Potassium Phosphate 20 mm/ Sodium Chloride 281.6667 ml @ 46.944 m... ONCE ONCE IV 02/27/20 14:00 02/27/20 19:59 02/27/20 13:58 Zinc Oxide (Zinc Oxide) 1 applic TIDPRN PRN TOPIC Scrotal wound and kathi-rectal 02/26/20 00:30 05/23/20 00:29 Assessment/Plan Problems: (1) Sepsis (2) Nosocomial pneumonia (3) Hypernatremia (4) Tracheostomy in place (5) Diabetes mellitus (6) OBS (organic brain syndrome) (7) Feeding by G-tube (8) Chronic vegetative state Assessment/Plan looks comfortable continue abx check cultures sliding scale diabetic gtube feeding trach care tolerating gtube feeding but wants some oral food as well Melany Salgado MD Feb 27, 2020 17:19
[2020-02-27] MEDS ORDERED: Tubing IV Secondary IV ONE ×2 (18:21→18:30)
[2020-02-27] MEDS ORDERED: NS 275ml ONE (18:21)
--- NOTE | 2020-02-27 19:22 | NUR ---
NURSE HAND-OFF REPORT: Important Events on Shift:[NA] Patient Status: Stable Diet: Tube feeding Pending Orders: NA Pending Results/Labs:NA Pending MD notification:NA Latest Vital Signs: Temperature 98.4 , Pulse 98 , B/P 119 /75 , Respiratory Rate 18 , O2 SAT 96 , T-piece, O2 Flow Rate 12.0 . Vital Sign Comment: Stable EKG Rhythm: Sinus Rhythm Rhythm change?: N MD Notified?: - MD Response: Latest Cole Fall Score: 55 Fall Risk: High Risk Safety Measures: Call light Within Reach, Bed Alarm Zone 1, Side Rails Side Rails x2, Bed position Low and Locked. Fall Precautions: Yellow Socks Yellow Gown Door Sign Patient Fall Education Report given to Emmanuel.
--- NOTE | 2020-02-27 19:35 | NUR ---
NURSE NOTES: Received pt from EMELY Wilson. Pt is resting comfortably in bed supine with heels floated. Pt is AxO X1 and answers with nodding to questions. Pt is on Tpiece 12LPM 35% with suction prn and sating 94%. Pt is on cardiac monitoring SR and asymptomatic. Pt is on GT running Glucerna 1.5 45 ml/hr and flushes clearly; needs frequent flushing to prevent clogging. Pt has RFA 20G on TKO NS. Pt has [address] 3 pressure ulcer with clean dressing. Pt has diehl catheter draining well to gravity. Bed locked in lowest position and call light within reach. Will continue to monitor.
[2020-02-27 20:00] VITALS: BP 134/73
--- NOTE | 2020-02-27 20:19 | General Progress Note ---
Subjective Constitutional: Reports: no symptoms HEENT: Reports: no symptoms Cardiovascular: Reports: no symptoms Respiratory: Reports: no symptoms Gastrointestinal/Abdominal: Reports: no symptoms Genitourinary: Reports: no symptoms Neurologic/Psychiatric: Reports: no symptoms Endocrine: Reports: no symptoms Allergies: Coded Allergies: No Known Allergies (Unverified , 02/20/20) Objective Last 24 Hour Vital Signs Date Time Temp Pulse Resp B/P (MAP) Pulse Ox O2 Delivery O2 Flow Rate FiO2 02/27/20 19:25 96 T-Piece 8.0 35 02/27/20 19:22 95 20 100 T-Piece 8.0 35 102 18 96 02/27/20 16:00 98.4 97 18 119/75 (90) 96 02/27/20 16:00 98 02/27/20 16:00 12.0 35 02/27/20 13:30 88 18 100 T-Piece 8.0 35 86 18 98 02/27/20 13:29 98 T-Piece 8.0 35 02/27/20 12:00 12.0 35 02/27/20 12:00 87 02/27/20 12:00 98.2 81 18 107/72 (84) 96 02/27/20 09:00 T-piece 12.0 02/27/20 08:38 92 125/83 02/27/20 08:00 12.0 35 02/27/20 08:00 97.9 92 18 125/83 (97) 97 02/27/20 08:00 84 02/27/20 07:41 81 18 100 T-Piece 8.0 35 81 18 97 02/27/20 07:41 97 T-Piece 8.0 35 02/27/20 04:00 76 02/27/20 04:00 12.0 35 02/27/20 04:00 97.5 60 20 109/64 (79) 100 02/27/20 00:06 97 T-Piece 8.0 35 02/27/20 00:06 86 18 100 T-Piece 8.0 35 83 18 97 02/27/20 00:01 T-piece 12.0 02/27/20 00:00 69 02/27/20 00:00 97.4 73 20 101/68 (79) 98 02/26/20 21:40 73 103/64 Intake and Output 02/26/20 02/27/20 19:00 07:00 Output Total 900 ml 1300 ml Balance -900 ml -1300 ml Output Urine Total 900 ml 1300 ml # Voids 2 # Bowel Movements 3 Laboratory Tests 02/26/20 21:32: POC Whole Blood Glucose 185H 02/27/20 01:00: POC Whole Blood Glucose 199H 02/27/20 06:03: POC Whole Blood Glucose [Pending] 02/27/20 06:19: White Blood Count 11.3H, Red Blood Count 4.00L, Hemoglobin 11.2L, Hematocrit 33.5L, Mean Corpuscular Volume 84, Mean Corpuscular Hemoglobin 28.0, Mean Corpuscular Hemoglobin Concent 33.4, Red Cell Distribution Width 15.0H, Platelet Count 465H, Mean Platelet Volume 5.3L, Neutrophils (%) (Auto) 82.4H, Lymphocytes (%) (Auto) 10.1L, Monocytes (%) (Auto) 2.9, Eosinophils (%) (Auto) 3.8H, Basophils (%) (Auto) 0.9, Erythrocyte Sedimentation Rate 86H, Sodium Level 146H, Potassium Level 4.1, Chloride Level 112H, Carbon Dioxide Level 26, Anion Gap 8, Blood Urea Nitrogen 23H, Creatinine 0.7, Estimat Glomerular Filtration Rate > 60, Glucose Level 225H, Calcium Level 10.0, Phosphorus Level 2.3L, Magnesium Level 2.5H, Total Bilirubin 0.2, Aspartate Amino Transf (AST/SGOT) 16, Alanine Aminotransferase (ALT/SGPT) 16, Alkaline Phosphatase 102, C-Reactive Protein, Quantitative 1.1H, Total Protein 7.5, Albumin 1.8L, Globulin 5.7, Albumin/Globulin Ratio 0.3L 02/27/20 08:42: POC Whole Blood Glucose [Pending] 02/27/20 17:36: POC Whole Blood Glucose 231H Height (Feet): 5 Height (Inches): 4.00 Weight (Pounds): 141 General Appearance: alert EENT: PERRL/EOMI Neck: supple Cardiovascular: normal rate, regular rhythm, no gallop/murmur, no JVD Respiratory/Chest: lungs clear, normal breath sounds, no respiratory distress Abdomen: normal bowel sounds, non tender, soft, no organomegaly, no mass Extremities: non-tender Neurologic: alert, responsive, aphasia Skin: warm/dry Assessment/Plan Problem List: (1) Nosocomial pneumonia ICD Codes: J18.9 - Pneumonia, unspecified organism; Y95 - Nosocomial condition SNOMED: 806553433 (2) Feeding by G-tube ICD Codes: Z93.1 - Gastrostomy status SNOMED: 687580762, 990469867, [id number] (3) Tracheostomy in place ICD Codes: Z93.0 - Tracheostomy status SNOMED: 469534627 (4) Sepsis ICD Codes: A41.9 - Sepsis, unspecified organism SNOMED: [id number] Yola Lan MD Feb 27, 2020 20:19
[2020-02-28] VITALS: BP 148/60
[2020-02-28] MEDS: Albuterol/Ipratropium 3ml neb HHN SCH ×4 (00:15→20:18)
--- NOTE | 2020-02-28 01:00 | NUR ---
NURSE NOTES: While flushing GTube noticed crack on upper part of GTube above abdomen and water leaking on towel. Tube Feeding stopped. Pt in stable condition. Dr. Lan and Dr. Art notified. Continue to monitor.
--- NOTE | 2020-02-28 02:24 | Cardiology Progress Note ---
Subjective DATE OF SERVICE: Feb 27, 2020 On trach collar Moderate secretions Lab abnormalities resolving Prior therapy with pamidranate for hyperCa++ Monitor: sinus rhythm/tachycardia CXR 02/26/20, revealed slight improvement in PNA Objective Last 24 Hour Vital Signs Date Time Temp Pulse Resp B/P (MAP) Pulse Ox O2 Delivery O2 Flow Rate FiO2 02/28/20 01:13 95 T-Piece 8.0 35 02/28/20 00:15 114 18 98 T-Piece 8.0 35 98 18 95 02/28/20 00:00 97.7 79 24 148/60 (89) 94 02/28/20 00:00 12.0 35 02/28/20 00:00 119 02/27/20 21:26 113 121/81 02/27/20 21:00 T-piece 12.0 02/27/20 20:00 112 02/27/20 20:00 98.2 68 20 134/73 (93) 94 02/27/20 19:25 96 T-Piece 8.0 35 02/27/20 19:22 95 20 100 T-Piece 8.0 35 102 18 96 02/27/20 16:00 98.4 97 18 119/75 (90) 96 02/27/20 16:00 98 02/27/20 16:00 12.0 35 02/27/20 13:30 88 18 100 T-Piece 8.0 35 86 18 98 02/27/20 13:29 98 T-Piece 8.0 35 02/27/20 12:00 12.0 35 02/27/20 12:00 87 02/27/20 12:00 98.2 81 18 107/72 (84) 96 02/27/20 09:00 T-piece 12.0 02/27/20 08:38 92 125/83 02/27/20 08:00 12.0 35 02/27/20 08:00 97.9 92 18 125/83 (97) 97 02/27/20 08:00 84 02/27/20 07:41 81 18 100 T-Piece 8.0 35 81 18 97 02/27/20 07:41 97 T-Piece 8.0 35 02/27/20 04:00 76 02/27/20 04:00 12.0 35 02/27/20 04:00 97.5 60 20 109/64 (79) 100 ROS: unchanged from my dictation of 02/21/20 HEENT: Thick Trach secretions LUNGS: bilateral rhonchi, trach site clean CARDIAC: normal rate, regular rhythm, normal S1 and S2 ABDOMEN: normal bowel sounds, non tender, soft, G-Tube intact EXTREMITIES: normal range of motion, no swelling, No edema Laboratory Tests Test 02/27/20 06:03 02/27/20 06:19 02/27/20 08:42 02/27/20 11:39 POC Whole Blood Glucose Pending Pending Pending White Blood Count 11.3 K/UL (4.8-10.8) H Red Blood Count 4.00 M/UL (4.70-6.10) L Hemoglobin 11.2 G/DL (14.2-18.0) L Hematocrit 33.5 % (42.0-52.0) L Mean Corpuscular Volume 84 FL (80-99) Mean Corpuscular Hemoglobin 28.0 PG (27.0-31.0) Mean Corpuscular Hemoglobin Concent 33.4 G/DL (32.0-36.0) Red Cell Distribution Width 15.0 % (11.6-14.8) H Platelet Count 465 K/UL (150-450) H Mean Platelet Volume 5.3 FL (6.5-10.1) L Neutrophils (%) (Auto) 82.4 % (45.0-75.0) H Lymphocytes (%) (Auto) 10.1 % (20.0-45.0) L Monocytes (%) (Auto) 2.9 % (1.0-10.0) Eosinophils (%) (Auto) 3.8 % (0.0-3.0) H Basophils (%) (Auto) 0.9 % (0.0-2.0) Erythrocyte Sedimentation Rate 86 MM/HR (0-20) H Sodium Level 146 MMOL/L (136-145) H Potassium Level 4.1 MMOL/L (3.5-5.1) Chloride Level 112 MMOL/L (98-107) H Carbon Dioxide Level 26 MMOL/L (21-32) Anion Gap 8 mmol/L (5-15) Blood Urea Nitrogen 23 mg/dL (7-18) H Creatinine 0.7 MG/DL (0.55-1.30) Estimat Glomerular Filtration Rate > 60 mL/min (>60) Glucose Level 225 MG/DL (74-106) H Calcium Level 10.0 MG/DL (8.5-10.1) Phosphorus Level 2.3 MG/DL (2.5-4.9) L Magnesium Level 2.5 MG/DL (1.8-2.4) H Total Bilirubin 0.2 MG/DL (0.2-1.0) Aspartate Amino Transf (AST/SGOT) 16 U/L (15-37) Alanine Aminotransferase (ALT/SGPT) 16 U/L (12-78) Alkaline Phosphatase 102 U/L (46-116) C-Reactive Protein, Quantitative 1.1 mg/dL (0.00-0.90) H Total Protein 7.5 G/DL (6.4-8.2) Albumin 1.8 G/DL (3.4-5.0) L Globulin 5.7 g/dL Albumin/Globulin Ratio 0.3 (1.0-2.7) L Test 02/27/20 17:36 02/27/20 21:19 POC Whole Blood Glucose 231 MG/DL (74-106) H Pending Assessment/Plan Assessment/Plan Healthcare associated PNA improving Sepsis Recovered shock Hypertension/HHD Respiratory failure with trach Anemia Hypokalemia corrected Leukocytosis improved Dehydration/hypernatremia IRDM uncontrolled Hypophosphatemia Hypercalcemia Abx IVF adjusted to correct free water deficit with PO4 suppl; free water per GTube as well Resp rx Replace K+/Mg++ as needed Nutrition per Gtube Titrate long acting insulin Titrate beta mahi DVT prophylaxis Richard Lang MD Feb 28, 2020 02:24
[2020-02-28 04:00] VITALS: BP 126/79
--- NOTE | 2020-02-28 05:00 | NUR ---
NURSE NOTES: While cleaning pt Gtube came out of site while turning pt. No bleeding noted. Abdominal pad placed on site and secured. Pt in stable condition. Dr. Lan and Dr. Art notified. Continue to monitor.
[2020-02-28] MEDS: NovoLOG Insulin Flexpen SUBQ SCH ×4 (06:00→17:39)
[2020-02-28] MEDS: Meropenem 1 GM in NS 55 ML IVPB SCH ×3 (06:16→21:25)
--- NOTE | 2020-02-28 07:00 | NUR ---
NURSE HAND-OFF REPORT: Important Events on Shift:Pt Gtube out. Patient Status: Stable Diet: NPO Pending Orders: Gtube replacement per Dr Art Pending Results/Labs:AM Labs Latest Vital Signs: Temperature 97.7 , Pulse 93 , B/P 126 /79 , Respiratory Rate 20 , O2 SAT 95 , T-piece, O2 Flow Rate 12.0 . Vital Sign Comment: VSS EKG Rhythm: Sinus Rhythm Rhythm change?: N MD Notified?: - MD Response: Latest Cole Fall Score: 55 Fall Risk: High Risk Safety Measures: Call light Within Reach, Bed Alarm Zone 1, Side Rails Side Rails x2, Bed position Low and Locked. Fall Precautions: Yellow Gown Door Sign Patient Fall Education Report given to EMELY Bergeron.
--- NOTE | 2020-02-28 07:10 | NUR ---
NURSE NOTES: Received report from Eric/RN. Patient is awake in semi-fowlers position, NPO. Trach collar 12L, 35% FIo2. Not distress or SOB noted. IV on left hand 20G SL and right FA 20G, patent and clean. Call light within reach. Bed in lowest position and locked, side rails up X3. Will continue plan of care.
[2020-02-28 07:32] LABS: HEMATOCRIT 36.5 % (42.0-52.0); HEMOGLOBIN 11.9 G/DL (14.2-18.0); MEAN CORPUSCULAR VOLUME 84 FL (80-99); PLATELET COUNT 406 K/UL (150-450); RED BLOOD COUNT 4.32 M/UL (4.70-6.10); WHITE BLOOD COUNT 8.7 K/UL (4.8-10.8)
[2020-02-28 07:55] LABS: ALANINE AMINOTRANSFERASE 18 U/L (12-78); ALKALINE PHOSPHATASE 87 U/L (46-116); ANION GAP 9 mmol/L (5-15); ASPARTATE AMINO TRANSFERASE 20 U/L (15-37); BILIRUBIN,TOTAL 0.3 MG/DL (0.2-1.0); BLOOD UREA NITROGEN 24 mg/dL (7-18); CALCIUM 9.7 MG/DL (8.5-10.1); CARBON DIOXIDE 25 MMOL/L (21-32); CHLORIDE 112 MMOL/L (98-107); CREATININE 0.8 MG/DL (0.55-1.30); PHOSPHORUS 2.5 MG/DL (2.5-4.9); POTASSIUM 3.9 MMOL/L (3.5-5.1); SODIUM 146 MMOL/L (136-145)
[2020-02-28 08:00] VITALS: BP 123/79
[2020-02-28] MEDS: Levemir Flexpen SUBQ SCH ×2 (09:00→21:46)
--- NOTE | 2020-02-28 09:01 | NUR ---
RD ASSESSMENT & RECOMMENDATIONS SEE CARE ACTIVITY FOR COMPLETE ASSESSMENT DAILY ESTIMATED NEEDS: Needs based on wound, DM, sepsis/ 52.3kg 25-35 kcals/kg 5553-2665 total kcals 1.25-2 g protein/kg 65-105 g total protein 25-30 mL/kg 6068-6895 total fluid mLs NUTRITION DIAGNOSIS: * Swallowing difficulty R/T dysphagia, respiratory status as evidenced by pt on T-collar, PEG dep. * Increased kcal/prot needs R/T wound healing as evidenced by admitted w/ sacral wound per photo, refer to wound eval. CURRENT TF: Glucerna 1.5 @ 45ml/hr x 24 hrs-> HELD, GT OUT ENTERAL NUTRITION RECOMMENDATIONS: Glucerna 1.5 @ 45ml/hr x 24 hrs to provide 1080ml, 1620kcal, 89g prot, 820ml free water * Goal rate to 45m/hr x 24 hrs: meets 100% est kcal/prot needs * HOB over 30 degrees/ water flush per MD ADDITIONAL RECOMMENDATIONS: * Calibrated bedscal wt for accurate CBW * Rec long acting insulin for improved BG control- now on levemir * Wound healing: Add Vit C 500mg QD + Omari BID via PEG * Monitor lytes, replete as needed Uptrend in Na and BUN-> rec increase water flushes once GT replaced
[2020-02-28] MEDS: Pantoprazole Inj IVP SCH ×2 (10:12→21:25)
[2020-02-28] MEDS: Heparin 5000 units/ml inj SUBQ SCH ×2 (10:13→21:00)
--- NOTE | 2020-02-28 10:13 | Surgery Progress Note ---
Surgery Progress Note Subjective Additional Comments leukocytosis resolved no n/v/f/c comfortable Objective Last 24 Hour Vital Signs Date Time Temp Pulse Resp B/P (MAP) Pulse Ox O2 Delivery O2 Flow Rate FiO2 02/28/20 09:00 T-piece 12.0 02/28/20 08:00 12.0 35 02/28/20 08:00 98.1 107 20 123/79 (94) 98 02/28/20 07:49 101 18 98 T-Piece 8.0 35 98 18 95 02/28/20 07:40 96 T-Piece 10.0 35 02/28/20 04:00 12.0 35 02/28/20 04:00 97.7 98 20 126/79 (95) 95 02/28/20 04:00 93 02/28/20 01:13 95 T-Piece 8.0 35 02/28/20 00:15 114 18 98 T-Piece 8.0 35 98 18 95 02/28/20 00:00 97.7 79 24 148/60 (89) 94 02/28/20 00:00 12.0 35 02/28/20 00:00 119 02/27/20 21:26 113 121/81 02/27/20 21:00 T-piece 12.0 02/27/20 20:00 112 02/27/20 20:00 98.2 68 20 134/73 (93) 94 02/27/20 19:25 96 T-Piece 8.0 35 02/27/20 19:22 95 20 100 T-Piece 8.0 35 102 18 96 02/27/20 16:00 98.4 97 18 119/75 (90) 96 02/27/20 16:00 98 02/27/20 16:00 12.0 35 02/27/20 13:30 88 18 100 T-Piece 8.0 35 86 18 98 02/27/20 13:29 98 T-Piece 8.0 35 02/27/20 12:00 12.0 35 02/27/20 12:00 87 02/27/20 12:00 98.2 81 18 107/72 (84) 96 I&O Intake and Output0 02/27/20 02/28/20 19:00 07:00 Output Total 1600 ml 750 ml Balance -1600 ml -750 ml Output Urine Total 1600 ml 750 ml # Voids 1 # Bowel Movements 2 1 Dressing: other Wound: other Cardiovascular: RSR Respiratory: decreased breath sounds Abdomen: soft, non-tender, present bowel sounds Extremities: no tenderness, no cyanosis Laboratory Tests Test 02/27/20 11:39 02/27/20 17:36 02/27/20 21:19 02/28/20 06:12 POC Whole Blood Glucose Pending 231 MG/DL (74-106) H Pending Pending Test 02/28/20 07:04 White Blood Count 8.7 K/UL (4.8-10.8) Red Blood Count 4.32 M/UL (4.70-6.10) L Hemoglobin 11.9 G/DL (14.2-18.0) L Hematocrit 36.5 % (42.0-52.0) L Mean Corpuscular Volume 84 FL (80-99) Mean Corpuscular Hemoglobin 27.6 PG (27.0-31.0) Mean Corpuscular Hemoglobin Concent 32.7 G/DL (32.0-36.0) Red Cell Distribution Width 16.0 % (11.6-14.8) H Platelet Count 406 K/UL (150-450) Mean Platelet Volume 5.3 FL (6.5-10.1) L Neutrophils (%) (Auto) % (45.0-75.0) Lymphocytes (%) (Auto) % (20.0-45.0) Monocytes (%) (Auto) % (1.0-10.0) Eosinophils (%) (Auto) % (0.0-3.0) Basophils (%) (Auto) % (0.0-2.0) Neutrophils % (Manual) Pending Lymphocytes % (Manual) Pending Platelet Estimate Pending Platelet Morphology Pending Sodium Level 146 MMOL/L (136-145) H Potassium Level 3.9 MMOL/L (3.5-5.1) Chloride Level 112 MMOL/L (98-107) H Carbon Dioxide Level 25 MMOL/L (21-32) Anion Gap 9 mmol/L (5-15) Blood Urea Nitrogen 24 mg/dL (7-18) H Creatinine 0.8 MG/DL (0.55-1.30) Estimat Glomerular Filtration Rate > 60 mL/min (>60) Glucose Level 208 MG/DL (74-106) H Calcium Level 9.7 MG/DL (8.5-10.1) Phosphorus Level 2.5 MG/DL (2.5-4.9) Magnesium Level 2.7 MG/DL (1.8-2.4) H Total Bilirubin 0.3 MG/DL (0.2-1.0) Aspartate Amino Transf (AST/SGOT) 20 U/L (15-37) Alanine Aminotransferase (ALT/SGPT) 18 U/L (12-78) Alkaline Phosphatase 87 U/L (46-116) Total Protein 8.4 G/DL (6.4-8.2) H Albumin 2.0 G/DL (3.4-5.0) L Globulin 6.4 g/dL Plan Problems: (1) Sepsis Assessment & Plan: leukocytosis, fevers, abnormal labs, ill appearing, respiratory insufficiency, on support, micro noted. Pt presented on admission with Tracheostomy, multiple Pressure Injuries, Kita- rectal erosion.Skin assessed uner tracheal collar and no evidence of skin break down noted. Partially opened Sacral DTPI (L)6cm x (W)6.3cm. Base of wound is maroon ,fluctuant with small open area at sacrococcygeal area that is 80% slough ,20% mary at base (L)0.7cm x (W)0.8cm. Perirectal and scrotum area is grossly excoriated. Partial thickness wound noted to Base R and base of scrotum(L)2.8cm x (W)3.5cm. Biofilm noted at base of wound. Borders are macerated. Haemosiderin noted to bilat distal/lower extremities. L heel is boggy with non-Blanchable erythema. R heel is boggy with non-Blanchable erythema. Loose dry eschar noted to R heel . Pt denied tenderness or pain when palpated. Tx.Plan: Cleanse Sacral Wound with Saline. Apply Moisture Barrier Paste Periwound. Cover with Optifoam drsg. Changeevery 3 days and prn. Apply Zinc Oxide Paste to Scrotal wound and Kita-rectal erosion TID and Prn. Apply Cavilon Skin BArrier to both heels and Malleoli. Cover each site with Optifoam drsg. Change every 7 daysand prn. Reposition at least every 2hours or as tolerated. Off-load heels with pillow. APM/DONALDO Mattress overlay. DAILY ESTIMATED NEEDS: Needs based on wound, DM, sepsis/ 52.3kg 25-35 kcals/kg 7729-1489 total kcals 1.25-2 g protein/kg 65-105 g total protein 25-30 mL/kg 5363-8435 total fluid mLs NUTRITION DIAGNOSIS: * Swallowing difficulty R/T dysphagia, respiratory status as evidenced by pt on T-collar, PEG dep. * Increased kcal/prot needs R/T wound healing as evidenced by admitted w/ sacral wound per photo, refer to wound eval. CURRENT TF: Glucerna 1.5 @ 45ml/hr x 24 hrs-> HELD, GT OUT ENTERAL NUTRITION RECOMMENDATIONS: Glucerna 1.5 @ 45ml/hr x 24 hrs to provide 1080ml, 1620kcal, 89g prot, 820ml free water * Goal rate to 45m/hr x 24 hrs: meets 100% est kcal/prot needs * HOB over 30 degrees/ water flush per MD ADDITIONAL RECOMMENDATIONS: * Calibrated bedscal wt for accurate CBW * Rec long acting insulin for improved BG control- now on levemir * Wound healing: Add Vit C 500mg QD + Omari BID via PEG * Monitor lytes, replete as needed Uptrend in Na and BUN-> rec increase water flushes once GT replaced (2) UTI (urinary tract infection) (3) Tracheostomy in place (4) Diabetes mellitus (5) OBS (organic brain syndrome) (6) Feeding by G-tube (7) Chronic vegetative state (8) Nosocomial pneumonia Terry Armstrong Feb 28, 2020 10:13
[2020-02-28 11:31] LABS: APPEARANCE,URINE SLIGHTLY CLOUDY; BILIRUBIN, URINE NEGATIVE (NEGATIVE); GLUCOSE, URINE (UA) NEGATIVE (NEGATIVE); KETONES,URINE 1+ (NEGATIVE); LEUKOCYTE ESTERASE ,URINE 2+ (NEGATIVE); NITRITE,URINE NEGATIVE (NEGATIVE); PH,URINE 7 (4.5-8.0); PROTEIN,URINE 2+ (NEGATIVE); UROBILINOGEN,URINE NORMAL MG/DL (0.0-1.0)
[2020-02-28 11:32] LABS: COLOR,URINE YELLOW
[2020-02-28 12:00] VITALS: BP 117/77
--- NOTE | 2020-02-28 12:09 | Pulmonology Progress Note ---
Subjective ROS Limited/Unobtainable: Yes Constitutional: Reports: no symptoms HEENT: Repors: no symptoms Allergies: Coded Allergies: No Known Allergies (Unverified , 02/20/20) All Systems: reviewed and negative except above Objective Last 24 Hour Vital Signs Date Time Temp Pulse Resp B/P (MAP) Pulse Ox O2 Delivery O2 Flow Rate FiO2 02/28/20 10:18 107 123/79 02/28/20 09:00 T-piece 12.0 02/28/20 08:00 12.0 35 02/28/20 08:00 108 02/28/20 08:00 98.1 107 20 123/79 (94) 98 02/28/20 07:49 101 18 98 T-Piece 8.0 35 98 18 95 02/28/20 07:40 96 T-Piece 10.0 35 02/28/20 04:00 12.0 35 02/28/20 04:00 97.7 98 20 126/79 (95) 95 02/28/20 04:00 93 02/28/20 01:13 95 T-Piece 8.0 35 02/28/20 00:15 114 18 98 T-Piece 8.0 35 98 18 95 02/28/20 00:00 97.7 79 24 148/60 (89) 94 02/28/20 00:00 12.0 35 02/28/20 00:00 119 02/27/20 21:26 113 121/81 02/27/20 21:00 T-piece 12.0 02/27/20 20:00 112 02/27/20 20:00 98.2 68 20 134/73 (93) 94 02/27/20 19:25 96 T-Piece 8.0 35 02/27/20 19:22 95 20 100 T-Piece 8.0 35 102 18 96 02/27/20 16:00 98.4 97 18 119/75 (90) 96 02/27/20 16:00 98 02/27/20 16:00 12.0 35 02/27/20 13:30 88 18 100 T-Piece 8.0 35 86 18 98 02/27/20 13:29 98 T-Piece 8.0 35 Intake and Output 02/27/20 02/28/20 19:00 07:00 Output Total 1600 ml 750 ml Balance -1600 ml -750 ml Output Urine Total 1600 ml 750 ml # Voids 1 # Bowel Movements 2 1 General Appearance: cachetic HEENT: normocephalic, atraumatic Respiratory: chest wall non-tender, lungs clear Cardiovascular: normal peripheral pulses, normal rate Abdomen: normal bowel sounds, soft, non tender Extremities: no clubbing 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 Laboratory Tests 02/27/20 17:36: POC Whole Blood Glucose 231H 02/27/20 21:19: POC Whole Blood Glucose [Pending] 02/28/20 06:12: POC Whole Blood Glucose [Pending] 02/28/20 07:04: White Blood Count 8.7, Red Blood Count 4.32L, Hemoglobin 11.9L, Hematocrit 36.5L , Mean Corpuscular Volume 84, Mean Corpuscular Hemoglobin 27.6, Mean Corpuscular Hemoglobin Concent 32.7, Red Cell Distribution Width 16.0H, Platelet Count 406, Mean Platelet Volume 5.3L, Neutrophils (%) (Auto) , Lymphocytes (%) (Auto) , Monocytes (%) (Auto) , Eosinophils (%) (Auto) , Basophils (%) (Auto) , Neutrophils % (Manual) [Pending], Lymphocytes % (Manual) [Pending], Platelet Estimate [Pending], Platelet Morphology [Pending], Sodium Level 146H, Potassium Level 3.9, Chloride Level 112H, Carbon Dioxide Level 25, Anion Gap 9, Blood Urea Nitrogen 24H, Creatinine 0.8, Estimat Glomerular Filtration Rate > 60, Glucose Level 208H, Calcium Level 9.7, Phosphorus Level 2.5, Magnesium Level 2.7H, Total Bilirubin 0.3, Aspartate Amino Transf (AST/SGOT) 20, Alanine Aminotransferase (ALT/SGPT) 18, Alkaline Phosphatase 87, Total Protein 8.4H, Albumin 2.0L, Globulin 6.4 02/28/20 10:55: Urine Color Yellow, Urine Appearance Slightly cloudy, Urine pH 7, Urine Specific [place] 1.010, Urine Protein 2+H, Urine Glucose (UA) Negative, Urine Ketones 1+H, Urine Blood 5+H, Urine Nitrite Negative, Urine Bilirubin Negative, Urine Urobilinogen Normal, Urine Leukocyte Esterase 2+H, Urine RBC [Pending], Urine WBC [Pending], Urine Squamous Epithelial Cells [Pending], Urine Bacteria [Pending] 02/28/20 12:05: POC Whole Blood Glucose 186H Current Medications Medications (Trade) Dose Ordered Sig/Anders Route PRN Reason Start Time Stop Time Status Last Admin Dose Admin Acetaminophen (Tylenol) 650 mg Q6H PRN NG Mild Pain (1-3)/ Temp>100.5 02/26/20 00:30 03/21/20 00:29 Albuterol/ Ipratropium (Albuterol/ Ipratropium) 3 ml Q6HRT HHN 02/26/20 01:00 02/29/20 00:59 02/28/20 07:49 Ascorbic Acid (Vitamin C) 500 mg DAILY ORAL 02/29/20 09:00 03/30/20 08:59 Barium Sulfate (Varibar Honey) 250 ml NOW PRN MC RAD 02/26/20 13:00 02/28/20 12:47 Barium Sulfate (Varibar [place]) 240 ml NOW PRN MC RAD 02/26/20 13:00 02/28/20 12:47 Barium Sulfate (Varibar Pudding) 230 ml NOW PRN MC RAD 02/26/20 13:00 02/28/20 12:47 Barium Sulfate (Varibar Thin Liquid powder) 148 gm NOW PRN MC RAD 02/26/20 13:00 02/28/20 12:47 Calcitonin [place] (Miacalcin) 1 sprays DAILY NASAL 02/26/20 15:00 05/26/20 14:59 02/28/20 10:13 Dextrose (Dextrose 50%) 25 ml Q30M PRN IV Hypoglycemia 02/26/20 00:15 05/24/20 09:14 Dextrose (Dextrose 50%) 50 ml Q30M PRN IV Hypoglycemia 02/26/20 00:15 05/24/20 09:14 Heparin Sodium (Porcine) (Heparin 5000 units/ml) 5,000 units EVERY 12 HOURS SUBQ 02/26/20 09:00 04/05/20 20:59 02/28/20 10:13 Insulin Aspart (NovoLOG) Q6HR SUBQ 02/26/20 00:00 05/24/20 09:14 02/28/20 00:00 Insulin Detemir (Levemir) 12 units Q12HR SUBQ 02/26/20 09:00 05/25/20 08:59 02/27/20 21:21 Meropenem 1 gm/ Sodium Chloride 55 ml @ 110 mls/hr Q8HR IVPB 02/28/20 14:00 03/04/20 23:59 Metoprolol Tartrate (Lopressor) 25 mg Q12HR GT 02/26/20 09:00 05/23/20 08:59 02/27/20 21:26 Pantoprazole (Protonix) 40 mg Q12HR IVP 02/26/20 09:00 03/22/20 08:59 02/28/20 10:12 Zinc Oxide (Zinc Oxide) 1 applic TIDPRN PRN TOPIC Scrotal wound and kathi-rectal 02/26/20 00:30 05/23/20 00:29 Assessment/Plan Problems: (1) Sepsis (2) Nosocomial pneumonia (3) Hypernatremia (4) Tracheostomy in place (5) Diabetes mellitus (6) OBS (organic brain syndrome) (7) Feeding by G-tube (8) Chronic vegetative state Assessment/Plan no new complains continue abx check cultures sliding scale diabetic gtube feeding trach care tolerating gtube feeding but wants some oral food as well Melany Salgado MD Feb 28, 2020 12:09
--- NOTE | 2020-02-28 13:05 | NUR ---
DISCHARGE PLANNING: NOTE INQUIRY REGARDING ESBL ISOLATION DISCONTINUATION SENT TO DR LIM. PER DR LIM PT WILL REMAIN ON ISOLATION UNTIL TREATMENT WITH ERTAPENEM IS COMPLETE (PER THE NOTES 4 MORE DAYS) OR SNF CAN ACCEPT WITH ISOLATION PRECAUTIONS CALL PLACED TO ROB Jones/Leyla SMITH. NO ISOLATION BEDS/ROOMS AVAILABLE AT THIS TIME.
--- NOTE | 2020-02-28 13:44 | Infectious Diseases Prog Note ---
Assessment/Plan Assessment: Severe Sepsis UTI -02/19 u/a wbc tnct, nit neg,leuk +3; ucx >100k C. youngae, probabl AMP-c (I Zosyn, Ceftriaxone; S Meropenem) Bcx Neg Bacterial Pneumonia- COVID19 neg x2 -02/24 CXR: Persistent bilateral infiltrates concerning for multifocal pneumonia, right greater than left. Slight improved aeration of the right lower lung compared to the prior exam. -02/20 rapid COVID PCR neg -02/19 Rapid COVID PCR neg sp cx ESBL E.coli (S Zosyn, Meropenem), ESBL K. pna(S Zosyn, Meropenem), P, mirabilis ([place] S) CXR: Right lung consolidation, likely pneumonia Right hilar apparent fullness, probably an artifact of rotation but mass or adenopathy also possible. Recommend follow-up radiographs to resolution. 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 Will continue to follow along with you. Discussed with RN and geriatric case manager Subjective Allergies: Coded Allergies: No Known Allergies (Unverified , 02/20/20) afebrile leukocytosis resolved Objective Last 24 Hour Vital Signs Date Time Temp Pulse Resp B/P (MAP) Pulse Ox O2 Delivery O2 Flow Rate FiO2 02/28/20 13:32 98 18 98 T-Piece 8.0 35 97 18 96 02/28/20 13:30 96 T-Piece 10.0 35 02/28/20 12:00 98.8 100 20 117/77 (90) 97 02/28/20 12:00 12.0 35 02/28/20 12:00 99 02/28/20 10:18 107 123/79 02/28/20 09:00 T-piece 12.0 02/28/20 08:00 12.0 35 9/17/20 08:00 108 02/28/20 08:00 98.1 107 20 123/79 (94) 98 02/28/20 07:49 101 18 98 T-Piece 8.0 35 98 18 95 02/28/20 07:40 96 T-Piece 10.0 35 02/28/20 04:00 12.0 35 02/28/20 04:00 97.7 98 20 126/79 (95) 95 02/28/20 04:00 93 02/28/20 01:13 95 T-Piece 8.0 35 02/28/20 00:15 114 18 98 T-Piece 8.0 35 98 18 95 02/28/20 00:00 97.7 79 24 148/60 (89) 94 02/28/20 00:00 12.0 35 02/28/20 00:00 119 02/27/20 21:26 113 121/81 02/27/20 21:00 T-piece 12.0 02/27/20 20:00 112 02/27/20 20:00 98.2 68 20 134/73 (93) 94 02/27/20 19:25 96 T-Piece 8.0 35 02/27/20 19:22 95 20 100 T-Piece 8.0 35 102 18 96 02/27/20 16:00 98.4 97 18 119/75 (90) 96 02/27/20 16:00 98 02/27/20 16:00 12.0 35 Height (Feet): 5 Height (Inches): 4.00 Weight (Pounds): 141 Neck: supple Lungs: clear to auscultation bilaterally Heart: regular rate and rhythm, S1, S2 normal Abdomen: soft, non-tender. Bowel sounds normal Extremities: extremities normal, atraumatic, no cyanosis or edema Laboratory Tests Test 02/27/20 17:36 02/27/20 21:19 02/28/20 06:12 02/28/20 07:04 POC Whole Blood Glucose 231 MG/DL (74-106) H Pending Pending White Blood Count 8.7 K/UL (4.8-10.8) Red Blood Count 4.32 M/UL (4.70-6.10) L Hemoglobin 11.9 G/DL (14.2-18.0) L Hematocrit 36.5 % (42.0-52.0) L Mean Corpuscular Volume 84 FL (80-99) Mean Corpuscular Hemoglobin 27.6 PG (27.0-31.0) Mean Corpuscular Hemoglobin Concent 32.7 G/DL (32.0-36.0) Red Cell Distribution Width 16.0 % (11.6-14.8) H Platelet Count 406 K/UL (150-450) Mean Platelet Volume 5.3 FL (6.5-10.1) L Neutrophils (%) (Auto) % (45.0-75.0) Lymphocytes (%) (Auto) % (20.0-45.0) Monocytes (%) (Auto) % (1.0-10.0) Eosinophils (%) (Auto) % (0.0-3.0) Basophils (%) (Auto) % (0.0-2.0) Differential Total Cells Counted 100 Neutrophils % (Manual) 86 % (45-75) H Lymphocytes % (Manual) 10 % (20-45) L Monocytes % (Manual) 4 % (1-10) Eosinophils % (Manual) 0 % (0-3) Basophils % (Manual) 0 % (0-2) Band Neutrophils 0 % (0-8) Platelet Estimate Adequate Platelet Morphology Normal Hypochromasia 1+ Anisocytosis 1+ Sodium Level 146 MMOL/L (136-145) H Potassium Level 3.9 MMOL/L (3.5-5.1) Chloride Level 112 MMOL/L (98-107) H Carbon Dioxide Level 25 MMOL/L (21-32) Anion Gap 9 mmol/L (5-15) Blood Urea Nitrogen 24 mg/dL (7-18) H Creatinine 0.8 MG/DL (0.55-1.30) Estimat Glomerular Filtration Rate > 60 mL/min (>60) Glucose Level 208 MG/DL (74-106) H Calcium Level 9.7 MG/DL (8.5-10.1) Phosphorus Level 2.5 MG/DL (2.5-4.9) Magnesium Level 2.7 MG/DL (1.8-2.4) H Total Bilirubin 0.3 MG/DL (0.2-1.0) Aspartate Amino Transf (AST/SGOT) 20 U/L (15-37) Alanine Aminotransferase (ALT/SGPT) 18 U/L (12-78) Alkaline Phosphatase 87 U/L (46-116) Total Protein 8.4 G/DL (6.4-8.2) H Albumin 2.0 G/DL (3.4-5.0) L Globulin 6.4 g/dL Test 02/28/20 10:55 02/28/20 12:05 Urine Color Yellow Urine Appearance Slightly cloudy Urine pH 7 (4.5-8.0) Urine Specific [place] 1.010 (1.005-1.035) Urine Protein 2+ (NEGATIVE) H Urine Glucose (UA) Negative (NEGATIVE) Urine Ketones 1+ (NEGATIVE) H Urine Blood 5+ (NEGATIVE) H Urine Nitrite Negative (NEGATIVE) Urine Bilirubin Negative (NEGATIVE) Urine Urobilinogen Normal MG/DL (0.0-1.0) Urine Leukocyte Esterase 2+ (NEGATIVE) H Urine RBC Tntc /HPF (0 - 0) H Urine WBC 5-10 /HPF (0 - 0) H Urine Squamous Epithelial Cells Occasional /LPF Urine Bacteria Occasional /HPF (NONE) Urine Yeast Moderate /HPF (NONE) H POC Whole Blood Glucose 186 MG/DL (74-106) H Current Medications Medications (Trade) Dose Ordered Sig/Anders Route PRN Reason Start Time Stop Time Status Last Admin Dose Admin Acetaminophen (Tylenol) 650 mg Q6H PRN NG Mild Pain (1-3)/ Temp>100.5 02/26/20 00:30 03/21/20 00:29 Albuterol/ Ipratropium (Albuterol/ Ipratropium) 3 ml Q6HRT HHN 02/26/20 01:00 02/29/20 00:59 02/28/20 13:29 Ascorbic Acid (Vitamin C) 500 mg DAILY ORAL 02/29/20 09:00 03/30/20 08:59 Calcitonin [place] (Miacalcin) 1 sprays DAILY NASAL 02/26/20 15:00 05/26/20 14:59 02/28/20 10:13 Dextrose (Dextrose 50%) 25 ml Q30M PRN IV Hypoglycemia 02/26/20 00:15 05/24/20 09:14 Dextrose (Dextrose 50%) 50 ml Q30M PRN IV Hypoglycemia 02/26/20 00:15 05/24/20 09:14 Heparin Sodium (Porcine) (Heparin 5000 units/ml) 5,000 units EVERY 12 HOURS SUBQ 02/26/20 09:00 04/05/20 20:59 02/28/20 10:13 Insulin Aspart (NovoLOG) Q6HR SUBQ 02/26/20 00:00 05/24/20 09:14 02/28/20 00:00 Insulin Detemir (Levemir) 12 units Q12HR SUBQ 02/26/20 09:00 05/25/20 08:59 02/27/20 21:21 Meropenem 1 gm/ Sodium Chloride 55 ml @ 110 mls/hr Q8HR IVPB 02/28/20 14:00 03/04/20 23:59 Metoprolol Tartrate (Lopressor) 25 mg Q12HR GT 02/26/20 09:00 05/23/20 08:59 02/27/20 21:26 Pantoprazole (Protonix) 40 mg Q12HR IVP 02/26/20 09:00 03/22/20 08:59 02/28/20 10:12 Zinc Oxide (Zinc Oxide) 1 applic TIDPRN PRN TOPIC Scrotal wound and kathi-rectal 02/26/20 00:30 05/23/20 00:29 Marily Hardy M.D. Feb 28, 2020 13:44
--- NOTE | 2020-02-28 14:59 | NUR ---
CASE MANAGEMENT: REVIEW 02/28/2020 SI:SEVERE SEPSIS. VS: T 98.8 HR 100 RR 20 B/P 117/77 SATS 97% ON 12L/TPIECE LABS: NA 146 CL 112 BUN 24 GLU 208 MG 2.7 IS:CALCITONIN NASAL QD LEVEMIR SUBQ Q12H LOPRESSOR GT Q12H PROTONIX IV Q12H INSULIN ASPART SUBQ Q6H MEROPENEM IV Q8H [facility]LE [facility]: Ok to dc on IV Ertapenem 1g qd for 4 more days -PEG/Trach -aspiration precautions
--- NOTE | 2020-02-28 15:59 | Consultation ---
DATE OF CONSULTATION: 02/28/2020 CONSULTING PHYSICIAN: Srinivas Art MD. CHIEF COMPLAINT: Malfunctioning G-tube. HISTORY OF PRESENT ILLNESS: Most of the history per chart. This is a 70-year-old [facility] patient with past medical history of intracranial hemorrhage. Since then the patient has been bedbound on G-tube feeding, was admitted to the hospital mainly for high blood pressure. PAST MEDICAL HISTORY: 1. Diabetes. 2. Chronic encephalopathy. 3. Intracranial hemorrhage and CVA. 4. Chronic respiratory failure with trach. 5. Dysphagia with G-tube. 6. Hyperlipidemia. ALLERGIES: No known allergies. MEDICATIONS: See medication reconciliation list. SOCIAL HISTORY: The patient has no history of tobacco, alcohol, or drug abuse. Currently, he lives in a [facility]. FAMILY HISTORY: No family history of GI malignancies. PHYSICAL EXAMINATION: VITAL SIGNS: Most recent vital signs, temperature is 98.8, pulse 100, respirations 20, blood pressure 117/77. HEENT: Normocephalic and atraumatic. Sclerae are anicteric. NECK: Supple. No evidence of obvious lymphadenopathy. CARDIOVASCULAR: Regular rate and rhythm. Plus S1-S2. LUNGS: Decreased breath sounds bilaterally diffusely on the supine exam. ABDOMEN: Soft, nontender. Estrada at the G-tube site. No rebound. No guarding. No peritoneal sign. EXTREMITIES: No cyanosis. No clubbing. LABORATORY DATA: White count 8.7, hemoglobin 11.9, hematocrit 36, platelet count is 406,000. ASSESSMENT AND PLAN: This is a 70-year-old patient with numerous medical problems with malfunctioning G-tube. Plan to change the G-tube at the bedside with a 20-Bengali. If it is possible, now we are going to schedule him endoscopically to be placed tomorrow. I will try to place it today and if it is in a good place to start feeding, otherwise we will place endoscopically tomorrow. Srinivas Art M.D. DR: MELANIE JOB#: [id number] CC:
[2020-02-28 16:00] VITALS: BP 116/76
--- NOTE | 2020-02-28 16:10 | Nephrology Progress Note ---
Assessment/Plan Problem List: (1) Hypercalcemia (2) Nosocomial pneumonia (3) Feeding by G-tube (4) Tracheostomy in place (5) Anemia (6) DMII (diabetes mellitus, type 2) Assessment Abnormal electrolytes. High sodium and low phosphorus at this time. Admitted with sepsis and healthcare associated pneumonia Hypertension by history Patient has tracheostomy connected to oxygen not ventilator Previous hypokalemia corrected Mild anemia Diabetes mellitus [id number] UTI Bedbound status, vegetative state Feeding through PEG Plan February 27: Normal calcium lower. Labs reviewed. Renal parameters are stable. Continue per consultants. February 26: Serum calcium lowering. Labs reviewed. Stable renal parameters. Phosphorus supplement ordered. Continue per consultants. Previously: 60 mg pamidronate intravenously ordered one-time Nasal calcitonin ordered Continue to monitor blood chemistries and electrolytes Keep the blood pressure and blood sugar in check Per orders Subjective ROS Limited/Unobtainable: Yes Objective Objective Last 24 Hour Vital Signs Date Time Temp Pulse Resp B/P (MAP) Pulse Ox O2 Delivery O2 Flow Rate FiO2 02/28/20 13:32 98 18 98 T-Piece 8.0 35 97 18 96 02/28/20 13:30 96 T-Piece 10.0 35 02/28/20 12:00 98.8 100 20 117/77 (90) 97 02/28/20 12:00 12.0 35 02/28/20 12:00 99 02/28/20 10:18 107 123/79 02/28/20 09:00 T-piece 12.0 02/28/20 08:00 12.0 35 02/28/20 08:00 108 02/28/20 08:00 98.1 107 20 123/79 (94) 98 02/28/20 07:49 101 18 98 T-Piece 8.0 35 98 18 95 02/28/20 07:40 96 T-Piece 10.0 35 02/28/20 04:00 12.0 35 02/28/20 04:00 97.7 98 20 126/79 (95) 95 02/28/20 04:00 93 02/28/20 01:13 95 T-Piece 8.0 35 02/28/20 00:15 114 18 98 T-Piece 8.0 35 98 18 95 02/28/20 00:00 97.7 79 24 148/60 (89) 94 02/28/20 00:00 12.0 35 02/28/20 00:00 119 02/27/20 21:26 113 121/81 02/27/20 21:00 T-piece 12.0 02/27/20 20:00 112 02/27/20 20:00 98.2 68 20 134/73 (93) 94 02/27/20 19:25 96 T-Piece 8.0 35 02/27/20 19:22 95 20 100 T-Piece 8.0 35 102 18 96 Intake and Output 02/27/20 02/28/20 19:00 07:00 Output Total 1600 ml 750 ml Balance -1600 ml -750 ml Output Urine Total 1600 ml 750 ml # Voids 1 # Bowel Movements 2 1 Laboratory Tests 02/27/20 17:36: POC Whole Blood Glucose 231H 02/27/20 21:19: POC Whole Blood Glucose [Pending] 02/28/20 06:12: POC Whole Blood Glucose [Pending] 02/28/20 07:04: White Blood Count 8.7, Red Blood Count 4.32L, Hemoglobin 11.9L, Hematocrit 36.5L , Mean Corpuscular Volume 84, Mean Corpuscular Hemoglobin 27.6, Mean Corpuscular Hemoglobin Concent 32.7, Red Cell Distribution Width 16.0H, Platelet Count 406, Mean Platelet Volume 5.3L, Neutrophils (%) (Auto) , Lymphocytes (%) (Auto) , Monocytes (%) (Auto) , Eosinophils (%) (Auto) , Basophils (%) (Auto) , Differential Total Cells Counted 100, Neutrophils % (Manual) 86H, Lymphocytes % (Manual) 10L, Monocytes % (Manual) 4, Eosinophils % (Manual) 0, Basophils % (Manual) 0, Band Neutrophils 0, Platelet Estimate Adequate, Platelet Morphology Normal, Hypochromasia 1+, Anisocytosis 1+, Sodium Level 146H, Potassium Level 3.9, Chloride Level 112H, Carbon Dioxide Level 25, Anion Gap 9, Blood Urea Nitrogen 24H, Creatinine 0.8, Estimat Glomerular Filtration Rate > 60, Glucose Level 208H, Calcium Level 9.7, Phosphorus Level 2.5, Magnesium Level 2.7H, Total Bilirubin 0.3, Aspartate Amino Transf (AST/SGOT) 20, Alanine Aminotransferase (ALT/SGPT) 18, Alkaline Phosphatase 87, Total Protein 8.4H, Albumin 2.0L, Globulin 6.4 02/28/20 10:55: Urine Color Yellow, Urine Appearance Slightly cloudy, Urine pH 7, Urine Specific Gilbert 1.010, Urine Protein 2+H, Urine Glucose (UA) Negative, Urine Ketones 1+H, Urine Blood 5+H, Urine Nitrite Negative, Urine Bilirubin Negative, Urine Urobilinogen Normal, Urine Leukocyte Esterase 2+H, Urine RBC TntcH, Urine WBC 5- 10H, Urine Squamous Epithelial Cells Occasional, Urine Bacteria Occasional, Urine Yeast ModerateH 02/28/20 12:05: POC Whole Blood Glucose 186H Height (Feet): 5 Height (Inches): 4.00 Weight (Pounds): 141 General Appearance: no apparent distress EENT: other - T piece Cardiovascular: tachycardia Respiratory/Chest: decreased breath sounds Abdomen: soft Cornell Coleman MD Feb 28, 2020 16:10
--- NOTE | 2020-02-28 16:43 | Diagnostic Imaging Report ---
EXAM: XRAY Abdomen 1v HISTORY: G-tube placement COMPARISON: None. TECHNIQUE: Frontal view of the abdomen obtained. FINDINGS: Contrast was injected via the G-tube is identified in the stomach. No extravasated contrast identified. Bowel gas pattern otherwise unremarkable. There is no mass or mass effect noted. No definite pathologic calcifications identified. There is no sign of free air. No acute abnormality noted of the visualized osseous structures. IMPRESSION: G-TUBE IDENTIFIED IN THE STOMACH. NO SIGN OF ACUTE DISEASE.
--- NOTE | 2020-02-28 19:40 | NUR ---
NURSE HAND-OFF REPORT: Important Events on Shift:New G-tube inserted by Dr Art Patient Status: Stable Diet: Glucerna 1.5 at 45ml/hr Pending Orders: Pending Results/Labs: Pending MD notification: Latest Vital Signs: Temperature 97.9 , Pulse 96 , B/P 116 /76 , Respiratory Rate 20 , O2 SAT 98 , T-piece, O2 Flow Rate 12.0 . Vital Sign Comment: Stable EKG Rhythm: Sinus Rhythm Rhythm change?: N MD Notified?: - MD Response: Latest Cole Fall Score: 55 Fall Risk: High Risk Safety Measures: Call light Within Reach, Bed Alarm Zone 1, Side Rails Side Rails x3, Bed position Low and Locked. Fall Precautions: Yellow Gown Door Sign Patient Fall Education Report given to [place]/EMELY.
--- NOTE | 2020-02-28 19:53 | NUR ---
NURSE NOTES: Received pt from EMELY Bergeron. Pt asleep. Bed in lowest position. Call light within reach. Will continue to monitor
[2020-02-28 20:00] VITALS: BP 124/83
--- NOTE | 2020-02-28 20:08 | General Progress Note ---
Subjective Constitutional: Reports: no symptoms HEENT: Reports: no symptoms Cardiovascular: Reports: no symptoms Gastrointestinal/Abdominal: Reports: no symptoms Hematologic/Lymphatic: Reports: no symptoms Allergies: Coded Allergies: No Known Allergies (Unverified , 02/20/20) Objective Last 24 Hour Vital Signs Date Time Temp Pulse Resp B/P (MAP) Pulse Ox O2 Delivery O2 Flow Rate FiO2 02/28/20 16:00 96 02/28/20 16:00 97.9 92 20 116/76 (89) 98 02/28/20 16:00 12.0 35 02/28/20 13:32 98 18 98 T-Piece 8.0 35 97 18 96 02/28/20 13:30 96 T-Piece 10.0 35 02/28/20 12:00 98.8 100 20 117/77 (90) 97 02/28/20 12:00 12.0 35 02/28/20 12:00 99 02/28/20 10:18 107 123/79 02/28/20 09:00 T-piece 12.0 02/28/20 08:00 12.0 35 02/28/20 08:00 108 02/28/20 08:00 98.1 107 20 123/79 (94) 98 02/28/20 07:49 101 18 98 T-Piece 8.0 35 98 18 95 02/28/20 07:40 96 T-Piece 10.0 35 02/28/20 04:00 12.0 35 02/28/20 04:00 97.7 98 20 126/79 (95) 95 02/28/20 04:00 93 02/28/20 01:13 95 T-Piece 8.0 35 02/28/20 00:15 114 18 98 T-Piece 8.0 35 98 18 95 02/28/20 00:00 97.7 79 24 148/60 (89) 94 02/28/20 00:00 12.0 35 02/28/20 00:00 119 02/27/20 21:26 113 121/81 02/27/20 21:00 T-piece 12.0 Intake and Output 02/27/20 02/28/20 19:00 07:00 Output Total 1600 ml 750 ml Balance -1600 ml -750 ml Output Urine Total 1600 ml 750 ml # Voids 1 # Bowel Movements 2 1 Laboratory Tests 02/27/20 21:19: POC Whole Blood Glucose [Pending] 02/28/20 06:12: POC Whole Blood Glucose [Pending] 02/28/20 07:04: White Blood Count 8.7, Red Blood Count 4.32L, Hemoglobin 11.9L, Hematocrit 36.5L , Mean Corpuscular Volume 84, Mean Corpuscular Hemoglobin 27.6, Mean Corpuscular Hemoglobin Concent 32.7, Red Cell Distribution Width 16.0H, Platelet Count 406, Mean Platelet Volume 5.3L, Neutrophils (%) (Auto) , Lymphocytes (%) (Auto) , Monocytes (%) (Auto) , Eosinophils (%) (Auto) , Basophils (%) (Auto) , Differential Total Cells Counted 100, Neutrophils % (Manual) 86H, Lymphocytes % (Manual) 10L, Monocytes % (Manual) 4, Eosinophils % (Manual) 0, Basophils % (Manual) 0, Band Neutrophils 0, Platelet Estimate Adequate, Platelet Morphology Normal, Hypochromasia 1+, Anisocytosis 1+, Sodium Level 146H, Potassium Level 3.9, Chloride Level 112H, Carbon Dioxide Level 25, Anion Gap 9, Blood Urea Nitrogen 24H, Creatinine 0.8, Estimat Glomerular Filtration Rate > 60, Glucose Level 208H, Calcium Level 9.7, Phosphorus Level 2.5, Magnesium Level 2.7H, Total Bilirubin 0.3, Aspartate Amino Transf (AST/SGOT) 20, Alanine Aminotransferase (ALT/SGPT) 18, Alkaline Phosphatase 87, Total Protein 8.4H, Albumin 2.0L, Glob ulin 6.4 02/28/20 10:55: Urine Color Yellow, Urine Appearance Slightly cloudy, Urine pH 7, Urine Specific [place] 1.010, Urine Protein 2+H, Urine Glucose (UA) Negative, Urine Ketones 1+H, Urine Blood 5+H, Urine Nitrite Negative, Urine Bilirubin Negative, Urine Urobilinogen Normal, Urine Leukocyte Esterase 2+H, Urine RBC TntcH, Urine WBC 5- 10H, Urine Squamous Epithelial Cells Occasional, Urine Bacteria Occasional, Urine Yeast ModerateH 02/28/20 12:05: POC Whole Blood Glucose 186H 02/28/20 17:31: POC Whole Blood Glucose 182H Height (Feet): 5 Height (Inches): 4.00 Weight (Pounds): 141 General Appearance: alert, alert oriented x3 EENT: normal ENT inspection Neck: supple Cardiovascular: normal rate, regular rhythm, no gallop/murmur, no JVD Respiratory/Chest: lungs clear, normal breath sounds, no respiratory distress, no accessory muscle use Abdomen: normal bowel sounds, non tender, soft, no organomegaly, no mass Extremities: non-tender Skin: warm/dry Assessment/Plan Problem List: (1) Nosocomial pneumonia ICD Codes: J18.9 - Pneumonia, unspecified organism; Y95 - Nosocomial condition SNOMED: 773062590 (2) Feeding by G-tube ICD Codes: Z93.1 - Gastrostomy status SNOMED: 959559372, 968868227, 883731099 (3) Tracheostomy in place ICD Codes: Z93.0 - Tracheostomy status SNOMED: 074448178 (4) Sepsis ICD Codes: A41.9 - Sepsis, unspecified organism SNOMED: 82027158 Yola Lan MD Feb 28, 2020 20:08
[2020-02-29] VITALS: BP 119/74
[2020-02-29] MEDS: NovoLOG Insulin Flexpen SUBQ SCH ×4 (00:32→17:05)
[2020-02-29] MEDS: Albuterol/Ipratropium 3ml neb HHN SCH (00:34)
--- NOTE | 2020-02-29 01:14 | Cardiology Progress Note ---
Subjective DATE OF SERVICE: Feb 28, 2020 On trach collar GTube not functioning Moderate secretions Lab abnormalities resolving Prior therapy with pamidranate for hyperCa++ Monitor: sinus rhythm/tachycardia CXR 02/26/20, revealed slight improvement in PNA Objective Last 24 Hour Vital Signs Date Time Temp Pulse Resp B/P (MAP) Pulse Ox O2 Delivery O2 Flow Rate FiO2 02/29/20 00:34 97 T-Piece 10.0 35 02/29/20 00:34 95 18 99 T-Piece 8.0 35 97 18 98 02/28/20 21:25 99 124/83 02/28/20 20:18 99 18 99 T-Piece 8.0 35 94 18 97 02/28/20 20:18 97 T-Piece 10.0 35 02/28/20 20:00 99.1 88 19 124/83 (97) 96 02/28/20 16:00 96 02/28/20 16:00 97.9 92 20 116/76 (89) 98 02/28/20 16:00 12.0 35 02/28/20 13:32 98 18 98 T-Piece 8.0 35 97 18 96 02/28/20 13:30 96 T-Piece 10.0 35 02/28/20 12:00 98.8 100 20 117/77 (90) 97 02/28/20 12:00 12.0 35 02/28/20 12:00 99 02/28/20 10:18 107 123/79 02/28/20 09:00 T-piece 12.0 02/28/20 08:00 12.0 35 02/28/20 08:00 108 02/28/20 08:00 98.1 107 20 123/79 (94) 98 02/28/20 07:49 101 18 98 T-Piece 8.0 35 98 18 95 02/28/20 07:40 96 T-Piece 10.0 35 02/28/20 04:00 12.0 35 02/28/20 04:00 97.7 98 20 126/79 (95) 95 02/28/20 04:00 93 ROS: unchanged from my dictation of 02/21/20 HEENT: Thick Trach secretions LUNGS: bilateral rhonchi, trach site clean CARDIAC: normal rate, regular rhythm, normal S1 and S2 ABDOMEN: normal bowel sounds, non tender, soft, G-Tube intact EXTREMITIES: normal range of motion, no swelling, No edema Laboratory Tests Test 02/28/20 06:12 02/28/20 07:04 02/28/20 10:55 02/28/20 12:05 POC Whole Blood Glucose Pending 186 MG/DL (74-106) H White Blood Count 8.7 K/UL (4.8-10.8) Red Blood Count 4.32 M/UL (4.70-6.10) L Hemoglobin 11.9 G/DL (14.2-18.0) L Hematocrit 36.5 % (42.0-52.0) L Mean Corpuscular Volume 84 FL (80-99) Mean Corpuscular Hemoglobin 27.6 PG (27.0-31.0) Mean Corpuscular Hemoglobin Concent 32.7 G/DL (32.0-36.0) Red Cell Distribution Width 16.0 % (11.6-14.8) H Platelet Count 406 K/UL (150-450) Mean Platelet Volume 5.3 FL (6.5-10.1) L Neutrophils (%) (Auto) % (45.0-75.0) Lymphocytes (%) (Auto) % (20.0-45.0) Monocytes (%) (Auto) % (1.0-10.0) Eosinophils (%) (Auto) % (0.0-3.0) Basophils (%) (Auto) % (0.0-2.0) Differential Total Cells Counted 100 Neutrophils % (Manual) 86 % (45-75) H Lymphocytes % (Manual) 10 % (20-45) L Monocytes % (Manual) 4 % (1-10) Eosinophils % (Manual) 0 % (0-3) Basophils % (Manual) 0 % (0-2) Band Neutrophils 0 % (0-8) Platelet Estimate Adequate Platelet Morphology Normal Hypochromasia 1+ Anisocytosis 1+ Sodium Level 146 MMOL/L (136-145) H Potassium Level 3.9 MMOL/L (3.5-5.1) Chloride Level 112 MMOL/L (98-107) H Carbon Dioxide Level 25 MMOL/L (21-32) Anion Gap 9 mmol/L (5-15) Blood Urea Nitrogen 24 mg/dL (7-18) H Creatinine 0.8 MG/DL (0.55-1.30) Estimat Glomerular Filtration Rate > 60 mL/min (>60) Glucose Level 208 MG/DL (74-106) H Calcium Level 9.7 MG/DL (8.5-10.1) Phosphorus Level 2.5 MG/DL (2.5-4.9) Magnesium Level 2.7 MG/DL (1.8-2.4) H Total Bilirubin 0.3 MG/DL (0.2-1.0) Aspartate Amino Transf (AST/SGOT) 20 U/L (15-37) Alanine Aminotransferase (ALT/SGPT) 18 U/L (12-78) Alkaline Phosphatase 87 U/L (46-116) Total Protein 8.4 G/DL (6.4-8.2) H Albumin 2.0 G/DL (3.4-5.0) L Globulin 6.4 g/dL Urine Color Yellow Urine Appearance Slightly cloudy Urine pH 7 (4.5-8.0) Urine Specific Johnson 1.010 (1.005-1.035) Urine Protein 2+ (NEGATIVE) H Urine Glucose (UA) Negative (NEGATIVE) Urine Ketones 1+ (NEGATIVE) H Urine Blood 5+ (NEGATIVE) H Urine Nitrite Negative (NEGATIVE) Urine Bilirubin Negative (NEGATIVE) Urine Urobilinogen Normal MG/DL (0.0-1.0) Urine Leukocyte Esterase 2+ (NEGATIVE) H Urine RBC Tntc /HPF (0 - 0) H Urine WBC 5-10 /HPF (0 - 0) H Urine Squamous Epithelial Cells Occasional /LPF Urine Bacteria Occasional /HPF (NONE) Urine Yeast Moderate /HPF (NONE) H Test 02/28/20 17:31 02/28/20 21:42 POC Whole Blood Glucose 182 MG/DL (74-106) H Pending Assessment/Plan Assessment/Plan Healthcare associated PNA improving Sepsis Recovered shock Hypertension/HHD Respiratory failure with trach Anemia Hypokalemia corrected Leukocytosis improved Dehydration/hypernatremia IRDM uncontrolled Hypophosphatemia Hypercalcemia GTube malfxn Abx GTube replacement IVF adjusted to correct free water deficit with PO4 suppl; free water per GTube as well Resp rx Replace K+/Mg++ as needed Nutrition per Gtube Titrate long acting insulin Titrate beta mahi DVT prophylaxis Richard Lang MD Feb 29, 2020 01:14
[2020-02-29 04:00] VITALS: BP 125/83
[2020-02-29] MEDS: Meropenem 1 GM in NS 55 ML IVPB SCH ×3 (06:50→21:40)
--- NOTE | 2020-02-29 07:35 | NUR ---
NURSE NOTES: Received patient in bed. Awake, alert x1. On T-piece 12 L O2. GT patent and flushed, running feeding as ordered. IV in the Right FA, site intact. No signs of pain noted at this time. Patient is a high fall risk d/t Cole fall score of 55. Yellow gown on, yellow socks on, Bed at the lowest position, bed alarm on high sensitivity, call light within reach - unable to return demonstration. CN and PERINATAL INSTRUCTOR made aware.
--- NOTE | 2020-02-29 07:51 | NUR ---
NURSE HAND-OFF REPORT: Important Events on Shift: pt stable Patient Status: stable Diet: tube feeding Pending Orders: y Pending Results/Labs: y Pending MD notification: y Latest Vital Signs: Temperature 98.9 , Pulse 97 , B/P 125 /83 , Respiratory Rate 20 , O2 SAT 98 , T-piece, O2 Flow Rate 10.0 . Vital Sign Comment: stable EKG Rhythm: Sinus Rhythm Rhythm change?: N MD Notified?: - MD Response: Latest Cole Fall Score: 55 Fall Risk: High Risk Safety Measures: Call light Within Reach, Bed Alarm Zone 1, Side Rails Side Rails x3, Bed position Low and Locked. Fall Precautions: y Yellow Gown y Door Sign y Patient Fall Education y Report given to EMELY Shook.
[2020-02-29 08:00] VITALS: BP 130/75
[2020-02-29] MEDS: Pantoprazole Inj IVP SCH ×2 (08:45→21:15)
[2020-02-29] MEDS: Heparin 5000 units/ml inj SUBQ SCH ×2 (08:46→21:25)
[2020-02-29] MEDS: Ascorbic Acid 500mg tab ORAL SCH (08:46)
[2020-02-29] MEDS: Levemir Flexpen SUBQ SCH ×2 (09:01→21:29)
--- NOTE | 2020-02-29 10:04 | NUR ---
CASE MANAGEMENT: REVIEW 02/29/2020 SI:SEVERE SEPSIS. VS: T 98.6 HR 100 RR 20 B/P 130/75 SATS 97% ON 12L/TPIECE FIO2 35 LABS: NO LABS TODAY IS:CALCITONIN NASAL QD LEVEMIR SUBQ Q12H LOPRESSOR GT Q12H PROTONIX IV Q12H INSULIN ASPART SUBQ Q6H MEROPENEM IV Q8H TELE DCP: [facility] PLAN OF CARE: Ok to dc on IV Ertapenem 1g qd for 3 more days Abx IVF adjusted to correct free water deficit with PO4 suppl; free water per GTube as well Resp rx Replace K+/Mg++ as needed -aspiration precautions
--- NOTE | 2020-02-29 11:09 | General Progress Note ---
Subjective ROS Limited/Unobtainable: No Allergies: Coded Allergies: No Known Allergies (Unverified , 02/20/20) Objective Last 24 Hour Vital Signs Date Time Temp Pulse Resp B/P (MAP) Pulse Ox O2 Delivery O2 Flow Rate FiO2 02/29/20 08:45 100 130/75 02/29/20 08:21 T-piece 12.0 02/29/20 08:00 12.0 35 02/29/20 08:00 99 02/29/20 08:00 98.6 100 20 130/75 (93) 97 02/29/20 07:39 98 T-Piece 10.0 35 02/29/20 04:00 12.0 35 02/29/20 04:00 97 02/29/20 04:00 98.9 98 20 125/83 (97) 96 02/29/20 00:34 97 T-Piece 10.0 35 02/29/20 00:34 95 18 99 T-Piece 8.0 35 97 18 98 02/29/20 00:00 100.0 86 20 119/74 (89) 98 02/29/20 00:00 85 02/29/20 00:00 12.0 35 02/28/20 21:25 99 124/83 02/28/20 21:00 T-piece 12.0 02/28/20 20:18 99 18 99 T-Piece 8.0 35 94 18 97 02/28/20 20:18 97 T-Piece 10.0 35 02/28/20 20:00 99.1 88 19 124/83 (97) 96 02/28/20 20:00 91 02/28/20 16:00 96 02/28/20 16:00 97.9 92 20 116/76 (89) 98 02/28/20 16:00 12.0 35 02/28/20 13:32 98 18 98 T-Piece 8.0 35 97 18 96 02/28/20 13:30 96 T-Piece 10.0 35 02/28/20 12:00 98.8 100 20 117/77 (90) 97 02/28/20 12:00 12.0 35 02/28/20 12:00 99 Intake and Output 02/28/20 02/29/20 19:00 07:00 Output Total 300 ml 800 ml Balance -300 ml -800 ml Output Urine Total 300 ml 800 ml Laboratory Tests 02/28/20 12:05: POC Whole Blood Glucose 186H 02/28/20 17:31: POC Whole Blood Glucose 182H 02/28/20 21:42: POC Whole Blood Glucose [Pending] 02/29/20 06:32: POC Whole Blood Glucose [Pending] Height (Feet): 5 Height (Inches): 4.00 Weight (Pounds): 141 General Appearance: no apparent distress EENT: normal ENT inspection Neck: supple Cardiovascular: normal rate Respiratory/Chest: decreased breath sounds Abdomen: normal bowel sounds, non tender, soft Extremities: non-tender Assessment/Plan Assessment/Plan: 1. Diabetes. 2. Chronic encephalopathy. 3. Intracranial hemorrhage and CVA. 4. Chronic respiratory failure with trach. 5. Dysphagia with G-tube. 6. Hyperlipidemia. GT has been changed and it is working well GTF monitor for residuals Srinivas Art MD Feb 29, 2020 11:09
--- NOTE | 2020-02-29 11:33 | Surgery Progress Note ---
Surgery Progress Note Subjective Additional Comments no acute events improved no n/v/f/ c Objective Last 24 Hour Vital Signs Date Time Temp Pulse Resp B/P (MAP) Pulse Ox O2 Delivery O2 Flow Rate FiO2 02/29/20 08:45 100 130/75 02/29/20 08:21 T-piece 12.0 02/29/20 08:00 12.0 35 02/29/20 08:00 99 02/29/20 08:00 98.6 100 20 130/75 (93) 97 02/29/20 07:39 98 T-Piece 10.0 35 02/29/20 04:00 12.0 35 02/29/20 04:00 97 02/29/20 04:00 98.9 98 20 125/83 (97) 96 02/29/20 00:34 97 T-Piece 10.0 35 02/29/20 00:34 95 18 99 T-Piece 8.0 35 97 18 98 02/29/20 00:00 100.0 86 20 119/74 (89) 98 02/29/20 00:00 85 02/29/20 00:00 12.0 35 02/28/20 21:25 99 124/83 02/28/20 21:00 T-piece 12.0 02/28/20 20:18 99 18 99 T-Piece 8.0 35 94 18 97 02/28/20 20:18 97 T-Piece 10.0 35 02/28/20 20:00 99.1 88 19 124/83 (97) 96 02/28/20 20:00 91 02/28/20 16:00 96 02/28/20 16:00 97.9 92 20 116/76 (89) 98 02/28/20 16:00 12.0 35 02/28/20 13:32 98 18 98 T-Piece 8.0 35 97 18 96 02/28/20 13:30 96 T-Piece 10.0 35 02/28/20 12:00 98.8 100 20 117/77 (90) 97 02/28/20 12:00 12.0 35 02/28/20 12:00 99 I&O Intake and Output 02/28/20 02/29/20 19:00 07:00 Output Total 300 ml 800 ml Balance -300 ml -800 ml Output Urine Total 300 ml 800 ml Dressing: other Wound: other Cardiovascular: RSR Respiratory: decreased breath sounds Abdomen: soft, non-tender, present bowel sounds Extremities: no tenderness, no cyanosis Laboratory Tests Test 02/28/20 12:05 02/28/20 17:31 02/28/20 21:42 02/29/20 06:32 POC Whole Blood Glucose 186 MG/DL (74-106) H 182 MG/DL (74-106) H Pending Pending Plan Problems: (1) Sepsis Assessment & Plan: leukocytosis, fevers, abnormal labs, ill appearing, respiratory insufficiency, on support, micro noted. Pt presented on admission with Tracheostomy, multiple Pressure Injuries, Kita- rectal erosion.Skin assessed uner tracheal collar and no evidence of skin breakdown noted. Partially opened Sacral DTPI (L)6cm x (W)6.3cm. Base of wound is maroon ,fluctuant with small open area at sacrococcygeal area that is 80% slough ,20% mary at base (L)0.7cm x (W)0.8cm. Perirectal and scrotum area is grossly excoriated. Partial thickness wound noted to Base R and base of scrotum(L)2.8cm x (W)3.5cm. Biofilm noted at base of wound. Borders are macerated. Haemosiderin noted to bilat distal/lower extremities. L heel is boggy with non-Blanchable erythema. R heel is boggy with non-Blanchable erythema. Loose dry eschar noted to R heel . Pt denied tenderness or pain when palpated. Tx.Plan: Cleanse Sacral Wound with Saline. Apply Moisture Barrier Paste Periwound. Cover with Optifoam drsg. Changeevery 3 days and prn. Apply Zinc Oxide Paste to Scrotal wound and Kita-rectal erosion TID and Prn. Apply Cavilon Skin BArrier to both heels and Malleoli. Cover each site with Optifoam drsg. Change every 7 daysand prn. Reposition at least every 2hours or as tolerated. Off-load heels with pillow. APM/DONALDO Mattress overlay. DAILY ESTIMATED NEEDS: Needs based on wound, DM, sepsis/ 52.3kg 25-35 kcals/kg 0532-1674 total kcals 1.25-2 g protein/kg 65-105 g total protein 25-30 mL/kg 5842-6326 total fluid mLs NUTRITION DIAGNOSIS: * Swallowing difficulty R/T dysphagia, respiratory status as evidenced by pt on T-collar, PEG dep. * Increased kcal/prot needs R/T wound healing as evidenced by admitted w/ sacral wound per photo, refer to wound eval. CURRENT TF: Glucerna 1.5 @ 45ml/hr x 24 hrs-> HELD, GT OUT ENTERAL NUTRITION RECOMMENDATIONS: Glucerna 1.5 @ 45ml/hr x 24 hrs to provide 1080ml, 1620kcal, 89g prot, 820ml free water * Goal rate to 45m/hr x 24 hrs: meets 100% est kcal/prot needs * HOB over 30 degrees/ water flush per MD ADDITIONAL RECOMMENDATIONS: * Calibrated bedscal wt for accurate CBW * Rec long acting insulin for improved BG control- now on levemir * Wound healing: Add Vit C 500mg QD + Omari BID via PEG * Monitor lytes, replete as needed Uptrend in Na and BUN-> rec increase water flushes once GT replaced (2) UTI (urinary tract infection) (3) Tracheostomy in place (4) Diabetes mellitus (5) OBS (organic brain syndrome) (6) Feeding by G-tube (7) Chronic vegetative state (8) Nosocomial pneumonia Terry Armstrong Feb 29, 2020 11:33
[2020-02-29 12:00] VITALS: BP 134/72
--- NOTE | 2020-02-29 12:18 | Cardiology Report ---
APPROVED REPORT EKG Measurement Heart [id number] <Conclusion> Sinus tachycardia with occasional premature ventricular complexes Otherwise normal ECG
--- NOTE | 2020-02-29 13:38 | Pulmonology Progress Note ---
Subjective ROS Limited/Unobtainable: No Constitutional: Reports: no symptoms HEENT: Repors: no symptoms Respiratory: Reports: no symptoms Allergies: Coded Allergies: No Known Allergies (Unverified , 02/20/20) All Systems: reviewed and negative except above Objective Last 24 Hour Vital Signs Date Time Temp Pulse Resp B/P (MAP) Pulse Ox O2 Delivery O2 Flow Rate FiO2 02/29/20 13:12 96 T-Piece 10.0 35 02/29/20 08:45 100 130/75 02/29/20 08:21 T-piece 12.0 02/29/20 08:00 12.0 35 02/29/20 08:00 99 02/29/20 08:00 98.6 100 20 130/75 (93) 97 02/29/20 07:39 98 T-Piece 10.0 35 02/29/20 04:00 12.0 35 02/29/20 04:00 97 02/29/20 04:00 98.9 98 20 125/83 (97) 96 02/29/20 00:34 97 T-Piece 10.0 35 02/29/20 00:34 95 18 99 T-Piece 8.0 35 97 18 98 02/29/20 00:00 100.0 86 20 119/74 (89) 98 02/29/20 00:00 85 02/29/20 00:00 12.0 35 02/28/20 21:25 99 124/83 02/28/20 21:00 T-piece 12.0 02/28/20 20:18 99 18 99 T-Piece 8.0 35 94 18 97 02/28/20 20:18 97 T-Piece 10.0 35 02/28/20 20:00 99.1 88 19 124/83 (97) 96 02/28/20 20:00 91 02/28/20 16:00 96 02/28/20 16:00 97.9 92 20 116/76 (89) 98 02/28/20 16:00 12.0 35 Intake and Output 02/28/20 02/29/20 19:00 07:00 Output Total 300 ml 800 ml Balance -300 ml -800 ml Output Urine Total 300 ml 800 ml General Appearance: cachetic HEENT: normocephalic, atraumatic Respiratory: chest wall non-tender, lungs clear Cardiovascular: normal peripheral pulses, normal rate Abdomen: normal bowel sounds, soft, non tender Extremities: no clubbing 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 Microbiology Date/Time Source Procedure Growth Status 02/28/20 10:55 Urine,Clean Catch Urine Culture - Preliminary NO GROWTH Resulted Laboratory Tests 02/28/20 17:31: POC Whole Blood Glucose 182H 02/28/20 21:42: POC Whole Blood Glucose [Pending] 02/29/20 06:32: POC Whole Blood Glucose [Pending] Current Medications Medications (Trade) Dose Ordered Sig/Anders Route PRN Reason Start Time Stop Time Status Last Admin Dose Admin Acetaminophen (Tylenol) 650 mg Q6H PRN NG Mild Pain (1-3)/ Temp>100.5 02/26/20 00:30 03/21/20 00:29 Ascorbic Acid (Vitamin C) 500 mg DAILY ORAL 02/29/20 09:00 03/30/20 08:59 02/29/20 08:46 Calcitonin [place] (Miacalcin) 1 sprays DAILY NASAL 02/26/20 15:00 05/26/20 14:59 02/29/20 10:12 Dextrose (Dextrose 50%) 25 ml Q30M PRN IV Hypoglycemia 02/26/20 00:15 05/24/20 09:14 Dextrose (Dextrose 50%) 50 ml Q30M PRN IV Hypoglycemia 02/26/20 00:15 05/24/20 09:14 Heparin Sodium (Porcine) (Heparin 5000 units/ml) 5,000 units EVERY 12 HOURS SUBQ 02/26/20 09:00 04/05/20 20:59 02/29/20 08:46 Insulin Aspart (NovoLOG) Q6HR SUBQ 02/26/20 00:00 05/24/20 09:14 02/29/20 11:51 Insulin Detemir (Levemir) 12 units Q12HR SUBQ 02/26/20 09:00 05/25/20 08:59 02/29/20 09:01 Meropenem 1 gm/ Sodium Chloride 55 ml @ 110 mls/hr Q8HR IVPB 02/28/20 14:00 03/04/20 23:59 02/29/20 06:50 Metoprolol Tartrate (Lopressor) 25 mg Q12HR GT 02/26/20 09:00 05/23/20 08:59 02/29/20 08:45 Pantoprazole (Protonix) 40 mg Q12HR IVP 02/26/20 09:00 03/22/20 08:59 02/29/20 08:45 Zinc Oxide (Zinc Oxide) 1 applic TIDPRN PRN TOPIC Scrotal wound and kathi-rectal 02/26/20 00:30 05/23/20 00:29 Assessment/Plan Problems: (1) Sepsis (2) Nosocomial pneumonia (3) Hypernatremia (4) Tracheostomy in place (5) Diabetes mellitus (6) OBS (organic brain syndrome) (7) Feeding by G-tube (8) Chronic vegetative state Assessment/Plan no new complains awake continue abx check cultures, urine has citrobacter, sputum has MDR sliding scale diabetic gtube feeding trach care tolerating gtube feeding but wants some oral food as well Melany Salgado MD Feb 29, 2020 13:38
--- NOTE | 2020-02-29 14:10 | NUR ---
Pt is long-term PEG and trach dependent from baseline. Pt has cuffless, fenestrated Portex 7 with 12.0L flow rate and 35 FiO2. Pt requires copious suctioning during intake and noted sheets of sticky yellow secretions in mouth. Oral suctioning provided by RT as well suctioning of trach. Noted yellow secretions from suctioning and pt demonstrated adequate reflexive cough, but unable to provide voluntary cough. Upon finger occlusion, did not note any voicing at this time, or any subsequent change of pressure in voicing. Suspect that pt's secretions are copious at this time and request that pt's secretion management increases before able to trial Passy Strandquist Valve (PMV). PMV is important to attempt at this time for subglottic pressure necessary for swallowing and voicing at this time. Not safe for p.o. trials now. Will reattempt next week. Request PMV order, please. Continue NPO status.
--- NOTE | 2020-02-29 14:12 | Infectious Diseases Prog Note ---
Assessment/Plan Assessment: Severe Sepsis UTI -02/27 u/a 5-10, nit neg, leuk +2; ucx N TD -02/19 u/a wbc tnct, nit neg,leuk +3; ucx >100k C. youngae, probabl AMP-c (I Zosyn, Ceftriaxone; S Meropenem) Bcx Neg Bacterial Pneumonia- COVID19 neg x2 -02/24 CXR: Persistent bilateral infiltrates concerning for multifocal pneumonia, right greater than left. Slight improved aeration of the right lower lung compared to the prior exam. -02/20 rapid COVID PCR neg -02/19 Rapid COVID PCR neg sp cx ESBL E.coli (S Zosyn, Meropenem), ESBL K. pna(S Zosyn, Meropenem), P, mirabilis ([place] S) CXR: Right lung consolidation, likely pneumonia Right hilar apparent fullness, probably an artifact of rotation but mass or adenopathy also possible. Recommend follow-up radiographs to resolution. 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 Will continue to follow along with you. Discussed with RN and rn case manager Subjective Allergies: Coded Allergies: No Known Allergies (Unverified , 02/20/20) Tm 100 leukocytosis resolved at 3l NC Objective Last 24 Hour Vital Signs Date Time Temp Pulse Resp B/P (MAP) Pulse Ox O2 Delivery O2 Flow Rate FiO2 02/29/20 13:12 96 T-Piece 10.0 35 02/29/20 08:45 100 130/75 02/29/20 08:21 T-piece 12.0 02/29/20 08:00 12.0 35 02/29/20 08:00 99 02/29/20 08:00 98.6 100 20 130/75 (93) 97 02/29/20 07:39 98 T-Piece 10.0 35 02/29/20 04:00 12.0 35 02/29/20 04:00 97 02/29/20 04:00 98.9 98 20 125/83 (97) 96 02/29/20 00:34 97 T-Piece 10.0 35 02/29/20 00:34 95 18 99 T-Piece 8.0 35 97 18 98 02/29/20 00:00 100.0 86 20 119/74 (89) 98 02/29/20 00:00 85 02/29/20 00:00 12.0 35 02/28/20 21:25 99 124/83 02/28/20 21:00 T-piece 12.0 02/28/20 20:18 99 18 99 T-Piece 8.0 35 94 18 97 02/28/20 20:18 97 T-Piece 10.0 35 02/28/20 20:00 99.1 88 19 124/83 (97) 96 02/28/20 20:00 91 02/28/20 16:00 96 02/28/20 16:00 97.9 92 20 116/76 (89) 98 02/28/20 16:00 12.0 35 Height (Feet): 5 Height (Inches): 4.00 Weight (Pounds): 141 Neck: supple Lungs: clear to auscultation bilaterally Heart: regular rate and rhythm, S1, S2 normal Abdomen: soft, non-tender. Bowel sounds normal Extremities: extremities normal, atraumatic, no cyanosis or edema Microbiology Date/Time Source Procedure Growth Status 02/28/20 10:55 Urine,Clean Catch Urine Culture - Preliminary NO GROWTH Resulted Laboratory Tests Test 02/28/20 17:31 02/28/20 21:42 02/29/20 06:32 POC Whole Blood Glucose 182 MG/DL (74-106) H Pending Pending Current Medications Medications (Trade) Dose Ordered Sig/Anders Route PRN Reason Start Time Stop Time Status Last Admin Dose Admin Acetaminophen (Tylenol) 650 mg Q6H PRN NG Mild Pain (1-3)/ Temp>100.5 02/26/20 00:30 03/21/20 00:29 Ascorbic Acid (Vitamin C) 500 mg DAILY ORAL 02/29/20 09:00 03/30/20 08:59 02/29/20 08:46 Calcitonin [place] (Miacalcin) 1 sprays DAILY NASAL 02/26/20 15:00 05/26/20 14:59 02/29/20 10:12 Dextrose (Dextrose 50%) 25 ml Q30M PRN IV Hypoglycemia 02/26/20 00:15 05/24/20 09:14 Dextrose (Dextrose 50%) 50 ml Q30M PRN IV Hypoglycemia 02/26/20 00:15 05/24/20 09:14 Heparin Sodium (Porcine) (Heparin 5000 units/ml) 5,000 units EVERY 12 HOURS SUBQ 02/26/20 09:00 04/05/20 20:59 02/29/20 08:46 Insulin Aspart (NovoLOG) Q6HR SUBQ 02/26/20 00:00 05/24/20 09:14 02/29/20 11:51 Insulin Detemir (Levemir) 12 units Q12HR SUBQ 02/26/20 09:00 05/25/20 08:59 02/29/20 09:01 Meropenem 1 gm/ Sodium Chloride 55 ml @ 110 mls/hr Q8HR IVPB 02/28/20 14:00 03/04/20 23:59 02/29/20 06:50 Metoprolol Tartrate (Lopressor) 25 mg Q12HR GT 02/26/20 09:00 05/23/20 08:59 02/29/20 08:45 Pantoprazole (Protonix) 40 mg Q12HR IVP 02/26/20 09:00 03/22/20 08:59 02/29/20 08:45 Zinc Oxide (Zinc Oxide) 1 applic TIDPRN PRN TOPIC Scrotal wound and kathi-rectal 02/26/20 00:30 05/23/20 00:29 Marily Hardy M.D. Feb 29, 2020 14:12
--- NOTE | 2020-02-29 14:20 | Nephrology Progress Note ---
Assessment/Plan Problem List: (1) Hypercalcemia (2) Nosocomial pneumonia (3) Feeding by G-tube (4) Tracheostomy in place (5) Anemia (6) DMII (diabetes mellitus, type 2) Assessment Abnormal electrolytes. High sodium and low phosphorus at this time. Admitted with sepsis and healthcare associated pneumonia Hypertension by history Patient has tracheostomy connected to oxygen not ventilator Previous hypokalemia corrected Mild anemia Diabetes mellitus [id number] UTI Bedbound status, vegetative state Feeding through PEG Plan February 28: No chemistry panel drawn today. Will check lab tomorrow. Status quo. Medication reviewed. Monitor serum calcium phosphorus and electrolyte. February 27: Serum calcium lower. Labs reviewed. Renal parameters are stable. Continue per consultants. February 26: Serum calcium lowering. Labs reviewed. Stable renal parameters. Phosphorus supplement ordered. Continue per consultants. Previously: 60 mg pamidronate intravenously ordered one-time Nasal calcitonin ordered Continue to monitor blood chemistries and electrolytes Keep the blood pressure and blood sugar in check Per orders Subjective ROS Limited/Unobtainable: Yes Objective Objective Last 24 Hour Vital Signs Date Time Temp Pulse Resp B/P (MAP) Pulse Ox O2 Delivery O2 Flow Rate FiO2 02/29/20 13:12 96 T-Piece 10.0 35 02/29/20 08:45 100 130/75 02/29/20 08:21 T-piece 12.0 02/29/20 08:00 12.0 35 02/29/20 08:00 99 02/29/20 08:00 98.6 100 20 130/75 (93) 97 02/29/20 07:39 98 T-Piece 10.0 35 02/29/20 04:00 12.0 35 02/29/20 04:00 97 02/29/20 04:00 98.9 98 20 125/83 (97) 96 02/29/20 00:34 97 T-Piece 10.0 35 02/29/20 00:34 95 18 99 T-Piece 8.0 35 97 18 98 02/29/20 00:00 100.0 86 20 119/74 (89) 98 02/29/20 00:00 85 02/29/20 00:00 12.0 35 02/28/20 21:25 99 124/83 02/28/20 21:00 T-piece 12.0 02/28/20 20:18 99 18 99 T-Piece 8.0 35 94 18 97 02/28/20 20:18 97 T-Piece 10.0 35 02/28/20 20:00 99.1 88 19 124/83 (97) 96 02/28/20 20:00 91 02/28/20 16:00 96 02/28/20 16:00 97.9 92 20 116/76 (89) 98 02/28/20 16:00 12.0 35 Intake and Output 02/28/20 02/29/20 19:00 07:00 Output Total 300 ml 800 ml Balance -300 ml -800 ml Output Urine Total 300 ml 800 ml No chemistry panel drawn today. Laboratory Tests 02/28/20 17:31: POC Whole Blood Glucose 182H 02/28/20 21:42: POC Whole Blood Glucose [Pending] 02/29/20 06:32: POC Whole Blood Glucose [Pending] Height (Feet): 5 Height (Inches): 4.00 Weight (Pounds): 141 General Appearance: no apparent distress EENT: other - Has T-piece Cardiovascular: tachycardia Respiratory/Chest: decreased breath sounds Abdomen: distended Cornell Coleman MD Feb 29, 2020 14:20
[2020-02-29] MEDS ORDERED: Varibar Honey 250ml MC PRN (14:30)
[2020-02-29] MEDS ORDERED: Varibar Pudding 230ml MC PRN (14:30)
[2020-02-29] MEDS ORDERED: Varibar Nectar 240ml MC PRN (14:30)
[2020-02-29] MEDS ORDERED: Varibar Thin Liquid powder 148gm MC PRN (14:30)
[2020-02-29 16:00] VITALS: BP 138/80
--- NOTE | 2020-02-29 19:33 | NUR ---
NURSE HAND-OFF REPORT: Important Events on Shift:[wound care, BM] Patient Status: [FULL CODE] Diet: [tube feeding] Pending Orders: [] Pending Results/Labs:[] Pending MD notification:[] Latest Vital Signs: Temperature 98.0 , Pulse 98 , B/P 138 /80 , Respiratory Rate 19 , O2 SAT 97 , T-piece, O2 Flow Rate 12.0 . Vital Sign Comment: [] EKG Rhythm: Sinus Rhythm Rhythm change?: N MD Notified?: - MD Response: Latest Cole Fall Score: 55 Fall Risk: High Risk Safety Measures: Call light Within Reach, Bed Alarm Zone 1, Side Rails Side Rails x3, Bed position Low and Locked. Fall Precautions: Yellow Gown Door Sign Patient Fall Education Report given to [Ford HAN].
--- NOTE | 2020-02-29 19:35 | NUR ---
NURSE NOTES: Received hand-of report by Boone Ortiz RN. Patient received laying in high-fowlers, resting, tv on, 20gIV that was on left hand was found on the bed, no redness, no leaking, no swelling, no pain/tenderness noted. Will insert a new IV as soon as possible. personnel monitor in place, breathing unlabored and even, PORTEX 7.0 secured and on 10L oxygen FiO2 35%, oxygen saturation 99%, GT running glucerna 1.5 at 45mL/h, diehl 16Fr patent and draining clear yellow urine. Patient in stable condition and not in any distress, alert and oriented times one (baseline), responsive to tactile and verbal stimuli. Bed in lowest and locked position, bed alarm on, call light within reach, side rails upx3.
[2020-02-29 20:00] VITALS: BP 96/59
[2020-03-01] VITALS: BP 109/68
[2020-03-01] MEDS: NovoLOG Insulin Flexpen SUBQ SCH ×4 (00:18→17:36)
--- NOTE | 2020-03-01 01:54 | Cardiology Progress Note ---
Subjective DATE OF SERVICE: Feb 29, 2020 On trach collar GTube now replaced and functioning Moderate secretions Lab abnormalities resolving Prior therapy with pamidranate for hyperCa++ Monitor: sinus rhythm/tachycardia Fever to 100 CXR 02/26/20, revealed slight improvement in PNA Objective Last 24 Hour Vital Signs Date Time Temp Pulse Resp B/P (MAP) Pulse Ox O2 Delivery O2 Flow Rate FiO2 03/01/20 00:00 10.0 35 03/01/20 00:00 89 02/29/20 21:00 83 96/59 02/29/20 20:00 97.7 96 20 96/59 (71) 97 02/29/20 20:00 96 02/29/20 19:48 98 T-Piece 10.0 35 02/29/20 16:00 12.0 35 02/29/20 16:00 98.0 89 19 138/80 (99) 97 02/29/20 16:00 98 02/29/20 13:12 96 T-Piece 10.0 35 02/29/20 12:00 92 02/29/20 12:00 12.0 35 02/29/20 12:00 98.5 98 19 134/72 (92) 98 02/29/20 08:45 100 130/75 02/29/20 08:21 T-piece 12.0 02/29/20 08:00 12.0 35 02/29/20 08:00 99 02/29/20 08:00 98.6 100 20 130/75 (93) 97 02/29/20 07:39 98 T-Piece 10.0 35 02/29/20 04:00 12.0 35 02/29/20 04:00 97 02/29/20 04:00 98.9 98 20 125/83 (97) 96 ROS: unchanged from my dictation of 02/21/20 HEENT: Thick Trach secretions LUNGS: bilateral rhonchi, trach site clean CARDIAC: normal rate, regular rhythm, normal S1 and S2 ABDOMEN: normal bowel sounds, non tender, soft, G-Tube intact EXTREMITIES: normal range of motion, no swelling, No edema Laboratory Tests Test 02/29/20 06:32 02/29/20 08:53 02/29/20 11:26 02/29/20 17:04 POC Whole Blood Glucose Pending Pending 250 MG/DL (74-106) H Pending Test 02/29/20 21:27 03/01/20 00:13 POC Whole Blood Glucose 182 MG/DL (74-106) H 220 MG/DL (74-106) H Microbiology Date/Time Source Procedure Growth Status 02/28/20 10:55 Urine,Clean Catch Urine Culture - Preliminary NO GROWTH Resulted Assessment/Plan Assessment/Plan Healthcare associated PNA improving Sepsis Recovered shock Hypertension/HHD Respiratory failure with trach Anemia Hypokalemia corrected Leukocytosis improved Dehydration/hypernatremia IRDM uncontrolled Hypophosphatemia Hypercalcemia GTube malfxn - correcte Abx IVF adjusted to correct free water deficit with PO4 suppl; free water per GTube as well Resp rx Replace K+/Mg++ as needed Nutrition per Gtube Titrate long acting insulin Titrate beta mahi DVT prophylaxis Repeat CXR Richard Lang MD Mar 01, 2020 01:54
[2020-03-01 04:00] VITALS: BP 124/81
[2020-03-01] MEDS: Meropenem 1 GM in NS 55 ML IVPB SCH ×3 (06:36→21:51)
--- NOTE | 2020-03-01 07:25 | NUR ---
NURSE HAND-OFF REPORT: Important Events on Shift: Wound care done, optifoam reinforced, endorsed to EMELY Shook iron level of 17 and CXR today Patient Status: stable condition, full code Diet: glucerna 1.5 at 45mL/h Pending Orders: Pending Results/Labs: Pending MD notification: Latest Vital Signs: Temperature 97.9 , Pulse 93 , B/P 124 /81 , Respiratory Rate 19 , O2 SAT 96 , T-piece, O2 Flow Rate 10.0 . Vital Sign Comment: EKG Rhythm: Sinus Rhythm Rhythm change?: N MD Notified?: - MD Response: Latest Cole Fall Score: 55 Fall Risk: High Risk Safety Measures: Call light Within Reach, Bed Alarm Zone 1, Side Rails Side Rails x3, Bed position Low and Locked. Fall Precautions: Yellow Socks Yellow Gown Door Sign Patient Fall Education Report given to EMELY Shook.
--- NOTE | 2020-03-01 07:30 | NUR ---
NURSE NOTES: Received patient in bed. Awake, alert x1. On T-piece oxygen, trach collar on. Patient denies pain. IV in the Left hand, site intact. GT patent and flushed, feeding running as ordered. Patient is a high fall risk d/t Cole fall score of 55. Bed at the lowest position, bed alarm on high sensitivity, yellow gown on, yellow socks on, side rails up x2, call light within reach - unable to return demonstration. Heart monitor on.
[2020-03-01 08:00] VITALS: BP 116/79
[2020-03-01] MEDS: Pantoprazole Inj IVP SCH ×2 (09:08→21:49)
[2020-03-01] MEDS: Ascorbic Acid 500mg tab ORAL SCH (09:08)
[2020-03-01] MEDS: Heparin 5000 units/ml inj SUBQ SCH ×2 (09:13→21:49)
--- NOTE | 2020-03-01 09:14 | Pulmonology Progress Note ---
Subjective ROS Limited/Unobtainable: Yes Constitutional: Reports: no symptoms HEENT: Repors: no symptoms Respiratory: Reports: no symptoms Allergies: Coded Allergies: No Known Allergies (Unverified , 02/20/20) All Systems: reviewed and negative except above Objective Last 24 Hour Vital Signs Date Time Temp Pulse Resp B/P (MAP) Pulse Ox O2 Delivery O2 Flow Rate FiO2 03/01/20 08:24 96 T-Piece 10.0 35 03/01/20 08:09 T-piece 10.0 03/01/20 04:00 97.9 93 19 124/81 (95) 96 03/01/20 04:00 10.0 35 03/01/20 04:00 91 03/01/20 00:55 98 T-Piece 10.0 35 03/01/20 00:00 10.0 35 03/01/20 00:00 89 03/01/20 00:00 98.2 89 20 109/68 (82) 97 02/29/20 21:00 83 96/59 02/29/20 21:00 T-piece 10.0 02/29/20 20:00 97.7 96 20 96/59 (71) 97 02/29/20 20:00 96 02/29/20 19:48 98 T-Piece 10.0 35 02/29/20 16:00 12.0 35 02/29/20 16:00 98.0 89 19 138/80 (99) 97 02/29/20 16:00 98 02/29/20 13:12 96 T-Piece 10.0 35 02/29/20 12:00 92 02/29/20 12:00 12.0 35 02/29/20 12:00 98.5 98 19 134/72 (92) 98 Intake and Output 02/29/20 03/01/20 19:00 07:00 Intake Total 795 ml 145 ml Output Total 400 ml 975 ml Balance 395 ml -830 ml Intake Free Water 300 ml 100 ml Tube Feeding 495 ml 45 ml Output Urine Total 400 ml 975 ml General Appearance: cachetic HEENT: normocephalic, atraumatic Respiratory: chest wall non-tender, lungs clear Cardiovascular: normal peripheral pulses, normal rate Abdomen: normal bowel sounds, soft, non tender Extremities: no clubbing 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 Microbiology Date/Time Source Procedure Growth Status 9/17/20 10:55 Urine,Clean Catch Urine Culture - Final Mixed Urogenital Contaminants Complete Laboratory Tests 02/29/20 11:26: POC Whole Blood Glucose 250H 02/29/20 17:04: POC Whole Blood Glucose [Pending] 02/29/20 21:27: POC Whole Blood Glucose 182H 03/01/20 00:13: POC Whole Blood Glucose 220H 03/01/20 06:18: POC Whole Blood Glucose 263H Current Medications Medications (Trade) Dose Ordered Sig/Anders Route PRN Reason Start Time Stop Time Status Last Admin Dose Admin Acetaminophen (Tylenol) 650 mg Q6H PRN NG Mild Pain (1-3)/ Temp>100.5 02/26/20 00:30 03/21/20 00:29 Ascorbic Acid (Vitamin C) 500 mg DAILY ORAL 02/29/20 09:00 03/30/20 08:59 02/29/20 08:46 Barium Sulfate (Varibar Honey) 250 ml NOW PRN MC RAD 02/29/20 14:30 03/03/20 14:24 Barium Sulfate (Varibar [place]) 240 ml NOW PRN MC RAD 02/29/20 14:30 03/03/20 14:24 Barium Sulfate (Varibar Pudding) 230 ml NOW PRN MC RAD 02/29/20 14:30 03/03/20 14:24 Barium Sulfate (Varibar Thin Liquid powder) 148 gm NOW PRN MC RAD 02/29/20 14:30 03/03/20 14:24 Calcitonin [place] (Miacalcin) 1 sprays DAILY NASAL 02/26/20 15:00 05/26/20 14:59 02/29/20 10:12 Dextrose (Dextrose 50%) 25 ml Q30M PRN IV Hypoglycemia 02/26/20 00:15 05/24/20 09:14 Dextrose (Dextrose 50%) 50 ml Q30M PRN IV Hypoglycemia 02/26/20 00:15 05/24/20 09:14 Heparin Sodium (Porcine) (Heparin 5000 units/ml) 5,000 units EVERY 12 HOURS SUBQ 02/26/20 09:00 04/05/20 20:59 02/29/20 21:25 Insulin Aspart (NovoLOG) Q6HR SUBQ 02/26/20 00:00 05/24/20 09:14 03/01/20 06:36 Insulin Detemir (Levemir) 12 units Q12HR SUBQ 02/26/20 09:00 05/25/20 08:59 02/29/20 21:29 Meropenem 1 gm/ Sodium Chloride 55 ml @ 110 mls/hr Q8HR IVPB 02/28/20 14:00 03/04/20 23:59 03/01/20 06:36 Metoprolol Tartrate (Lopressor) 25 mg Q12HR GT 02/26/20 09:00 05/23/20 08:59 02/29/20 08:45 Pantoprazole (Protonix) 40 mg Q12HR IVP 02/26/20 09:00 03/22/20 08:59 02/29/20 21:15 Zinc Oxide (Zinc Oxide) 1 applic TIDPRN PRN TOPIC Scrotal wound and kathi-rectal 02/26/20 00:30 05/23/20 00:29 Assessment/Plan Problems: (1) Sepsis (2) Nosocomial pneumonia (3) Hypernatremia (4) Tracheostomy in place (5) Diabetes mellitus (6) OBS (organic brain syndrome) (7) Feeding by G-tube (8) Chronic vegetative state Assessment/Plan all reviewed no new complains awake continue abx check cultures, urine has citrobacter, sputum has MDR sliding scale diabetic gtube feeding trach care tolerating gtube feeding but wants some oral food as well Melany Salgado MD Mar 01, 2020 09:14
[2020-03-01] MEDS: Levemir Flexpen SUBQ SCH ×2 (09:22→21:00)
--- NOTE | 2020-03-01 09:48 | General Progress Note ---
Subjective ROS Limited/Unobtainable: No Allergies: Coded Allergies: No Known Allergies (Unverified , 02/20/20) Objective Last 24 Hour Vital Signs Date Time Temp Pulse Resp B/P (MAP) Pulse Ox O2 Delivery O2 Flow Rate FiO2 03/01/20 09:09 87 116/79 03/01/20 08:24 96 T-Piece 10.0 35 03/01/20 08:09 T-piece 10.0 03/01/20 08:00 96.9 87 18 116/79 (91) 96 03/01/20 08:00 10.0 35 03/01/20 04:00 97.9 93 19 124/81 (95) 96 03/01/20 04:00 10.0 35 03/01/20 04:00 91 03/01/20 00:55 98 T-Piece 10.0 35 03/01/20 00:00 10.0 35 03/01/20 00:00 89 03/01/20 00:00 98.2 89 20 109/68 (82) 97 02/29/20 21:00 83 96/59 02/29/20 21:00 T-piece 10.0 02/29/20 20:00 97.7 96 20 96/59 (71) 97 02/29/20 20:00 96 02/29/20 19:48 98 T-Piece 10.0 35 02/29/20 16:00 12.0 35 02/29/20 16:00 98.0 89 19 138/80 (99) 97 02/29/20 16:00 98 02/29/20 13:12 96 T-Piece 10.0 35 02/29/20 12:00 92 02/29/20 12:00 12.0 35 02/29/20 12:00 98.5 98 19 134/72 (92) 98 Intake and Output 02/29/20 03/01/20 19:00 07:00 Intake Total 795 ml 145 ml Output Total 400 ml 975 ml Balance 395 ml -830 ml Intake Free Water 300 ml 100 ml Tube Feeding 495 ml 45 ml Output Urine Total 400 ml 975 ml Laboratory Tests 02/29/20 11:26: POC Whole Blood Glucose 250H 02/29/20 17:04: POC Whole Blood Glucose [Pending] 02/29/20 21:27: POC Whole Blood Glucose 182H 03/01/20 00:13: POC Whole Blood Glucose 220H 03/01/20 06:18: POC Whole Blood Glucose 263H 03/01/20 09:16: POC Whole Blood Glucose [Pending] Height (Feet): 5 Height (Inches): 4.00 Weight (Pounds): 141 General Appearance: no apparent distress EENT: PERRL/EOMI Neck: supple Cardiovascular: normal rate Respiratory/Chest: decreased breath sounds Abdomen: normal bowel sounds, non tender, soft Extremities: non-tender Assessment/Plan Assessment/Plan: 1. Diabetes. 2. Chronic encephalopathy. 3. Intracranial hemorrhage and CVA. 4. Chronic respiratory failure with trach. 5. Dysphagia with G-tube. 6. Hyperlipidemia. GT has been changed and it is working well GTF monitor for residuals Srinivas Art MD Mar 01, 2020 09:48
[2020-03-01 12:00] VITALS: BP 123/82
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
--- NOTE | 2020-03-01 14:23 | Nephrology Progress Note ---
Assessment/Plan Problem List: (1) Hypercalcemia (2) Nosocomial pneumonia (3) Feeding by G-tube (4) Tracheostomy in place (5) Anemia (6) DMII (diabetes mellitus, type 2) Assessment Abnormal electrolytes. High sodium and low phosphorus at this time. Admitted with sepsis and healthcare associated pneumonia Hypertension by history Patient has tracheostomy connected to oxygen not ventilator Previous hypokalemia corrected Mild anemia Diabetes mellitus [id number] UTI Bedbound status, vegetative state Feeding through PEG Plan March 01: No chemistry panel done today. Status quo. February 28: No chemistry panel drawn today. Will check lab tomorrow. Status quo. Medication reviewed. Monitor serum calcium phosphorus and electrolyte. February 27: Serum calcium lower. Labs reviewed. Renal parameters are stable. Continue per consultants. February 26: Serum calcium lowering. Labs reviewed. Stable renal parameters. Phosphorus supplement ordered. Continue per consultants. Previously: 60 mg pamidronate intravenously ordered one-time Nasal calcitonin ordered Continue to monitor blood chemistries and electrolytes Keep the blood pressure and blood sugar in check Per orders Subjective ROS Limited/Unobtainable: Yes Objective Objective Last 24 Hour Vital Signs Date Time Temp Pulse Resp B/P (MAP) Pulse Ox O2 Delivery O2 Flow Rate FiO2 03/01/20 13:19 98 T-Piece 10.0 35 03/01/20 12:00 10.0 35 03/01/20 12:00 81 03/01/20 12:00 97.0 77 20 123/82 (96) 97 03/01/20 09:09 87 116/79 03/01/20 08:24 96 T-Piece 10.0 35 03/01/20 08:09 T-piece 10.0 03/01/20 08:00 96.9 87 18 116/79 (91) 96 03/01/20 08:00 10.0 35 03/01/20 08:00 86 03/01/20 04:00 97.9 93 19 124/81 (95) 96 03/01/20 04:00 10.0 35 03/01/20 04:00 91 03/01/20 00:55 98 T-Piece 10.0 35 03/01/20 00:00 10.0 35 03/01/20 00:00 89 03/01/20 00:00 98.2 89 20 109/68 (82) 97 02/29/20 21:00 83 96/59 02/29/20 21:00 T-piece 10.0 02/29/20 20:00 97.7 96 20 96/59 (71) 97 02/29/20 20:00 96 02/29/20 19:48 98 T-Piece 10.0 35 02/29/20 16:00 12.0 35 02/29/20 16:00 98.0 89 19 138/80 (99) 97 02/29/20 16:00 98 Intake and Output 02/29/20 03/01/20 19:00 07:00 Intake Total 795 ml 145 ml Output Total 400 ml 975 ml Balance 395 ml -830 ml Intake Free Water 300 ml 100 ml Tube Feeding 495 ml 45 ml Output Urine Total 400 ml 975 ml No chemistry panel done today laboratory Tests 02/29/20 17:04: POC Whole Blood Glucose [Pending] 02/29/20 21:27: POC Whole Blood Glucose 182H 03/01/20 00:13: POC Whole Blood Glucose 220H 03/01/20 06:18: POC Whole Blood Glucose 263H 03/01/20 09:16: POC Whole Blood Glucose [Pending] Height (Feet): 5 Height (Inches): 4.00 Weight (Pounds): 141 General Appearance: no apparent distress EENT: other - T-piece to oxygen Cardiovascular: normal rate Respiratory/Chest: decreased breath sounds Abdomen: soft Objective No change Cornell Coleman MD Mar 01, 2020 14:23
--- NOTE | 2020-03-01 15:08 | Surgery Progress Note ---
Surgery Progress Note Subjective Additional Comments afebrile HD stable labs okay no n/v Objective Last 24 Hour Vital Signs Date Time Temp Pulse Resp B/P (MAP) Pulse Ox O2 Delivery O2 Flow Rate FiO2 03/01/20 13:19 98 T-Piece 10.0 35 03/01/20 12:00 10.0 35 03/01/20 12:00 81 03/01/20 12:00 97.0 77 20 123/82 (96) 97 03/01/20 09:09 87 116/79 03/01/20 08:24 96 T-Piece 10.0 35 03/01/20 08:09 T-piece 10.0 03/01/20 08:00 96.9 87 18 116/79 (91) 96 03/01/20 08:00 10.0 35 03/01/20 08:00 86 03/01/20 04:00 97.9 93 19 124/81 (95) 96 03/01/20 04:00 10.0 35 03/01/20 04:00 91 03/01/20 00:55 98 T-Piece 10.0 35 03/01/20 00:00 10.0 35 03/01/20 00:00 89 03/01/20 00:00 98.2 89 20 109/68 (82) 97 02/29/20 21:00 83 96/59 02/29/20 21:00 T-piece 10.0 02/29/20 20:00 97.7 96 20 96/59 (71) 97 02/29/20 20:00 96 02/29/20 19:48 98 T-Piece 10.0 35 02/29/20 16:00 12.0 35 02/29/20 16:00 98.0 89 19 138/80 (99) 97 02/29/20 16:00 98 I&O Intake and Output 02/29/20 03/01/20 19:00 07:00 Intake Total 795 ml 145 ml Output Total 400 ml 975 ml Balance 395 ml -830 ml Intake Free Water 300 ml 100 ml Tube Feeding 495 ml 45 ml Output Urine Total 400 ml 975 ml Dressing: other Wound: other Cardiovascular: RSR Respiratory: decreased breath sounds Abdomen: soft, present bowel sounds Extremities: no cyanosis Laboratory Tests Test 02/29/20 17:04 02/29/20 21:27 03/01/20 00:13 03/01/20 06:18 POC Whole Blood Glucose Pending 182 MG/DL (74-106) H 220 MG/DL (74-106) H 263 MG/DL (74-106) H Test 03/01/20 09:16 POC Whole Blood Glucose Pending Plan Problems: (1) Sepsis Assessment & Plan: leukocytosis, fevers, abnormal labs, ill appearing, respiratory insufficiency, on support, micro noted. Pt presented on admission with Tracheostomy, multiple Pressure Injuries, Kita- rectal erosion.Skin assessed uner tracheal collar and no evidence of skin breakdown noted. Partially opened Sacral DTPI (L)6cm x (W)6.3cm. Base of wound is maroon ,fluctuant with small open area at sacrococcygeal area that is 80% slough ,20% mary at base (L)0.7cm x (W)0.8cm. Perirectal and scrotum area is grossly excoriated. Partial thickness wound noted to Base R and base of scrotum(L)2.8cm x (W)3.5cm. Biofilm noted at base of wound. Borders are macerated. Haemosiderin noted to bilat distal/lower extremities. L heel is boggy with non-Blanchable erythema. R heel is boggy with non-Blanchable erythema. Loose dry eschar noted to R heel . Pt denied tenderness or pain when palpated. Tx.Plan: Cleanse Sacral Wound with Saline. Apply Moisture Barrier Paste Periwound. Cover with Optifoam drsg. Changeevery 3 days and prn. Apply Zinc Oxide Paste to Scrotal wound and Kita-rectal erosion TID and Prn. Apply Cavilon Skin BArrier to both heels and Malleoli. Cover each site with Optifoam drsg. Change every 7 daysand prn. Reposition at least every 2hours or as tolerated. Off-load heels with pillow. APM/DONALDO Mattress overlay. DAILY ESTIMATED NEEDS: Needs based on wound, DM, sepsis/ 52.3kg 25-35 kcals/kg 9724-7348 total kcals 1.25-2 g protein/kg 65-105 g total protein 25-30 mL/kg 2387-5378 total fluid mLs NUTRITION DIAGNOSIS: * Swallowing difficulty R/T dysphagia, respiratory status as evidenced by pt on T-collar, PEG dep. * Increased kcal/prot needs R/T wound healing as evidenced by admitted w/ sacral wound per photo, refer to wound eval. CURRENT TF: Glucerna 1.5 @ 45ml/hr x 24 hrs-> HELD, GT OUT ENTERAL NUTRITION RECOMMENDATIONS: Glucerna 1.5 @ 45ml/hr x 24 hrs to provide 1080ml, 1620kcal, 89g prot, 820ml free water * Goal rate to 45m/hr x 24 hrs: meets 100% est kcal/prot needs * HOB over 30 degrees/ water flush per MD ADDITIONAL RECOMMENDATIONS: * Calibrated bedscal wt for accurate CBW * Rec long acting insulin for improved BG control- now on levemir * Wound healing: Add Vit C 500mg QD + Omari BID via PEG * Monitor lytes, replete as needed Uptrend in Na and BUN-> rec increase water flushes once GT replaced (2) UTI (urinary tract infection) (3) Tracheostomy in place (4) Diabetes mellitus (5) OBS (organic brain syndrome) (6) Feeding by G-tube (7) Chronic vegetative state (8) Nosocomial pneumonia Terry Armstrong Mar 01, 2020 15:08
[2020-03-01 16:00] VITALS: BP 121/78
--- NOTE | 2020-03-01 19:15 | NUR ---
NURSE NOTES: Report received from EMELY Shook. Patient is awake alert and oriented x1 able to nod yes and no. Welsh speaking. No SOb or distress. Bed is at lowest position locked with side rails up. Bed alarm is activate. Call light within reach. nuclear monitoring technician intact. Tracheostomy intact with 34% fio2. Will continue with plan of care.
--- NOTE | 2020-03-01 19:19 | NUR ---
NURSE HAND-OFF REPORT: Important Events on Shift:[wound care, suction] Patient Status: [FULL CODE] Diet: [glucerna 1.5 tube feeding] Pending Orders: [] Pending Results/Labs:[] Pending MD notification:[] Latest Vital Signs: Temperature 97.9 , Pulse 92 , B/P 121 /78 , Respiratory Rate 18 , O2 SAT 99 , T-piece, O2 Flow Rate 10.0 . Vital Sign Comment: [] EKG Rhythm: Sinus Rhythm Rhythm change?: N MD Notified?: - MD Response: Latest Cole Fall Score: 55 Fall Risk: High Risk Safety Measures: Call light Within Reach, Bed Alarm Zone 1, Side Rails Side Rails x3, Bed position Low and Locked. Fall Precautions: Yellow Gown Door Sign Patient Fall Education Report given to [Crys HAN].
[2020-03-01 20:00] VITALS: BP 115/65
--- NOTE | 2020-03-01 23:10 | NUR ---
NURSE NOTES: Left message with Dr. Lang regarding patients episode of Paroxysmal Tachycardia, 140 BPM. Patient then returned to 75 beats per minute. Will continue to monitor. Patient has no other symptoms. Metoprolol 25mg given at 2130.
[2020-03-02] VITALS: BP 108/62
--- NOTE | 2020-03-02 00:47 | Cardiology Progress Note ---
Subjective DATE OF SERVICE: Mar 01, 2020 On trach collar GTube now replaced and functioning Moderate secretions Lab abnormalities resolving Prior therapy with pamidranate for hyperCa++ Monitor: sinus rhythm/tachycardia CXR 02/26/20, revealed slight improvement in PNA Objective Last 24 Hour Vital Signs Date Time Temp Pulse Resp B/P (MAP) Pulse Ox O2 Delivery O2 Flow Rate FiO2 03/02/20 00:00 98.5 80 18 108/62 (77) 95 03/02/20 00:00 10.0 35 03/01/20 21:54 64 117/65 03/01/20 21:00 T-piece 10.0 03/01/20 20:00 90 03/01/20 20:00 98.4 78 18 115/65 (82) 99 03/01/20 19:28 97 T-Piece 10.0 35 03/01/20 16:00 92 03/01/20 16:00 97.9 96 18 121/78 (92) 99 03/01/20 16:00 10.0 35 03/01/20 13:19 98 T-Piece 10.0 35 03/01/20 12:00 10.0 35 03/01/20 12:00 81 03/01/20 12:00 97.0 77 20 123/82 (96) 97 03/01/20 09:09 87 116/79 03/01/20 08:24 96 T-Piece 10.0 35 03/01/20 08:09 T-piece 10.0 03/01/20 08:00 96.9 87 18 116/79 (91) 96 03/01/20 08:00 10.0 35 03/01/20 08:00 86 03/01/20 04:00 97.9 93 19 124/81 (95) 96 03/01/20 04:00 10.0 35 03/01/20 04:00 91 03/01/20 00:55 98 T-Piece 10.0 35 ROS: unchanged from my dictation of 02/21/20 HEENT: Thick Trach secretions LUNGS: bilateral rhonchi, trach site clean CARDIAC: normal rate, regular rhythm, normal S1 and S2 ABDOMEN: normal bowel sounds, non tender, soft, G-Tube intact EXTREMITIES: normal range of motion, no swelling, No edema Laboratory Tests Test 03/01/20 06:18 03/01/20 09:16 03/01/20 12:37 03/01/20 17:14 POC Whole Blood Glucose 263 MG/DL (74-106) H Pending Pending 137 MG/DL (74-106) H Test 03/01/20 21:14 POC Whole Blood Glucose Pending Microbiology Date/Time Source Procedure Growth Status 02/28/20 10:55 Urine,Clean Catch Urine Culture - Final Mixed Urogenital Contaminants Complete Assessment/Plan Assessment/Plan Healthcare associated PNA improving Sepsis Recovered shock Hypertension/HHD Respiratory failure with trach Anemia Hypokalemia corrected Leukocytosis improved Dehydration/hypernatremia IRDM uncontrolled Hypophosphatemia Hypercalcemia GTube malfxn - corrected Abx IVF adjusted to correct free water deficit with PO4 suppl; free water per GTube as well Resp rx Replace K+/Mg++ as needed Nutrition per Gtube Titrate long acting insulin Titrate beta mahi DVT prophylaxis Repeat CXR Richard Lang MD Mar 02, 2020 00:47
--- NOTE | 2020-03-02 02:30 | NUR ---
NURSE NOTES: Patient heart rate is sustained in sinus rhythm. No other episodes of tachycardia noted. Range of BPM from 70 to 88.
[2020-03-02 04:00] VITALS: BP 115/63
[2020-03-02] MEDS: Meropenem 1 GM in NS 55 ML IVPB SCH ×3 (05:44→22:22)
[2020-03-02] MEDS: NovoLOG Insulin Flexpen SUBQ SCH ×4 (06:21→17:21)
--- NOTE | 2020-03-02 07:21 | NUR ---
NURSE HAND-OFF REPORT: Important Events on Shift: Unable to upload wound photos due to camera and / or computer malfunction. Attempted multiple times from different copmputers. Small bowel movement noted, water flushes provided as ordered and FSBS checks done as ordered. Patient Status: [Stable alert oriented x1 to 2 nonverbal able to nod yes or no] Diet: [Gtube feeding Glucerna 1.5 at 45 cc/hr] Pending Orders: [None] Pending Results/Labs:[] Pending MD notification:[] Latest Vital Signs: Temperature 98.5 , Pulse 85 , B/P 115 /63 , Respiratory Rate 18 , O2 SAT 96 , T-piece, O2 Flow Rate 10.0 . Vital Sign Comment: [] EKG Rhythm: Sinus Rhythm Rhythm change?: N MD Notified?: - MD Response: Latest Cole Fall Score: 55 Fall Risk: High Risk Safety Measures: Call light Within Reach, Bed Alarm Zone 1, Side Rails Side Rails x3, Bed position Low and Locked. Fall Precautions: Yellow Gown Door Sign Patient Fall Education Report given to [EMELY Shook]. Addendum: 03/02/20 at 0735 by Crys Rojas RN Patient had episode of Paroxysmal tachycardia, [address] Lang made aware, no new orders given. No other episodes noted.
--- NOTE | 2020-03-02 07:29 | NUR ---
NURSE NOTES: Received patient in bed. Awake, alert x1. On T-piece 10L. Patient denies pain. IV in the Left FA, site intact. Heart monitor on. GT patent and flushed, feeding running as ordered. Patient is a high fall risk d/t Cole fall score of 55. Bed placed in the lowest position, yellow gown on, yellow socks on, bed alarm placed on high sensitivity, side rails up x2. Call light placed within reach - unable to return demonstration, CN and TIP TESTER made aware.
[2020-03-02 08:00] VITALS: BP 123/77
[2020-03-02 08:06] LABS: BASOPHILS % (AUTO) 0.8 % (0.0-2.0); EOSINOPHILS % (AUTO) 0.9 % (0.0-3.0); HEMATOCRIT 36.6 % (42.0-52.0); HEMOGLOBIN 11.9 G/DL (14.2-18.0); LYMPHOCYTES % (AUTO) 27.2 % (20.0-45.0); MEAN CORPUSCULAR VOLUME 85 FL (80-99); MONOCYTES % (AUTO) 4.4 % (1.0-10.0); NEUTROPHILS % (AUTO) 66.7 % (45.0-75.0); PLATELET COUNT 411 K/UL (150-450); RED CELL DISTRIBUTION WIDTH 16.2 % (11.6-14.8); WHITE BLOOD COUNT 4.9 K/UL (4.8-10.8)
[2020-03-02 08:30] LABS: ALANINE AMINOTRANSFERASE 19 U/L (12-78); ALBUMIN/GLOBULIN RATIO 0.4 (1.0-2.7); ALKALINE PHOSPHATASE 106 U/L (46-116); ANION GAP 7 mmol/L (5-15); ASPARTATE AMINO TRANSFERASE 15 U/L (15-37); BILIRUBIN,TOTAL 0.3 MG/DL (0.2-1.0); BLOOD UREA NITROGEN 31 mg/dL (7-18); CALCIUM 9.7 MG/DL (8.5-10.1); CARBON DIOXIDE 27 MMOL/L (21-32); CHLORIDE 116 MMOL/L (98-107); CREATININE 0.8 MG/DL (0.55-1.30); PHOSPHORUS 1.7 MG/DL (2.5-4.9); POTASSIUM 4.1 MMOL/L (3.5-5.1); SODIUM 150 MMOL/L (136-145)
[2020-03-02] MEDS: Ascorbic Acid 500mg tab ORAL SCH (08:57)
[2020-03-02] MEDS: Pantoprazole Inj IVP SCH ×2 (08:57→22:12)
--- NOTE | 2020-03-02 08:58 | General Progress Note ---
Subjective ROS Limited/Unobtainable: No Allergies: Coded Allergies: No Known Allergies (Unverified , 02/20/20) Objective Last 24 Hour Vital Signs Date Time Temp Pulse Resp B/P (MAP) Pulse Ox O2 Delivery O2 Flow Rate FiO2 03/02/20 08:16 T-piece 10.0 03/02/20 08:00 98.8 89 20 123/77 (92) 97 03/02/20 08:00 10.0 35 03/02/20 07:49 97 T-Piece 10.0 35 03/02/20 04:00 98.5 85 18 115/63 (80) 96 03/02/20 04:00 10.0 35 03/02/20 04:00 85 03/02/20 01:44 97 T-Piece 10.0 35 03/02/20 00:00 98.5 80 18 108/62 (77) 95 03/02/20 00:00 10.0 35 03/02/20 00:00 70 03/01/20 21:54 64 117/65 03/01/20 21:00 T-piece 10.0 03/01/20 20:00 90 03/01/20 20:00 98.4 78 18 115/65 (82) 99 03/01/20 19:28 97 T-Piece 10.0 35 03/01/20 16:00 92 03/01/20 16:00 97.9 96 18 121/78 (92) 99 03/01/20 16:00 10.0 35 03/01/20 13:19 98 T-Piece 10.0 35 03/01/20 12:00 10.0 35 03/01/20 12:00 81 03/01/20 12:00 97.0 77 20 123/82 (96) 97 03/01/20 09:09 87 116/79 Intake and Output 03/01/20 03/02/20 19:00 07:00 Intake Total 750 ml 145 ml Output Total 700 ml 800 ml Balance 50 ml -655 ml Intake Free Water 300 ml 100 ml Tube Feeding 450 ml 45 ml Output Urine Total 700 ml 800 ml # Bowel Movements 2 1 Laboratory Tests 03/01/20 09:16: POC Whole Blood Glucose [Pending] 03/01/20 12:37: POC Whole Blood Glucose [Pending] 03/01/20 17:14: POC Whole Blood Glucose 137H 03/01/20 21:14: POC Whole Blood Glucose [Pending] 03/02/20 00:57: POC Whole Blood Glucose 164H 03/02/20 06:17: POC Whole Blood Glucose 247H 03/02/20 07:00: White Blood Count 4.9, Red Blood Count 4.30L, Hemoglobin 11.9L, Hematocrit 36.6L , Mean Corpuscular Volume 85, Mean Corpuscular Hemoglobin 27.7, Mean Corpuscular Hemoglobin Concent 32.5, Red Cell Distribution Width 16.2H, Platelet Count 411, Mean Platelet Volume 5.7L, Neutrophils (%) (Auto) 66.7, Lymphocytes (%) (Auto) 27.2, Monocytes (%) (Auto) 4.4, Eosinophils (%) (Auto) 0.9, Basophils (%) (Auto) 0.8, Erythrocyte Sedimentation Rate [Pending], Sodium Level 150H, Potassium Level 4.1, Chloride Level 116H, Carbon Dioxide Level 27, Anion Gap 7, Blood Urea Nitrogen 31H, Creatinine 0.8, Estimat Glomerular Filtration Rate > 60, Glucose Level 237H, Calcium Level 9.7, Phosphorus Level 1.7L, Magnesium Level 2.8H, Total Bilirubin 0.3, Aspartate Amino Transf (AST/SGOT) 15, Alanine Aminotransferase (ALT/SGPT) 19, Alkaline Phosphatase 106, C-Reactive Protein, Quantitative 0.8, Total Protein 7.7, Albumin 2.0L, Globulin 5.7, Albumin/Globulin Ratio 0.4L Height (Feet): 5 Height (Inches): 4.00 Weight (Pounds): 141 General Appearance: lethargic EENT: normal ENT inspection Neck: normal alignment Cardiovascular: normal rate Respiratory/Chest: decreased breath sounds Abdomen: normal bowel sounds, non tender, soft Extremities: non-tender Assessment/Plan Assessment/Plan: 1. Diabetes. 2. Chronic encephalopathy. 3. Intracranial hemorrhage and CVA. 4. Chronic respiratory failure with trach. 5. Dysphagia with G-tube. 6. Hyperlipidemia. GT has been changed and it is working well GTF monitor for residuals Srinivas Art MD Mar 02, 2020 08:58
[2020-03-02] MEDS: Heparin 5000 units/ml inj SUBQ SCH ×2 (09:10→22:14)
[2020-03-02] MEDS: Levemir Flexpen SUBQ SCH ×2 (09:11→22:18)
--- NOTE | 2020-03-02 09:46 | Diagnostic Imaging Report ---
EXAM: XR Chest, 1 View CLINICAL HISTORY: INFECT TECHNIQUE: Frontal view of the chest. COMPARISON: Chest x-ray 02/27/20 FINDINGS: Lungs: Vague opacities in the right midlung similar to prior study. Mild left lung base atelectasis/airspace disease. Pleural space: Tiny right pleural effusion. No pneumothorax. Heart: Unremarkable. No cardiomegaly. Mediastinum: Unremarkable. Bones/joints: Unremarkable. Tubes, lines and devices: Stable tracheostomy. Upper abdomen: Rotated film. Elevated right hemidiaphragm. IMPRESSION: Vague opacities in the right midlung similar to prior study. New tiny right pleural effusion.
--- NOTE | 2020-03-02 11:09 | Pulmonology Progress Note ---
Subjective ROS Limited/Unobtainable: No Constitutional: Reports: no symptoms HEENT: Repors: no symptoms Respiratory: Reports: no symptoms Allergies: Coded Allergies: No Known Allergies (Unverified , 02/20/20) All Systems: reviewed and negative except above Objective Last 24 Hour Vital Signs Date Time Temp Pulse Resp B/P (MAP) Pulse Ox O2 Delivery O2 Flow Rate FiO2 03/02/20 08:57 89 123/77 03/02/20 08:16 T-piece 10.0 03/02/20 08:00 95 03/02/20 08:00 98.8 89 20 123/77 (92) 97 03/02/20 08:00 10.0 35 03/02/20 07:49 97 T-Piece 10.0 35 03/02/20 04:00 98.5 85 18 115/63 (80) 96 03/02/20 04:00 10.0 35 03/02/20 04:00 85 03/02/20 01:44 97 T-Piece 10.0 35 03/02/20 00:00 98.5 80 18 108/62 (77) 95 03/02/20 00:00 10.0 35 03/02/20 00:00 70 03/01/20 21:54 64 117/65 03/01/20 21:00 T-piece 10.0 03/01/20 20:00 90 03/01/20 20:00 98.4 78 18 115/65 (82) 99 03/01/20 19:28 97 T-Piece 10.0 35 03/01/20 16:00 92 03/01/20 16:00 97.9 96 18 121/78 (92) 99 03/01/20 16:00 10.0 35 03/01/20 13:19 98 T-Piece 10.0 35 03/01/20 12:00 10.0 35 03/01/20 12:00 81 03/01/20 12:00 97.0 77 20 123/82 (96) 97 Intake and Output 03/01/20 03/02/20 19:00 07:00 Intake Total 750 ml 145 ml Output Total 700 ml 800 ml Balance 50 ml -655 ml Intake Free Water 300 ml 100 ml Tube Feeding 450 ml 45 ml Output Urine Total 700 ml 800 ml # Bowel Movements 2 1 General Appearance: cachetic HEENT: normocephalic, atraumatic Respiratory: chest wall non-tender, lungs clear Cardiovascular: normal peripheral pulses, normal rate Abdomen: normal bowel sounds, soft, non tender Extremities: no clubbing Neurologic: recreational leader II-XII grossly normal Lymphatic: no neck adenopathy Laboratory Tests 03/01/20 12:37: POC Whole Blood Glucose [Pending] 03/01/20 17:14: POC Whole Blood Glucose 137H 03/01/20 21:14: POC Whole Blood Glucose [Pending] 03/02/20 00:57: POC Whole Blood Glucose 164H 03/02/20 06:17: POC Whole Blood Glucose 247H 03/02/20 07:00: White Blood Count 4.9, Red Blood Count 4.30L, Hemoglobin 11.9L, Hematocrit 36.6L , Mean Corpuscular Volume 85, Mean Corpuscular Hemoglobin 27.7, Mean Corpuscular Hemoglobin Concent 32.5, Red Cell Distribution Width 16.2H, Platelet Count 411, Mean Platelet Volume 5.7L, Neutrophils (%) (Auto) 66.7, Lymphocytes (%) (Auto) 27.2, Monocytes (%) (Auto) 4.4, Eosinophils (%) (Auto) 0.9, Basophils (%) (Auto) 0.8, Erythrocyte Sedimentation Rate 64H, Sodium Level 150H, Potassium Level 4.1, Chloride Level 116H, Carbon Dioxide Level 27, Anion Gap 7, Blood Urea Nitrogen 31H, Creatinine 0.8, Estimat Glomerular Filtration Rate > 60, Glucose Level 237H, Calcium Level 9.7, Phosphorus Level 1.7L, Magnesium Level 2.8H, Total Bilirubin 0.3, Aspartate Amino Transf (AST/SGOT) 15, Alanine Aminotransferase (ALT/SGPT) 19, Alkaline Phosphatase 106, C-Reactive Protein, Quantitative 0.8, Total Protein 7.7, Albumin 2.0L, Globulin 5.7, Albumin/Globulin Ratio 0.4L 03/02/20 08:56: POC Whole Blood Glucose [Pending] Current Medications Medications (Trade) Dose Ordered Sig/Anders Route PRN Reason Start Time Stop Time Status Last Admin Dose Admin Acetaminophen (Tylenol) 650 mg Q6H PRN NG Mild Pain (1-3)/ Temp>100.5 02/26/20 00:30 03/21/20 00:29 Ascorbic Acid (Vitamin C) 500 mg DAILY ORAL 02/29/20 09:00 03/30/20 08:59 03/02/20 08:57 Barium Sulfate (Varibar Honey) 250 ml NOW PRN MC RAD 02/29/20 14:30 03/03/20 14:24 Barium Sulfate (Varibar [place]) 240 ml NOW PRN MC RAD 02/29/20 14:30 03/03/20 14:24 Barium Sulfate (Varibar Pudding) 230 ml NOW PRN MC RAD 02/29/20 14:30 03/03/20 14:24 Barium Sulfate (Varibar Thin Liquid powder) 148 gm NOW PRN RAD 02/29/20 14:30 03/03/20 14:24 Calcitonin [place] (Miacalcin) 1 sprays DAILY NASAL 02/26/20 15:00 05/26/20 14:59 03/02/20 08:57 Dextrose (Dextrose 50%) 25 ml Q30M PRN IV Hypoglycemia 02/26/20 00:15 05/24/20 09:14 Dextrose (Dextrose 50%) 50 ml Q30M PRN IV Hypoglycemia 02/26/20 00:15 05/24/20 09:14 Heparin Sodium (Porcine) (Heparin 5000 units/ml) 5,000 units EVERY 12 HOURS SUBQ 02/26/20 09:00 04/05/20 20:59 03/02/20 09:10 Insulin Aspart (NovoLOG) Q6HR SUBQ 02/26/20 00:00 05/24/20 09:14 03/02/20 06:21 Insulin Detemir (Levemir) 12 units Q12HR SUBQ 02/26/20 09:00 05/25/20 08:59 03/02/20 09:11 Meropenem 1 gm/ Sodium Chloride 55 ml @ 110 mls/hr Q8HR IVPB 02/28/20 14:00 03/04/20 23:59 03/02/20 05:44 Metoprolol Tartrate (Lopressor) 25 mg Q12HR GT 02/26/20 09:00 05/23/20 08:59 03/02/20 08:57 Pantoprazole (Protonix) 40 mg Q12HR IVP 02/26/20 09:00 03/22/20 08:59 03/02/20 08:57 Zinc Oxide (Zinc Oxide) 1 applic TIDPRN PRN TOPIC Scrotal wound and kathi-rectal 02/26/20 00:30 05/23/20 00:29 03/01/20 13:14 Assessment/Plan Problems: (1) Hypernatremia (2) Sepsis (3) Nosocomial pneumonia (4) Tracheostomy in place (5) Diabetes mellitus (6) OBS (organic brain syndrome) (7) Feeding by G-tube (8) Chronic vegetative state Assessment/Plan start on d5w 150 cc/hour to correct hypernatremia all reviewed no new complains awake continue abx check cultures, urine has citrobacter, sputum has MDR sliding scale diabetic gtube feeding trach care tolerating gtube feeding but wants some oral food as well Melany Salgado MD Mar 02, 2020 11:09
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
[2020-03-02 12:00] VITALS: BP 118/78
--- NOTE | 2020-03-02 13:24 | Surgery Progress Note ---
Surgery Progress Note Subjective Additional Comments no acute events Objective Last 24 Hour Vital Signs Date Time Temp Pulse Resp B/P (MAP) Pulse Ox O2 Delivery O2 Flow Rate FiO2 03/02/20 12:00 77 03/02/20 12:00 99.0 79 18 118/78 (91) 98 03/02/20 12:00 10.0 35 03/02/20 08:57 89 123/77 03/02/20 08:16 T-piece 10.0 03/02/20 08:00 95 03/02/20 08:00 98.8 89 20 123/77 (92) 97 03/02/20 08:00 10.0 35 03/02/20 07:49 97 T-Piece 10.0 35 03/02/20 04:00 98.5 85 18 115/63 (80) 96 03/02/20 04:00 10.0 35 03/02/20 04:00 85 03/02/20 01:44 97 T-Piece 10.0 35 03/02/20 00:00 98.5 80 18 108/62 (77) 95 03/02/20 00:00 10.0 35 03/02/20 00:00 70 03/01/20 21:54 64 117/65 03/01/20 21:00 T-piece 10.0 03/01/20 20:00 90 03/01/20 20:00 98.4 78 18 115/65 (82) 99 03/01/20 19:28 97 T-Piece 10.0 35 03/01/20 16:00 92 03/01/20 16:00 97.9 96 18 121/78 (92) 99 03/01/20 16:00 10.0 35 I&O Intake and Output 03/01/20 03/02/20 19:00 07:00 Intake Total 750 ml 145 ml Output Total 700 ml 800 ml Balance 50 ml -655 ml Intake Free Water 300 ml 100 ml Tube Feeding 450 ml 45 ml Output Urine Total 700 ml 800 ml # Bowel Movements 2 1 Dressing: other Wound: other Cardiovascular: RSR Respiratory: decreased breath sounds Abdomen: soft, non-tender, present bowel sounds Extremities: no tenderness, no cyanosis Laboratory Tests Test 03/01/20 17:14 03/01/20 21:14 03/02/20 00:57 03/02/20 06:17 POC Whole Blood Glucose 137 MG/DL (74-106) H Pending 164 MG/DL (74-106) H 247 MG/DL (74-106) H Test 03/02/20 07:00 03/02/20 08:56 03/02/20 11:36 White Blood Count 4.9 K/UL (4.8-10.8) Red Blood Count 4.30 M/UL (4.70-6.10) L Hemoglobin 11.9 G/DL (14.2-18.0) L Hematocrit 36.6 % (42.0-52.0) L Mean Corpuscular Volume 85 FL (80-99) Mean Corpuscular Hemoglobin 27.7 PG (27.0-31.0) Mean Corpuscular Hemoglobin Concent 32.5 G/DL (32.0-36.0) Red Cell Distribution Width 16.2 % (11.6-14.8) H Platelet Count 411 K/UL (150-450) Mean Platelet Volume 5.7 FL (6.5-10.1) L Neutrophils (%) (Auto) 66.7 % (45.0-75.0) Lymphocytes (%) (Auto) 27.2 % (20.0-45.0) Monocytes (%) (Auto) 4.4 % (1.0-10.0) Eosinophils (%) (Auto) 0.9 % (0.0-3.0) Basophils (%) (Auto) 0.8 % (0.0-2.0) Erythrocyte Sedimentation Rate 64 MM/HR (0-20) H Sodium Level 150 MMOL/L (136-145) H Potassium Level 4.1 MMOL/L (3.5-5.1) Chloride Level 116 MMOL/L (98-107) H Carbon Dioxide Level 27 MMOL/L (21-32) Anion Gap 7 mmol/L (5-15) Blood Urea Nitrogen 31 mg/dL (7-18) H Creatinine 0.8 MG/DL (0.55-1.30) Estimat Glomerular Filtration Rate > 60 mL/min (>60) Glucose Level 237 MG/DL (74-106) H Calcium Level 9.7 MG/DL (8.5-10.1) Phosphorus Level 1.7 MG/DL (2.5-4.9) L Magnesium Level 2.8 MG/DL (1.8-2.4) H Total Bilirubin 0.3 MG/DL (0.2-1.0) Aspartate Amino Transf (AST/SGOT) 15 U/L (15-37) Alanine Aminotransferase (ALT/SGPT) 19 U/L (12-78) Alkaline Phosphatase 106 U/L (46-116) C-Reactive Protein, Quantitative 0.8 mg/dL (0.00-0.90) Total Protein 7.7 G/DL (6.4-8.2) Albumin 2.0 G/DL (3.4-5.0) L Globulin 5.7 g/dL Albumin/Globulin Ratio 0.4 (1.0-2.7) L POC Whole Blood Glucose Pending Pending Plan Problems: (1) Sepsis Assessment & Plan: leukocytosis, fevers, abnormal labs, ill appearing, respiratory insufficiency, on support, micro noted. Pt presented on admission with Tracheostomy, multiple Pressure Injuries, Kita- rectal erosion.Skin assessed uner tracheal collar and no evidence of skin breakdown noted. Partially opened Sacral DTPI (L)6cm x (W)6.3cm. Base of wound is maroon ,fluctuant with small open area at sacrococcygeal area that is 80% slough ,20% mary at base (L)0.7cm x (W)0.8cm. Perirectal and scrotum area is grossly excoriated. Partial thickness wound noted to Base R and base of scrotum(L)2.8cm x (W)3.5cm. Biofilm noted at base of wound. Borders are macerated. Haemosiderin noted to bilat distal/lower extremities. L heel is boggy with non-Blanchable erythema. R heel is boggy with non-Blanchable erythema. Loose dry eschar noted to R heel . Pt denied tenderness or pain when palpated. Tx.Plan: Cleanse Sacral Wound with Saline. Apply Moisture Barrier Paste Periwound. Cover with Optifoam drsg. Changeevery 3 days and prn. Apply Zinc Oxide Paste to Scrotal wound and Kita-rectal erosion TID and Prn. Apply Cavilon Skin BArrier to both heels and Malleoli. Cover each site with Optifoam drsg. Change every 7 daysand prn. Reposition at least every 2hours or as tolerated. Off-load heels with pillow. APM/DONALDO Mattress overlay. DAILY ESTIMATED NEEDS: Needs based on wound, DM, sepsis/ 52.3kg 25-35 kcals/kg 8284-2000 total kcals 1.25-2 g protein/kg 65-105 g total protein 25-30 mL/kg 5912-3963 total fluid mLs NUTRITION DIAGNOSIS: * Swallowing difficulty R/T dysphagia, respiratory status as evidenced by pt on T-collar, PEG dep. * Increased kcal/prot needs R/T wound healing as evidenced by admitted w/ sacral wound per photo, refer to wound eval. CURRENT TF: Glucerna 1.5 @ 45ml/hr x 24 hrs-> HELD, GT OUT ENTERAL NUTRITION RECOMMENDATIONS: Glucerna 1.5 @ 45ml/hr x 24 hrs to provide 1080ml, 1620kcal, 89g prot, 820ml free water * Goal rate to 45m/hr x 24 hrs: meets 100% est kcal/prot needs * HOB over 30 degrees/ water flush per MD ADDITIONAL RECOMMENDATIONS: * Calibrated bedscal wt for accurate CBW * Rec long acting insulin for improved BG control- now on levemir * Wound healing: Add Vit C 500mg QD + Omari BID via PEG * Monitor lytes, replete as needed Uptrend in Na and BUN-> rec increase water flushes once GT replaced (2) UTI (urinary tract infection) (3) Tracheostomy in place (4) Diabetes mellitus (5) OBS (organic brain syndrome) (6) Feeding by G-tube (7) Chronic vegetative state (8) Nosocomial pneumonia Terry Armstrong Mar 02, 2020 13:23
--- NOTE | 2020-03-02 13:39 | Nephrology Progress Note ---
Assessment/Plan Problem List: (1) Hypercalcemia (2) Nosocomial pneumonia (3) Feeding by G-tube (4) Tracheostomy in place (5) Anemia (6) DMII (diabetes mellitus, type 2) Assessment Abnormal electrolytes. High sodium and low phosphorus at this time. Admitted with sepsis and healthcare associated pneumonia Hypertension by history Patient has tracheostomy connected to oxygen not ventilator Previous hypokalemia corrected Mild anemia Diabetes mellitus [id number] UTI Bedbound status, vegetative state Feeding through PEG Plan March 02: Labs reviewed. Electrolyte abnormalities addressed. We will continue to monitor renal parameters. Serum calcium 9.7, Albumin 2 March 01: No chemistry panel done today. Status quo. February 28: No chemistry panel drawn today. Will check lab tomorrow. Status quo. Medication reviewed. Monitor serum calcium phosphorus and electrolyte. February 27: Serum calcium lower. Labs reviewed. Renal parameters are stable. Continue per consultants. February 26: Serum calcium lowering. Labs reviewed. Stable renal parameters. Phosphorus supplement ordered. Continue per consultants. Previously: 60 mg pamidronate intravenously ordered one-time Nasal calcitonin ordered Continue to monitor blood chemistries and electrolytes Keep the blood pressure and blood sugar in check Per orders Subjective ROS Limited/Unobtainable: Yes Objective Objective Last 24 Hour Vital Signs Date Time Temp Pulse Resp B/P (MAP) Pulse Ox O2 Delivery O2 Flow Rate FiO2 03/02/20 12:00 77 03/02/20 12:00 99.0 79 18 118/78 (91) 98 03/02/20 12:00 10.0 35 03/02/20 08:57 89 123/77 03/02/20 08:16 T-piece 10.0 03/02/20 08:00 95 03/02/20 08:00 98.8 89 20 123/77 (92) 97 03/02/20 08:00 10.0 35 03/02/20 07:49 97 T-Piece 10.0 35 03/02/20 04:00 98.5 85 18 115/63 (80) 96 03/02/20 04:00 10.0 35 03/02/20 04:00 85 03/02/20 01:44 97 T-Piece 10.0 35 03/02/20 00:00 98.5 80 18 108/62 (77) 95 03/02/20 00:00 10.0 35 03/02/20 00:00 70 03/01/20 21:54 64 117/65 03/01/20 21:00 T-piece 10.0 03/01/20 20:00 90 03/01/20 20:00 98.4 78 18 115/65 (82) 99 03/01/20 19:28 97 T-Piece 10.0 35 03/01/20 16:00 92 03/01/20 16:00 97.9 96 18 121/78 (92) 99 03/01/20 16:00 10.0 35 Intake and Output 03/01/20 03/02/20 19:00 07:00 Intake Total 750 ml 145 ml Output Total 700 ml 800 ml Balance 50 ml -655 ml Intake Free Water 300 ml 100 ml Tube Feeding 450 ml 45 ml Output Urine Total 700 ml 800 ml # Bowel Movements 2 1 Laboratory Tests 03/01/20 17:14: POC Whole Blood Glucose 137H 03/01/20 21:14: POC Whole Blood Glucose [Pending] 03/02/20 00:57: POC Whole Blood Glucose 164H 03/02/20 06:17: POC Whole Blood Glucose 247H 03/02/20 07:00: White Blood Count 4.9, Red Blood Count 4.30L, Hemoglobin 11.9L, Hematocrit 36.6L , Mean Corpuscular Volume 85, Mean Corpuscular Hemoglobin 27.7, Mean Corpuscular Hemoglobin Concent 32.5, Red Cell Distribution Width 16.2H, Platelet Count 411, Mean Platelet Volume 5.7L, Neutrophils (%) (Auto) 66.7, Lymphocytes (%) (Auto) 27.2, Monocytes (%) (Auto) 4.4, Eosinophils (%) (Auto) 0.9, Basophils (%) (Auto) 0.8, Erythrocyte Sedimentation Rate 64H, Sodium Level 150H, Potassium Level 4.1, Chloride Level 116H, Carbon Dioxide Level 27, Anion Gap 7, Blood Urea Nitrogen 31H, Creatinine 0.8, Estimat Glomerular Filtration Rate > 60, Glucose Level 237H, Calcium Level 9.7, Phosphorus Level 1.7L, Magnesium Level 2.8H, Total Bilirubin 0.3, Aspartate Amino Transf (AST/SGOT) 15, Alanine Aminotransferase (ALT/SGPT) 19, Alkaline Phosphatase 106, C-Reactive Protein, Quantitative 0.8, Total Protein 7.7, Albumin 2.0L, Globulin 5.7, Albumin/Globulin Ratio 0.4L 03/02/20 08:56: POC Whole Blood Glucose [Pending] 03/02/20 11:36: POC Whole Blood Glucose [Pending] Height (Feet): 5 Height (Inches): 4.00 Weight (Pounds): 141 General Appearance: no apparent distress EENT: other - On T-piece Cardiovascular: normal rate Respiratory/Chest: decreased breath sounds Abdomen: soft Objective No change Cornell Coleman MD Mar 02, 2020 13:39
[2020-03-02] MEDS ORDERED: Potassium Phosphate 21 MM in NS 275 ML IV ONE (14:30)
[2020-03-02 16:00] VITALS: BP 118/77
--- NOTE | 2020-03-02 19:14 | NUR ---
NURSE HAND-OFF REPORT: Important Events on Shift:[wound care, BM, suctioning] Patient Status: [FULL CODE] Diet: [tube feeding] Pending Orders: [] Pending Results/Labs:[] Pending MD notification:[] Latest Vital Signs: Temperature 98.8 , Pulse 88 , B/P 118 /77 , Respiratory Rate 20 , O2 SAT 97 , T-piece, O2 Flow Rate 10.0 . Vital Sign Comment: [] EKG Rhythm: Sinus Rhythm Rhythm change?: N MD Notified?: - MD Response: Latest Cole Fall Score: 55 Fall Risk: High Risk Safety Measures: Call light Within Reach, Bed Alarm Zone 1, Side Rails Side Rails x3, Bed position Low and Locked. Fall Precautions: Yellow Gown Door Sign Patient Fall Education Report given to [Crys HAN].
--- NOTE | 2020-03-02 19:20 | NUR ---
NURSE NOTES: Report received from EMELY Shook. Patient is awake alert and oriented x1 able to nod yes and no and understands E[place]. No SOb or distress. Patient has tracheostomy t-piece. Intact and functioning at 34%fio2. Call light with in reach. Bed at lowest position locked with side rails up. Gtube feeding intact running at 45 cc/hr. HOB elevated for aspiration precautions. Recent manager of case notes states that [facility] has no isolation beds available right now. Will continue with plan of care.
[2020-03-02 20:00] VITALS: BP 110/72
[2020-03-03] VITALS: BP 107/67
[2020-03-03] MEDS: NovoLOG Insulin Flexpen SUBQ SCH ×3 (00:25→11:54)
--- NOTE | 2020-03-03 00:53 | NUR ---
NURSE NOTES: Patient had episode of Sinus bradycardia. 59 BPM. Patient was asleep with no other symptoms noted. Dr. Lang called and left message. No new orders at this time. Will continue to monitor.
--- NOTE | 2020-03-03 02:08 | Cardiology Progress Note ---
Subjective DATE OF SERVICE: Mar 02, 2020 On trach collar GTube now replaced and functioning Moderate secretions Lab abnormalities resolving Prior therapy with pamidranate for hyperCa++ Continues on hypotonic IVF Monitor: sinus rhythm/tachycardia CXR 03/02/20, persisting right sided PNA, with small effusion. Objective Last 24 Hour Vital Signs Date Time Temp Pulse Resp B/P (MAP) Pulse Ox O2 Delivery O2 Flow Rate FiO2 03/03/20 01:19 98 T-Piece 10.0 35 03/03/20 00:00 97.7 63 18 107/67 (80) 99 03/03/20 00:00 10.0 35 03/03/20 00:00 59 03/02/20 22:14 78 110/65 03/02/20 21:00 T-piece 10.0 03/02/20 20:00 10.0 35 03/02/20 20:00 73 03/02/20 20:00 97.5 74 18 110/72 (85) 97 03/02/20 19:34 97 T-Piece 10.0 35 03/02/20 16:00 98.8 87 20 118/77 (91) 97 03/02/20 16:00 10.0 35 03/02/20 16:00 88 03/02/20 13:39 97 T-Piece 10.0 35 03/02/20 12:00 77 03/02/20 12:00 99.0 79 18 118/78 (91) 98 03/02/20 12:00 10.0 35 03/02/20 08:57 89 123/77 03/02/20 08:16 T-piece 10.0 03/02/20 08:00 95 03/02/20 08:00 98.8 89 20 123/77 (92) 97 03/02/20 08:00 10.0 35 03/02/20 07:49 97 T-Piece 10.0 35 03/02/20 04:00 98.5 85 18 115/63 (80) 96 03/02/20 04:00 10.0 35 03/02/20 04:00 85 ROS: unchanged from my dictation of 02/21/20 HEENT: Thick Trach secretions LUNGS: bilateral rhonchi, trach site clean CARDIAC: normal rate, regular rhythm, normal S1 and S2 ABDOMEN: normal bowel sounds, non tender, soft, G-Tube intact EXTREMITIES: normal range of motion, no swelling, No edema Laboratory Tests Test 03/02/20 06:17 03/02/20 07:00 03/02/20 08:56 03/02/20 11:36 POC Whole Blood Glucose 247 MG/DL (74-106) H Pending Pending White Blood Count 4.9 K/UL (4.8-10.8) Red Blood Count 4.30 M/UL (4.70-6.10) L Hemoglobin 11.9 G/DL (14.2-18.0) L Hematocrit 36.6 % (42.0-52.0) L Mean Corpuscular Volume 85 FL (80-99) Mean Corpuscular Hemoglobin 27.7 PG (27.0-31.0) Mean Corpuscular Hemoglobin Concent 32.5 G/DL (32.0-36.0) Red Cell Distribution Width 16.2 % (11.6-14.8) H Platelet Count 411 K/UL (150-450) Mean Platelet Volume 5.7 FL (6.5-10.1) L Neutrophils (%) (Auto) 66.7 % (45.0-75.0) Lymphocytes (%) (Auto) 27.2 % (20.0-45.0) Monocytes (%) (Auto) 4.4 % (1.0-10.0) Eosinophils (%) (Auto) 0.9 % (0.0-3.0) Basophils (%) (Auto) 0.8 % (0.0-2.0) Erythrocyte Sedimentation Rate 64 MM/HR (0-20) H Sodium Level 150 MMOL/L (136-145) H Potassium Level 4.1 MMOL/L (3.5-5.1) Chloride Level 116 MMOL/L (98-107) H Carbon Dioxide Level 27 MMOL/L (21-32) Anion Gap 7 mmol/L (5-15) Blood Urea Nitrogen 31 mg/dL (7-18) H Creatinine 0.8 MG/DL (0.55-1.30) Estimat Glomerular Filtration Rate > 60 mL/min (>60) Glucose Level 237 MG/DL (74-106) H Calcium Level 9.7 MG/DL (8.5-10.1) Phosphorus Level 1.7 MG/DL (2.5-4.9) L Magnesium Level 2.8 MG/DL (1.8-2.4) H Total Bilirubin 0.3 MG/DL (0.2-1.0) Aspartate Amino Transf (AST/SGOT) 15 U/L (15-37) Alanine Aminotransferase (ALT/SGPT) 19 U/L (12-78) Alkaline Phosphatase 106 U/L (46-116) C-Reactive Protein, Quantitative 0.8 mg/dL (0.00-0.90) Total Protein 7.7 G/DL (6.4-8.2) Albumin 2.0 G/DL (3.4-5.0) L Globulin 5.7 g/dL Albumin/Globulin Ratio 0.4 (1.0-2.7) L Test 03/02/20 17:20 03/02/20 22:16 03/03/20 00:22 POC Whole Blood Glucose Pending Pending Pending Assessment/Plan Assessment/Plan Healthcare associated PNA improving Sepsis Recovered shock Hypertension/HHD Respiratory failure with trach Anemia Hypokalemia corrected Leukocytosis improved Dehydration/hypernatremia IRDM uncontrolled Hypophosphatemia Hypercalcemia GTube malfxn - corrected Abx IVF adjusted to correct free water deficit with PO4 suppl; free water per GTube as well Resp rx Replace K+/Mg++ as needed Nutrition per Gtube Titrate long acting insulin Titrate beta mahi DVT prophylaxis Richard Lang MD Mar 03, 2020 02:08
[2020-03-03 04:00] VITALS: BP 110/69
--- NOTE | 2020-03-03 04:53 | NUR ---
Patient's heart rate continues to be in sinus rhythm. Heart rate sustained at 60 to 80 BPM. No other episodes of bradycardia.
[2020-03-03] MEDS: Meropenem 1 GM in NS 55 ML IVPB SCH ×2 (05:54→13:06)
--- NOTE | 2020-03-03 07:56 | NUR ---
NURSE HAND-OFF REPORT: Important Events on Shift:[Stable] Patient Status: [Treatment to wound done as ordered] Diet: [] Pending Orders: [] Pending Results/Labs:[] Pending MD notification:[] Latest Vital Signs: Temperature 98.1 , Pulse 67 , B/P 110 /69 , Respiratory Rate 18 , O2 SAT 98 , T-piece, O2 Flow Rate 10.0 . Vital Sign Comment: [] EKG Rhythm: Sinus Rhythm Rhythm change?: N MD Notified?: Y Neris Lang MD Response: Message left await call Latest Cole Fall Score: 55 Fall Risk: High Risk Safety Measures: Call light Within Reach, Bed Alarm Zone 1, Side Rails Side Rails x3, Bed position Low and Locked. Fall Precautions: Yellow Gown Door Sign Patient Fall Education Report given to [Ora].
--- NOTE | 2020-03-03 07:57 | NUR ---
NURSE NOTES: Received patient in bed awake. Trache intact, on 34% FiO2, 10LPM. No SOB or acute distress. IV line intact. Gtube intact, feeding ongoing. Wound dressings intact. FC intact, draining yellow colored urine. HOB elevated. Bed locked in low position. Call light within reach. Wound care orders previously cancelled, Dr Armstrong made aware and said he will fix the orders. Will continue plan of care.
[2020-03-03 08:00] VITALS: BP 102/63
[2020-03-03 08:00] LABS: BASOPHILS % (AUTO) 1.1 % (0.0-2.0); EOSINOPHILS % (AUTO) 2.4 % (0.0-3.0); HEMATOCRIT 33.4 % (42.0-52.0); HEMOGLOBIN 10.8 G/DL (14.2-18.0); LYMPHOCYTES % (AUTO) 18.9 % (20.0-45.0); MEAN CORPUSCULAR VOLUME 85 FL (80-99); MONOCYTES % (AUTO) 4.9 % (1.0-10.0); NEUTROPHILS % (AUTO) 72.6 % (45.0-75.0); PLATELET COUNT 351 K/UL (150-450); RED BLOOD COUNT 3.93 M/UL (4.70-6.10); RED CELL DISTRIBUTION WIDTH 15.9 % (11.6-14.8); WHITE BLOOD COUNT 6.5 K/UL (4.8-10.8)
[2020-03-03] MEDS: Pantoprazole Inj IVP SCH (08:35)
[2020-03-03] MEDS: Ascorbic Acid 500mg tab ORAL SCH (08:35)
[2020-03-03] MEDS: Heparin 5000 units/ml inj SUBQ SCH (08:37)
[2020-03-03] MEDS: Levemir Flexpen SUBQ SCH (08:38)
--- NOTE | 2020-03-03 08:38 | Surgery Progress Note ---
Surgery Progress Note Subjective Additional Comments t 99.5 resting micro noted uti comp on abx Objective Last 24 Hour Vital Signs Date Time Temp Pulse Resp B/P (MAP) Pulse Ox O2 Delivery O2 Flow Rate FiO2 03/03/20 08:00 99.5 70 20 102/63 (76) 97 03/03/20 04:00 98.1 67 18 110/69 (83) 98 03/03/20 04:00 10.0 35 03/03/20 04:00 70 03/03/20 01:19 98 T-Piece 10.0 35 03/03/20 00:00 97.7 63 18 107/67 (80) 99 03/03/20 00:00 10.0 35 03/03/20 00:00 59 03/02/20 22:14 78 110/65 03/02/20 21:00 T-piece 10.0 03/02/20 20:00 10.0 35 03/02/20 20:00 73 03/02/20 20:00 97.5 74 18 110/72 (85) 97 03/02/20 19:34 97 T-Piece 10.0 35 03/02/20 16:00 98.8 87 20 118/77 (91) 97 03/02/20 16:00 10.0 35 03/02/20 16:00 88 03/02/20 13:39 97 T-Piece 10.0 35 03/02/20 12:00 77 03/02/20 12:00 99.0 79 18 118/78 (91) 98 03/02/20 12:00 10.0 35 03/02/20 08:57 89 123/77 I&O Intake and Output 03/02/20 03/03/20 19:00 07:00 Output Total 701 ml 800 ml Balance -701 ml -800 ml Output Urine Total 700 ml 800 ml Stool Total 1 ml # Voids 1 Dressing: other Wound: other Cardiovascular: RSR Respiratory: decreased breath sounds Abdomen: soft, non-tender, present bowel sounds Extremities: edema, no tenderness, no cyanosis Laboratory Tests Test 03/02/20 08:56 03/02/20 11:36 03/02/20 17:20 03/02/20 22:16 POC Whole Blood Glucose Pending Pending Pending Pending Test 03/03/20 00:22 03/03/20 05:59 03/03/20 07:19 POC Whole Blood Glucose Pending Pending White Blood Count 6.5 K/UL (4.8-10.8) Red Blood Count 3.93 M/UL (4.70-6.10) L Hemoglobin 10.8 G/DL (14.2-18.0) L Hematocrit 33.4 % (42.0-52.0) L Mean Corpuscular Volume 85 FL (80-99) Mean Corpuscular Hemoglobin 27.4 PG (27.0-31.0) Mean Corpuscular Hemoglobin Concent 32.3 G/DL (32.0-36.0) Red Cell Distribution Width 15.9 % (11.6-14.8) H Platelet Count 351 K/UL (150-450) Mean Platelet Volume 5.9 FL (6.5-10.1) L Neutrophils (%) (Auto) 72.6 % (45.0-75.0) Lymphocytes (%) (Auto) 18.9 % (20.0-45.0) L Monocytes (%) (Auto) 4.9 % (1.0-10.0) Eosinophils (%) (Auto) 2.4 % (0.0-3.0) Basophils (%) (Auto) 1.1 % (0.0-2.0) Erythrocyte Sedimentation Rate Pending Sodium Level Pending Potassium Level Pending Chloride Level Pending Carbon Dioxide Level Pending Blood Urea Nitrogen Pending Creatinine Pending Estimat Glomerular Filtration Rate Pending Glucose Level Pending Calcium Level Pending Phosphorus Level Pending Magnesium Level Pending Total Bilirubin Pending Aspartate Amino Transf (AST/SGOT) Pending Alanine Aminotransferase (ALT/SGPT) Pending Alkaline Phosphatase Pending C-Reactive Protein, Quantitative Pending Total Protein Pending Albumin Pending Globulin Pending Plan Problems: (1) Sepsis Assessment & Plan: leukocytosis, fevers, abnormal labs, ill appearing, respiratory insufficiency, on support, micro noted. Pt presented on admission with Tracheostomy, multiple Pressure Injuries, Kita- rectal erosion.Skin assessed uner tracheal collar and no evidence of skin b reakdown noted. Partially opened Sacral DTPI (L)6cm x (W)6.3cm. Base of wound is maroon ,fluctuant with small open area at sacrococcygeal area that is 80% slough ,20% mary at base (L)0.7cm x (W)0.8cm. Perirectal and scrotum area is grossly excoriated. Partial thickness wound noted to Base R and base of scrotum(L)2.8cm x (W)3.5cm. Biofilm noted at base of wound. Borders are macerated. Haemosiderin noted to bilat distal/lower extremities. L heel is boggy with non-Blanchable erythema. R heel is boggy with non-Blanchable erythema. Loose dry eschar noted to R heel . Pt denied tenderness or pain when palpated. Tx.Plan: Cleanse Sacral Wound with Saline. Apply Moisture Barrier Paste Periwound. Cover with Optifoam drsg. Changeevery 3 days and prn. Apply Zinc Oxide Paste to Scrotal wound and Kita-rectal erosion TID and Prn. Apply Cavilon Skin BArrier to both heels and Malleoli. Cover each site with Optifoam drsg. Change every 7 daysand prn. Reposition at least every 2hours or as tolerated. Off-load heels with pillow. APM/DONALDO Mattress overlay. cont abx trend labs DAILY ESTIMATED NEEDS: Needs based on wound, DM, sepsis/ 52.3kg 25-35 kcals/kg 0899-3329 total kcals 1.25-2 g protein/kg 65-105 g total protein 25-30 mL/kg 9559-2111 total fluid mLs NUTRITION DIAGNOSIS: * Swallowing difficulty R/T dysphagia, respiratory status as evidenced by pt on T-collar, PEG dep. * Increased kcal/prot needs R/T wound healing as evidenced by admitted w/ sacral wound per photo, refer to wound eval. CURRENT TF: Glucerna 1.5 @ 45ml/hr x 24 hrs-> HELD, GT OUT ENTERAL NUTRITION RECOMMENDATIONS: Glucerna 1.5 @ 45ml/hr x 24 hrs to provide 1080ml, 1620kcal, 89g prot, 820ml free water * Goal rate to 45m/hr x 24 hrs: meets 100% est kcal/prot needs * HOB over 30 degrees/ water flush per MD ADDITIONAL RECOMMENDATIONS: * Calibrated bedscal wt for accurate CBW * Rec long acting insulin for improved BG control- now on levemir * Wound healing: Add Vit C 500mg QD + Omari BID via PEG * Monitor lytes, replete as needed Uptrend in Na and BUN-> rec increase water flushes once GT replaced (2) UTI (urinary tract infection) (3) Tracheostomy in place (4) Diabetes mellitus (5) OBS (organic brain syndrome) (6) Feeding by G-tube (7) Chronic vegetative state (8) Nosocomial pneumonia (9) Hypernatremia (10) Hypercalcemia (11) Anemia (12) DMII (diabetes mellitus, type 2) Terry Armstrong Mar 03, 2020 08:38
[2020-03-03 08:47] LABS: ALANINE AMINOTRANSFERASE 22 U/L (12-78); ALBUMIN 1.8 G/DL (3.4-5.0); ALBUMIN/GLOBULIN RATIO 0.4 (1.0-2.7); ALKALINE PHOSPHATASE 124 U/L (46-116); ANION GAP 7 mmol/L (5-15); ASPARTATE AMINO TRANSFERASE 16 U/L (15-37); BILIRUBIN,TOTAL 0.4 MG/DL (0.2-1.0); BLOOD UREA NITROGEN 22 mg/dL (7-18); CALCIUM 8.8 MG/DL (8.5-10.1); CARBON DIOXIDE 25 MMOL/L (21-32); CHLORIDE 107 MMOL/L (98-107); CREATININE 0.6 MG/DL (0.55-1.30); PHOSPHORUS 1.6 MG/DL (2.5-4.9); POTASSIUM 4.2 MMOL/L (3.5-5.1); SODIUM 139 MMOL/L (136-145)
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
--- NOTE | 2020-03-03 09:51 | General Progress Note ---
Subjective ROS Limited/Unobtainable: No Allergies: Coded Allergies: No Known Allergies (Unverified , 02/20/20) Objective Last 24 Hour Vital Signs Date Time Temp Pulse Resp B/P (MAP) Pulse Ox O2 Delivery O2 Flow Rate FiO2 03/03/20 08:35 70 102/63 03/03/20 08:00 99.5 70 20 102/63 (76) 97 03/03/20 06:55 97 T-Piece 10.0 35 03/03/20 04:00 98.1 67 18 110/69 (83) 98 03/03/20 04:00 10.0 35 03/03/20 04:00 70 03/03/20 01:19 98 T-Piece 10.0 35 03/03/20 00:00 97.7 63 18 107/67 (80) 99 03/03/20 00:00 10.0 35 03/03/20 00:00 59 03/02/20 22:14 78 110/65 03/02/20 21:00 T-piece 10.0 03/02/20 20:00 10.0 35 03/02/20 20:00 73 03/02/20 20:00 97.5 74 18 110/72 (85) 97 03/02/20 19:34 97 T-Piece 10.0 35 03/02/20 16:00 98.8 87 20 118/77 (91) 97 03/02/20 16:00 10.0 35 03/02/20 16:00 88 03/02/20 13:39 97 T-Piece 10.0 35 03/02/20 12:00 77 03/02/20 12:00 99.0 79 18 118/78 (91) 98 03/02/20 12:00 10.0 35 Intake and Output 03/02/20 03/03/20 19:00 07:00 Output Total 701 ml 800 ml Balance -701 ml -800 ml Output Urine Total 700 ml 800 ml Stool Total 1 ml # Voids 1 Laboratory Tests 03/02/20 11:36: POC Whole Blood Glucose [Pending] 03/02/20 17:20: POC Whole Blood Glucose [Pending] 03/02/20 22:16: POC Whole Blood Glucose [Pending] 03/03/20 00:22: POC Whole Blood Glucose [Pending] 03/03/20 05:59: POC Whole Blood Glucose [Pending] 03/03/20 07:19: White Blood Count 6.5, Red Blood Count 3.93L, Hemoglobin 10.8L, Hematocrit 33.4L , Mean Corpuscular Volume 85, Mean Corpuscular Hemoglobin 27.4, Mean Corpuscular Hemoglobin Concent 32.3, Red Cell Distribution Width 15.9H, Platelet Count 351, Mean Platelet Volume 5.9L, Neutrophils (%) (Auto) 72.6, Lymphocytes (%) (Auto) 18.9L, Monocytes (%) (Auto) 4.9, Eosinophils (%) (Auto) 2.4, Basophils (%) (Auto) 1.1, Erythrocyte Sedimentation Rate 58H, Sodium Level 139, Potassium Level 4.2, Chloride Level 107, Carbon Dioxide Level 25, Anion Gap 7, Blood Urea Nitrogen 22H, Creatinine 0.6, Estimat Glomerular Filtration Rate > 60, Glucose Level 274H, Calcium Level 8.8, Phosphorus Level 1.6L, Magnesium Level 2.3, Total Bilirubin 0.4, Aspartate Amino Transf (AST/SGOT) 16, Alanine Aminotransferase (ALT/SGPT) 22, Alkaline Phosphatase 124H, C-Reactive Protein, Quantitative < 0.4, Total Protein 6.9, Albumin 1.8L, Globulin 5.1, Albumin/Globulin Ratio 0.4L Height (Feet): 5 Height (Inches): 4.00 Weight (Pounds): 141 General Appearance: no apparent distress EENT: normal ENT inspection Neck: supple Cardiovascular: normal rate Respiratory/Chest: decreased breath sounds Abdomen: normal bowel sounds, non tender, soft Extremities: non-tender Assessment/Plan Assessment/Plan: 1. Diabetes. 2. Chronic encephalopathy. 3. Intracranial hemorrhage and CVA. 4. Chronic respiratory failure with trach. 5. Dysphagia with G-tube. 6. Hyperlipidemia. GT has been changed and it is working well GTF monitor for residuals Srinivas Art MD Mar 03, 2020 09:51
[2020-03-03] MEDS ORDERED: Tubing IV Secondary IV ONE (10:46)
[2020-03-03] MEDS ORDERED: NS 275ml ONE (10:46)
[2020-03-03] MEDS ORDERED: Sterile Water Irrig 1000ml IRRIG ONE (10:46)
--- NOTE | 2020-03-03 11:32 | Pulmonology Progress Note ---
Subjective ROS Limited/Unobtainable: No Constitutional: Reports: no symptoms HEENT: Repors: no symptoms Respiratory: Reports: no symptoms Allergies: Coded Allergies: No Known Allergies (Unverified , 02/20/20) All Systems: reviewed and negative except above Objective Last 24 Hour Vital Signs Date Time Temp Pulse Resp B/P (MAP) Pulse Ox O2 Delivery O2 Flow Rate FiO2 03/03/20 09:00 T-piece 10.0 03/03/20 08:35 70 102/63 03/03/20 08:00 99.5 70 20 102/63 (76) 97 03/03/20 08:00 10.0 35 03/03/20 08:00 71 03/03/20 06:55 97 T-Piece 10.0 35 03/03/20 04:00 98.1 67 18 110/69 (83) 98 03/03/20 04:00 10.0 35 03/03/20 04:00 70 03/03/20 01:19 98 T-Piece 10.0 35 03/03/20 00:00 97.7 63 18 107/67 (80) 99 03/03/20 00:00 10.0 35 03/03/20 00:00 59 03/02/20 22:14 78 110/65 03/02/20 21:00 T-piece 10.0 03/02/20 20:00 10.0 35 03/02/20 20:00 73 03/02/20 20:00 97.5 74 18 110/72 (85) 97 03/02/20 19:34 97 T-Piece 10.0 35 03/02/20 16:00 98.8 87 20 118/77 (91) 97 03/02/20 16:00 10.0 35 03/02/20 16:00 88 03/02/20 13:39 97 T-Piece 10.0 35 03/02/20 12:00 77 03/02/20 12:00 99.0 79 18 118/78 (91) 98 03/02/20 12:00 10.0 35 Intake and Output 03/02/20 03/03/20 19:00 07:00 Output Total 701 ml 800 ml Balance -701 ml -800 ml Output Urine Total 700 ml 800 ml Stool Total 1 ml # Voids 1 General Appearance: cachetic HEENT: normocephalic, atraumatic Respiratory: chest wall non-tender, lungs clear Cardiovascular: normal peripheral pulses, normal rate Abdomen: normal bowel sounds, soft, non tender Extremities: no clubbing 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 Lymphatic: no neck adenopathy Laboratory Tests 03/02/20 11:36: POC Whole Blood Glucose [Pending] 03/02/20 17:20: POC Whole Blood Glucose [Pending] 03/02/20 22:16: POC Whole Blood Glucose [Pending] 03/03/20 00:22: POC Whole Blood Glucose [Pending] 03/03/20 05:59: POC Whole Blood Glucose [Pending] 03/03/20 07:19: White Blood Count 6.5, Red Blood Count 3.93L, Hemoglobin 10.8L, Hematocrit 33.4L , Mean Corpuscular Volume 85, Mean Corpuscular Hemoglobin 27.4, Mean Corpuscular Hemoglobin Concent 32.3, Red Cell Distribution Width 15.9H, Platelet Count 351, Mean Platelet Volume 5.9L, Neutrophils (%) (Auto) 72.6, Lymphocytes (%) (Auto) 18.9L, Monocytes (%) (Auto) 4.9, Eosinophils (%) (Auto) 2.4, Basophils (%) (Auto) 1.1, Erythrocyte Sedimentation Rate 58H, Sodium Level 139, Potassium Level 4.2, Chloride Level 107, Carbon Dioxide Level 25, Anion Gap 7, Blood Urea Nitrogen 22H, Creatinine 0.6, Estimat Glomerular Filtration Rate > 60, Glucose Level 274H, Calcium Level 8.8, Phosphorus Level 1.6L, Magnesium Level 2.3, Total Bilirubin 0.4, Aspartate Amino Transf (AST/SGOT) 16, Alanine Aminotransferase (ALT/SGPT) 22, Alkaline Phosphatase 124H, C-Reactive Protein, Quantitative < 0.4, Total Protein 6.9, Albumin 1.8L, Globulin 5.1, Albumin/Globulin Ratio 0.4L Current Medications Medications (Trade) Dose Ordered Sig/Anders Route PRN Reason Start Time Stop Time Status Last Admin Dose Admin Acetaminophen (Tylenol) 650 mg Q6H PRN NG Mild Pain (1-3)/ Temp>100.5 02/26/20 00:30 03/21/20 00:29 Ascorbic Acid (Vitamin C) 500 mg DAILY ORAL 02/29/20 09:00 03/30/20 08:59 03/03/20 08:35 Barium Sulfate (Varibar Honey) 250 ml NOW PRN RAD 02/29/20 14:30 03/03/20 14:24 Barium Sulfate (Varibar [place]) 240 ml NOW PRN RAD 02/29/20 14:30 03/03/20 14:24 Barium Sulfate (Varibar Pudding) 230 ml NOW PRN RAD 02/29/20 14:30 03/03/20 14:24 Barium Sulfate (Varibar Thin Liquid powder) 148 gm NOW PRN RAD 02/29/20 14:30 03/03/20 14:24 Calcitonin [place] (Miacalcin) 1 sprays DAILY NASAL 02/26/20 15:00 05/26/20 14:59 03/03/20 08:34 Dextrose 1,000 ml @ 150 mls/hr Q6H40M IV 03/02/20 11:30 04/01/20 11:29 03/03/20 08:34 Dextrose (Dextrose 50%) 25 ml Q30M PRN IV Hypoglycemia 02/26/20 00:15 05/24/20 09:14 Dextrose (Dextrose 50%) 50 ml Q30M PRN IV Hypoglycemia 02/26/20 00:15 05/24/20 09:14 Heparin Sodium (Porcine) (Heparin 5000 units/ml) 5,000 units EVERY 12 HOURS SUBQ 02/26/20 09:00 04/05/20 20:59 03/03/20 08:37 Insulin Aspart (NovoLOG) Q6HR SUBQ 02/26/20 00:00 05/24/20 09:14 03/03/20 06:01 Insulin Detemir (Levemir) 12 units Q12HR SUBQ 02/26/20 09:00 05/25/20 08:59 03/03/20 08:38 Meropenem 1 gm/ Sodium Chloride 55 ml @ 110 mls/hr Q8HR IVPB 02/28/20 14:00 03/04/20 23:59 03/03/20 05:54 Metoprolol Tartrate (Lopressor) 25 mg Q12HR GT 02/26/20 09:00 05/23/20 08:59 03/03/20 08:35 Pantoprazole (Protonix) 40 mg Q12HR IVP 02/26/20 09:00 03/22/20 08:59 03/03/20 08:35 Zinc Oxide (Zinc Oxide) 1 applic TIDPRN PRN TOPIC Scrotal wound and kathi-rectal 02/26/20 00:30 05/23/20 00:29 03/01/20 13:14 Assessment/Plan Problems: (1) Hypernatremia (2) Sepsis (3) Nosocomial pneumonia (4) Tracheostomy in place (5) Diabetes mellitus (6) OBS (organic brain syndrome) (7) Feeding by G-tube (8) Chronic vegetative state Assessment/Plan decrease d5w from 150 cc/hour 50 cc/hour all reviewed no new complains awake continue abx, Meropenem check cultures, urine has citrobacter, sputum has MDR sliding scale diabetic gtube feeding trach care tolerating gtube feeding but wants some oral food as well Melany Salgado MD Mar 03, 2020 11:32
[2020-03-03 12:00] VITALS: BP 103/65
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
--- NOTE | 2020-03-03 13:08 | NUR ---
RD ASSESSMENT & RECOMMENDATIONS SEE CARE ACTIVITY FOR COMPLETE ASSESSMENT DAILY ESTIMATED NEEDS: Needs based on wound, DM, sepsis/ 52.3kg 25-35 kcals/kg 0730-5879 total kcals 1.25-2 g protein/kg 65-105 g total protein 25-30 mL/kg 5314-0962 total fluid mLs NUTRITION DIAGNOSIS: * Swallowing difficulty R/T dysphagia, respiratory status as evidenced by pt on T-collar, PEG dep. * Increased kcal/prot needs R/T wound healing as evidenced by admitted w/ sacral wound per photo, refer to wound eval. CURRENT TF:Glucerna 1.5 @ 45ml/hr x 24 hrs ENTERAL NUTRITION RECOMMENDATIONS: Glucerna 1.5 @ 45ml/hr x 24 hrs to provide 1080ml, 1620kcal, 89g prot, 820ml free water * Maintain current TF meets 100% est kcal/prot needs * HOB over 30 degrees/ water flush per MD ADDITIONAL RECOMMENDATIONS: * Calibrated bedscal wt for accurate CBW * Rec long acting insulin for improved BG control- now on levemir * Add NISS * DC D5 IVF for improved BG control, rec increasing water flushes * Monitor lytes, replete as needed * Wound healing: Add Vit C 500mg QD + Omari BID via PEG
--- NOTE | 2020-03-03 13:28 | NUR ---
CASE MANAGEMENT: DCP UPON DISCHARGE [phone] # [phone] FAMILY ROYCE RIBERA [phone] CALLED / LEFT MESSAGE TRANSPORTATION VIA [facility] [phone] 15:30 ENGINE COWLING INSTALLER TIME
--- NOTE | 2020-03-03 14:00 | Nephrology Progress Note ---
Assessment/Plan Problem List: (1) Hypercalcemia (2) Nosocomial pneumonia (3) Feeding by G-tube (4) Tracheostomy in place (5) Anemia (6) DMII (diabetes mellitus, type 2) Assessment Abnormal electrolytes. High sodium and low phosphorus at this time. Admitted with sepsis and healthcare associated pneumonia Hypertension by history Patient has tracheostomy connected to oxygen not ventilator Previous hypokalemia corrected Mild anemia Diabetes mellitus [id number] UTI Bedbound status, vegetative state Feeding through PEG Plan March 03: Labs reviewed. Renal parameters are stable. From calcium lowering. Low phosphorus replaced. March 02: Labs reviewed. Electrolyte abnormalities addressed. We will continue to monitor renal parameters. Serum calcium 9.7, Albumin 2 March 01: No chemistry panel done today. Status quo. February 28: No chemistry panel drawn today. Will check lab tomorrow. Status quo. Medication reviewed. Monitor serum calcium phosphorus and electrolyte. February 27: Serum calcium lower. Labs reviewed. Renal parameters are stable. Continue per consultants. February 26: Serum calcium lowering. Labs reviewed. Stable renal parameters. Phosphorus supplement ordered. Continue per consultants. Previously: 60 mg pamidronate intravenously ordered one-time Nasal calcitonin ordered Continue to monitor blood chemistries and electrolytes Keep the blood pressure and blood sugar in check Per orders Subjective ROS Limited/Unobtainable: Yes Objective Objective Last 24 Hour Vital Signs Date Time Temp Pulse Resp B/P (MAP) Pulse Ox O2 Delivery O2 Flow Rate FiO2 03/03/20 12:00 96.9 64 20 103/65 (78) 98 03/03/20 12:00 10.0 35 03/03/20 12:00 66 03/03/20 09:00 T-piece 10.0 03/03/20 08:35 70 102/63 03/03/20 08:00 99.5 70 20 102/63 (76) 97 03/03/20 08:00 10.0 35 03/03/20 08:00 71 03/03/20 06:55 97 T-Piece 10.0 35 03/03/20 04:00 98.1 67 18 110/69 (83) 98 03/03/20 04:00 10.0 35 03/03/20 04:00 70 03/03/20 01:19 98 T-Piece 10.0 35 03/03/20 00:00 97.7 63 18 107/67 (80) 99 9/21/20 00:00 10.0 35 03/03/20 00:00 59 03/02/20 22:14 78 110/65 03/02/20 21:00 T-piece 10.0 03/02/20 20:00 10.0 35 03/02/20 20:00 73 03/02/20 20:00 97.5 74 18 110/72 (85) 97 03/02/20 19:34 97 T-Piece 10.0 35 03/02/20 16:00 98.8 87 20 118/77 (91) 97 03/02/20 16:00 10.0 35 03/02/20 16:00 88 Intake and Output 03/02/20 03/03/20 19:00 07:00 Output Total 701 ml 800 ml Balance -701 ml -800 ml Output Urine Total 700 ml 800 ml Stool Total 1 ml # Voids 1 Laboratory Tests 03/02/20 17:20: POC Whole Blood Glucose [Pending] 03/02/20 22:16: POC Whole Blood Glucose [Pending] 03/03/20 00:22: POC Whole Blood Glucose [Pending] 03/03/20 05:59: POC Whole Blood Glucose [Pending] 03/03/20 07:19: White Blood Count 6.5, Red Blood Count 3.93L, Hemoglobin 10.8L, Hematocrit 33.4L , Mean Corpuscular Volume 85, Mean Corpuscular Hemoglobin 27.4, Mean Corpuscular Hemoglobin Concent 32.3, Red Cell Distribution Width 15.9H, Platelet Count 351, Mean Platelet Volume 5.9L, Neutrophils (%) (Auto) 72.6, Lymphocytes (%) (Auto) 18.9L, Monocytes (%) (Auto) 4.9, Eosinophils (%) (Auto) 2.4, Basophils (%) (A uto) 1.1, Erythrocyte Sedimentation Rate 58H, Sodium Level 139, Potassium Level 4.2, Chloride Level 107, Carbon Dioxide Level 25, Anion Gap 7, Blood Urea Nitrogen 22H, Creatinine 0.6, Estimat Glomerular Filtration Rate > 60, Glucose Level 274H, Calcium Level 8.8, Phosphorus Level 1.6L, Magnesium Level 2.3, Total Bilirubin 0.4, Aspartate Amino Transf (AST/SGOT) 16, Alanine Aminotransferase (ALT/SGPT) 22, Alkaline Phosphatase 124H, C-Reactive Protein, Quantitative < 0.4, Total Protein 6.9, Albumin 1.8L, Globulin 5.1, Albumin/Globulin Ratio 0.4L 03/03/20 11:51: POC Whole Blood Glucose 196H Height (Feet): 5 Height (Inches): 4.00 Weight (Pounds): 141 General Appearance: no apparent distress EENT: other - T-piece to oxygen Cardiovascular: normal rate Respiratory/Chest: decreased breath sounds Abdomen: distended Objective No change Cornell Coleman MD Mar 03, 2020 14:00
--- NOTE | 2020-03-03 15:53 | NUR ---
NURSE NOTES: Patient being discharged to [facility], family member Roxana Jones notified. Report given to Poncho HAN. Gtube intact. FC intact. IV line intact, to receive last dose of IV meropenem at the snf. No new skin issues noted. No belongings. Transported by ambulance accompanied by ambulance personnel.
[2020-03-03] MEDS ORDERED: Sodium Phosphate 30 MM in NS 275 ML IVPB ONE (16:00)
--- NOTE | 2020-03-04 02:17 | Cardiology Progress Note ---
Subjective DATE OF SERVICE: Mar 03, 2020 On trach collar GTube was replaced and functioning well Minimal secretions Prior therapy with pamidranate for hyperCa++ Lab abnormalities correcting with hypotonic IVF Monitor: sinus rhythm/tachycardia CXR 03/02/20, persisting right sided PNA, with small effusion. Objective Last 24 Hour Vital Signs Date Time Temp Pulse Resp B/P (MAP) Pulse Ox O2 Delivery O2 Flow Rate FiO2 03/03/20 12:00 96.9 64 20 103/65 (78) 98 03/03/20 12:00 10.0 35 03/03/20 12:00 66 03/03/20 09:00 T-piece 10.0 03/03/20 08:35 70 102/63 03/03/20 08:00 99.5 70 20 102/63 (76) 97 03/03/20 08:00 10.0 35 03/03/20 08:00 71 03/03/20 06:55 97 T-Piece 10.0 35 03/03/20 04:00 98.1 67 18 110/69 (83) 98 03/03/20 04:00 10.0 35 03/03/20 04:00 70 ROS: unchanged from my dictation of 02/21/20 HEENT: Thick Trach secretions LUNGS: bilateral rhonchi, trach site clean CARDIAC: normal rate, regular rhythm, normal S1 and S2 ABDOMEN: normal bowel sounds, non tender, soft, G-Tube intact EXTREMITIES: normal range of motion, no swelling, No edema Laboratory Tests Test 03/03/20 05:59 03/03/20 07:19 03/03/20 11:51 POC Whole Blood Glucose Pending 196 MG/DL (74-106) H White Blood Count 6.5 K/UL (4.8-10.8) Red Blood Count 3.93 M/UL (4.70-6.10) L Hemoglobin 10.8 G/DL (14.2-18.0) L Hematocrit 33.4 % (42.0-52.0) L Mean Corpuscular Volume 85 FL (80-99) Mean Corpuscular Hemoglobin 27.4 PG (27.0-31.0) Mean Corpuscular Hemoglobin Concent 32.3 G/DL (32.0-36.0) Red Cell Distribution Width 15.9 % (11.6-14.8) H Platelet Count 351 K/UL (150-450) Mean Platelet Volume 5.9 FL (6.5-10.1) L Neutrophils (%) (Auto) 72.6 % (45.0-75.0) Lymphocytes (%) (Auto) 18.9 % (20.0-45.0) L Monocytes (%) (Auto) 4.9 % (1.0-10.0) Eosinophils (%) (Auto) 2.4 % (0.0-3.0) Basophils (%) (Auto) 1.1 % (0.0-2.0) Erythrocyte Sedimentation Rate 58 MM/HR (0-20) H Sodium Level 139 MMOL/L (136-145) Potassium Level 4.2 MMOL/L (3.5-5.1) Chloride Level 107 MMOL/L (98-107) Carbon Dioxide Level 25 MMOL/L (21-32) Anion Gap 7 mmol/L (5-15) Blood Urea Nitrogen 22 mg/dL (7-18) H Creatinine 0.6 MG/DL (0.55-1.30) Estimat Glomerular Filtration Rate > 60 mL/min (>60) Glucose Level 274 MG/DL (74-106) H Calcium Level 8.8 MG/DL (8.5-10.1) Phosphorus Level 1.6 MG/DL (2.5-4.9) L Magnesium Level 2.3 MG/DL (1.8-2.4) Total Bilirubin 0.4 MG/DL (0.2-1.0) Aspartate Amino Transf (AST/SGOT) 16 U/L (15-37) Alanine Aminotransferase (ALT/SGPT) 22 U/L (12-78) Alkaline Phosphatase 124 U/L (46-116) H C-Reactive Protein, Quantitative < 0.4 mg/dL (0.00-0.90) Total Protein 6.9 G/DL (6.4-8.2) Albumin 1.8 G/DL (3.4-5.0) L Globulin 5.1 g/dL Albumin/Globulin Ratio 0.4 (1.0-2.7) L Assessment/Plan Assessment/Plan Healthcare associated PNA improving Sepsis Recovered shock Hypertension/HHD Respiratory failure with trach Anemia Hypokalemia corrected Leukocytosis improved Dehydration/hypernatremia IRDM uncontrolled Hypophosphatemia Hypercalcemia GTube malfxn - corrected Maintain adequate free water per GTube; monitor lytes. Resp rx Replace K+/Mg++ as needed Nutrition per Gtube Titrate long acting insulin at subacute facility Continue current beta mahi dose DVT prophylaxis Richard Lang MD Mar 04, 2020 02:17
--- NOTE | 2020-03-05 11:13 | Discharge Summary ---
Discharge Summary Discharge Summary _ DATE OF ADMISSION: 02/20/2020 DATE OF DISCHARGE: 03/03/2020 DISCHARGED BY: Dr. Lan REASON FOR ADMISSION: 70 years old male, resident of alf facility, with past medical history of chronic respiratory failure with tracheostomy status, traumatic brain injury with intracranial hemorrhage, encephalopathy, dysphagia, feeding by G- tube, poorly controlled diabetes, bedbound, was sent for evaluation due to hypoxia and fever. Upon evaluation in ED patient was febrile, tachycardic ,tachypneic Laboratory work-up revealed significant leukocytosis WBC 27.7, hemoglobin 12.8, hematocrit 38.5, platelet count 597. Urinalysis revealed +2 protein, +3 leukocyte esterase, pyuria and many bacteria. Sodium 133, chloride 98. BUN 33, creatinine 1.5. Glucose 505. Anion gap 13. Lactic acid 5.2, repeated 4.7. Stable LFT. Troponin negative, pro BNP 216. EKG revealed sinus tachycardia, no acute ischemic changes. Albumin 1.8. Rapid COVID-19 was negative. Chest x-ray demonstrated right lung consolidation, likely pneumonia. In emergency department patient pancultured, received IV fluids, started on empiric antibiotic and admitted to [facility] for further management. CONSULTANTS: claim investigator pulmonary Dr. Salgado ID specialist Dr. Hardy GI specialist Dr. Art disposal operator Dr. Coleman assistant corporate controller/oncologist [facility]. [facility] COURSE: Patient admitted to [facility]. Patient started on empiric antibiotics Tracheostomy care provided. Pulmonary toilet provided. Patient was followed up with chest x-ray. Venous duplex bilateral lower extremity revealed no evidence of acute DVT. CT of the chest revealed extensive right upper lobe and right lower lobe infiltrates, likely pneumonia. Trace bilateral pleural effusion. Left basilar and right middle lobe atelectatic changes. Tracheostomy. Antibiotic further provided as per ID specialist recommendation. Blood cultures were negative. Urine culture revealed Citrobacter. Sputum culture revealed E. coli ESBL, Klebsiella pneumonia ESBL, and Proteus mirabilis. Repeated COVID-19 was negative as well. Patient completed antibiotic while in the hospital. Leukocytosis and fevers resolved. Patient completed antibiotic while in the hospital. Hemodynamic status was closely monitored. At some point patient was severely hypotensive. Patient received IV fluids, and blood pressure responded to the IV fluids ; no need for pressors. Blood pressure was closely monitored and later managed as per claim investigator recom mendation. Blood pressure stabilized. DVT and GI prophylaxis provided. Renal parameters and electrolytes were closely monitored, electrolytes corrected as per disposal operator recommendation, and nephrotoxics were avoided. Prior to discharge BUN 22 creatinine 0.6. All electrolytes stable. Strict aspiration precaution maintained. G-tube feeding continued. Patient was found to have malfunctioning G-tube and subsequently undergone replacement of the G-tube by GI specialist. Tube feeding restarted . G-tube was working well. Patient was able to tolerate tube feeding. Patient was found to have sacral deep tissue injury, present on admission. Wound care provided S per surgeon recommendation ; continue wound care at the facility. Protein supplements provided as per dietitian recommendation. Hemoglobin and hematocrit were closely monitored with goal to keep hemoglobin above 7 ; prior to discharge hemoglobin 10.8, hematocrit 33.4. Stool for occult blood was negative. Anemia work-up was consistent with anemia of chronic disease. Blood sugar was managed with long-acting Levemir and sliding scale of insulin as needed. Blood sugar improved. Hemoglobin A1c 9.5, not at goal. Patient will need further optimization of anti-glycemic regimen at the facility. Supportive care provided. Bowel regimen instituted. 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 DISCHARGE INSTRUCTIONS: Patient was discharged to the alf facility. Follow up with medical doctor at the facility. I have been assigned to dictate discharge summary for this account. I was not involved in the patient's management. Yasmine Carroll NP Mar 05, 2020 11:13
== END 2020-03-03 15:48 | DRG 871 ==
LOC: EDBD 09:49 → EMR 10:20 → EDBEDREQ 10:43 → ICU 10:45 → EDBEDREQ 13:27 → 2W 02-23 20:00 → 2E 02-25 23:41
DX: A41.9 Sepsis, unspecified organism (principal); R65.21 Severe sepsis with septic shock; E43 Unspecified severe protein-calorie malnutrition; J15.9 Unspecified bacterial pneumonia; N39.0 Urinary tract infection, site not specified; E87.1 Hypo-osmolality and hyponatremia; N17.9 Acute kidney failure, unspecified; R40.3 Persistent vegetative state; K94.23 Gastrostomy malfunction; J96.11 Chronic respiratory failure with hypoxia; G93.40 Encephalopathy, unspecified; I50.32 Chronic diastolic (congestive) heart failure; E11.65 Type 2 diabetes mellitus with hyperglycemia; F09 Unspecified mental disorder due to known physiological condition; Z93.0 Tracheostomy status; Z74.01 Bed confinement status; Z20.828 Contact with and (suspected) exposure to other viral communicable diseases; R13.10 Dysphagia, unspecified; Z87.820 Personal history of traumatic brain injury; E87.6 Hypokalemia; I11.0 Hypertensive heart disease with heart failure; D64.9 Anemia, unspecified; E83.52 Hypercalcemia; E86.0 Dehydration; L89.156 Pressure-induced deep tissue damage of sacral region
CPT/HCPCS: 36415; 36600; 71045; 71260; 74018; 76705; 80048; 80053; 81001; 81003; 82009; 82247; 82248; 82270; 82306; 82607; 82728; 82746; 82803; 82962; 83036; 83540; 83550; 83605; 83735; 83880; 83970; 84100; 84450; 84460; 84484; 84550; 85007; 85025; 85060; 85651; 86140; 86703; 86850; 86900; 86901; 87040; 87070; 87081; 87086; 87181; 87205; 92610; 93005; 93970; 94640; 94664; 96361; 96365; 96368; 96375; 99291; J1815; J2430; J7030; J7620; J8499; S5561; U0002